=== PATIENT | female | born 1960 | race African-American/Black ===

== ENCOUNTER 2020-03-21 15:05 | Inpatient (IN) | payer OTHER, SELFPAY ==
[2020-03-21] VITALS (16 sets, daily range): BP systolic 70–157; BP diastolic 50–109; PULSE 60–94; RESP 15–18; TEMP 36.4–36.5; O2SAT 96–100; BMI 22.4
--- NOTE | ~2020-03-21 | XR_ITS ---
EXAMINATION: XR chest 1V portable INDICATION: Shortness of breath, STEMI TECHNIQUE: Portable AP chest at 1554 hours COMPARISON: 11/07/2019 FINDINGS: There is stable cardiomegaly. The lungs are hyperinflated but free of acute opacities. Ther e is no pleural effusion or pneumothorax. A single lead pacemaker/AICD of the left chest wall ends wi th its lead in the right ventricle. A coronary artery stent is noted. IMPRESSION: 1. Stable cardiomegaly. Reviewed, dictated and finalized at location A. IMPRESSION: 1. Stable cardiomegaly.
--- NOTE | ~2020-03-21 | CT_ITS ---
EXAMINATION: CT brain wo con INDICATION: Dizziness and speech difficulty COMPARISON: 11/07/2019 TECHNIQUE: Standard unenhanced head CT. The dose-length product (DLP) was 605.33 mGy-cm. The mA was a djusted according to patient size. Iterative reconstruction technique was employed. FINDINGS: There is no acute intraparenchymal hemorrhage. No evidence of mass lesion. No evidence of a cute infarction. There is encephalomalacia in the left frontotemporal and right frontoparietal region s, consistent with prior infarction. There is mild periventricular and subcortical hypodensity probab ly related to small vessel ischemic disease. There is mild prominence of the sulci and ventricles rel ated to cerebral atrophy. Intracranial calcified cerebral atherosclerosis is noted. There are no extr a-axial collections. There is no mass effect or midline shift. The orbits and soft tissues are unrema rkable. The visualized sinuses and mastoid air cells are well aerated. IMPRESSION: 1. Areas of prior infarction without acute intracranial abnormality. 2. Age related findings. Reviewed, dictated and finalized at location A.
--- NOTE | ~2020-03-21 | XR_ITS ---
XR chest 2V DATE: 03/22/2020 15:35 INDICATION: 24 hours post pacemaker insertion TECHNIQUE: AP and lateral chest COMPARISON: 03/21/2020 portable AP chest FINDINGS: Left AICD pacemaker device, with single lead and right ventricular apex. Cardiomegaly. Aort ic calcification. No hilar or mediastinal enlargement. Bilateral hyperinflation. No pulmonary infiltrate or consolidation, pleural effusion or pulmonary vas cular congestion or pneumothorax. Diffuse osteopenia. IMPRESSION: Left AICD/pacemaker device; no pneumothorax Megaly No active pulmonary disease: Bilateral hyperinflation Reviewed, dictated and finalized at location A.
--- NOTE | 2020-03-21 15:23 | ECG_ITS ---
Measurements Intervals [place] Rate: 150 P: [place]: 0 QRS: 7 QRSD: 116 T: -88 QT: 324 QTc: 512 Interpretive Statements ATRIAL FLUTTER/TACHYCARDIA WITH RAPID VENTRICULAR RESPONSE RSR' IN V1 OR V2, CONSIDER RIGHT VENTRICULAR HYPERTROPHY OR RIGHT VCD POOR R WAVE PROGRESSION, ANTERIOR LEADS INFERIOR INFARCT, AGE INDETERMINATE ST ELEVATION IN ANTERIOR LEADS- CONSIDER ACUTE INJURY BASELINE ARTIFACT- I, III, V5-V6 ABNORMAL ECG Electronically Signed On 03-22-2020 7:14:33 CDT by Julio Cesar Sandra D.O.
--- NOTE | 2020-03-21 15:30 | ECG_ITS ---
Measurements Intervals [place] Rate: 81 P: 77 [place]: 171 QRS: 68 QRSD: 94 T: 0 QT: 354 QTc: 413 Interpretive Statements SINUS RHYTHM ATRIAL AND VENTRICULAR PREMATURE COMPLEXES LEFT ATRIAL ENLARGEMENT LEFT VENTRICULAR HYPERTROPHY WITH ST-T CHANGE POOR R WAVE PROGRESSION, ANTERIOR LEADS INFERIOR INFARCT, CONSIDER RECENT ABNORMAL ECG Electronically Signed On 03-22-2020 7:14:52 CDT by Julio Cesar Sandra D.O.
[2020-03-21] MEDS: AMIODARONE 150 MG/D5W 100 ML 150 MG/100 ML BAG 400 MG (15:31)
[2020-03-21] MEDS: SODIUM CHLORIDE 0.9% IV 1,000 ML 50 ML IV CONT (15:36)
[2020-03-21] MEDS: AMIODARONE 360 MG/D5W 200 ML 360 MG/200 ML BAG 33.3 MG (15:40)
[2020-03-21] MEDS: ASPIRIN 81 MG CHEWABLE TABLET 324 MG PO (15:41)
[2020-03-21 15:42] LABS: Basophils Absolute Auto 0.1 K/mm3 (0.0-0.1); Basophils Percent Auto 0.9 % (0.2-1.2); Eosinophils Absolute Auto 0.2 K/mm3 (0-0.3); Eosinophils Percent Auto 2.5 % (0-4.4); Hematocrit 43.1 % (37.0-47.0); Hemoglobin 13.8 g/dL (12.0-15.0); Immature Granulocyte Absolute 0.02 K/mm3 (0.00-0.031); Immature Granulocyte Percent A 0.3 % (0-0.5); Lymphocytes Absolute Auto 3.91 K/mm3 (0.9-3.2); Lymphocytes Percent Auto 58.4 % (18.3-44.2); Mean Corpuscular Hemoglobin 27.2 pg (26-34); Mean Corpuscular Volume 84.8 fl (80-100); Mean Platelet Volume 10.8 fl (7.4-10.4); Monocytes Absolute Auto 0.3 K/mm3 (0.1-0.6); Monocytes Percent Auto 4.8 % (2.6-8.5); Neutrophils Absolute Auto 2.2 K/mm3 (1.3-6.7); Neutrophils Percent Auto 33.1 % (45.5-73.1); Platelet Count Result 218 k/mm3 (150-375); Red Blood Count 5.08 M/mm3 (4.2-5.4); Red Cell Distribution Width 14.9 % (11.5-14.5); White Blood Count 6.7 K/mm3 (4.5-10.0)
--- NOTE | 2020-03-21 15:45 | PC.NURSE ---
EDP at bedside discussing POC, updating pt, STEMI called overhead [id number].
[2020-03-21 15:53] LABS: Blood Urea Nitrogen 23 mg/dL (7-17); Calcium 9.2 mg/dL (8.4-10.2); Carbon Dioxide 25 mmol/L (22-30); Chloride 107 mmol/L (98-107); Estimated CRCL calculation 45 ml/min; Estimated Glomerular Filt Rate > 60; Glucose 93 mg/dL (65-105); Sodium 138 mmol/L (137-145)
--- NOTE | 2020-03-21 15:57 | PC.NURSE ---
1 INCH Nitro paste applied to right upper back per SUZE Purcell.
--- NOTE | 2020-03-21 16:03 | PC.NURSE ---
VS HR 82, O@ 99% on room air, R 18, BP 158/80. Pt currently having CP, rates it an 06/14. EDP Dr Purcell aware.
--- NOTE | 2020-03-21 16:04 | ED.SOB ---
HPI - SOB/Dyspnea General Chief Complaint: Shortness of Breath/Dyspnea Stated Complaint: SOB WEAK, HESITENT SPEECH Time Seen by Provider: 03/21/20 15:27 History of Present Illness HPI Narrative: Patient presents with her daughter for numerous symptoms. She had some speech difficulty at 9 AM noticed by a relative on the phone. She she had some chest pain at 11 AM. She had some shortness of breath prior to arrival. She has a pacer defibrillator, but she was in ventricular tachycardia when she arrived. The rate was around 170. Amiodarone bolus was given, and she converted to sinus. She had no chest pain at that time. The repeat EKG showed ST elevation in the inferior leads. STEMI was called,. She has had some nausea without this. MD elicited complaint: shortness of breath Pertinent past history: COPD Onset (ago): hour(s) Timing: intermittent Severity: moderate Exacerbating factors: nothing Relieving factors: nothing Known history of: COPD and congestive heart failure Associated symptoms: chest pain and nausea/vomiting Related Data Home oxygen amount: 2 liters Home Medications Medication Instructions Recorded Confirmed aspirin 81 mg tablet,delayed 81 mg PO DAILY 10/01/19 03/16/20 release atorvastatin 80 mg tablet 80 mg PO DAILY 10/01/19 03/16/20 dabigatran etexilate 150 mg capsule 150 mg PO BID 10/01/19 03/16/20 furosemide 20 mg tablet 20 mg PO DAILY PRN tablet 10/01/19 03/16/20 isosorbide mononitrate 60 mg 60 mg PO BID tablet 10/01/19 03/16/20 tablet,extended release 24 hr nitroglycerin 0.4 mg sublingual 0.4 mg SUBLINGUAL Q5M PRN 10/01/19 03/16/20 tablet fluticasone propion-salmeterol 1 inh INHALATION DAILY 11/07/19 03/16/20 [Wixela Inhub] Allergies Allergy/AdvReac Type Severity Reaction Status Date / Time strawberry Allergy Severe Hives Verified 03/21/20 15:46 Review of Systems Review of Systems: Narrative: CONSTITUTIONAL: Denies fever, chills, or sweats. EYES: Denies visual changes, redness, or discharge. ENT: Denies rhinorrhea, congestion, sore throat, or otalgia. CARDIOVASCULAR: Denies or edema. She had chest pain and palpitations prior to arrival. RESPIRATORY: Denies cough . She has had dyspnea.. GASTROINTESTINAL: Denies abdominal pain, vomiting, or diarrhea. She has had nausea. GENITOURINARY: Denies dysuria or hematuria. SKIN: Denies rash or itching. MUSCULOSKELETAL: Denies back pain, joint pain, or myalgia. NEUROLOGIC: Denies headache, numbness, or weakness. PSYCHIATRIC: Denies anxiety or depression. [facility] Past Medical History Medical History Anxiety May 2018 Asthma Atrial fibrillation Chronic systolic (congestive) heart failure CVA (cerebral vascular accident) Elevated troponin Essential (primary) hypertension History of ectopic History of placement of internal cardiac defibrillator Hyperlipidemia Myocardial infarction Pacemaker Paroxysmal atrial fibrillation Peripheral artery disease Sciatica Surgical History Surgical History H/O endoscopy Upper: 05/15/2016 H/O right heart catheterization H/O tubal ligation BL S/P angioplasty with stent Family History Family History Father Family history of malignant neoplasm Sibling Family history of tuberculosis Asthma Mother Hypertension Family history of malignant neoplasm of urinary bladder Social History Social History Social History: The patient stated that she has 5 children. She currently is not employed anywhere. She is single. She does not have a durable power assistant attorney general but wishes to be a full code. Patient continues to smoke 4 cigarettes a day. Years smoked: 40 Smoking status: Current every day smoker Tobacco type: cigarettes Second hand tobacco smoke exposure: Yes Smoking end date:
--- NOTE | 2020-03-21 16:06 | ECG_ITS ---
SINUS RHYTHM WITH SINUS ARRHYTHMIA ATRIAL PREMATURE COMPLEX LEFT ATRIAL ENLARGEMENT LEFT VENTRICULAR HYPERTROPHY WITH ST-T CHANGE POOR R WAVE PROGRESSION, ANTERIOR LEADS INFERIOR INFARCT, AGE INDETERMINATE ABNORMAL ECG Electronically Signed On 03-21-2020 18:15:40 CDT by Julio Cesar Sandra D.O. COMPARED TO ECG 03/21/2020 15:40:16 SINUS ARRHYTHMIA NOW PRESENT MTDD
[2020-03-21] MEDS: MORPHINE SULFATE 2 MG/ML INJ IV PUSH (16:10)
[2020-03-21] MEDS: METOCLOPRAMIDE HCL INJ 10 MG/2 ML VIAL IV PUSH (16:10)
[2020-03-21 16:18] LABS: INR 1.8; Prothrombin Time 20.6 Seconds (11.1-14.7)
[2020-03-21 16:19] LABS: Partial Thromboplastin Time 47.8 SECONDS (22.3-36.8)
[2020-03-21 16:29] LABS: Troponin I 0.071 ng/mL (0.000-0.034)
--- NOTE | 2020-03-21 16:53 | PM.CNCAR ---
Assessment and Plan Additional Plan Atypical chest pain, EKG shows no VT, but rather she was in atrial flutter with RVR on presentation which may have contributed to her pain and dizziness. trop mildly elevated and likely related to cardiomyopathy and atrial flutter. Last device interrogation showed known AF burden was 4.5% of time. Hx of CAD and remote Hx of PCI. currently in sinus rhythm, HTN poorly controlled, plan cont amiodarone infusion, ASA, statin, coreg 12.5 mg BID, NOAC, Lasix, Imdur and lisinopril. serial enzymes. History of Present Illness History of Present Illness Consult date/time: 03/21/20 16:53 Consult reason: atrial fibrillation Reason For Visit: SOB WEAK, HESITENT SPEECH Narrative: Patient presented with chest pain started yesterday, left side, non radiating, sharp, recurrent last for minutes, worse with inspiration and better with holding breath, no relation to activity. She was not able to sleep last night. She has been feeling dizziness all day since today morning, not associated with SOB. She is known to have AF per last device interrogation. She also had cardiomyopathy with ICD in place. Hx of PCI in 2013 per ptn. Review of Systems Review of Systems: All systems reviewed & are unremarkable except as noted in HPI and below PMFSH Past Medical History Medical History Anxiety May 2018 Asthma Atrial fibrillation Chronic systolic (congestive) heart failure CVA (cerebral vascular accident) Elevated troponin Essential (primary) hypertension History of ectopic History of placement of internal cardiac defibrillator Hyperlipidemia Myocardial infarction Pacemaker Paroxysmal atrial fibrillation Peripheral artery disease Sciatica Surgical History Surgical History H/O endoscopy Upper: 05/15/2016 H/O right heart catheterization H/O tubal ligation BL S/P angioplasty with stent Family History Family History Father Family history of malignant neoplasm Sibling Family history of tuberculosis Asthma Mother Hypertension Family history of malignant neoplasm of urinary bladder Social History Social History Social History: The patient stated that she has 5 children. She currently is not employed anywhere. She is single. She does not have a durable power assistant attorney general but wishes to be a full code. Patient continues to smoke 4 cigarettes a day. Years smoked: 40 Smoking status: Current every day smoker Tobacco type: cigarettes Second hand tobacco smoke exposure: Yes Smoking end date: 11/05/15 Alcohol intake: never Substance use: never Gender identity (if verbalized by the patient): Male Spiritual care concerns: No Meds Home Medications and Allergies Home Medications Medication Instructions Recorded Confirmed Type aspirin 81 mg tablet,delayed 81 mg PO DAILY 10/01/19 03/16/20 History release atorvastatin 80 mg tablet 80 mg PO DAILY 10/01/19 03/16/20 History dabigatran etexilate 150 mg capsule 150 mg PO BID 10/01/19 03/16/20 History furosemide 20 mg tablet 20 mg PO DAILY PRN tablet 10/01/19 03/16/20 History isosorbide mononitrate 60 mg 60 mg PO BID tablet 10/01/19 03/16/20 History tablet,extended release 24 hr nitroglycerin 0.4 mg sublingual 0.4 mg SUBLINGUAL Q5M PRN 10/01/19 03/16/20 History tablet fluticasone propion-salmeterol 1 inh INHALATION DAILY 11/07/19 03/16/20 History [Wixela Inhub] carvedilol [Coreg] 12.5 mg PO BID 30 Days #30 tablet 11/09/19 03/16/20 Rx lisinopril 10 mg PO DAILY 30 Days #30 tablet 11/09/19 03/16/20 Rx ondansetron HCl 4 mg PO Q8H PRN #20 tablet 11/09/19 03/16/20 Rx roflumilast 500 mcg tablet 500 mcg PO DAILY #30 tablet 12/08/19 03/16/20 Rx ipratropium bromide 17 2 puff INHALATION QID #1 inhalation 12/10/19 03/16/20 Rx mcg/actuati
--- NOTE | 2020-03-21 18:58 | ADMGEN ---
This patient, Lisa Díaz, was admitted to IMU Room 213-01 on 03/21/20 at 1858. Patient/family oriented to hospital policies and general routines including ID bracelet, bed and alarms, visiting hours, pain management, procedures, bathroom and other care routines, personal items, smoking policy, room service/diet, and visiting hours. Valuables list has been completed. Information on how to activate the Rapid Response Team has been discussed. Patient/Family are encouraged to report perceived risks to care and to ask questions if they do not understand what they are told or what they should do.
[2020-03-21 19:20] LABS: Troponin I 0.059 ng/mL (0.000-0.034)
--- NOTE | 2020-03-21 19:30 | PM.IMHP ---
H&P: HPI History of Present Illness Chief complaint: Weakness, shortness of breath. Narrative: Lisa Díaz is a 59-year-old female with a complex medical history to include coronary artery disease, paroxysmal atrial fibrillation, ischemic cardiomyopathy status post PM/AICD, COPD, obstructive sleep apnea, chronic respiratory failure on p.r.n. oxygen, hypertension, and history of CVA who presented to the emergency department earlier today via EMS from home for evaluation of shortness of breath and weakness. She has not been feeling well for the past 3 days, and describes vague symptoms to include occasional dizziness, decreased appetite, nausea, an intermittent and diffuse throbbing headache, rhinorrhea, postnasal drip, dry cough, and dyspnea on exertion. This morning her niece was concerned as reportedly the patient seemed to have some difficulties with speech while they were having a conversation over the phone. The patient herself did not recognize that, however, and seems to have normal speech at this time. She does mention that with her stroke a couple of years ago that she suffered from dysarthria, and at times when she is sick or tired that she will have some hesitant speech. In any regard, at around 11:00 she developed fairly sudden onset of midsternal chest discomfort that she describes as throbbing and occasionally sharp in nature associated with increasing shortness of breath. Her symptoms continued for several hours and thus she called her daughter to bring her in for evaluation. When prompted, the patient admits to having a similar episode yesterday evening, and in fact slept poorly last night due to this midsternal chest discomfort. On arrival to the emergency department she was found to be in atrial flutter with rapid ventricular response with a rate near 170 beats per minute for which she was bolused with amiodarone and gnosticist of sinus rhythm. Initially it was thought that she was perhaps in ventricular tachycardia and that her EKG demonstrated ST elevation, however Dr. Dillard feels that she was in atrial flutter with rapid ventricular response and that there was no ST elevation. At the time my evaluation, she feels better but still has some shortness of breath. She states compliance with her home inhalers and nebulizers, however says she has not been using her p.r.n. oxygen. She denies fever, chills, and sweats. She has not left the house much, and if she is in public she will wear a face mask. She denies recent travel and sick contacts. No exposure to those who have tested positive for COVID-19. She also denies vertigo, auditory and visual changes, focal weakness, and paresthesias. No pleuritic pain or edema. Review of Systems Review of Systems: Narrative: Twelve systems were reviewed with pertinent positives and negatives as per HPI. No fever, chills, or sweats. Denies dysphagia. No abdominal pain or vomiting. She denies diarrhea and constipation. No dysuria. States compliance with CPAP. No history of venous thromboembolism. Except as documented, all other systems were reviewed and are negative. [facility] Past Medical History Medical History (Updated 03/21/20 @ 21:18 by Elena Bender PA-C) Anxiety Cerebrovascular accident Presenting with dysarthria and dysphagia, improved. Chronic obstructive pulmonary disease Chronic respiratory failure with hypoxia, on home oxygen therapy On p.r.n. oxygen. Coronary artery disease Followed by [facility] in [place], [place]. Elevated troponin Essential hypertension History of ectopic Hyperlipidemia Ischemic cardiomyopathy Status post PPM/AICD insertion. 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
[2020-03-21] MEDS: ALBUTEROL SULFATE NEB 2.5 MG/3 ML INH INHALATION (20:55)
[2020-03-21] MEDS: lisinopriL 10 MG TABLET PO (21:06)
[2020-03-21] MEDS: carvediloL 12.5 MG TABLET PO (21:06)
[2020-03-21] MEDS: ACETAMINOPHEN 325 MG TABLET 650 MG PO (21:06)
[2020-03-21] MEDS: DABIGATRAN ETEXILATE 150 MG CAPSULE PO (21:06)
[2020-03-21] MEDS: AMIODARONE 360 MG/D5W 200 ML 360 MG/200 ML BAG 16.7 MG IV CONT (21:51)
[2020-03-21 22:21] LABS: Magnesium 1.7 mg/dL (1.6-2.3); Phosphorus 4.1 mg/dL (2.5-4.5)
[2020-03-21 22:22] LABS: Alanine Aminotransferase 10 U/L (4-35); Alkaline Phosphatase 91 U/L (38-126); Aspartate Amino Transferase 21 U/L (14-36); Bilirubin,Total < 0.1 mg/dL (0.2-1.3)
[2020-03-21 22:35] LABS: Troponin I 0.071 ng/mL (0.000-0.034)
--- NOTE | 2020-03-21 22:39 | PC.NURSE ---
Heart rate dropped to 39 and sustaining in low 40s. Amiodarone drip stopped and call placed to Elena KELLEY. Waiting for return call. Pt alert and oriented no s/s of distress.
--- NOTE | 2020-03-21 22:51 | ECG_ITS ---
Measurements Intervals [place] Rate: 43 P: 90 [place]: 187 QRS: 71 QRSD: 108 T: 180 QT: 496 QTc: 420 Interpretive Statements SINUS BRADYCARDIA LEFT ATRIAL ENLARGEMENT POOR R WAVE PROGRESSION, ANTERIOR LEADS INFERIOR INFARCT, AGE INDETERMINATE ST ELEVATION IN ANTEROLATERAL LEADS- CONSIDER ACUTE INJURY ABNORMAL ECG Electronically Signed On 03-22-2020 7:19:47 CDT by Julio Cesar Sandra D.O.
[2020-03-21] MEDS: SODIUM CHLORIDE 0.9% IV 250 ML 999 ML IV CONT (23:45)
[2020-03-22] VITALS (33 sets, daily range): BP systolic 97–126; BP diastolic 8–66; PULSE 47–86; RESP 16–20; TEMP 35.9–36.6; O2SAT 95–100
--- NOTE | 2020-03-22 06:33 | ECG_ITS ---
Measurements Intervals [place] Rate: 79 P: 86 [place]: 201 QRS: 56 QRSD: 100 T: 75 QT: 403 QTc: 463 Interpretive Statements SINUS RHYTHM LEFT ATRIAL ENLARGEMENT INFERIOR INFARCT, AGE INDETERMINATE LEFT VENTRICULAR HYPERTROPHY AND ST-T CHANGE POOR R WAVE PROGRESSION, ANTERIOR LEADS BORDERLINE T WAVE ABNORMALITY- HIGH LATERAL LEADS BASELINE ARTIFACT- I, II, AVR, AVL ABNORMAL ECG Electronically Signed On 03-22-2020 10:10:42 CDT by Julio Cesar Sandra D.O.
[2020-03-22] MEDS: ALBUTEROL SULFATE NEB 2.5 MG/3 ML INH INHALATION ×4 (08:03→20:52)
[2020-03-22] MEDS: ACETAMINOPHEN 325 MG TABLET 650 MG PO ×3 (09:29→23:33)
--- NOTE | 2020-03-22 09:37 | PM.PNCARD ---
Progress Note: A&P Assessment and Plan (1) Atrial flutter with rapid ventricular response: Code(s): I48.92 - Unspecified atrial flutter Status: Acute Assessment and Plan: Converted to sinus rhythm/sinus bradycardia with hypotension. Blood pressure better this morning. ICD interrogation done. Device is functioning normally. Greater than 6 hours of atrial arrhythmia yesterday. Has some episodes of atrial fibrillation intermittently. Continue carvedilol 12.5 mg b.i.d.. Continue Pradaxa 150 mg b.i.d.. As she was so symptomatic with the atrial flutter will start amiodarone 400 mg daily. Monitor heart rates. EKG tomorrow. (2) Chest pain: Qualifiers: Chest pain type: other chest pain Qualified Code(s): R07.89 - Other chest pain Code(s): R07.9 - Chest pain, unspecified Status: Acute Assessment and Plan: Atypical. Flat troponin elevation likely related to cardiomyopathy and atrial flutter. Nitro paste patch removed from upper back. Continue aspirin, atorvastatin, carvedilol and lisinopril. Hold isosorbide mononitrate today due to hypotension yesterday. Additional Plan Plan discussed with Dr Levi 12:00 p.m. 03/22/2020 Complaining of dizziness again this afternoon. Blood pressure is soft. States she takes lisinopril only once a day. Will decrease to 5 mg daily. Stop Imdur. Stressed that she will need to follow up with her established manager support services in [place] within the next 2 weeks. Time Spent With Patient Time with patient: 15 - 25 minutes Subjective Date/time seen: 03/22/20 09:37 Interval history: Follow-up for: Atrial flutter with rapid ventricular response-resolved, atypical chest pain, elevated troponin, history of coronary artery disease, ischemic cardiomyopathy with ventral single-chamber ICD. Date of service: 03/22/2020 Subjective: Usual sharp shooting chest discomfort intermittently. Denied shortness of breath. Complains of dizziness. Review of Systems Eyes: Eyes: Denies blurry vision ENT: Reports Normal hearing present, Reports dizziness (resolved) and Denies epistaxis Cardiovascular: Cardiovascular: Reports chest pain (atypical), Reports lightheadedness (resolved) and Denies dyspnea Respiratory: Respiratory: Reports cough and Denies dyspnea Gastrointestinal: Gastrointestinal: Denies abdominal pain and Reports bloating Genitourinary: Genitourinary: Denies hematuria Musculoskeletal: Musculoskeletal: Denies back pain Integumentary/Breasts: Skin/Breast: Reports dry skin Neurologic: Reports headache(s) Psychiatric: Psychiatric: Denies anxiety Exam Const: General: comfortable and no acute distress Other: Laying flat in bed on room air. HENMT: General nose exam: Normal nares present and no epistaxis Mouth: Yes moist mucous membranes Eyes: Sclera: sclerae normal Pupils: Equal, round and reactive pupils present Neck: Neck: supple and no JVD Resp: Effort & Inspection: normal respiratory effort and able to speak in complete sentences Auscultation: no wheezes and diminished lung sounds Cardio: Jugular venous distension: no JVD Rate: regular rate Rhythm: regular rhythm Heart sounds: no gallops, no murmurs and no rubs Peripheral pulses: Peripheral pulses 2+ throughout GI: Inspection: non-distended GI Palp: Yes Soft to palpation Auscultation: normal bowel sounds Skin: General skin exam: normal color, no rashes or lesions noted and no erythema Other: Warm Neuro: General: patient oriented x3 Cranial nerves: Yes Equal, round and reactive pupils present Speech: normal speech Other: Extrem: General: normal to inspection and no edema Psych: Mental Status: mental status grossly normal Affect: normal affect Objective Data Vital Signs Vital Signs: Vital Signs - 24 hr 03/21/20 15:08 03/21/20 15:44 03/21/20 16:30 Temperature 36.4 C Pulse Rate 90 94
[2020-03-22] MEDS: DABIGATRAN ETEXILATE 150 MG CAPSULE PO ×2 (11:53→20:58)
[2020-03-22] MEDS: ASPIRIN 81 MG ENTERIC TABLET PO (11:54)
[2020-03-22] MEDS: ROFLUMILAST 500 MCG TABLET PO (11:54)
[2020-03-22] MEDS: ATORVASTATIN 40 MG TABLET 80 MG PO (11:54)
[2020-03-22] MEDS: lisinopriL 10 MG TABLET PO (11:55)
[2020-03-22] MEDS: carvediloL 12.5 MG TABLET PO ×2 (11:55→20:58)
--- NOTE | 2020-03-22 17:11 | P.PNIM_ITS ---
Progress Note: A&P Assessment and Plan (1) Atrial flutter with rapid ventricular response: Code(s): I48.92 - Unspecified atrial flutter Status: Acute Assessment and Plan: * Initially it was thought she was in ventricular tachycardia however Dr. Wilda Croft feels it was atrial flutter with rapid ventricular response. * She was bolused with amiodarone with subsequent baptist of sinus rhythm, and we will continue with infusion of such. * She has a history of atrial fibrillation and is on Pradaxa, which will also be continued. * Dr. Dillard's consult is appreciated. 03/22/20 17:11 Patient 59 female with history ischemic cardiomyopathy ICD, poorly-controlled hypertension, coronary artery disease, atrial fibrillation, patient had been feeling not well for last 3 days prior to coming to emergency department however symptoms were getting progressively worse tired and fatigue was brought to the emergency department further evaluation she was found to have atrial flutter with rate to 170, patient was given bolus of amiodarone and continued on the drip patient did converted back to sinus rhythm, ICD interrogation was done and it is functioning normally. Today patient is feeling much better compared to when she arrived patient is seen by operations specialists Coreg 12.5 mg continue and amiodarone 400 mg is added, patient clinically stable will continue to monitor and patient is seen by operations specialists further recommendation to follow, will have a PT OT evaluate the patient and treat (2) Elevated troponin: Code(s): R79.89 - Other specified abnormal findings of blood chemistry Status: Acute Assessment and Plan: * Patient was having some mild discomfort earlier today, likely related to RVR. * STEMI initially called in the emergency department but no evidence of such per Dr. Dillard. * Troponins will be trended, and have remained flat thus far. (3) Dysarthria: Code(s): R47.1 - Dysarthria and anarthria Status: Acute Assessment and Plan: * Reportedly she had a brief episode of dysarthria this morning while speaking with her niece on the phone. * She does have paroxysmal atrial fibrillation/flutter but is on long-term anticoagulation. * She has no deficits at this time, and thus MRI is not necessarily indicated as she likely had a TIA. * Continue maximum medical treatment including aspirin, dabigatran, and statin. (4) Ischemic cardiomyopathy: Code(s): I25.5 - Ischemic cardiomyopathy Status: Acute Assessment and Plan: * Patient is followed by [facility] in [place]. * Echocardiogram in August 2019 reviewed and is as detailed above. * She is clinically compensated and we will monitor volume status closely. * Interrogate PM/ICD. (5) Chronic obstructive pulmonary disease: Code(s): J44.9 - Chronic obstructive pulmonary disease, unspecified Status: Acute Assessment and Plan: * No acute exacerbation at this time. * Continue home inhalers and nebulizers. * Shortness of breath earlier today was likely related to RVR as she has improved. (6) Obstructive sleep apnea on CPAP: Code(s): G47.33 - Obstructive sleep apnea (adult) (pediatric); Z99.89 - Dependence on other enabling machines and devices Status: Acute Assessment and Plan: * Hos
--- NOTE | 2020-03-22 17:11 | PM.IMPN ---
Progress Note: A&P Assessment and Plan (1) Atrial flutter with rapid ventricular response: Code(s): I48.92 - Unspecified atrial flutter Status: Acute Assessment and Plan: Initially it was thought she was in ventricular tachycardia however Dr. Wilda Croft feels it was atrial flutter with rapid ventricular response. She was bolused with amiodarone with subsequent rastafarian of sinus rhythm, and we will continue with infusion of such. She has a history of atrial fibrillation and is on Pradaxa, which will also be continued. Dr. Dillard's consult is appreciated. 03/22/20 17:11 Patient 59 female with history ischemic cardiomyopathy ICD, poorly-controlled hypertension, coronary artery disease, atrial fibrillation, patient had been feeling not well for last 3 days prior to coming to emergency department however symptoms were getting progressively worse tired and fatigue was brought to the emergency department further evaluation she was found to have atrial flutter with rate to 170, patient was given bolus of amiodarone and continued on the drip patient did converted back to sinus rhythm, ICD interrogation was done and it is functioning normally. Today patient is feeling much better compared to when she arrived patient is seen by strap cutting machine operator Coreg 12.5 mg continue and amiodarone 400 mg is added, patient clinically stable will continue to monitor and patient is seen by strap cutting machine operator further recommendation to follow, will have a PT OT evaluate the patient and treat (2) Elevated troponin: Code(s): R79.89 - Other specified abnormal findings of blood chemistry Status: Acute Assessment and Plan: Patient was having some mild discomfort earlier today, likely related to RVR. STEMI initially called in the emergency department but no evidence of such per Dr. Dillard. Troponins will be trended, and have remained flat thus far. (3) Dysarthria: Code(s): R47.1 - Dysarthria and anarthria Status: Acute Assessment and Plan: Reportedly she had a brief episode of dysarthria this morning while speaking with her niece on the phone. She does have paroxysmal atrial fibrillation/flutter but is on long-term anticoagulation. She has no deficits at this time, and thus MRI is not necessarily indicated as she likely had a TIA. Continue maximum medical treatment including aspirin, dabigatran, and statin. (4) Ischemic cardiomyopathy: Code(s): I25.5 - Ischemic cardiomyopathy Status: Acute Assessment and Plan: Patient is followed by [facility] in [place]. Echocardiogram in August 2019 reviewed and is as detailed above. She is clinically compensated and we will monitor volume status closely. Interrogate PM/ICD. (5) Chronic obstructive pulmonary disease: Code(s): J44.9 - Chronic obstructive pulmonary disease, unspecified Status: Acute Assessment and Plan: No acute exacerbation at this time. Continue home inhalers and nebulizers. Shortness of breath earlier today was likely related to RVR as she has improved. (6) Obstructive sleep apnea on CPAP: Code(s): G47.33 - Obstructive sleep apnea (adult) (pediatric); Z99.89 - Dependence on other enabling machines and devices Status: Acute Assessment and Plan: Hospital CPAP available to the patient for use while sleeping. (7) Tobacco dependence: Code(s): F17.200 - Nicotine dependence, unspecified, uncomplicated Status: Acute Assessment and Plan: Smoking cessation is imperative and was discussed. She mentions having a lengthy discussion with her
[2020-03-22] MEDS: GABAPENTIN 400 MG CAPSULE PO (17:30)
[2020-03-22] MEDS: AMIODARONE HCL 200 MG TABLET 400 MG PO (17:30)
[2020-03-23] VITALS (12 sets, daily range): BP systolic 120–154; BP diastolic 59–81; PULSE 57–70; RESP 16–22; TEMP 36.1–36.2; O2SAT 99–100
[2020-03-23] MEDS: ACETAMINOPHEN 325 MG TABLET 650 MG PO (07:14)
--- NOTE | 2020-03-23 08:00 | ECG_ITS ---
Measurements Intervals [place] Rate: 66 P: 84 MA: 185 QRS: 63 QRSD: 94 T: 71 QT: 416 QTc: 438 Interpretive Statements SINUS RHYTHM LEFT ATRIAL ENLARGEMENT LEFT VENTRICULAR HYPERTROPHY WITH ST-T CHANGE POOR R WAVE PROGRESSION, ANTERIOR LEADS INFERIOR INFARCT, AGE INDETERMINATE BORDERLINE T WAVE ABNORMALITY- HIGH LATERAL LEADS BASELINE ARTIFACT- I, II, AVR, AVL, AVF ABNORMAL ECG Electronically Signed On 03-23-2020 11:29:38 CDT by Julio Cesar Sandra D.O.
[2020-03-23] MEDS: ALBUTEROL SULFATE NEB 2.5 MG/3 ML INH INHALATION ×2 (08:47→12:47)
[2020-03-23] MEDS: ASPIRIN 81 MG ENTERIC TABLET PO (09:00)
[2020-03-23] MEDS: DABIGATRAN ETEXILATE 150 MG CAPSULE PO (09:00)
[2020-03-23] MEDS: GABAPENTIN 400 MG CAPSULE PO ×2 (09:00→14:14)
[2020-03-23] MEDS: ROFLUMILAST 500 MCG TABLET PO (09:00)
[2020-03-23] MEDS: AMIODARONE HCL 200 MG TABLET 400 MG PO (09:00)
[2020-03-23] MEDS: carvediloL 12.5 MG TABLET PO (09:01)
[2020-03-23] MEDS: lisinopriL 5 MG TABLET PO (09:01)
[2020-03-23] MEDS: ATORVASTATIN 40 MG TABLET 80 MG PO (09:02)
--- NOTE | 2020-03-23 11:53 | PM.PNCARD ---
Progress Note: A&P Assessment and Plan (1) Atrial flutter with rapid ventricular response: Code(s): I48.92 - Unspecified atrial flutter Status: Acute Assessment and Plan: Converted to sinus rhythm/sinus bradycardia with hypotension. ICD interrogation done. Device is functioning normally. Greater than 6 hours of atrial arrhythmia yesterday. Has some episodes of atrial fibrillation intermittently. TSH within normal limits. Continue carvedilol 12.5 mg b.i.d.. Continue Pradaxa 150 mg b.i.d.. As she was so symptomatic with the atrial flutter amiodarone 400 mg daily started. No significant bradycardia overnight. EKG this morning: QTC 438 milliseconds. Will continue amiodarone at 400 mg daily to suppress the atrial flutter. Stressed the importance of her following up with her established call center recruiter within the next 2 weeks. (2) Chest pain: Qualifiers: Chest pain type: other chest pain Qualified Code(s): R07.89 - Other chest pain Code(s): R07.9 - Chest pain, unspecified Status: Acute Assessment and Plan: Atypical. Flat troponin elevation likely related to cardiomyopathy and atrial flutter. Denied chest discomfort today. Continue aspirin, atorvastatin, carvedilol and lisinopril. Isosorbide mononitrate held due to hypotension and dizziness yesterday. No chest discomfort. Would not restart at this time. Again she is to follow up with her established call center recruiter 1-2 weeks. (3) Ischemic cardiomyopathy: Code(s): I25.5 - Ischemic cardiomyopathy Status: Acute Assessment and Plan: Continue carvedilol at 12.5 mg b.i.d.. Isosorbide mononitrate discontinued. Lisinopril decreased to 5 mg daily due to soft blood pressure accompanied by dizziness. Additional Plan OK to discharge from cardiac standpoint. She is to make an appointment to follow up with her established call center recruiter in the next 2 weeks She is to take her lab work as well as samples of her EKGs to her appointment. Plan discussed Dr. Cobos [id number] 03/23/2020 Time Spent With Patient Time with patient: less than 15 minutes Subjective Date/time seen: 03/23/20 11:53 Interval history: Follow-up for: Atrial flutter with rapid ventricular response-resolved, atypical chest pain, elevated troponin, history of coronary artery disease, ischemic cardiomyopathy with ventral single-chamber ICD. Date of service: 03/23/2020 Subjective: Feeling much better than yesterday. Headache almost completely resolved. No dizziness, chest discomfort or shortness of breath. Wants to go home. Review of Systems Constitutional: Constitutional: Reports headache(s) (Almost gone) Eyes: Eyes: Denies blurry vision ENT: Reports Normal hearing present, Reports dizziness (resolved), Reports headache(s) and Denies epistaxis Cardiovascular: Cardiovascular: Denies chest pain, Denies lightheadedness and Denies dyspnea Respiratory: Respiratory: Denies cough and Denies dyspnea Gastrointestinal: Gastrointestinal: Denies abdominal pain Genitourinary: Genitourinary: Denies hematuria Musculoskeletal: Musculoskeletal: Denies back pain Integumentary/Breasts: Skin/Breast: Reports dry skin Neurologic: Reports Normal hearing present, Reports dizziness (resolved) and Reports headache(s) Psychiatric: Psychiatric: Denies anxiety Hematologic/Lymphatic: Hematologic/Lymphatic: Denies easy bruising Exam Const: General: comfortable and no acute distress Orientation/consciousness: patient oriented x3 Other: Smiling. Laying flat in bed again this morning on room air. HENMT: General nose exam: Normal nares present and no epistaxis Mouth: Yes moist mucous membranes Eyes: Sclera: sclerae normal Pupils: Equal, round and reactive pupils present Neck: Neck: supple and no JVD Carotids: no bruits Resp: Effort & Inspection: normal respiratory effort and able to speak
[2020-03-23 13:13] LABS: Hematocrit 38.2 % (37.0-47.0); Hemoglobin 12.2 g/dL (12.0-15.0); Mean Corpuscular HGB Conc 31.9 g/dl (32-36); Mean Corpuscular Hemoglobin 27.1 pg (26-34); Mean Corpuscular Volume 84.9 fl (80-100); Mean Platelet Volume 11.6 fl (7.4-10.4); Platelet Count Result 173 k/mm3 (150-375); Red Cell Distribution Width 14.9 % (11.5-14.5)
[2020-03-23 13:29] LABS: Blood Urea Nitrogen 11 mg/dL (7-17); Calcium 9.3 mg/dL (8.4-10.2); Carbon Dioxide 22 mmol/L (22-30); Chloride 109 mmol/L (98-107); Estimated CRCL calculation 50 ml/min; Estimated Glomerular Filt Rate > 60; Glucose 104 mg/dL (65-105); Magnesium 1.9 mg/dL (1.6-2.3); Sodium 137 mmol/L (137-145)
--- NOTE | 2020-03-23 13:41 | PM.DS ---
DS: Summary Hospital Course Reason for hospitalization: Lisa Díaz is a 59-year-old female with a complex medical history to include coronary artery disease, paroxysmal atrial fibrillation, ischemic cardiomyopathy status post PM/AICD, COPD, obstructive sleep apnea, chronic respiratory failure on p.r.n. oxygen, hypertension, and history of CVA who presented to the emergency department earlier today via EMS from home for evaluation of shortness of breath and weakness. She has not been feeling well for the past 3 days, and describes vague symptoms to include occasional dizziness, decreased appetite, nausea, an intermittent and diffuse throbbing headache, rhinorrhea, postnasal drip, dry cough, and dyspnea on exertion. This morning her niece was concerned as reportedly the patient seemed to have some difficulties with speech while they were having a conversation over the phone. The patient herself did not recognize that, however, and seems to have normal speech at this time. She does mention that with her stroke a couple of years ago that she suffered from dysarthria, and at times when she is sick or tired that she will have some hesitant speech. In any regard, at around 11:00 she developed fairly sudden onset of midsternal chest discomfort that she describes as throbbing and occasionally sharp in nature associated with increasing shortness of breath. Her symptoms continued for several hours and thus she called her daughter to bring her in for evaluation. When prompted, the patient admits to having a similar episode yesterday evening, and in fact slept poorly last night due to this midsternal chest discomfort. On arrival to the emergency department she was found to be in atrial flutter with rapid ventricular response with a rate near 170 beats per minute for which she was bolused with amiodarone and voodoo of sinus rhythm. Initially it was thought that she was perhaps in ventricular tachycardia and that her EKG demonstrated ST elevation, however Dr. Dillard feels that she was in atrial flutter with rapid ventricular response and that there was no ST elevation. At the time my evaluation, she feels better but still has some shortness of breath. She states compliance with her home inhalers and nebulizers, however says she has not been using her p.r.n. oxygen. She denies fever, chills, and sweats. She has not left the house much, and if she is in public she will wear a face mask. She denies recent travel and sick contacts. No exposure to those who have tested positive for COVID-19. She also denies vertigo, auditory and visual changes, focal weakness, and paresthesias. No pleuritic pain or edema. Hospital Course: 03/22/20 17:11 Patient 59 female with history ischemic cardiomyopathy ICD, poorly-controlled hypertension, coronary artery disease, atrial fibrillation, patient had been feeling not well for last 3 days prior to coming to emergency department however symptoms were getting progressively worse tired and fatigue was brought to the emergency department further evaluation she was found to have atrial flutter with rate to 170, patient was given bolus of amiodarone and continued on the drip patient did converted back to sinus rhythm, ICD interrogation was done and it is functioning normally. Today patient is feeling much better compared to when she arrived patient is seen by technical services coordinator Coreg 12.5 mg continue and amiodarone 400 mg is added, patient clinically stable will continue to monitor and patient is seen by technical services coordinator further recommendation to follow, will have a PT OT evaluate the patient and treat, Patient is clincially stable and seen by her technical services coordinator, will discharge today. Status at Discharge Functional status at discharge: independent ambulation Overall status at discharge: patient is back to baseline Time Spent with Patient Time attestation: Total time spent providing and/or coordinating discharge services: Patient was seen and
== END 2020-03-23 15:10 | disposition home or self-care (01) | DRG 201 ==
LOC: ANHED 18:19 → ANHIMU 18:45
PROVIDERS: Physician Assistant; Admitting Provider Family Medicine; Emergency Provider Emergency Medicine; PCP Internal Medicine; Visit Provider Family Medicine
DX: I48.92 Unspecified atrial flutter (principal); J96.11 Chronic respiratory failure with hypoxia; Z99.81 Dependence on supplemental oxygen; I11.0 Hypertensive heart disease with heart failure; I50.22 Chronic systolic (congestive) heart failure; I48.0 Paroxysmal atrial fibrillation; I25.10 Atherosclerotic heart disease of native coronary artery without angina pectoris; I25.5 Ischemic cardiomyopathy; R07.89 Other chest pain; J44.9 Chronic obstructive pulmonary disease, unspecified; F17.210 Nicotine dependence, cigarettes, uncomplicated; I73.9 Peripheral vascular disease, unspecified; R79.89 Other specified abnormal findings of blood chemistry; E78.5 Hyperlipidemia, unspecified; R47.1 Dysarthria and anarthria; Z79.82 Long term (current) use of aspirin; Z79.899 Other long term (current) drug therapy; Z86.73 Personal history of transient ischemic attack (TIA), and cerebral infarction without residual deficits; Z95.810 Presence of automatic (implantable) cardiac defibrillator; Z95.5 Presence of coronary angioplasty implant and graft
CPT/HCPCS: 36415; 70450; 71045; 71046; 80048; 80076; 83735; 84100; 84443; 84484; 85025; 85027; 85610; 85730; 93005; 94640; 96365; 96366; 96375; 99291; A9270; J0282; J2270; J2765; J7030; J7050

== ENCOUNTER 2020-06-10 10:52 | Observation (INO) | payer OTHER, SELFPAY ==
[2020-06-10] VITALS (13 sets, daily range): BP systolic 110–167; BP diastolic 54–84; PULSE 52–66; RESP 16–24; TEMP 36.1–37; O2SAT 96–100; BMI 22.2
--- NOTE | ~2020-06-10 | XR_ITS ---
EXAMINATION: XR chest 2V DATE: 06/10/2020 11:39 INDICATION: Acute midsternal chest pain and shortness of breath TECHNIQUE: AP and lateral views of the chest are obtained. COMPARISON: 03/22/2020 FINDINGS: There are minimal airspace opacities of the lung bases. No pleural effusion or pneumothorax is identified. Cardiomegaly is noted. There are coronary artery stents. A single lead pacemaker/AICD of the left chest wall ends with its lead in the right ventricle. There is moderate thoracic spondyl osis. IMPRESSION: 1. Bibasilar airspace opacity, consistent with atelectasis versus pneumonia. 2. Cardiomegaly. Reviewed, dictated and finalized at location A.
--- NOTE | 2020-06-10 10:59 | ECG_ITS ---
Measurements Intervals [place] Rate: 53 P: 91 [place]: 176 QRS: 66 QRSD: 96 T: 0 QT: 456 QTc: 430 Interpretive Statements SINUS BRADYCARDIA LEFT ATRIAL ENLARGEMENT POOR R WAVE PROGRESSION, ANTERIOR LEADS CONSIDER INFERIOR INFARCT, AGE INDETERMINATE BORDERLINE T WAVE ABNORMALITY- INF/HIGH LAT LEADS BASELINE ARTIFACT- I, II, III, V5-V6 ABNORMAL ECG Electronically Signed On 06-10-2020 11:13:29 CDT by Julio Cesar Sandra D.O.
--- NOTE | 2020-06-10 11:10 | PC.NURSE ---
RN report From
[2020-06-10] MEDS: MORPHINE SULFATE 2 MG/ML INJ IV PUSH (11:55)
[2020-06-10 11:58] LABS: Basophils Percent Auto 0.6 % (0.2-1.2); Eosinophils Absolute Auto 0.1 K/mm3 (0-0.3); Eosinophils Percent Auto 1.9 % (0-4.4); Hemoglobin 10.8 g/dL (12.0-15.0); Immature Granulocyte Absolute 0.01 K/mm3 (0.00-0.031); Immature Granulocyte Percent A 0.2 % (0-0.5); Lymphocytes Absolute Auto 2.02 K/mm3 (0.9-3.2); Lymphocytes Percent Auto 41.9 % (18.3-44.2); Mean Corpuscular HGB Conc 30.9 g/dl (32-36); Mean Corpuscular Hemoglobin 26.6 pg (26-34); Mean Corpuscular Volume 86.2 fl (80-100); Mean Platelet Volume 10.6 fl (7.4-10.4); Monocytes Absolute Auto 0.2 K/mm3 (0.1-0.6); Neutrophils Absolute Auto 2.4 K/mm3 (1.3-6.7); Neutrophils Percent Auto 50.4 % (45.5-73.1); Platelet Count Result 245 k/mm3 (150-375); Red Blood Count 4.06 M/mm3 (4.2-5.4); Red Cell Distribution Width 15.4 % (11.5-14.5); White Blood Count 4.8 K/mm3 (4.5-10.0)
[2020-06-10 12:09] LABS: Partial Thromboplastin Time 25.1 SECONDS (22.3-36.8); Prothrombin Time 12.4 Seconds (11.1-14.7)
--- NOTE | 2020-06-10 12:17 | ED.GENADULT ---
HPI - General Adult General Chief complaint: Chest Pain Stated complaint: CP/SOB Time Seen by Provider: 06/10/20 10:55 History of Present Illness HPI narrative: Patient is a 60-year-old female who presents ER with chest pain. Began last night and is progressed since then. It is sharp and central and left-sided. No radiation. No shortness of breath/nausea/vomiting/dizziness. Has history of previous MA. No runny nose/sore throat/productive cough. Has found no alleviating factors. Related Data Home Medications Medication Instructions Recorded Confirmed aspirin 81 mg tablet,delayed 81 mg PO DAILY 10/01/19 06/10/20 release atorvastatin 80 mg tablet 80 mg PO DAILY 10/01/19 06/10/20 dabigatran etexilate 150 mg capsule 150 mg PO BID 10/01/19 06/10/20 furosemide 20 mg tablet 20 mg PO DAILY PRN tablet 10/01/19 06/10/20 nitroglycerin 0.4 mg sublingual 0.4 mg SUBLINGUAL Q5M PRN 10/01/19 06/10/20 tablet fluticasone propion-salmeterol 1 inh INHALATION DAILY 11/07/19 06/10/20 [Wixela Inhub] Allergies Allergy/AdvReac Type Severity Reaction Status Date / Time strawberry Allergy Severe Hives Verified 06/10/20 11:00 Review of Systems Review of Systems: All systems reviewed & are unremarkable except as noted in HPI and below Constitutional: Constitutional: Denies chills, Denies fever(s) and Denies weakness ENT: Denies nasal congestion and Denies sore throat Cardiovascular: Cardiovascular: Reports chest pain, Denies rapid heart rate and Denies radiating jaw, neck or arm pain Respiratory: Respiratory: Denies cough, Denies dyspnea and Denies wheezing Gastrointestinal: Gastrointestinal: Denies abdominal pain, Denies nausea and Denies vomiting [facility] Past Medical History Medical History (Updated 06/10/20 @ 18:32 by Alfonzo James MD) Anxiety Cerebrovascular accident Presenting with dysarthria and dysphagia, improved. Chronic obstructive pulmonary disease Chronic respiratory failure with hypoxia, on home oxygen therapy On p.r.n. oxygen. Coronary artery disease Followed by [facility] in [place], [place]. Elevated troponin Essential hypertension History of ectopic Hyperlipidemia Ischemic cardiomyopathy Status post PPM/AICD insertion. 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 Tobacco dependence Surgical History Surgical History (Updated 03/21/20 @ 20:52 by Elena Bender PA-C) History of coronary angioplasty with insertion of stent X3. History of tubal ligation S/P ICD (internal cardiac defibrillator) procedure Social History Social History (Updated 05/20/20 @ 10:00 by Estefanía Walker [facility]) Social History: The patient lives in her own apartment in [place]. She has 5 children, and designates her daughter John Capellan, as her surrogate decision maker and she wishes to be a full code. She is not currently employed. She has smoked up to a pack of cigarettes per day since age of 16, and has been slowly trying to quit. Reportedly she is smoking 2 to 4 cigarettes a day. She denies alcohol and drug abuse. Smoking packs per day: 1 Smoking cigarettes per day: 20.0 Years smoked: 44 Smoking pack-years: 44.00 Smoking status: Current every day smoker Spiritual care concerns: No Exam Narrative: Exam Narrative: GENERAL: Well-appearing, well-nourished, and in no acute distress. HEAD: Normocephalic, atraumatic. ENT: Mucous membranes moist. CHEST: Clear to auscultation. No respiratory distress. HEART: Bradycardic and regular. N
[2020-06-10 12:41] LABS: Alanine Aminotransferase 8 U/L (4-35); Albumin Level 3.9 g/dL (3.5-5.1); Alkaline Phosphatase 76 U/L (38-126); Anion Gap 12.1 mmol/L (7-16); Aspartate Amino Transferase 19 U/L (14-36); Bilirubin,Total 0.2 mg/dL (0.2-1.3); Blood Urea Nitrogen 21 mg/dL (7-17); Calcium 8.7 mg/dL (8.4-10.2); Carbon Dioxide 26 mmol/L (22-30); Chloride 105 mmol/L (98-107); Estimated CRCL calculation 29 ml/min; Estimated Glomerular Filt Rate 46; Glucose 88 mg/dL (65-105); Potassium 4.1 mmol/L (3.4-5.0); Sodium 139 mmol/L (137-145)
[2020-06-10 13:01] LABS: Troponin I 0.043 ng/mL (0.000-0.034)
[2020-06-10 15:30] LABS: Troponin I 0.048 ng/mL (0.000-0.034)
[2020-06-10] MEDS: MORPHINE SULFATE 4 MG/ML INJ IV PUSH (16:49)
[2020-06-10] MEDS: ONDANSETRON INJ 4 MG/2 ML VIAL IV PUSH (16:52)
--- NOTE | 2020-06-10 17:00 | PM.IMHP ---
H&P: HPI History of Present Illness Date/Time: 06/10/20 17:00 Chief complaint: Chest pain. Narrative: Lisa Díaz is a 59-year-old female with a complex medical history to include coronary artery disease, paroxysmal atrial fibrillation, ischemic cardiomyopathy status post PM/AICD, COPD, obstructive sleep apnea, chronic respiratory failure on p.r.n. oxygen, hypertension, and history of CVA who presented to the emergency department earlier today via EMS from home for evaluation of chest pain. Last evening simply while sitting down watching television she developed sudden onset left upper anterior chest pain that she describes as sharp and shooting in nature. It did radiate to the left shoulder and was associated with nausea as well as shortness of breath. Initially the chest pain lasted about 3 minutes before resolving without intervention. It has reoccurred intermittently since that time, and she cannot see a pattern as to when it occurs. The pain did not improve with nitro or aspirin. She gives no aggravating factors. She denies overuse, injury, and any recent or new exercises. No abdominal pain, epigastric pain, vomiting, or indigestion. She also denies lower extremity edema, recent travel, and history of venous thromboembolism. Review of Systems Review of Systems: Narrative: Twelve systems were reviewed with pertinent positives and negatives as per HPI. She denies fever, chills, and sweats. No recent cold or flu symptoms. She denies cough and shortness of breath. No recent travel or sick contacts. Except as documented, all other systems were reviewed and are negative. [facility] Past Medical History Medical History (Updated 06/10/20 @ 23:40 by Elena Bender PA-C) Anxiety Cerebrovascular accident Presenting with dysarthria and dysphagia, improved. Chronic obstructive pulmonary disease Chronic respiratory failure with hypoxia, on home oxygen therapy On p.r.n. oxygen. Coronary artery disease Elevated troponin Essential hypertension History of ectopic Hyperlipidemia Ischemic cardiomyopathy Status post PPM/AICD insertion. 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 Tobacco dependence Surgical History Surgical History (Updated 03/21/20 @ 20:52 by Elena Bender PA-C) History of coronary angioplasty with insertion of stent X3. History of tubal ligation S/P ICD (internal cardiac defibrillator) procedure Social History Social History (Updated 05/20/20 @ 10:00 by Estefanía Walker [facility]) Social History: The patient lives in her own apartment in [place]. She has 5 children, and designates her daughter John Capellan, as her surrogate decision maker and she wishes to be a full code. She is not currently employed. She has smoked up to a pack of cigarettes per day since age of 16, and has been slowly trying to quit. Reportedly she is smoking 2 to 4 cigarettes a day. She denies alcohol and drug abuse. Smoking packs per day: 1 Smoking cigarettes per day: 20.0 Years smoked: 40 Smoking pack-years: 40.00 Smoking status: Current every day smoker Alcohol intake: never Substance use: never Substance use type: does not use Spiritual care concerns: No Meds Home Medications and Allergies Home Medications Medication Instructions Recorded Confirmed Type aspirin 81 mg tablet,delayed 81 mg PO DAILY 10/01/19 06/10/20 History release atorvastatin 80 mg tablet 80 mg PO DAILY 10/01/19 06/10/20 History dabigatran etexilate 150 mg capsule 150 mg PO BID 11
--- NOTE | 2020-06-10 17:10 | ADMGEN ---
This patient, Lisa Díaz, was admitted to IMU Room 210-01. Patient/family oriented to hospital policies and general routines including ID bracelet, bed and alarms, visiting hours, pain management, procedures, bathroom and other care routines, personal items, smoking policy, room service/diet, and visiting hours. Valuables list has been completed. Information on how to activate the Rapid Response Team has been discussed. Patient/Family are encouraged to report perceived risks to care and to ask questions if they do not understand what they are told or what they should do.
[2020-06-10 19:38] LABS: Troponin I 0.044 ng/mL (0.000-0.034)
[2020-06-10] MEDS: carvediloL 12.5 MG TABLET PO (23:10)
[2020-06-11] VITALS (21 sets, daily range): BP systolic 100–135; BP diastolic 46–65; PULSE 52–87; RESP 11–22; TEMP 36.4–37.1; O2SAT 92–100; BMI 22.4
[2020-06-11 04:45] LABS: Basophils Percent Auto 0.5 % (0.2-1.2); Eosinophils Absolute Auto 0.1 K/mm3 (0-0.3); Eosinophils Percent Auto 2.4 % (0-4.4); Hematocrit 32.6 % (37.0-47.0); Hemoglobin 10.3 g/dL (12.0-15.0); Immature Granulocyte Absolute 0.01 K/mm3 (0.00-0.031); Immature Granulocyte Percent A 0.2 % (0-0.5); Lymphocytes Percent Auto 36.2 % (18.3-44.2); Mean Corpuscular HGB Conc 31.6 g/dl (32-36); Mean Corpuscular Hemoglobin 27.2 pg (26-34); Monocytes Absolute Auto 0.3 K/mm3 (0.1-0.6); Neutrophils Percent Auto 54.7 % (45.5-73.1); Platelet Count Result 231 k/mm3 (150-375); Red Blood Count 3.79 M/mm3 (4.2-5.4); Red Cell Distribution Width 15.3 % (11.5-14.5); White Blood Count 5.5 K/mm3 (4.5-10.0)
[2020-06-11 04:58] LABS: Albumin Level 3.6 g/dL (3.5-5.1); Alkaline Phosphatase 71 U/L (38-126); Anion Gap 11.9 mmol/L (7-16); Aspartate Amino Transferase 19 U/L (14-36); Bilirubin,Total 0.4 mg/dL (0.2-1.3); Blood Urea Nitrogen 27 mg/dL (7-17); Calcium 8.5 mg/dL (8.4-10.2); Carbon Dioxide 24 mmol/L (22-30); Chloride 104 mmol/L (98-107); Estimated CRCL calculation 27 ml/min; Estimated Glomerular Filt Rate 43; Glucose 95 mg/dL (65-105); Magnesium 1.2 mg/dL (1.6-2.3); Potassium 3.9 mmol/L (3.4-5.0); Sodium 136 mmol/L (137-145)
[2020-06-11 04:59] LABS: Alanine Aminotransferase < 6 U/L (4-35)
[2020-06-11] MEDS: ATORVASTATIN 40 MG TABLET 80 MG PO (08:16)
[2020-06-11] MEDS: ASPIRIN 81 MG ENTERIC TABLET PO (08:16)
[2020-06-11] MEDS: lisinopriL 5 MG TABLET PO (08:17)
[2020-06-11] MEDS: GABAPENTIN 400 MG CAPSULE PO ×2 (08:18→15:08)
[2020-06-11] MEDS: FLUTICASONE PROPIONATE 0.05% NA SPR 16 GM BTL (*BKC) 2 SPRAY NASAL (08:18)
[2020-06-11] MEDS: FLUTICASONE/SALMETEROL 230-21 MCG INHALER 1 PUFF 2 PUFF INHALATION ×2 (08:21→20:29)
[2020-06-11] MEDS: AMIODARONE HCL 200 MG TABLET 400 MG PO (11:51)
[2020-06-11] MEDS: DABIGATRAN ETEXILATE 150 MG CAPSULE PO (11:51)
--- NOTE | 2020-06-11 13:24 | PM.CNCAR ---
Assessment and Plan Additional Plan 60-year-old black female with coronary artery disease remote history of anterior infarction treated with PCI and persistently low ejection fraction since then. She had an episode of atypical sounding chest pain resulting in her being hospitalized and we are seeing her mostly because she is requesting to transfer care to our practice for ongoing follow-up which of course is fine. My only medical recommendation at this time is to reduce her amiodarone dosage to 200 mg daily. She has been on the 400 mg dose since of started in March. It normally would be my recommendation to try to keep her in sinus rhythm with a lower maintenance dose in hopes of avoiding amiodarone toxicity. The remainder of her medical regimen is stable and we will not be adjusted at this time. she is reporting some periumbilical abdominal discomfort at this time I will bring this to the attention of the nursing staff. I will ensure that follow-up with our office is scheduled in a timely fashion after discharge. The current symptoms of chest pain are atypical and an ischemia evaluation is not necessary at this time in my opinion Maicol Levi MD [facility] History of Present Illness History of Present Illness Consult date/time: 06/11/20 13:24 Reason For Visit: Chest pain. Narrative: this is a 60-year-old woman with coronary artery disease and a longstanding established diagnosis of ischemic cardiomyopathy. I am seeing her at the request of the hospitalist because the patient is requesting to be transferring to our practice for ongoing care and follow-up and wishes to become established for this purpose. Her longstanding cardiology group is down in [place] and she states that she lives in this area much closer to [place] and wishes to be transferred to our group because of the convenience of our location. She is not having any new obvious cardiac problems from what I can tell. She came to the emergency room yesterday with some chest pain that was very atypical of ischemia. She had a sharp shooting upper anterior left chest pain that lasted for several seconds and then resolved. The patient has been hospitalized here at [place] a number of times with symptoms like this that have for some reason raise concern about her cardiac status and have resulted in a number of admissions here. The patient's ECG does not show any evidence of acute coronary syndrome her troponin levels are slightly out of normal range but they are flat at 0.04. She has not had any recent symptoms of dyspnea orthopnea PND or accumulating lower extremity edema. She has a history of coronary artery disease for many years in sustained an anterior wall myocardial infarction in the remote past. She underwent percutaneous revascularization of this in [place] and had been followed by those physicians for all the the time since the initial event. She has a chronically implanted single-chamber defibrillator device which is also followed by their practice. I do not have any immediate information as to the identification of this device. Her ejection fraction has been in the range of 30% chronically since that event. I last saw the patient myself in November of this year when she was in the hospital with symptomatic hypotension and we recommended reducing the dose of her lisinopril. She was here in March of this year seen by our practice at that time that with an episode of atrial flutter. This was terminated with amiodarone. She was discharged on a dose of amiodarone 400 mg daily which has not been down titrated since then. She does not have any cardiac symptoms currently her only complaint at the time of this interview is some mid alejandra obtain umbilical abdominal discomfort since she ate lunch a short time ago. Review of Systems Constitutional: Constitutional: Reports fatigue Eyes: Eyes: Reports no additional eye complaints ENT: Reports system reviewed and no additional compla
--- NOTE | 2020-06-11 13:27 | PCNSR ---
On 06/11/20, the student, [Epifanio Rolon], provided care and [facility]. I have reviewed the student's documentation and agree with the findings.
[2020-06-11] MEDS: carvediloL 12.5 MG TABLET PO (15:08)
--- NOTE | 2020-06-11 17:46 | PM.DS ---
DS: Admitting Diagnosis Admitting Diagnosis Admitting Diagnosis: Chest pain, unspecified DS: Discharge Diagnosis Discharge Diagnosis (1) Chest pain: Code(s): R07.9 - Chest pain, unspecified Status: Acute Assessment and Plan: Atypical left upper anterior chest pain with sharp and shooting quality and radiation to the left shoulder with nausea and SOB, onset at rest, lasting approximately 3 minutes. Reproducible on exam. EKG showed no evidence of ACS. Troponins slightly elevated with flat trend. She was seen in consultation by cardiology and plans to establish with the [facility]. (2) Elevated troponin: Code(s): R79.89 - Other specified abnormal findings of blood chemistry Status: Acute Assessment and Plan: Troponins were mildly elevated with a flat trend. Upon review of previous labs it appears that troponins are typically mildly elevated. (3) Ischemic cardiomyopathy: Code(s): I25.5 - Ischemic cardiomyopathy Status: Acute Assessment and Plan: Clinically compensated. Continue carvedilol and lisinopril. (4) Obstructive sleep apnea on CPAP: Code(s): G47.33 - Obstructive sleep apnea (adult) (pediatric); Z99.89 - Dependence on other enabling machines and devices Status: Acute Assessment and Plan: Continue CPAP therapy at home. (5) Essential hypertension: Code(s): I10 - Essential (primary) hypertension Status: Acute Assessment and Plan: Blood pressures remained well controlled. Continue carvedilol and lisinopril. (6) Paroxysmal atrial fibrillation: Code(s): I48.0 - Paroxysmal atrial fibrillation Status: Acute Assessment and Plan: She remained in sinus rhythm. Continue carvedilol. Amiodarone was decreased to 200 mg as recommended by Cardiology. Continue dabigatran for stroke prophylaxis. (7) Chronic obstructive pulmonary disease: Code(s): J44.9 - Chronic obstructive pulmonary disease, unspecified Status: Acute Assessment and Plan: Remained stable and maintained adequate oxygenation on room air. Continue bronchodilators. (8) Elevated serum creatinine: Code(s): R79.89 - Other specified abnormal findings of blood chemistry Status: Acute Assessment and Plan: Creatinine was mildly elevated during her stay. baseline appears to be fluctuant between 0.9 and 1.4. She will need to repeat a BMP in 1 week. Hold Lasix until labs are repeated. (9) Anemia: Code(s): D64.9 - Anemia, unspecified Status: Acute Assessment and Plan: H&H was mildly low but levels remained stable. DS: Summary Hospital Course Reason for hospitalization: Chest pain Hospital Course: Date of admission: 06/10/2020 Date of discharge: 06/11/2020 Lisa Díaz is a 60-year-old female with a history of CAD, paroxysmal atrial fibrillation, ischemic cardiomyopathy s/p AICD, COPD, BHASKAR on CPAP, HTN, and history of CVA who presented to the emergency department on 06/10/2020 with complaints of sudden onset of left upper anterior chest pain which occurred while at rest. The episode was sharp and shooting and lasted approximately 3 minutes and resolved without further intervention. At presentation, vital signs stable, H&H 10.8 and 35.0, BUN 21, creatinine 1.4, troponin 0.043, and CXR with minimal bibasilar airspace opacities and cardiomegaly. She was admitted to the hospitalist service for further evaluation and management and was seen in consultation by cardiology. Her chest pain was not suggestive of acute coronary syndrome. Her amiodarone dose was decreased at the recommendation of Cardiology and her additional medication regimen was felt to be appropriate and no changes were made. She will need to repeat a BMP in 1 week and hold Lasix until results are reviewed. Her pain resolved entirely and she began feeling much better. Given her overall improvement, she was
--- NOTE | 2020-06-11 18:48 | PCCCNOTE ---
Provided cab voucher to patient for d/c home.
[2020-06-11] MEDS: ONDANSETRON INJ 4 MG/2 ML VIAL IV PUSH (21:47)
--- NOTE | 2020-06-11 22:02 | PC.NURSE ---
2000 Patient complaining of nausea. Bowel sounds are active, abdomen is soft and non tender. Patient is to be discharged. Will give a white soda and see if that alleviates the nausea.
--- NOTE | 2020-06-11 22:04 | PC.NURSE ---
[address] with nausea[address] Dr. Hunter notified. Zofran 4mg IV given. Will continue to follow.
--- NOTE | 2020-06-11 22:30 | PC.NURSE ---
4062 Nausea has subsided. Patient to be discharged home.
== END 2020-06-11 22:50 | disposition home or self-care (01) ==
LOC: ANHED 11:06 → ANHIMU 14:36
PROVIDERS: Physician Assistant; Admitting Provider Internal Medicine; Emergency Provider Emergency Medicine; PCP Internal Medicine; Visit Provider Physician Assistant
DX: R07.9 Chest pain, unspecified (principal); I25.10 Atherosclerotic heart disease of native coronary artery without angina pectoris; I48.0 Paroxysmal atrial fibrillation; I25.5 Ischemic cardiomyopathy; I50.20 Unspecified systolic (congestive) heart failure; I25.2 Old myocardial infarction; I11.0 Hypertensive heart disease with heart failure; D64.9 Anemia, unspecified; F17.210 Nicotine dependence, cigarettes, uncomplicated; G47.33 Obstructive sleep apnea (adult) (pediatric); J44.9 Chronic obstructive pulmonary disease, unspecified; J96.10 Chronic respiratory failure, unspecified whether with hypoxia or hypercapnia; Z99.81 Dependence on supplemental oxygen; Z86.73 Personal history of transient ischemic attack (TIA), and cerebral infarction without residual deficits; Z95.810 Presence of automatic (implantable) cardiac defibrillator
CPT/HCPCS: 36415; 71046; 80053; 83735; 84484; 85025; 85610; 85730; 93005; 94640; 96374; 96375; 96376; 97161; 97165; 99285; A9270; G0378; G0379; J2270; J2405

== ENCOUNTER 2021-02-14 12:59 | Inpatient (IN) | payer OTHER, SELFPAY ==
[2021-02-14] VITALS (28 sets, daily range): BP systolic 98–126; BP diastolic 52–74; PULSE 62–82; RESP 13–22; TEMP 36–36.9; O2SAT 94–100; BMI 21.5
--- NOTE | 2021-02-14 13:05 | ECG_ITS ---
Measurements Intervals [place] Rate: 77 P: 91 MD: 154 QRS: 67 QRSD: 94 T: 69 QT: 372 QTc: 422 Interpretive Statements SINUS RHYTHM VENTRICULAR PREMATURE COMPLEXES POSSIBLE RIGHT ATRIAL ENLARGEMENT LEFT ATRIAL ENLARGEMENT INFERIOR ST ELEVATION- CONSIDER ACUTE INFARCT ANTEROLATERAL ST ELEVATION- CONSIDER ACUTE INFARCT BASELINE ARTIFACT- I, III, AVR, AVL ABNORMAL ECG Electronically Signed On 02-14-2021 14:45:15 CDT by Julio Cesar Sandra D.O.
--- NOTE | 2021-02-14 13:21 | ED.CHESTPAIN ---
HPI - Chest Pain General Chief Complaint: Chest Pain Stated Complaint: SOB,CP,GIANG Time Seen by Provider: 02/14/21 13:24 History of Present Illness HPI narrative: Patient is a 60-year-old female who presents ER with chest pain. Began at 7 AM. Is a burning central pain that radiates to her left shoulder. Associated with nausea. Symptoms worsen when she exerts herself. She does have history of ischemic cardiomyopathy. She reports she sees Dr. Levi with the [facility]. She takes aspirin daily. She is on no other blood thinners. Pain is currently 7/10. No alleviating factors that she is found. Related Data Home Medications Medication Instructions Recorded Confirmed aspirin 81 mg tablet,delayed 81 mg PO DAILY 10/01/19 02/14/21 release atorvastatin 80 mg tablet 80 mg PO DAILY 10/01/19 02/14/21 dabigatran etexilate 150 mg capsule 150 mg PO BID 10/01/19 02/14/21 Allergies Allergy/AdvReac Type Severity Reaction Status Date / Time strawberry Allergy Severe Hives Verified 02/14/21 13:18 Review of Systems Review of Systems: All systems reviewed & are unremarkable except as noted in HPI and below Constitutional: Constitutional: Denies chills, Denies fever(s) and Denies weakness ENT: Denies nasal congestion and Denies sore throat Cardiovascular: Cardiovascular: Reports chest pain, Denies rapid heart rate and Reports radiating jaw, neck or arm pain Respiratory: Respiratory: Denies cough and Denies dyspnea Gastrointestinal: Gastrointestinal: Denies abdominal pain, Reports nausea and Denies vomiting Neurologic: Denies focal weakness and Denies numbness PMFSH Past Medical History Medical History Anxiety Cerebrovascular accident Presenting with dysarthria and dysphagia, improved. Chronic obstructive pulmonary disease Chronic respiratory failure with hypoxia, on home oxygen therapy On p.r.n. oxygen. Coronary artery disease Elevated troponin Essential hypertension History of ectopic Hyperlipidemia Ischemic cardiomyopathy Status post PPM/AICD insertion. 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 Tobacco dependence Surgical History Surgical History History of coronary angioplasty with insertion of stent X3. History of tubal ligation S/P ICD (internal cardiac defibrillator) procedure Family History Family History Father Family history of malignant neoplasm Sibling Family history of tuberculosis Asthma Mother Hypertension Family history of malignant neoplasm of urinary bladder Social History Social History Social History: The patient lives in her own apartment in [place]. She has 5 children, and designates her daughter John Capellan, as her surrogate decision maker and she wishes to be a full code. She is not currently employed. She has smoked up to a pack of cigarettes per day since age of 16, and has been slowly trying to quit. Reportedly she is smoking 2 to 4 cigarettes a day. She denies alcohol and drug abuse. Smoking packs per day: 1 Smoking cigarettes per day: 20.0 Years smoked: 40 Smoking pack-years: 40.00 Smoking status: Current some day smoker Tobacco type: cigarettes Alcohol intake: never Substance use: never Substance use type: does not use Gender identity (if verbalized by the patient): Female
--- NOTE | 2021-02-14 13:23 | PC.NURSE ---
attempting to initiate IV via u/s.
--- NOTE | 2021-02-14 13:27 | PC.NURSE ---
to salvage laborer via stretcher.
[2021-02-14 13:29] LABS: Basophils Absolute Auto 0.1 K/mm3 (0.0-0.1); Basophils Percent Auto 0.6 % (0.2-1.2); Eosinophils Absolute Auto 0.2 K/mm3 (0-0.3); Eosinophils Percent Auto 2.1 % (0-4.4); Hematocrit 41.1 % (37.0-47.0); Hemoglobin 12.9 g/dL (12.0-15.0); Immature Granulocyte Absolute 0.03 K/mm3 (0.00-0.031); Immature Granulocyte Percent A 0.3 % (0-0.5); Lymphocytes Absolute Auto 4.07 K/mm3 (0.9-3.2); Lymphocytes Percent Auto 45.3 % (18.3-44.2); Mean Corpuscular HGB Conc 31.4 g/dl (32-36); Mean Corpuscular Hemoglobin 26.5 pg (26-34); Mean Corpuscular Volume 84.4 fl (80-100); Monocytes Absolute Auto 0.4 K/mm3 (0.1-0.6); Monocytes Percent Auto 4.7 % (2.6-8.5); Neutrophils Absolute Auto 4.2 K/mm3 (1.3-6.7); Platelet Count Result 279 k/mm3 (150-375); Red Blood Count 4.87 M/mm3 (4.2-5.4); Red Cell Distribution Width 16.2 % (11.5-14.5)
--- NOTE | 2021-02-14 13:29 | WPDMODSED ---
Moderate Sedation Note-Pt Data Patient Data Diagnosis: Chest pain, suspected ST elevation [place] Present Complaint: chest pain Procedure to be performed/Plan: emergency coronary angiography, possible revascularization Allergies Allergy/AdvReac Type Severity Reaction Status Date / Time strawberry Allergy Severe Hives Verified 02/14/21 13:18 Home Medications Medication Instructions Recorded Confirmed Type aspirin 81 mg tablet,delayed 81 mg PO DAILY 10/01/19 01/13/21 History release atorvastatin 80 mg tablet 80 mg PO DAILY 10/01/19 01/13/21 History dabigatran etexilate 150 mg capsule 150 mg PO BID 10/01/19 01/13/21 History carvedilol [Coreg] 12.5 mg PO BID 30 Days #30 tablet 11/09/19 01/13/21 Rx levalbuterol HCl [Xopenex] 0.63 mg INHALATION Q8H PRN #72 ml 03/23/20 01/13/21 Rx fluticasone propionate 50 2 spray NASAL DAILY #9.9 ml 04/12/20 01/13/21 Rx mcg/actuation nasal spray,suspension amiodarone [Pacerone] 200 mg PO DAILY@0800 #30 tablet 06/11/20 01/13/21 Rx lisinopril 5 mg tablet 5 mg PO QAM #30 tablet 08/18/20 01/13/21 Rx furosemide 20 mg tablet 20 mg PO DAILY PRN #90 tablet 11/09/20 01/13/21 Rx gabapentin 400 mg capsule 400 mg PO TID #90 cap 11/09/20 01/13/21 Rx nitroglycerin 0.4 mg sublingual 0.4 mg SUBLINGUAL Q5M PRN #30 11/09/20 01/13/21 Rx tablet tablet ipratropium bromide 17 2 puff INHALATION QID #1 inhalation 01/05/21 01/13/21 Rx mcg/actuation HFA aerosol inhaler benzonatate 100 mg capsule 100 mg PO TID PRN #30 cap 01/13/21 01/13/21 Rx budesonide-formoterol HFA 80 2 puff INHALATION Q12H #10.2 g 01/13/21 01/13/21 Rx mcg-4.5 mcg/actuation aerosol inhaler inhalational spacing device #1 ea 01/13/21 01/13/21 Rx roflumilast 500 mcg tablet 500 mcg PO DAILY #30 tablet 01/13/21 01/13/21 Rx prednisone 10 mg tablet 10 mg PO DIRECTED #34 tablet 02/02/21 Rx Sedation/Anesthesia: No previous sedation/anesthesia problems (including family history). [facility] Past Medical History Medical History Anxiety Cerebrovascular accident Presenting with dysarthria and dysphagia, improved. Chronic obstructive pulmonary disease Chronic respiratory failure with hypoxia, on home oxygen therapy On p.r.n. oxygen. Coronary artery disease Elevated troponin Essential hypertension History of ectopic Hyperlipidemia Ischemic cardiomyopathy Status post PPM/AICD insertion. 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 Tobacco dependence Surgical History Surgical History History of coronary angioplasty with insertion of stent X3. History of tubal ligation S/P ICD (internal cardiac defibrillator) procedure Family History Family History Father Family history of malignant neoplasm Sibling Family history of tuberculosis Asthma Mother Hypertension Family history of malignant neoplasm of urinary bladder Social History Social History Social History: The patient lives in her own apartment in [place]. She has 5 children, and designates her daughter John Capellan, as her surrogate decision maker and she wishes to be a full code. She is not currently employed. She has smoked up to a pack of cigarettes per day since age of 16, and has been slowly trying to quit. Reportedly she is smoking 2 to 4 cigarettes a day. She denies alcohol and drug abuse. Smoking packs p
[2021-02-14 13:35] LABS: INR 0.8; Prothrombin Time 11.8 Seconds (11.1-14.7)
[2021-02-14 13:38] LABS: Partial Thromboplastin Time 17.3 SECONDS (22.3-36.8)
[2021-02-14 13:40] LABS: Anion Gap 4 mmol/L (8-16); Blood Urea Nitrogen 26 mg/dL (7-17); Calcium 9.5 mg/dL (8.4-10.2); Carbon Dioxide 33 mmol/L (22-30); Chloride 98 mmol/L (98-107); Estimated CRCL calculation 31 ml/min; Estimated Glomerular Filt Rate 51; Glucose 117 mg/dL (65-105); Potassium 3.6 mmol/L (3.4-5.0); Sodium 135 mmol/L (137-145)
[2021-02-14 13:53] LABS: Troponin I 0.044 ng/mL (0.000-0.034)
[2021-02-14] MEDS: SODIUM CHLORIDE 0.9% IV 1,000 ML 125 ML IV CONT (14:00)
--- NOTE | 2021-02-14 14:05 | WPDCARDPROC ---
Cardiac Cath Procedure Note Date of procedure:: 02/14/21 Performing physician:: Maicol Levi MD Indication:: Chest pain, suspect ST-elevation OK Brief clinical history:: this is a 60-year-old woman with a history of previous anterior wall infarction and stenting of her LAD in the proximal and midportion at another institution in 2016. She is known to have a low ejection fraction and a permanently implanted defibrillator. She presented to the hospital today with burning retrosternal chest pain ECG abnormalities suspicious for ST-elevation OK in the inferior leads. In this setting emergency angiography has been arranged according with STEMI protocol. Procedure Procedure performed:: Emergency coronary angiography left ventriculography Sedation/Medication given:: no sedation Access site:: right femoral artery Estimated blood loss:: 10-15 cc Procedure note:: patient was brought to the cardiac catheterization lab in the emergent setting described above. The right femoral triangle was prepared and draped in the usual fashion. Anesthesia was provided with 1% lidocaine infiltrated locally. Using the modified Seldinger technique a 6 Nepalese vascular sheath was placed into the femoral artery after this I used a 5 Nepalese FL4 catheter to engage inject the left coronary artery in multiple projections. Subsequently a 5 Nepalese JR4 catheter was used to engage and inject the right coronary artery. After this I used a 5 Nepalese angled pigtail catheter to measure left-sided hemodynamics and injected LV g in the are AO projection. After this the case was terminated the patient was taken to the holding area for manual sheath removal. 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 Findings:: Hemodynamics: Central aortic pressure is 120/45 left ventricle 120/0 end-diastolic of 6 there is no systolic gradient on pullback across the aortic valve. Left ventricle: The LV is marked markedly dilated there is severe global hypocontractility noted. Base of the anterior lateral owusu contract better than the remainder of the LV. The apex is frankly dyskinetic. The global ejection fraction I would visually estimated to be 20%. The LV g shows a apical thrombus with a filling defect in the apex. The left main coronary artery is medium in caliber and is nicely patent. The left anterior descending is a medium caliber artery extending down to the apex. There is stent material in the proximal/ostial portion of the low LAD there are at least 2 stents in this segment overlapping which are patent with no significant loss of lumen. There is then a stent in the midportion of the LAD which is also nicely patent with no loss of lumen. There was YOEL 3 flow in the LAD. The circumflex is a small to medium caliber artery giving rise to marginal branch. The circumflex system has modest proximal stenosis of about 30%. There was YOEL 3 flow in the circumflex no flow-limiting disease is found right coronary artery is medium in caliber has about 30-40% stenosis in the 2nd portion. The distal RPDA RPL branches are anatomically distorted And very tortuous but are patent with no significant lesions noted. Conclusion:: 1. severe ischemic cardiomyopathy with patent stents in the ostial proximal and mid LAD as detailed above 2. severe ischemic cardiomyopathy with low ejection fraction and evidence of left ventricular apical thrombus 3. false alarm STEMI as there was no occluded vessel identified Maicol Levi MD [facility]
[2021-02-14 14:08] LABS: Activated Clotting Time 180 sec (74-137)
--- NOTE | 2021-02-14 14:19 | PM.IMHP ---
H&P: HPI History of Present Illness Date/Time: 02/14/21 14:19 Chief Complaint: chest pain Narrative: this is a 60-year-old woman who has a history of coronary artery disease with previous myocardial infarction, ischemic cardiomyopathy and previous PCI as well as previous implantation of defibrillator. Her interventional care and defibrillator care were delivered elsewhere. She transitioned her care to our practice in 2019 because of more convenient location to her residence. The patient last saw our nurse practitioner in the office in November of this year at which time she was clinically stable. She started to have some burning like retrosternal chest pain at about 7:00 a.m. today. She became concerned that this was suspicious for a new myocardial infarction and is being seen in the emergency room as she is being prepared for emergency angiography. Her ECG shows a sinus mechanism with P pulmonale and previous anterior wall infarction as well as some modest ST elevation in the inferior leads as well. There is no reciprocal ST segment depression. In this setting emergency STEMI protocol has been activated. She also has a history of atrial fibrillation for which she takes amiodarone to maintain sinus rhythm. She developed atrial fibrillation in 2019 which was poorly tolerated clinically. Amiodarone at 200 mg daily has been maintaining sinus rhythm. Most unfortunately she has COPD with home oxygen dependency and has continued to smoke about a half pack per day. Patient also has apparently the diagnosis of sleep apnea and uses her CPAP machine inconsistently. Review of Systems Review of Systems: Narrative: No time to obtain review of systems during this emergency ROS unobtainable: Yes unobtainable due to medical condition PMFSH Past Medical History Medical History Anxiety Cerebrovascular accident Presenting with dysarthria and dysphagia, improved. Chronic obstructive pulmonary disease Chronic respiratory failure with hypoxia, on home oxygen therapy On p.r.n. oxygen. Coronary artery disease Elevated troponin Essential hypertension History of ectopic Hyperlipidemia Ischemic cardiomyopathy Status post PPM/AICD insertion. Myocardial infarction Obstructive sleep apnea on CPAP Paroxysmal atrial fibrillation Peripheral artery disease Sciatica Systolic congestive heart failure Echocardiogram in August 2019 showed aneurysmal mid anterior and mid septal owusu, akinesis of the entire anteroseptal, septum, apex, and apical lateral owusu; suggestion of right ventricular systolic dysfunction, mild mitral valve regurgitation, [id number] tricuspid valve regurgitation, and moderate pulmonary hypertension. Tobacco dependence Surgical History Surgical History History of coronary angioplasty with insertion of stent X3. History of tubal ligation S/P ICD (internal cardiac defibrillator) procedure Family History Family History Father Family history of malignant neoplasm Sibling Family history of tuberculosis Asthma Mother Hypertension Family history of malignant neoplasm of urinary bladder Social History Social History Social History: The patient lives in her own apartment in [place]. She has 5 children, and designates her daughter John Capellan, as her surrogate decision maker and she wishes to be a full code. She is not currently employed. She has smoked up to a pack of cigarettes per day since age of 16, and has been slowly trying to quit. Reportedly she is smoking 2 to 4 cigarettes a day. She denies alcohol and drug abuse. Smoking packs per day: 1 Smoking cigarettes per day: 20.0 Years smoked: 40 Smoking pack-years: 40.00 Smoking status: Current every day smoker Alcohol intake: never
[2021-02-14 17:03] LABS: Activated Clotting Time 136 sec (74-137)
[2021-02-14 17:03] LABS: Activated Clotting Time 147 sec (74-137)
[2021-02-14 18:37] LABS: Troponin I 0.025 ng/mL (0.000-0.034)
--- NOTE | 2021-02-14 19:13 | ADMGEN ---
This patient, Lisa Díaz, was admitted to IMU Room 206-01. Patient/family oriented to hospital policies and general routines including ID bracelet, bed and alarms, visiting hours, pain management, procedures, bathroom and other care routines, personal items, smoking policy, room service/diet, and visiting hours. Information on how to activate the Rapid Response Team has been discussed. Patient/Family are encouraged to report perceived risks to care and to ask questions if they do not understand what they are told or what they should do.
[2021-02-14 19:29] LABS: Troponin I 0.034 ng/mL (0.000-0.034)
[2021-02-14] MEDS: carvediloL 12.5 MG TABLET PO (20:03)
[2021-02-14] MEDS: GABAPENTIN 400 MG CAPSULE PO (20:03)
[2021-02-15] VITALS (9 sets, daily range): BP systolic 106–120; BP diastolic 51–61; PULSE 73–88; RESP 16–19; TEMP 36.2–36.3; O2SAT 91–99; BMI 21.7
[2021-02-15] MEDS: BUDESONIDE/FORMOTEROL 80/4.5 MCG 6.9 GM INHALER (*SP) 2 PUFF INHALATION (08:23)
[2021-02-15] MEDS: ATORVASTATIN 40 MG TABLET 80 MG PO (08:24)
[2021-02-15] MEDS: GABAPENTIN 400 MG CAPSULE PO (08:24)
[2021-02-15] MEDS: ASPIRIN 81 MG ENTERIC TABLET PO (08:25)
[2021-02-15] MEDS: carvediloL 12.5 MG TABLET PO (08:25)
[2021-02-15] MEDS: ROFLUMILAST 500 MCG TABLET PO (08:25)
[2021-02-15] MEDS: AMIODARONE HCL 200 MG TABLET PO (08:27)
[2021-02-15] MEDS: lisinopriL 5 MG TABLET PO (08:27)
--- NOTE | 2021-02-15 11:11 | PM.PNCARD ---
Progress Note: A&P Assessment and Plan (1) Chronic systolic (congestive) heart failure: Code(s): I50.22 - Chronic systolic (congestive) heart failure Status: Acute (2) Ischemic cardiomyopathy: Code(s): I25.5 - Ischemic cardiomyopathy Status: Acute Subjective Date/time seen: 02/15/21 11:11 Date of Service: 02/15/2021 Exam Narrative: Exam Narrative: PHYSICAL EXAMINATION: GENERAL: Alert, oriented, no acute distress MENTAL STATUS: affect appropriate to mood EYES: Extraocular movements intact, no pallor EARS: External ears appear normal, hearing grossly normal NOSE: Normal and patent, no discharge MOUTH: Mucous membranes moist, tongue normal NECK: Supple, no JVD CHEST: Good respiratory effort, clear to auscultation HEART: Normal rate, regular rhythm, normal S1 and S2, no audible murmurs ABDOMEN: Soft, nontender NEUROLOGICAL: Alert, oriented, normal speech, no gross motor deficits MUSCULOSKELETAL: No major deformity, no amputation EXTREMITIES: No pedal edema, no clubbing, no cyanosis SKIN: no rash on the exposed area, no cyanosis PSYCHIATRIC: Normal mood, appropriate affect Objective Data Vital Signs Vital Signs: Vital Signs - 24 hr 02/14/21 13:06 02/14/21 13:15 02/14/21 13:22 Temperature 36.0 C L Pulse Rate 70 74 77 Pulse Rate [Right Pedal (Dorsalis Pedis) Palpation] Respiratory Rate 18 16 14 Blood Pressure 99/63 L 126/72 126/71 Pulse Oximetry 99 100 100 02/14/21 13:24 02/14/21 13:27 02/14/21 14:30 Temperature Pulse Rate 72 74 71 Pulse Rate [Right Pedal (Dorsalis Pedis) Palpation] Respiratory Rate 18 22 H Blood Pressure 120/67 Pulse Oximetry 96 02/14/21 14:45 02/14/21 15:00 02/14/21 15:15 Temperature Pulse Rate 76 69 62 Pulse Rate [Right Pedal (Dorsalis Pedis) Palpation] Respiratory Rate 17 19 13 Blood Pressure 103/69 116/59 L 116/59 L Pulse Oximetry 96 96 94 02/14/21 15:45 02/14/21 16:15 02/14/21 16:43 Temperature Pulse Rate 62 73 72 Pulse Rate [Right Pedal (Dorsalis Pedis) Palpation] Respiratory Rate 18 15 17 Blood Pressure 103/60 102/59 L 102/59 L Pulse Oximetry 96 97 96 02/14/21 16:45 02/14/21 16:55 02/14/21 17:05 Temperature Pulse Rate 71 71 71 Pulse Rate [Right Pedal (Dorsalis Pedis) Palpation] Respiratory Rate 14 13 15 Blood Pressure 98/59 L 112/66 100/63 Pulse Oximetry 96 96 96 02/14/21 17:15 02/14/21 17:30 02/14/21 17:45 Temperature Pulse Rate 79 82 71 Pulse Rate [Right Pedal (Dorsalis Pedis) Palpation] Respiratory Rate 17 22 H 15 Blood Pressure 105/70 103/73 111/74 Pulse Oximetry 98 99 100 02/14/21 18:00 02/14/21 18:30 02/14/21 19:00 Temperature 36.3 C L Pulse Rate 71 72 78 Pulse Rate [Right Pedal (Dorsalis Pedis) Palpation] Respiratory Rate 15 19 18 Blood Pressure 112/61 114/64 108/53 L Pulse Oximetry 100 100 98 02/14/21 20:00 02/14/21 20:03 02/14/21 20:57 Temperature 36.8 C Pulse Rate 76 79 Pulse Rate [Right Pedal (Dorsalis Pedis) Palpation] 77 73 Respiratory Rate 18 Blood Pressure 106/57 L Pulse Oximetry 98 02/14/21 21:00 02/14/21 21:34 02/14/21 22:00 Temperature 36.9 C 36.9 C Pulse Rate 74 73 72 Pulse Rate [Right Pedal (Dorsalis Pedis) Palpation] 71 Respiratory Rate 16 16 Blood Pressure 105/54 L 103/52 L Pulse Oximetry 100 100 02/14/21 23:00 02/15/21 00:00 02/15/21 01:38 Temperature 36.5 C Pulse Rate 79 73 78 Pulse Rate [Right Pedal (Dorsalis Pedis) Palpation] 78 78 Respiratory Rate 16 Blood Pressure 99/56 L Pulse Oximetry 100 02/15/21 03:51 02/15/21 04:00 02/15/21 05:47 Temperature 36.3 C L Pulse Rate 80 81 78 Pulse Rate [Right Pedal (Dorsalis Pedis) Palpation] 78 Respiratory Rate 19 16 Blood Pressure 108/61 Pulse Oximetry 91 99 02/15/21 08:00 02/15/21 08:27 02/15/21 09:06 Temperature 36.2 C L Pulse Rate 79 88 Pulse Rate [Right Pedal (Dorsalis Pedis) Palpation] 88 Respiratory Rate 18 Blo
--- NOTE | 2021-02-15 11:16 | PM.DS ---
DS: Admitting Diagnosis Admitting Diagnosis Admitting Diagnosis: Ischemic cardiomyopathy DS: Discharge Diagnosis Discharge Diagnosis (1) Ischemic cardiomyopathy: Code(s): I25.5 - Ischemic cardiomyopathy Status: Acute (2) Chronic systolic (congestive) heart failure: Code(s): I50.22 - Chronic systolic (congestive) heart failure Status: Acute (3) Chronic obstructive pulmonary disease: Qualifiers: COPD type: unspecified COPD Qualified Code(s): J44.9 - Chronic obstructive pulmonary disease, unspecified Code(s): J44.9 - Chronic obstructive pulmonary disease, unspecified Status: Acute DS: Summary Hospital Course Reason for hospitalization: Chest pain Hospital Course: Date of admission: 02/14/2021 Date of discharge: 02/15/2021 Hospital course: 60-year-old female with history of CO, status post PCI/stenting proximal-mid LAD at another institution in 2016; severe ischemic cardiomyopathy status post ICD placement. She presented to the [facility] on 02/14/2021 with burning retrosternal chest pain, ECG abnormalities suspicious for ST-elevation CO in the inferior leads. In this setting, patient was taken to the lab rn by Dr. Levi. Coronary angiogram showed patent stents in the LAD; severe LV systolic dysfunction and left ventriculogram findings suggestive of LV apical thrombus. No intervention was performed. Patient was observed overnight. On the day of discharge, patient was chest pain-free and eager to go home. Patient is on carvedilol and lisinopril. She was advised to speak with Dr. Levi in the outpatient cardiology clinic, and consider switching lisinopril to sacubitril/valsartan. Patient is on chronic anticoagulation with dabigatran. Patient was advised to continue anticoagulation. Time Spent with Patient Time attestation: Total time spent providing and/or coordinating discharge services: 35 minutes Specific discharge activities: Activity as tolerated Exam Narrative: Exam Narrative: PHYSICAL EXAMINATION: GENERAL: Alert, oriented, no acute distress MENTAL STATUS: affect appropriate to mood EYES: Extraocular movements intact, no pallor EARS: External ears appear normal, hearing grossly normal NOSE: Normal and patent, no discharge MOUTH: Mucous membranes moist, tongue normal NECK: Supple, JVD CHEST: Severely diminished breath sounds bilaterally HEART: Normal rate, somewhat distant heart sounds ABDOMEN: Soft, nontender NEUROLOGICAL: Alert, oriented, normal speech, no gross motor deficits MUSCULOSKELETAL: No major deformity, no amputation EXTREMITIES: No pedal edema, no clubbing, no cyanosis SKIN: no rash on the exposed area, no cyanosis PSYCHIATRIC: Normal mood, appropriate affect DS: Data Data Completed and Pending Labs on day of discharge: Labs from last 24 hours 02/14/21 02/14/21 02/14/21 18:55 17:47 16:33 WBC RBC Hgb Hct MCV MCH MCHC RDW Plt Count MPV Immature Gran % (Auto) Neut % (Auto) Lymph % (Auto) [place] % (Auto) Eos % (Auto) Baso % (Auto) Lymph # (Auto) [place] # (Auto) Eos # (Auto) Baso # (Auto) Abs Immat Gran (auto) Absolute Neuts (auto) Absolute Nucleated RBC Nucleated RBC % PT INR APTT Activ Coag Time [place] 136 Sodium Potassium Chloride Carbon Dioxide Anion Gap BUN Creatinine Estim Creat Clear Calc Estimated GFR Glucose Calcium Troponin I 0.034 D 0.025 D 02/14/21 02/14/21 02/14/21 15:43 14:02 13:17 WBC RBC Hgb Hct MCV MCH MCHC RDW Plt Count MPV Immature Gran % (Auto) Neut % (Auto) Lymph % (Auto) [place] % (Auto) Eos % (Auto) Baso % (Auto) Lymph # (Auto) [place] # (Auto) Eos # (Auto) Baso # (Auto) Abs Immat Gran (auto) Absolute Neuts (auto) Absolute Nucleated RBC Nucleated RBC % PT
== END 2021-02-15 13:15 | disposition home or self-care (01) | DRG 191 ==
LOC: ANHED 13:17 → ANHICU 13:24 → ANHIMU 19:17 → ANHICU 02-16 16:24 → ANHIMU 02-16 16:24
PROVIDERS: Admitting Provider Specialist; Emergency Provider Emergency Medicine; PCP Internal Medicine; Visit Provider Internal Medicine Cardiovascular Disease
PROC: 4A023N7 Measurement of Cardiac Sampling and Pressure, Left Heart, Percutaneous Approach (ICD-10-PCS; CPT 93452; principal; 2021-02-14 13:20)
DX: I25.5 Ischemic cardiomyopathy (principal); J96.11 Chronic respiratory failure with hypoxia; I11.0 Hypertensive heart disease with heart failure; I50.22 Chronic systolic (congestive) heart failure; J44.9 Chronic obstructive pulmonary disease, unspecified; F17.210 Nicotine dependence, cigarettes, uncomplicated; G47.33 Obstructive sleep apnea (adult) (pediatric); I48.0 Paroxysmal atrial fibrillation; E78.5 Hyperlipidemia, unspecified; I73.9 Peripheral vascular disease, unspecified; I25.2 Old myocardial infarction; Z79.01 Long term (current) use of anticoagulants; Z79.82 Long term (current) use of aspirin; Z79.899 Other long term (current) drug therapy; Z86.73 Personal history of transient ischemic attack (TIA), and cerebral infarction without residual deficits; Z95.5 Presence of coronary angioplasty implant and graft; Z95.810 Presence of automatic (implantable) cardiac defibrillator; Z99.81 Dependence on supplemental oxygen; Z99.89 Dependence on other enabling machines and devices
CPT/HCPCS: 36415; 80048; 84484; 85025; 85610; 85730; 93005; 93458; 99285; A9270; C1887; C1894; J1644; J2405; J7030; J7040

== ENCOUNTER 2021-05-26 10:49 | Emergency (ER) | payer OTHER, SELFPAY ==
--- NOTE | ~2021-05-26 | XR_ITS ---
EXAMINATION: XR chest 2V DATE: 05/26/2021 11:05 INDICATION: Chest pain and cough TECHNIQUE: AP and lateral views of the chest are obtained. COMPARISON: 06/10/2020 FINDINGS: The lungs are free of acute opacities. There is stable cardiomegaly. Small pleural effusion s are suggested. There is no pneumothorax. A single lead pacemaker/defibrillator of the left chest wa ll ends with its lead in the right ventricle. Coronary artery stents are noted. There is moderate tho racic spondylosis. IMPRESSION: 1. Cardiomegaly. Reviewed, dictated and finalized at location B. IMPRESSION: 1. Cardiomegaly.
--- NOTE | 2021-05-26 10:52 | ECG_ITS ---
Measurements Intervals [place] Rate: 78 P: 90 [place]: 144 QRS: 84 QRSD: 90 T: 83 QT: 373 QTc: 425 Interpretive Statements SINUS RHYTHM ATRIAL PREMATURE COMPLEX RIGHT ATRIAL ENLARGEMENT LEFT ATRIAL ENLARGEMENT BORDERLINE R WAVE PROGRESSION, ANTERIOR LEADS INFERIOR INFARCT, AGE INDETERMINATE LATERAL INFARCT, AGE INDETERMINATE BORDERLINE T WAVE ABNORMALITY- HIGH LATERAL LEADS BASELINE ARTIFACT- I, III, AVR, AVL ABNORMAL ECG Electronically Signed On 05-26-2021 11:50:21 CDT by Julio Cesar Sandra D.O.
[2021-05-26 10:56] VITALS: BP 105/55; PULSE 79; RESP 20; TEMP 36.6; O2SAT 98
[2021-05-26 11:47] LABS: Basophils Percent Auto 0.1 % (0.2-1.2); Eosinophils Percent Auto 0.1 % (0-4.4); Hematocrit 41.5 % (37.0-47.0); Hemoglobin 12.6 g/dL (12.0-15.0); Immature Granulocyte Absolute 0.03 K/mm3 (0.00-0.031); Immature Granulocyte Percent A 0.4 % (0-0.5); Lymphocytes Absolute Auto 1.89 K/mm3 (0.9-3.2); Lymphocytes Percent Auto 28.1 % (18.3-44.2); Mean Corpuscular HGB Conc 30.4 g/dl (32-36); Mean Corpuscular Hemoglobin 25.7 pg (26-34); Mean Corpuscular Volume 84.7 fl (80-100); Mean Platelet Volume 9.9 fl (7.4-10.4); Monocytes Absolute Auto 0.1 K/mm3 (0.1-0.6); Monocytes Percent Auto 1.5 % (2.6-8.5); Neutrophils Absolute Auto 4.7 K/mm3 (1.3-6.7); Neutrophils Percent Auto 69.8 % (45.5-73.1); Platelet Count Result 237 k/mm3 (150-375); Red Cell Distribution Width 16.8 % (11.5-14.5); White Blood Count 6.7 K/mm3 (4.5-10.0)
[2021-05-26 11:56] LABS: INR 0.9; Prothrombin Time 11.6 Seconds (11.1-14.7)
[2021-05-26 11:57] LABS: Partial Thromboplastin Time 22.4 SECONDS (22.3-36.8)
[2021-05-26 12:42] LABS: Anion Gap 10 mmol/L (8-16); Blood Urea Nitrogen 14 mg/dL (7-17); Calcium 9.7 mg/dL (8.4-10.2); Carbon Dioxide 28 mmol/L (22-30); Chloride 100 mmol/L (98-107); Estimated CRCL calculation 43 ml/min; Estimated Glomerular Filt Rate > 60; Glucose 129 mg/dL (65-110); Potassium 4.6 mmol/L (3.4-5.0); Sodium 138 mmol/L (137-145)
[2021-05-26 12:54] LABS: Troponin I 0.031 ng/mL (0.000-0.034)
--- NOTE | 2021-05-26 13:03 | ED.SOB ---
HPI - SOB/Dyspnea General Chief Complaint: Chest Pain Stated Complaint: chest pain Time Seen by Provider: 05/26/21 12:17 Source: patient Mode of arrival: ambulatory Limitations: no limitations History of Present Illness HPI Narrative: 61-year-old female History of COPD, angina, enlarged heart Complains of a 3-day history of cough and subjective fevers, chest and sinus congestion She has not brought anything up She has not received a Covid vaccination She does not have chest pain, nausea vomiting, sweats or chills, palpitations Related Data Home Medications Medication Instructions Recorded Confirmed aspirin 81 mg tablet,delayed 81 mg PO DAILY 10/01/19 05/19/21 release atorvastatin 80 mg tablet 80 mg PO DAILY 10/01/19 05/19/21 dabigatran etexilate 150 mg capsule 150 mg PO BID 10/01/19 05/19/21 Allergies Allergy/AdvReac Type Severity Reaction Status Date / Time strawberry Allergy Severe Hives Verified 05/19/21 09:05 Review of Systems Review of Systems: All systems reviewed & are unremarkable except as noted in HPI and below Constitutional: Constitutional: Reports no additional constitutional complaints, Denies chills, Reports fever(s), Denies headache(s) and Reports weakness Eyes: Eyes: Reports no additional eye complaints and Denies change in vision ENT: Denies headache(s) and Denies sore throat Cardiovascular: Cardiovascular: Denies chest pain and Denies dyspnea Respiratory: Respiratory: Reports cough and Reports dyspnea Gastrointestinal: Gastrointestinal: Denies abdominal pain, Denies diarrhea and Denies vomiting Genitourinary: Genitourinary: Denies urinary frequency and Denies dysuria Musculoskeletal: Musculoskeletal: Denies deformity, Denies arthralgias, Denies joint swelling and Denies numbness Integumentary/Breasts: Skin/Breast: Denies rash and Denies wounds Neurologic: Denies headache(s), Denies focal weakness and Denies numbness Psychiatric: Psychiatric: Reports no additional psychiatric complaints Endocrine: Endocrine: Reports no additional endocrine complaints Hematologic/Lymphatic: Hematologic/Lymphatic: Reports no additional hematologic/lymphatic complaints Allergic/Immunologic: Allergic/Immunologic: Reports no additional allergic/immunologic complaints PMFSH Past Medical History Medical History Anxiety Cerebrovascular accident Presenting with dysarthria and dysphagia, improved. Chronic obstructive pulmonary disease Chronic respiratory failure with hypoxia, on home oxygen therapy On p.r.n. oxygen. Coronary artery disease Elevated troponin Essential hypertension History of ectopic Hyperlipidemia Ischemic cardiomyopathy Status post PPM/AICD insertion. Myocardial infarction Obstructive sleep apnea on CPAP Paroxysmal atrial fibrillation Peripheral artery disease Sciatica Systolic congestive heart failure Echocardiogram in August 2019 showed aneurysmal mid anterior and mid septal owusu, akinesis of the entire anteroseptal, septum, apex, and apical lateral owusu; suggestion of right ventricular systolic dysfunction, mild mitral valve regurgitation, [id number] tricuspid valve regurgitation, and moderate pulmonary hypertension. Tobacco dependence Surgical History Surgical History History of coronary angioplasty with insertion of stent X3. History of tubal ligation S/P ICD (internal cardiac defibrillator) procedure Family History Family History Father Family history of malignant neoplasm Sibling Family history of tuberculosis Asthma Mother Hypertension Family history of malignant neoplasm of urinary bladder Social History Social History Social History: The patient lives in her own apartment in [place]. She has 5 children, and
[2021-05-26 13:31] VITALS: PULSE 64
[2021-05-26] MEDS: ALBUTEROL SULFATE NEB 2.5 MG/0.5 ML INH 5 MG INHALATION (13:31)
[2021-05-26] MEDS: IPRATROPIUM BR 0.02% INH SOLN 0.5 MG/2.5 ML VIAL INHALATION (13:31)
[2021-05-26 13:37] VITALS: PULSE 70; RESP 16
[2021-05-26 13:44] VITALS: BP 129/73; PULSE 61; RESP 15; O2SAT 100
[2021-05-27 17:52] LABS: SARS-CoV-2 RNA PCR Negative
== END 2021-05-26 13:59 | disposition home or self-care (01) ==
PROVIDERS: Emergency Medicine; Emergency Provider Emergency Medicine; PCP Internal Medicine
DX: J40 Bronchitis, not specified as acute or chronic (principal); Z20.822 Contact with and (suspected) exposure to COVID-19; J44.9 Chronic obstructive pulmonary disease, unspecified; J96.11 Chronic respiratory failure with hypoxia; Z99.81 Dependence on supplemental oxygen; I25.10 Atherosclerotic heart disease of native coronary artery without angina pectoris; I10 Essential (primary) hypertension; I25.5 Ischemic cardiomyopathy; I25.2 Old myocardial infarction; G47.33 Obstructive sleep apnea (adult) (pediatric); I48.0 Paroxysmal atrial fibrillation; I73.9 Peripheral vascular disease, unspecified; I50.20 Unspecified systolic (congestive) heart failure; Z95.5 Presence of coronary angioplasty implant and graft; Z95.810 Presence of automatic (implantable) cardiac defibrillator; Z79.82 Long term (current) use of aspirin; F17.210 Nicotine dependence, cigarettes, uncomplicated; I51.7 Cardiomegaly; R94.31 Abnormal electrocardiogram [ECG] [EKG]; I49.1 Atrial premature depolarization
CPT/HCPCS: 36415; 71046; 80048; 84484; 85025; 85610; 85730; 93005; 94640; 99284; C9803; U0003; U0005

== ENCOUNTER → 2022-01-27 02:29 | Outpatient (CLI) | payer OTHER, SELFPAY ==
[2022-01-27 12:27] LABS: SARS-CoV-2 RNA PCR Negative
== END ==
PROVIDERS: Nurse Practitioner; PCP Internal Medicine; Visit Provider Internal Medicine Gastroenterology
DX: R05.9 Cough, unspecified (principal); Z20.822 Contact with and (suspected) exposure to COVID-19
CPT/HCPCS: C9803; U0003; U0005

== ENCOUNTER 2022-01-30 01:13 | Day surgery (SDC) | payer OTHER, SELFPAY ==
[2022-01-23 09:59] VITALS: BMI 20.8
[2022-01-30 08:25] VITALS: BP 155/83; PULSE 68; RESP 16; TEMP 35.9; O2SAT 100; BMI 18.3
[2022-01-30] MEDS: LACTATED RINGERS 1,000 ML 150 ML IV CONT (08:28)
--- NOTE | 2022-01-30 08:48 | WPDANESEPPF ---
Anes - Initial Pre Proc Eval Procedure: Operation Date: 01/30/22 09:30 Proposed Procedures p Screening Colonoscopy - Duane Mcqueen MD Date/Time: 01/30/22 08:48 Surgeon: Duane Mcqueen MD Pre Op Diagnosis: neoplasm screening Patient Data Age: 61 Gender: F Height: 1.55 m Weight: 44.2 kg Last Vital Signs Temp 35.9 C L 01/30/22 08:25 Pulse 68 01/30/22 08:25 Resp 16 01/30/22 08:25 BP 155/83 H 01/30/22 08:25 Pulse Ox 100 01/30/22 08:25 Allergies Allergy/AdvReac Type Severity Reaction Status Date / Time strawberry Allergy Severe Hives Verified 01/30/22 08:22 Home Medications Medication Instructions Recorded Confirmed Type aspirin 81 mg tablet,delayed 81 mg PO DAILY 10/01/19 01/23/22 History release carvedilol [Coreg] 12.5 mg PO BID 30 Days #30 tablet 11/09/19 01/23/22 Rx fluticasone propionate 50 2 spray NASAL DAILY #9.9 ml 04/12/20 01/23/22 Rx mcg/actuation nasal spray,suspension amiodarone [Pacerone] 200 mg PO DAILY@0800 #30 tablet 06/11/20 01/23/22 Rx furosemide 20 mg tablet 20 mg PO DAILY PRN #90 tablet 11/09/20 01/23/22 Rx nitroglycerin 0.4 mg sublingual 0.4 mg SUBLINGUAL Q5M PRN #30 11/09/20 01/23/22 Rx tablet tablet inhalational spacing device #1 ea 01/13/21 09/19/21 Rx budesonide-formoterol HFA 80 2 puff INHALATION Q12H #10.2 g 08/05/21 01/23/22 Rx mcg-4.5 mcg/actuation aerosol inhaler levalbuterol HCl 0.63 mg/3 mL 0.63 mg INHALATION Q8H PRN #270 ml 09/19/21 01/23/22 Rx solution for nebulization gabapentin 400 mg capsule 400 mg PO TID #90 cap 10/18/21 01/23/22 Rx ipratropium bromide 17 2 puff INHALATION QID #1 inhalation 11/07/21 01/23/22 Rx mcg/actuation HFA aerosol inhaler metformin 500 mg PO DAILY 01/23/22 01/23/22 History Patient hx anesthesia problems: none Family hx anesthesia problems: none Results Review: All pre-operative results and documents have been reviewed as part of the pre-operative evaluation. [facility] Past Medical History Medical History Anxiety Cerebrovascular accident Presenting with dysarthria and dysphagia, improved. Chronic obstructive pulmonary disease Chronic respiratory failure with hypoxia, on home oxygen therapy On p.r.n. oxygen. Coronary artery disease Elevated troponin Essential hypertension History of ectopic Hyperlipidemia Ischemic cardiomyopathy Status post PPM/AICD insertion. Myocardial infarction Obstructive sleep apnea on CPAP Paroxysmal atrial fibrillation Peripheral artery disease Sciatica Systolic congestive heart failure Echocardiogram in August 2019 showed aneurysmal mid anterior and mid septal owusu, akinesis of the entire anteroseptal, septum, apex, and apical lateral owusu; suggestion of right ventricular systolic dysfunction, mild mitral valve regurgitation, [id number] tricuspid valve regurgitation, and moderate pulmonary hypertension. Tobacco dependence Surgical History Surgical History History of coronary angioplasty with insertion of stent X3. History of tubal ligation S/P ICD (internal cardiac defibrillator) procedure Family History Family History Father Family history of malignant neoplasm Sibling Family history of tuberculosis Asthma Mother Hypertension Family history of malignant neoplasm of urinary bladder Social History Social History Social History: The patient lives in her own apartment in [place]. She has 5 children, and designates her daughter John Capellan, as her surrogate decision maker and she wishes to be a full code. She is not currently employed. She has smoked up to a pack of cigarettes per day since age of 16, and has been slowly trying to quit. Reportedly she is smoking 2 to 4 cigarettes a day. She denie
--- NOTE | 2022-01-30 08:52 | PM.HPGS ---
History of Present Illness History of Present Illness Consent: Risks, benefits, and alternatives have been discussed and questions answered. Patient agrees to proceed with procedure. Chief complaint: neoplasm screening Narrative: Lisa Díaz is a 61 year old female here for screening colonoscopy, last one about 3 years ago. Review of Systems Constitutional: Constitutional: Denies headache(s) and Denies weakness Eyes: Eyes: Denies blurry vision ENT: Reports Normal hearing present, Denies headache(s) and Denies neck pain Cardiovascular: Cardiovascular: Denies chest pain and Denies dyspnea Respiratory: Respiratory: Denies dyspnea Gastrointestinal: Gastrointestinal: Reports no additional gastrointestinal complaints Genitourinary: Genitourinary: Denies dysuria Musculoskeletal: Musculoskeletal: Denies neck pain Integumentary/Breasts: Skin/Breast: Denies dry skin Neurologic: Reports Normal hearing present, Denies headache(s) and Denies weakness Psychiatric: Psychiatric: Denies anxiety Endocrine: Endocrine: Denies change in body appearance Hematologic/Lymphatic: Hematologic/Lymphatic: Denies easy bleeding Allergic/Immunologic: Allergic/Immunologic: Denies urticaria PMF Past Medical History Medical History (Updated 01/30/22 @ 08:52 by Duane Mcqueen MD) Anxiety Cerebrovascular accident Presenting with dysarthria and dysphagia, improved. Chronic obstructive pulmonary disease Chronic respiratory failure with hypoxia, on home oxygen therapy On p.r.n. oxygen. Colon cancer screening Coronary artery disease Elevated troponin Essential hypertension History of ectopic Hyperlipidemia Ischemic cardiomyopathy Status post PPM/AICD insertion. Myocardial infarction Obstructive sleep apnea on CPAP Paroxysmal atrial fibrillation Peripheral artery disease Sciatica Systolic congestive heart failure Echocardiogram in August 2019 showed aneurysmal mid anterior and mid septal owusu, akinesis of the entire anteroseptal, septum, apex, and apical lateral owusu; suggestion of right ventricular systolic dysfunction, mild mitral valve regurgitation, [id number] tricuspid valve regurgitation, and moderate pulmonary hypertension. Tobacco dependence Surgical History Surgical History History of coronary angioplasty with insertion of stent X3. History of tubal ligation S/P ICD (internal cardiac defibrillator) procedure Family History Family History Father Family history of malignant neoplasm Sibling Family history of tuberculosis Asthma Mother Hypertension Family history of malignant neoplasm of urinary bladder Social History Social History (Reviewed 09/19/21 @ 09:50 by Cherelle Díaz [facility]) Social History: The patient lives in her own apartment in [place]. She has 5 children, and designates her daughter John Capellan, as her surrogate decision maker and she wishes to be a full code. She is not currently employed. She has smoked up to a pack of cigarettes per day since age of 16, and has been slowly trying to quit. Reportedly she is smoking 2 to 4 cigarettes a day. She denies alcohol and drug abuse. Years smoked: 40 Smoking status: Current every day smoker Tobacco type: cigarettes Alcohol intake: never Substance use: never Substance use type: does not use Living arrangements: alone Gender identity (if verbalized by the patient): Female Spiritual care concerns: No Meds Home Medications and Allergies Home Medications Medication Instructions Recorded Confirmed Type aspirin 81 mg tablet,delayed 81 mg PO DAILY 10/01/19 01/23/22 History release carvedilol [Coreg] 12.5 mg PO BID 30 Days #30 tablet 11/09/19 01/23/22 Rx fluticasone propionate 50 2 spray NASAL DAILY #9.9 ml 04/12/20 01/23/22 Rx mcg/actuation nasal spray,suspension amioda
[2022-01-30 08:53] LABS: Glucose Point of Care 98 mg/dl (65-105)
[2022-01-30 09:36] VITALS: BP 146/89; PULSE 96; RESP 14; O2SAT 96
[2022-01-30 09:46] VITALS: BP 152/93; PULSE 90; RESP 16; O2SAT 97
[2022-01-30 09:56] VITALS: BP 148/94; PULSE 90; RESP 19; O2SAT 96
== END 2022-01-30 10:03 | disposition home or self-care (01) ==
PROVIDERS: PCP Internal Medicine; Visit Provider Internal Medicine Gastroenterology
PROC: 0DJD8ZZ Inspection of Lower Intestinal Tract, Via Natural or Artificial Opening Endoscopic (ICD-10-PCS; CPT 45378; principal; 2022-01-30 09:30)
DX: Z12.11 Encounter for screening for malignant neoplasm of colon (principal); D12.4 Benign neoplasm of descending colon; K57.30 Diverticulosis of large intestine without perforation or abscess without bleeding; I25.10 Atherosclerotic heart disease of native coronary artery without angina pectoris; F41.9 Anxiety disorder, unspecified; E78.5 Hyperlipidemia, unspecified; I25.5 Ischemic cardiomyopathy; I25.2 Old myocardial infarction; G47.33 Obstructive sleep apnea (adult) (pediatric); I73.9 Peripheral vascular disease, unspecified; I48.0 Paroxysmal atrial fibrillation; M54.30 Sciatica, unspecified side; I11.0 Hypertensive heart disease with heart failure; I50.9 Heart failure, unspecified; Z86.73 Personal history of transient ischemic attack (TIA), and cerebral infarction without residual deficits; R09.02 Hypoxemia; Z95.5 Presence of coronary angioplasty implant and graft; Z95.810 Presence of automatic (implantable) cardiac defibrillator; F17.210 Nicotine dependence, cigarettes, uncomplicated; Z79.82 Long term (current) use of aspirin; Z79.84 Long term (current) use of oral hypoglycemic drugs; Z79.51 Long term (current) use of inhaled steroids
CPT/HCPCS: 45385; 82948; 88305; J2001; J2704; J7120

== ENCOUNTER 2022-02-13 09:37 | Outpatient (CLI) | payer OTHER, SELFPAY ==
--- NOTE | ~2022-02-13 | CT_ITS ---
EXAMINATION: CT lung screening EXAM DATE: 02/13/2022 10:04 INDICATION: Z87.891 - Personal history of nicotine dependence. TECHNIQUE: Spiral low dose CT of the chest without contrast. Axial, coronal and sagittal images were reviewed. The dose-length product (DLP) for this examination was 62.71 mGy-cm. The exposure was ta ilored according to patient size (auto mA exposure control), and iterative reconstruction (ASIR) was used as additional dose reduction technique. Comparison is made to prior examination from 05/23/2019. FINDINGS: Single lead pacemaker/AICD device. There is severe emphysema and hyperinflation. Small mani unt of linear atelectasis. No several bilateral pulmonary nodules up to 3 mm in size likely postinfec tious. No suspicious pulmonary nodules. Tracheobronchial tree is patent. There is no mediastinal, h ilar or axillary lymphadenopathy. There are no pleural or pericardial effusions. There is no pneu mothorax. Left ventricular endocardial fat deposition and some calcification, evidence of prior inf arction. There are likely coronary arterial stent or stents. Correlate with prior cardiac history. Upper abdomen is unremarkable. There is thoracic spondylosis without osteoblastic or osteolytic les ions identified. IMPRESSION: Lung-RADS category 2, benign appearance or behavior (<1% chance of malignancy); recommend continued LDCT screening in 1 year. Reviewed, dictated and finalized at location B.
== END 2022-02-13 09:38 | disposition home or self-care (01) ==
LOC: ANHIMG 09:38
PROVIDERS: PCP Internal Medicine; Visit Provider Internal Medicine Pulmonary Disease
DX: Z87.891 Personal history of nicotine dependence (principal)
CPT/HCPCS: 71271

== ENCOUNTER 2023-05-24 14:52 | Outpatient (CLI) | payer OTHER, SELFPAY ==
--- NOTE | ~2023-05-24 | CT_ITS ---
CT Scan of the Chest without Contrast: Clinical Indication: Lung cancer screening, personal history of nicotine dependence Technique: Contiguous sections were acquired throughout the chest without intravenous contrast. Dose reduction technique was used on this scan by utilizing automated exposure control and iterative recon struction technique. The dose-length product (DLP) was 61.00 mGy-cm. COMPARISON: 02/13/2022 and 05/23/2019 Findings: There is no evidence of any significant mediastinal, hilar or axillary lymphadenopathy. Extensive cor onary artery calcifications are present. Pacemaker is present. There is no evidence of pleural or pericardial effusion. Severe emphysema present. No pulmonary nodules or infiltrates are noted. Images through the upper abdomen reveal no abnormalities. Impression: Lung RADS 1: Negative. 12 month follow-up screening CT advised. Severe emphysema. Reviewed, dictated and finalized at [facility]. Impression: Lung RADS 1: Negative. 12 month follow-up screening CT advised. Severe emphysema.
== END 2023-05-24 14:53 | disposition home or self-care (01) ==
PROVIDERS: PCP Internal Medicine; Visit Provider Nurse Practitioner Family
DX: Z12.2 Encounter for screening for malignant neoplasm of respiratory organs (principal); Z87.891 Personal history of nicotine dependence; J43.9 Emphysema, unspecified
CPT/HCPCS: 71271

== ENCOUNTER 2023-06-07 15:25 | Outpatient (CLI) | payer OTHER, SELFPAY ==
[2023-06-07 18:36] LABS: Basophils Percent Auto 0.6 % (0.2-1.2); Eosinophils Absolute Auto 0.1 K/mm3 (0-0.3); Hematocrit 45.8 % (37.0-47.0); Hemoglobin 13.7 g/dL (12.0-15.0); Immature Granulocyte Absolute 0.02 K/mm3 (0.00-0.031); Immature Granulocyte Percent A 0.3 % (0-0.5); Lymphocytes Absolute Auto 2.53 K/mm3 (0.9-3.2); Lymphocytes Percent Auto 35.2 % (18.3-44.2); Mean Corpuscular HGB Conc 29.9 g/dl (32-36); Mean Corpuscular Hemoglobin 26.7 pg (26-34); Mean Corpuscular Volume 89.3 fl (80-100); Mean Platelet Volume 11.6 fl (7.4-10.4); Monocytes Absolute Auto 0.4 K/mm3 (0.1-0.6); Monocytes Percent Auto 5.4 % (2.6-8.5); Neutrophils Absolute Auto 4.1 K/mm3 (1.3-6.7); Neutrophils Percent Auto 57.5 % (45.5-73.1); Platelet Count Result 174 k/mm3 (150-375); Red Blood Count 5.13 M/mm3 (4.2-5.4); Red Cell Distribution Width 15.4 % (11.5-14.5); White Blood Count 7.2 K/mm3 (4.5-10.0)
[2023-06-07 18:55] LABS: Alanine Aminotransferase 18 U/L (6-35); Albumin Level 4.1 g/dL (3.5-5.1); Alkaline Phosphatase 93 U/L (38-126); Anion Gap 5 mmol/L (8-16); Aspartate Amino Transferase 31 U/L (14-36); Bilirubin,Total 0.6 mg/dL (0.2-1.3); Blood Urea Nitrogen 23 mg/dL (7-17); Calcium 9.5 mg/dL (8.4-10.2); Carbon Dioxide 34 mmol/L (22-30); Chloride 99 mmol/L (98-107); Cholesterol 247 mg/dL (0-200); Estimated Glomerular Filt Rate > 60; Glucose 89 mg/dL (65-110); HDL Direct 69 mg/dL; Potassium 4.4 mmol/L (3.4-5.0); Sodium 138 mmol/L (137-145); Triglycerides 171 mg/dL (<150)
[2023-06-07 19:01] LABS: LDL Cholesterol Direct 108 mg/dL
[2023-06-07 19:24] LABS: Anisocytosis 2+ (NORMAL); Hypochromasia 1+ (NORMAL); Ovalocytes 1+ (NORMAL); Platelet Estimate Adequate (Adequate)
[2023-06-07 19:25] LABS: Schistocytes None Seen (NORMAL)
[2023-06-07 19:52] LABS: Vitamin D 25 Hydroxy 21.1 ng/mL
== END 2023-06-07 15:26 | disposition home or self-care (01) ==
LOC: ANHGOSHLAB 15:27
PROVIDERS: PCP Internal Medicine; Visit Provider Nurse Practitioner
DX: Z13.220 Encounter for screening for lipoid disorders (principal); R73.03 Prediabetes; Z13.29 Encounter for screening for other suspected endocrine disorder; E55.9 Vitamin D deficiency, unspecified
CPT/HCPCS: 36415; 80053; 80061; 82306; 83036; 85025

== ENCOUNTER 2023-10-18 10:58 | Inpatient (IN) | payer OTHER, SELFPAY ==
[2023-10-18] VITALS (21 sets, daily range): BP systolic 103–140; BP diastolic 68–97; PULSE 76–146; RESP 14–24; TEMP 36.8–36.9; O2SAT 96–100
--- NOTE | ~2023-10-18 | US_ITS ---
EXAMINATION: US right upper quadrant DATE: 10/20/2023 16:57 INDICATION: Transaminitis TECHNIQUE: Multiple grayscale and Doppler ultrasound images of the right upper quadrant were obtained . COMPARISON: 11/25/2017. FINDINGS: The visualized portions of the pancreas are normal. The liver is normal with normal echogen icity and echotexture. No surface nodularity. Normal hepatopetal flow in the main portal vein. The ga llbladder is normal with no abnormal wall thickening, pericholecystic fluid or stones. The common roni e duct measures 3 mm. There was no sonographic Roland sign. Normal right kidney. IMPRESSION: Normal right upper quadrant ultrasound findings. Reviewed, dictated and finalized at location K. [facility]ISTS
--- NOTE | ~2023-10-18 | US_ITS ---
EXAMINATION: US venous doppler [facility] DATE: 10/20/2023 16:57 INDICATION: Edema . TECHNIQUE: Grayscale images without and with compression and Doppler images of the bilateral lower ex tremity veins were obtained. COMPARISON: None FINDINGS: The right common femoral vein, profunda (deep) femoral vein, femoral vein, popliteal vein, peroneal v ein, posterior tibial veins, and greater saphenous vein are patent. The left common femoral vein, profunda (deep) femoral vein, femoral vein, popliteal vein, peroneal v ein, posterior tibial veins, and greater saphenous vein are patent. IMPRESSION: Patent bilateral lower extremity veins. No evidence of deep venous thrombosis. Reviewed, dictated and finalized at location K. T LIGHTING SPECIALIST
--- NOTE | ~2023-10-18 | XR_ITS ---
XR chest 1V portable 10/20/2023 13:44 Indication: Shortness of breath Procedure: AP portable chest Comparison: Comparison to multiple prior studies sequentially, with oldest reviewed study dated 04/2020. Findings: Cardiomegaly. There are coronary artery stents. Defibrillator lead tip in the right ventric le. Bibasilar airspace disease, left greater than right unchanged. Small left pleural effusion. The l ungs are hyperinflated which is consistent with, but not diagnostic of chronic obstructive pulmonary disease. Right IJ central line tip in the SVC. Impression: 1: Bibasilar airspace disease unchanged, left greater than right. Differential includes atelectasis a nd/or pneumonia. Reviewed, dictated and finalized at location A. TING CONTRACTOR Impression: 1: Bibasilar airspace disease unchanged, left greater than right. Differential includes atelectasis and/or pneumonia.
--- NOTE | ~2023-10-18 | XR_ITS ---
EXAMINATION: XR chest 1V portable DATE: 10/18/2023 19:31 INDICATION: Shortness of breath TECHNIQUE: frontal view of the chest was obtained. COMPARISON: Chest radiograph dated 05/26/[address] dated 05/24/2023 FINDINGS: Emphysema with increased lucency and architectural distortion in the bilateral upper lung zones. Hazy opacity left mid and lower lung zones with more dense opacities at the left lower lung zone with andrea nting of the costophrenic angle consistent with small left pleural effusion and associated basilar at electasis and/or pneumonia. Right lung is clear. No pulmonary edema, pneumothorax or right-sided pleu ral effusion. The cardiomediastinal silhouette is normal. Single lead cardiac pacemaker/defibrillator with lead tip projecting over the right ventricle. Coronary artery stenting. IMPRESSION: 1. Small left pleural effusion with associated left basilar atelectasis and/or pneumonia. 2. Emphysema. Reviewed, dictated and finalized at location A. E AND WEIGH MACHINE OPERATOR
--- NOTE | ~2023-10-18 | XR_ITS ---
Portable chest x-ray Comparison: 10/18/2023 Clinical History: Line placement Findings: Right IJ line is in satisfactory position. Small left pleural effusion and possible minima l right pleural effusion are present. COPD pattern present. Cardiomediastinal silhouette is stable, with pacemaker device. Bones and soft tissues are unremarkable. Impression: Right IJ line are in satisfactory position. No pneumothorax. Small left pleural effusion and probable minimal right pleural effusion. COPD. Reviewed, dictated and finalized at location M. ACTIVITIES COACH Impression: Right IJ line are in satisfactory position. No pneumothorax. Small left pleural effusion and probable minimal right pleural effusion. COPD.
--- NOTE | ~2023-10-18 | CT_ITS ---
Clinical Indication: Shortness of breath CT Scan of the Chest with Contrast: Technique: Contiguous sections were acquired throughout the chest after intravenous administration of 100 cc of Omnipaque 350. Dose reduction technique was used on this scan by utilizing automated expos ure control and iterative reconstruction technique. The dose-length product (DLP) was 238.47 mGy-cm. COMPARISON: 05/24/2023 Findings: There is no evidence of any significant mediastinal, hilar or axillary lymphadenopathy. There is a pr obable single small pulmonary embolus in a segmental branch the right upper lobe (axial image 105). N o other pulmonary embolus identified. There is no evidence of aortic aneurysm. No pericardial effusio n. There are small bilateral pleural effusions, with mild bibasilar atelectatic change. There is advance d emphysema. Images through the upper abdomen reveal reflux of contrast into the IVC/hepatic veins. Impression: Single small segmental level pulmonary embolus seen in the right upper lobe. Small bilateral pleural effusions with minimal bibasilar atelectatic change. Advanced emphysema. Reflux of contrast into the IVC/hepatic veins could indicate an element of right heart dysfunction/fa ilure. Reviewed, dictated and finalized at [facility]. OR JAVA PROGRAMMER Impression: Single small segmental level pulmonary embolus seen in the right upper lobe. Small bilateral pleural effusions with minimal bibasilar atelectatic change. Advanced emphysema. Reflux of contrast into the IVC/hepatic veins could indicate an element of righ t heart dysfunction/failure.
[2023-10-18] MEDS: METOPROLOL TARTRATE INJ 5 MG/5 ML VIAL IV PUSH (11:19)
--- NOTE | 2023-10-18 11:21 | ECG_ITS ---
Measurements Intervals [place] Rate: 99 P: [place]: 0 QRS: 32 QRSD: 82 T: 120 QT: 361 QTc: 464 Interpretive Statements ATRIAL FLUTTER WITH ABERRANT CONDUCTION OR VENTRICULAR PREMATURE COMPLEXES LOW QRS VOLTAGE IN EXTREMITY LEADS [QRS DEFLECTION < 0.5 mV IN LIMB LEADS] POSSIBLE ANTERIOR MYOCARDIAL INFARCTION , OF INDETERMINATE AGE [30 ms Q WAVE IN V3/V4, OR R < 0.2 mV IN V4] INFERIOR MYOCARDIAL INFARCTION , OF INDETERMINATE AGE [40+ ms Q WAVE AND/OR ST/T ABNORMALITY IN II/aVF] ABNORMAL ECG COMPARED TO ECG 05/26/2021 11:39:17 ATRIAL FLUTTER NOW PRESENT ABERRANT CONDUCTION OF SUPRAVENTRICULAR BEAT(S) NOW PRESENT Electronically Signed On 10-18-2023 14:07:55 COMPOSITE MECHANIC by Von Cobos M.D.
--- NOTE | 2023-10-18 11:22 | ED.GENADULT ---
HPI - General Adult General Chief complaint: Shortness of Breath/Dyspnea Stated complaint: STEMI Time Seen by Provider: 10/18/23 11:02 History of Present Illness HPI narrative: 63-year-old female with history of PA and CVA presenting to the ED for evaluation of worsening shortness of breath. Patient does have a history of atrial fibrillation and arrives and AFib/ a flutter. Patient states she began developing some shortness of breath this morning and worsened. Upon arrival to the emergency department patient is denying any chest pain. EMS was concerned about the EKG and was called as a STEMI in the field. Cardiology, Dr. Rojo, was in the ED when the patient arrived and saw our 1st EKG and she did not feel that this was an acute STEMI. Upon arrival to the emergency department patient was complaining of some shortness of breath but denied any chest pain. Patient states that she did have chest pain associated with her previous STEMI. Related Data Home Medications Medication Instructions Recorded Confirmed aspirin 81 mg tablet,delayed 81 mg PO DAILY 10/01/19 10/18/23 release (Adult Low Dose Aspirin) Eliquis 5 mg PO BID 10/18/23 10/18/23 amiodarone 200 mg tablet (Pacerone) 200 mg PO BID 10/18/23 10/18/23 ipratropium bromide 17 17 mcg inhalation QID PRN 10/18/23 10/18/23 mcg/actuation HFA aerosol inhaler Shortness Of Breath (Atrovent HFA) metoprolol succinate 25 mg 25 mg PO HS 10/18/23 10/18/23 tablet,extended release 24 hr Allergies Allergy/AdvReac Type Severity Reaction Status Date / Time strawberry Allergy Severe Hives Verified 08/08/23 13:35 Review of Systems Review of Systems: All systems reviewed & are unremarkable except as noted in HPI and below PMFSH Past Medical History Medical History Anxiety Cerebrovascular accident Presenting with dysarthria and dysphagia, improved. Chronic obstructive pulmonary disease Chronic respiratory failure with hypoxia, on home oxygen therapy Coronary artery disease Essential hypertension Hyperlipidemia Ischemic cardiomyopathy Status post PPM/AICD insertion. EF 20% on 10/08/2023 cath. Myocardial infarction Obstructive sleep apnea on CPAP Pancreatitis Paroxysmal atrial fibrillation Peripheral artery disease Prediabetes Systolic congestive heart failure Echocardiogram in August 2019 showed aneurysmal mid anterior and mid septal owusu, akinesis of the entire anteroseptal, septum, apex, and apical lateral owusu; suggestion of right ventricular systolic dysfunction, mild mitral valve regurgitation, [id number] tricuspid valve regurgitation, and moderate pulmonary hypertension. Tobacco dependence Vitamin D deficiency Surgical History Surgical History History of coronary angioplasty with insertion of stent X4. Recent angioplasty to 100% thrombotic occluded distal LAD stent on 10/08/2023 at [facility]. History of ectopic History of permanent cardiac pacemaker placement History of placement of internal cardiac defibrillator History of tubal ligation Family History Family History Father Family history of malignant neoplasm Sibling Family history of tuberculosis Asthma Mother Hypertension Family history of malignant neoplasm of urinary bladder Social History Social History Social History: The patient lives in her own apartment in [place]. She has 5 children. She designates her daughter John Capellan, as her surrogate decision maker and she wishes to be a full code. She is not currently employed. She has smoked up to a pack of cigarettes per day since age of 16, and has been slowly trying to quit. Reportedly she is smoking 2 to 4 cigarettes a day. She denies alcohol and drug abuse. Years smoked: 40 Smoking status: Current every day smoker
[2023-10-18 11:31] LABS: Basophils Absolute Auto 0.1 K/mm3 (0.0-0.1); Basophils Percent Auto 0.6 % (0.2-1.2); Eosinophils Percent Auto 0.3 % (0-4.4); Hemoglobin 8.9 g/dL (12.0-15.0); Immature Granulocyte Absolute 0.04 K/mm3 (0.00-0.031); Immature Granulocyte Percent A 0.3 % (0-0.5); Immature Platelet Fraction Pct 10.3 % (0.9-11.2); Lymphocytes Absolute Auto 2.43 K/mm3 (0.9-3.2); Lymphocytes Percent Auto 20.5 % (18.3-44.2); Mean Corpuscular HGB Conc 29.7 g/dl (32-36); Mean Corpuscular Hemoglobin 28.2 pg (26-34); Mean Corpuscular Volume 94.9 fl (80-100); Mean Platelet Volume 11.4 fl (7.4-10.4); Monocytes Absolute Auto 0.6 K/mm3 (0.1-0.6); Monocytes Percent Auto 5.4 % (2.6-8.5); Neutrophils Absolute Auto 8.7 K/mm3 (1.3-6.7); Neutrophils Percent Auto 72.9 % (45.5-73.1); Nucleated Red Blood Cells Perc 0.3 % (0.0-0.2); Platelet Count Result 129 k/mm3 (150-375); Red Blood Count 3.16 M/mm3 (4.2-5.4); Red Cell Distribution Width 19.2 % (11.5-14.5); White Blood Count 11.9 K/mm3 (4.5-10.0)
[2023-10-18 11:39] LABS: Anion Gap 5 mmol/L (8-16); Carbon Dioxide 25 mmol/L (22-30); Chloride 109 mmol/L (98-107); Potassium 3.9 mmol/L (3.4-5.0); Sodium 139 mmol/L (137-145)
[2023-10-18 11:40] LABS: Alanine Aminotransferase 28 U/L (6-35); Albumin Level 3.3 g/dL (3.5-5.1); Alkaline Phosphatase 105 U/L (38-126); Aspartate Amino Transferase 42 U/L (14-36); Bilirubin,Total 0.9 mg/dL (0.2-1.3); Blood Urea Nitrogen 15 mg/dL (7-17); Calcium 8.7 mg/dL (8.4-10.2); Estimated CRCL calculation 53 ml/min; Estimated Glomerular Filt Rate > 60; Glucose 115 mg/dL (65-110)
[2023-10-18 11:41] LABS: INR 1.5; Partial Thromboplastin Time 32.6 SECONDS (22.3-36.8); Prothrombin Time 19.3 Seconds (11.1-14.7)
[2023-10-18] MEDS: SODIUM CHLORIDE 0.9% IV 500 ML 999 ML IV CONT (11:44)
[2023-10-18 11:50] LABS: Schistocytes Rare (NORMAL)
[2023-10-18 11:51] LABS: Anisocytosis 1+ (NORMAL); Hypochromasia 1+ (NORMAL); Poikilocytosis 1+ (NORMAL)
[2023-10-18 11:53] LABS: NT Pro B Type Natriuretic Pept 6040 pg/mL (19.9-100); Troponin I 0.653 ng/mL (0.000-0.034)
[2023-10-18 12:07] LABS: Influenza A QL RT-PCR Negative (Negative); Influenza B QL RT-PCR Negative (Negative); RSV RNA, RT-PCR Negative (Negative); SARS-CoV-2 RNA PCR Negative (Negative)
[2023-10-18 12:36] LABS: Digoxin < 0.5 ng/mL (0.8-2.0)
[2023-10-18] MEDS: METOPROLOL TARTRATE 25 MG TABLET PO ×2 (12:43→17:20)
[2023-10-18] MEDS: MORPHINE SULFATE (*CRX) 2 MG/ML INJ IV PUSH (12:43)
[2023-10-18] MEDS: HEPARIN SODIUM 5,000 UNITS/ML VIAL 3000 UNITS IV PUSH (12:45)
[2023-10-18] MEDS: HEPARIN SOD/D5W 100 UNITS/ML 25,000 UNITS/250 ML BAG 6 UNITS IV CONT (12:46)
--- NOTE | 2023-10-18 12:59 | PC.NURSE ---
Heart Healthy Lunch tray ordered
--- NOTE | 2023-10-18 13:24 | PM.IMHP ---
H&P: HPI History of Present Illness Date/Time: 10/18/23 13:35 Chief Complaint: Shortness of breath. Narrative: This is a 63-year-old female with history of stroke, coronary artery disease, paroxysmal atrial fibrillation, ischemic cardiomyopathy status post pacemaker/defibrillator, chronic obstructive pulmonary disease with chronic respiratory failure on oxygen, obstructive sleep apnea, and hypertension who presented to the emergency department via EMS from home for evaluation of shortness of breath. The following history is obtained from the patient and her daughters, with the patient's permission. Her medical history has been complicated as of late. She was hospitalized at [facility] last month with an ischemic stroke with residual expressive aphasia and some weakness in the right leg. While at rehab she developed chest pain and was sent to the ED at [facility] a day later where she was found to have ST-elevation in the anterior leads on ECG. On 10/08/2023 she underwent balloon angioplasty to a thrombotic occlusion of a previous distal LAD stent (post intervention YOEL flow is 2) and she was noted to have profound segmental LV systolic dysfunction with an EF of 20%. A previously placed mid LAD stent was widely patent with mild diffuse disease throughout the left circumflex and right coronary artery. She was not anticoagulated due to a hemoglobin of 5.5 on presentation with stools positive for occult blood. The patient does not recall having a blood transfusion, denies having recent upper and lower endoscopy, and she is not on iron supplementation at home. In any event, she was discharged home last Sunday where her daughter has been caring for her. According to the daughter the patient had several episodes of dark, tarry stools but that has since cleared up. This morning however she was noted to have passed a fair amount of bright red blood per rectum and when the patient began to complain of shortness of breath they brought her in for evaluation. She denies chest and pleuritic pain, palpitations, sensations of racing heart, cold and flu symptoms, cough, epigastric and abdominal pain (she was tender to palpation on exam in the epigastric region), bloating, hematemesis, orthopnea, paroxysmal nocturnal dyspnea, and lower extremity edema. She has had some belching which is unusual for her. No known history of peptic ulcer disease. On arrival in the ED she was found to be in atrial flutter with rapid ventricular response with rates in the 140s. Her heart rate has slowed down with 5 mg IV Lopressor. Labs were significant for a hemoglobin of 8.9, WBC count 11.9, troponin 0.653, proBNP 6040. She was negative for influenza, RSV, and COVID. Initially she was started on heparin drip with concerns for non STEMI however troponins have remained flat, she has no chest pain, and with reports of rectal bleeding this has been discontinued. She is being admitted in this setting for close monitoring and Cardiology and GI consultations. Review of Systems Review of Systems: Twelve systems were reviewed and are negative except for as per HPI. [facility] Past Medical History Medical History (Updated 10/18/23 @ 19:17 by Elena Bender PA-C) Anxiety Cerebrovascular accident Residual expressive aphasia and right leg weakness. Chronic obstructive pulmonary disease Chronic respiratory failure with hypoxia, on home oxygen therapy Coronary artery disease Essential hypertension Hyperlipidemia Ischemic cardiomyopathy Status post PPM/AICD insertion. EF 20% on 10/08/2023 cath. Myocardial infarction Obstructive sleep apnea on CPAP Pancreatitis Paroxysmal atrial fibrillation Peripheral artery disease Prediabetes Systolic congestive heart failure Echocardiogram in August 2019 showed aneurysmal mid anterior and mid septal owusu, akinesis of the entire anteroseptal, septum, apex, and apical lateral owusu; suggestion of right ventricular systolic dysfunction, mil
--- NOTE | 2023-10-18 14:18 | ECG_ITS ---
Measurements Intervals [place] Rate: 129 P: [place]: 0 QRS: 47 QRSD: 100 T: 120 QT: 329 QTc: 484 Interpretive Statements ATRIAL FLUTTER WITH RAPID VENTRICULAR RESPONSE INFERIOR MYOCARDIAL INFARCTION , POSSIBLY ACUTE [40+ ms Q WAVE AND/OR ST/T ABNORMALITY IN II/aVF] POSSIBLE aNTEROLATERAL MYOCARDIAL INFARCTION , PROBABLY RECENT [40+ ms Q WAVE IN I/aVL/V3-V6] ABNORMAL ECG COMPARED TO ECG 05/26/2021 11:39:17 ATRIAL FLUTTER NOW PRESENT ABERRANT CONDUCTION OF SUPRAVENTRICULAR BEAT(S) NOW PRESENT Electronically Signed On 10-18-2023 14:35:50 SOFTWARE PRODUCT MANAGER by Von Cobos M.D.
--- NOTE | 2023-10-18 14:26 | ECG_ITS ---
Measurements Intervals [place] Rate: 87 P: [place]: 0 QRS: 77 QRSD: 94 T: 90 QT: 358 QTc: 431 Interpretive Statements ATRIAL FLUTTER/TACHYCARDIA WITH ABERRANT CONDUCTION OR VENTRICULAR PREMATURE COMPLEXES PREVIOUS ANTERIOR WALL INFARCTION WITH PERSISTENT ST SEGMENT ELEVATION ABNORMAL ECG COMPARED TO ECG 10/18/2023 11:32:48 NO SIGNIFICANT CHANGES Electronically Signed On 10-19-2023 13:47:28 MARKETING EDITOR by Maicol Levi M.D.
[2023-10-18 15:33] LABS: Troponin I 0.639 ng/mL (0.000-0.034)
--- NOTE | 2023-10-18 15:53 | PM.CNCAR ---
Assessment and Plan Assessment and plan (1) Atrial flutter with rapid ventricular response: Code(s): I48.92 - Unspecified atrial flutter Status: Acute Assessment and Plan: Improved with IV Metoprolol. Appears to be on Coreg at home, but concern for soft blood pressures, therefore, recommend starting Metoprolol instead of Coreg. Can do 25mg PO Q6H and uptitrate as needed. If patient has issues with RVR and blood pressure becomes an issue, then recommend Amiodarone drip at that time. Was started on Heparin drip, but patient reports having bloody bowel movements this morning, therefore, okay to hold anticoagulation for now. (2) Elevated troponin: Code(s): R79.89 - Other specified abnormal findings of blood chemistry Status: Acute Assessment and Plan: Troponin of 0.653 and 0.639. Flat troponins. Her EKG has chronic ST changes in the anterolateral leads, and this is baseline for her. No chest pain. I suspect that the troponin elevation is due to demand ischemia from atrial flutter with RVR. (3) Coronary artery disease: Qualifiers: Coronary Disease-Associated Artery/Lesion type: unspecified vessel or lesion type [place] vs. transplanted heart: [place] heart Associated angina: without angina Qualified Code(s): I25.10 - Atherosclerotic heart disease of [place] coronary artery without angina pectoris Code(s): I25.10 - Atherosclerotic heart disease of [place] coronary artery without angina pectoris Status: Acute Assessment and Plan: Of note, there is a cardiac cath report [facility] shows patient had chest pain while at rehab. EKG revealed ST elevation in the anterior leads. Her Hgb noted to be 5.5 and she had positive stools for occult blood. She was taken to [facility] on 10/08/2023 where angiogram showed thrombotic occlusion of previous distal LAD stent, profound segment LV systolic dysfunction with LVEF 20%, mild MR, elevated LVEDP, balloon angioplasty of distal LAD done. Noted to have mild diffuse disease of LCX and RCA without any obstructive disease. We do not however have any other documentation from that hospital. Continue ASA and statin. Recommend to obtain the remainder of her records from her [facility] hospitalization. (4) Ischemic cardiomyopathy: Code(s): I25.5 - Ischemic cardiomyopathy Status: Acute Assessment and Plan: Appears euvolemic. Continue home heart failure GDMT if blood pressure allows. History of Present Illness History of Present Illness Consult date/time: 10/18/23 15:53 Requesting physician: Ger Washington MD Consult reason: Other (Atrial flutter) Reason For Visit: atrial flutter,bumped troponin Narrative: We are consulted for atrial flutter with RVR, elevated troponin. This is a 63 year old patient of Dr. Levi's. Has known paroxysmal atrial flutter, coronary artery disease s/p prior PCI to LAD, chronic systolic heart failure with LVEF of about 20% s/p ICD. Patient began having shortness of breath this morning. No chest pain. Also reports having bright red blood in her stool. Given the shortness of breath, she called EMS. EMS activated STEMI, but upon arrival to ER, we cancelled the STEMI alert. No chest pain. She was noted to be in atrial flutter with RVR. Given Metoprolol with improvement in heart rate and her symptoms. Of note, there is a cardiac cath report from [facility] that shows patient had chest pain while at rehab. EKG revealed ST elevation in the anterior leads. Her Hgb noted to be 5.5 and she had positive stools for occult blood. She was taken to [facility] lifting supervisor on 10/08/2023 where angiogram showed thrombotic occlusion of previous distal LAD stent, profound segment LV systolic dysfunction with LVEF 20%, mild MR, elevated LVEDP, balloon angioplasty of distal LAD done. Noted to have mild diffuse disease of LCX and RCA without any obstructive disease. We do not however have any other documentation from that hospital. Review of Sys
[2023-10-18 18:22] LABS: Hematocrit 30.2 % (37.0-47.0); Hemoglobin 8.7 g/dL (12.0-15.0)
[2023-10-18 18:48] LABS: Troponin I 0.637 ng/mL (0.000-0.034)
[2023-10-18] MEDS: AMIODARONE HCL 200 MG TABLET PO (20:16)
[2023-10-18] MEDS: GABAPENTIN 400 MG CAPSULE PO (20:16)
[2023-10-18 21:29] LABS: Hematocrit 29.8 % (37.0-47.0); Hemoglobin 8.4 g/dL (12.0-15.0)
[2023-10-18 21:36] LABS: Lipase 90 U/L (23-300)
[2023-10-18 22:12] LABS: D Dimer > 20.00 ug/mL (<0.48)
[2023-10-19] VITALS (28 sets, daily range): BP systolic 108–154; BP diastolic 62–115; PULSE 53–83; RESP 16–31; TEMP 35.9–36.8; O2SAT 20–100; BMI 16.0
[2023-10-19] MEDS: METOPROLOL TARTRATE 25 MG TABLET PO ×3 (00:03→17:37)
[2023-10-19 02:58] LABS: Anion Gap 10 mmol/L (8-16); Blood Urea Nitrogen 18 mg/dL (7-17); Calcium 8.7 mg/dL (8.4-10.2); Carbon Dioxide 20 mmol/L (22-30); Chloride 107 mmol/L (98-107); Estimated CRCL calculation 32 ml/min; Estimated Glomerular Filt Rate 55; Glucose 101 mg/dL (65-110); Magnesium 2.1 mg/dL (1.6-2.3); Potassium 5.1 mmol/L (3.4-5.0); Sodium 137 mmol/L (137-145)
[2023-10-19 03:02] LABS: Basophils Absolute Auto 0.1 K/mm3 (0.0-0.1); Basophils Percent Auto 0.8 % (0.2-1.2); Eosinophils Absolute Auto 0.1 K/mm3 (0-0.3); Eosinophils Percent Auto 0.5 % (0-4.4); Hematocrit 31.6 % (37.0-47.0); Hemoglobin 9.1 g/dL (12.0-15.0); Immature Granulocyte Absolute 0.04 K/mm3 (0.00-0.031); Immature Granulocyte Percent A 0.4 % (0-0.5); Lymphocytes Absolute Auto 3.54 K/mm3 (0.9-3.2); Lymphocytes Percent Auto 32.1 % (18.3-44.2); Mean Corpuscular HGB Conc 28.8 g/dl (32-36); Mean Corpuscular Hemoglobin 28.3 pg (26-34); Mean Corpuscular Volume 98.1 fl (80-100); Mean Platelet Volume 12.9 fl (7.4-10.4); Monocytes Absolute Auto 0.6 K/mm3 (0.1-0.6); Monocytes Percent Auto 5.2 % (2.6-8.5); Neutrophils Absolute Auto 6.7 K/mm3 (1.3-6.7); Nucleated Red Blood Cells Absolute Auto 0.1 K/mm3 (0.0-0.012); Platelet Count Result 155 k/mm3 (150-375); Red Blood Count 3.22 M/mm3 (4.2-5.4)
[2023-10-19 03:22] LABS: Alveolar/Arterial O2 Gradient 56.1 mmHg; Base Excess ABG -9.4 mEq/l (+/-2.0); Carboxyhemoglobin 0.2 % THb (0-2.0); Fractional Inspired Oxygen 32 %; HCO3 ABG 19.5 mEq/l (22.0-26.0); Methemoglobin ABG 0.3 %THb (0-1.5); Oxygen Content ABG 12.9 %vol (16.0-22.0); Oxygen Saturation ABG 95.9 % (95.0-100.0); Oxyhemoglobin 94.4 % THb (90.0-100.0); PCO2 ABG 58.2 mmHg (35.0-45.0); PO2 FiO2 Ratio Arterial Blood 3.25 %; Reduced Hemoglobin 5.1 %THb (0-5.0); Total Hemoglobin 9.6 g/dL (12.0-18.0)
[2023-10-19 03:26] LABS: pH ABG 7.143 (7.350-7.450)
[2023-10-19 03:27] LABS: Device NASAL CANNULA; Site Drawn RIGHT BRACHIAL
[2023-10-19 03:42] LABS: Anisocytosis 2+ (NORMAL); Macrocytosis 1+ (NORMAL); Microcytosis 1+ (NORMAL); Platelet Estimate Adequate (Adequate); Poikilocytosis 1+ (NORMAL); Polychromasia 1+ (NORMAL)
[2023-10-19 03:43] LABS: Schistocytes 1+ (NORMAL)
--- NOTE | 2023-10-19 05:51 | PC.NURSE ---
Patient returned from CT scan started having trouble breathing this nurse notified cleaner housekeeping and charge nurse. Nurse made call to hospitalist Dr. Hunter came down to assess patient Dr. Hunter decided to move patient to ICU for a central line. Nurse called daughter 3times no answer left message to call back.
--- NOTE | 2023-10-19 05:54 | PC.NURSE ---
This patient, Lisa Díaz, was transferred to [3 ] on 10/19/23 at 0500. Personal belongings sent with patient. Report given to [Josue ]. Appropriate documentation sent with patient.
--- NOTE | 2023-10-19 06:06 | PC.NURSE ---
brought to ciu for central line and intubation if patient deteriorates. pt awake but only one word responses follows commands tolerating bipap. dr mix at bedside
--- NOTE | 2023-10-19 06:25 | WPDPROCEDUR ---
Procedures Central Line Placement Right IJ: Central Line Date: 10/19/23 Central Line Time: 05:00 Performed Emergently - Given emergent patient condition, temporal constraints may have precluded informed consent.: Yes Time Out Performed: Yes Patient Position: trendelenburg Patient placed on monitor/pulse ox: Yes Provider Prep: mask, sterile gown, sterile gloves, Max. sterile barrier precautions, cap and hand hygiene with conventional soap/water or alcohol based hand rub Central line prep: 2% Chlorhexidine scrub Local anesthesia used: lidocaine 1% Amount of anesthesia used (ml): 10 Sterile US Technique with sterile gel/sterile probe covers: Yes Central line lumen inserted: triple Portuguese: 7 Length (cm): 16 Depth of Insertion (cm): 16 Post Procedure: sutured in place, good blood return, all ports aspirated, flushed, capped, transparent dressing, hemostatic product, antimicrobial product, securement product and aseptic technique maintained throughout procedure Post procedure x-ray: tip of catheter in good position and no pneumothorax seen Patient tolerated procedure: well Additional comments: Initially attempted a right femoral line is patient was in significant respiratory distress initially in transfer to the ICU. However after the patient BiPAP was adjusted patient's respiratory status had improved. I did try the right femoral line but during the process of advancing the guidewire double cannulated the is vein into the femoral artery. Pressure was held with adequate hemostasis after 10 minutes. Subsequently I a changed to a right IJ. venous return was obtained on IJ placement with 1st attempt. Guidewire advanced easily. Line was placed using standard technique. Line was sutured with 1 suture due to positioning of the line and difficulty with placement a 2nd suture with the patient's BiPAP in place. The patient had some localized swelling at insertion site for lidocaine but no obvious hematoma. Chest x-ray was personally reviewed and catheter was in good position without evidence of pneumothorax
--- NOTE | 2023-10-19 06:35 | P.PNCROSS_ITS ---
Event Note Event Note Event Note: 63-year-old with history of CVA, coronary disease paroxysmal AFib, ischemic car diomyopathy, right-sided heart failure, COPD with chronic hypoxic hypercapnic respiratory failure with history of prior intubations who presented to the ER with shortness of breath. She was found to be in AFib RVR received metoprolol and amiodarone. After midnight patient began having increasing work of breathing. Stat ABG was performed around 02:30 which demonstrated acute hypercapnic respiratory failure. Patient's pH was 7.14. The patient was not tolerating BiPAP that was ordered. I got called to the rib to evaluate patient. Patient very little air movement on exam. She had a respiratory rate of 30 with shallow respirations. The patient would open her eyes and no odd but was unable to give me any verbal responses initially. She was unable to participate in the history process. Nursing staff was unable to place a IV despite multiple attempts and use of ultrasound. I tried placement of ultrasound-guided IV as well. The patient's condition was worsening patient was becoming less responsive. I place patient back on the BiPAP and made adjustments to BiPAP with increased I:E ratio of 16/6 and increase the patient's rate to 20. The patient's tidal volumes on BiPAP or 350-500 on average. However patient was still not waking up despite multiple attempts at IV placement. She would open her eyes but then would not respond or could make meaningful communication. She would stare straight ahead. Subsequently the patient was moved to the ICU with anticipation of intubation after central line placement for IV access. During the process of the femoral line placement patient did actually wake up and was more appropriate. She had improved aeration on BiPAP. She had respiratory rate that decreased from the 30s down to 24. The patient's respiratory status improved to the point that actually felt safe foot putting the patient in Trendelenburg foreign IJ and subsequent was converted to IJ placement. Patient tolerated IJ placement without complications. Repeat ABG after central line placement demonstrated normalization of ABG. Subsequently patient was transfer back to the IMU due to shortage of ICU beds. By the time central line was completed the patient was alert responsive and appropriate in attempting to have conversation. CTA had been ordered due to elevated D-dimer. CT did demonstrate a right upper lobe pulmonary embolism a may review this was confirmed with radiologic interpretation prior to my hand off of service. Patient is already on a heparin drip. Acute hypercapnic respiratory failure Pulmonary embolism Poor vascular access 2 hours spent in critical care activities Due to a high probability of clinically significant, life threatening deterioration, the patient required my highest level of preparedness to intervene emergently and I personally spent this critical care time directly and personally managing the patient. This critical care time included obtaining a history; examining the patient; pulse oximetry; ordering and review of studies; arranging urgent treatment with development of a management plan; evaluation of patient's response to treatment; frequent reassessment; and discussions with other providers. It was exclusive of separately billable procedures and treating other patients and teaching time. Please see Assessment and Plan section and the rest of the note for further information on patient assessment and treatment.
[2023-10-19 06:38] LABS: Base Excess ABG -5.3 mEq/l (+/-2.0); Carboxyhemoglobin 0.2 % THb (0-2.0); Fractional Inspired Oxygen 35 %; HCO3 ABG 19.8 mEq/l (22.0-26.0); Methemoglobin ABG 0.4 %THb (0-1.5); Oxygen Saturation ABG 95.9 % (95.0-100.0); Oxyhemoglobin 93.8 % THb (90.0-100.0); PCO2 ABG 36.8 mmHg (35.0-45.0); PO2 ABG 83.8 mmHg (80.0-100.0); PO2 FiO2 Ratio Arterial Blood 2.39 %; Reduced Hemoglobin 5.6 %THb (0-5.0); pH ABG 7.348 (7.350-7.450)
[2023-10-19 06:39] LABS: Basophils Percent Auto 0.2 % (0.2-1.2); Hematocrit 26.9 % (37.0-47.0); Hemoglobin 7.9 g/dL (12.0-15.0); Immature Granulocyte Absolute 0.13 K/mm3 (0.00-0.031); Immature Granulocyte Percent A 0.8 % (0-0.5); Immature Platelet Fraction Pct 10.3 % (0.9-11.2); Lymphocytes Absolute Auto 0.68 K/mm3 (0.9-3.2); Lymphocytes Percent Auto 4.2 % (18.3-44.2); Mean Corpuscular HGB Conc 29.4 g/dl (32-36); Mean Corpuscular Hemoglobin 28.5 pg (26-34); Mean Corpuscular Volume 97.1 fl (80-100); Mean Platelet Volume 11.7 fl (7.4-10.4); Monocytes Absolute Auto 0.6 K/mm3 (0.1-0.6); Neutrophils Absolute Auto 14.6 K/mm3 (1.3-6.7); Neutrophils Percent Auto 90.8 % (45.5-73.1); Nucleated Red Blood Cells Absolute Auto 0.2 K/mm3 (0.0-0.012); Platelet Count Result 123 k/mm3 (150-375); Red Blood Count 2.77 M/mm3 (4.2-5.4); Red Cell Distribution Width 18.6 % (11.5-14.5); White Blood Count 16.1 K/mm3 (4.5-10.0)
[2023-10-19 06:40] LABS: Device NON-INVASIVE VENT; Modified Allen's Test Unable to perform; Site Drawn RIGHT RADIAL
[2023-10-19 06:41] LABS: Non-Invasive Expiratory Pressure 6 CMH2O; Non-Invasive Inspiratory Pressure 12 CMH2O; Non-Invasive Vent Rate 20 /MIN
--- NOTE | 2023-10-19 06:45 | PC.NURSE ---
abg wnl pt to return to rm 213 with right IJ and batista. only 50 cc urine
[2023-10-19 06:48] LABS: INR 2.2; Prothrombin Time 26.3 Seconds (11.1-14.7)
[2023-10-19 06:49] LABS: Lactic Acid Reflex 2.2 mmol/L (0.7-2.0); Partial Thromboplastin Time 40.9 SECONDS (22.3-36.8)
[2023-10-19 06:50] LABS: Alanine Aminotransferase 664 U/L (6-35); Albumin Level 3.1 g/dL (3.5-5.1); Alkaline Phosphatase 100 U/L (38-126); Anion Gap 6 mmol/L (8-16); Bilirubin,Total 1.3 mg/dL (0.2-1.3); Blood Urea Nitrogen 22 mg/dL (7-17); Calcium 8.1 mg/dL (8.4-10.2); Carbon Dioxide 24 mmol/L (22-30); Chloride 109 mmol/L (98-107); Estimated CRCL calculation 24 ml/min; Estimated Glomerular Filt Rate 50; Glucose 63 mg/dL (65-110); Magnesium 1.9 mg/dL (1.6-2.3); Phosphorus 6.2 mg/dL (2.5-4.5); Potassium 5.8 mmol/L (3.4-5.0); Sodium 139 mmol/L (137-145)
[2023-10-19] MEDS: methylPREDNISolone SOD SUCC 125 MG VIAL IV PUSH (06:51)
[2023-10-19 07:30] LABS: Aspartate Amino Transferase 1835 U/L (14-36)
[2023-10-19 07:39] LABS: Appearance Urine Clear (Clear); Bacteria Urine None Seen /hpf; Bilirubin Urine Negative (Negative); Blood Urine 1+ (Negative); Color Urine Yellow (Yellow); Glucose Urine UA Negative (Negative); Ketones Urine Negative (Negative); Leukocyte Esterase Ur Negative LEU/UL (Negative); Need Manual Microscopic Reviewed; Nitrate Urine Negative (Negative); Protein Urine 2+ mg/dL (Negative); RBC Urine 0-2 /hpf (0-2); Squamous Epithelial Cell Urine Occasional /hpf (Few); WBC Urine 0-5 /hpf; pH Urine 5.5 (5.0-9.0)
[2023-10-19 07:40] LABS: Add Urine Microscopic? YES; Specific Grav Ur 1.072 (1.001-1.035)
[2023-10-19] MEDS: FLUTICASONE/UMECLIDIN/VILANTER 100-62.5-25 MCG ELLIPTA 1 PUFF INHALATION (07:43)
[2023-10-19 07:46] LABS: Atypical Lymphocytes Present
[2023-10-19 07:47] LABS: Anisocytosis 1+ (NORMAL); Schistocytes Rare (NORMAL)
[2023-10-19 07:48] LABS: Hypochromasia 1+ (NORMAL)
[2023-10-19] MEDS: AMIODARONE HCL 200 MG TABLET PO ×2 (08:51→17:37)
[2023-10-19] MEDS: GABAPENTIN 400 MG CAPSULE PO ×3 (08:51→17:38)
[2023-10-19] MEDS: ASPIRIN 81 MG ENTERIC TABLET PO (08:51)
[2023-10-19 09:35] LABS: Reflex Lactic Acid Yes or No Add Lactic
[2023-10-19 11:17] LABS: Lactic Acid 1.2 mmol/L (0.7-2.0)
--- NOTE | 2023-10-19 11:52 | PM.IMPN ---
Progress Note: A&P Assessment and Plan (1) Atrial flutter with rapid ventricular response: Code(s): I48.92 - Unspecified atrial flutter Status: Acute Assessment and Plan: Presented to ED with shortness of breath found to have atrial flutter/RVR and rates in the 140s. IV Lopressor 5 mg x 1 did slow the heart rate somewhat. Start metoprolol 25 mg q.6 hours for rate control. Continue amiodarone 200 mg daily. Cardiology consult noted. (2) Elevated troponin: Code(s): R79.89 - Other specified abnormal findings of blood chemistry Status: Acute Assessment and Plan: Presumably related to above as she is not experiencing chest pain and EKG does not show acute ST segment elevation. Status post balloon angioplasty to a thrombotic occluded distal LAD stent 10/08/2023 at [facility]. Dr. Rojo is following and her recommendations are appreciated. (3) Anemia: Code(s): D64.9 - Anemia, unspecified Status: Acute Assessment and Plan: Monitor closely Continue iron supplement (4) Shortness of breath: Code(s): R06.02 - Shortness of breath Status: Acute Assessment and Plan: Presumably related to atrial flutter/rapid ventricular response. On eliquis (5) Coronary artery disease: Code(s): I25.10 - Atherosclerotic heart disease of [place] coronary artery without angina pectoris Status: Acute Assessment and Plan: Continue aspirin 81 mg with close monitoring of H&H. Coreg changed to metoprolol for better rate control. I do not see that she is on a statin for unclear reasons. (6) Ischemic cardiomyopathy: Code(s): I25.5 - Ischemic cardiomyopathy Status: Acute Assessment and Plan: EF was 20% on cardiac catheterization on 10/08/2023. Monitor volume status closely with daily weights and strict I/O. (7) Chronic obstructive pulmonary disease: Qualifiers: COPD type: unspecified COPD Qualified Code(s): J44.9 - Chronic obstructive pulmonary disease, unspecified Code(s): J44.9 - Chronic obstructive pulmonary disease, unspecified Status: Acute Assessment and Plan: No evidence on exam to suggest COPD exacerbation. Continue maintenance inhalers as prescribed. Subjective Date/time seen: 10/19/23 11:52 Interval history: Patient was seen during the morning rounds today. Patient is denies any chest pain shortness a breath at present time. No abdominal pain, nausea, no vomiting. Mood stable. Review of Systems Review of Systems: Twelve systems were reviewed and are negative except for as per HPI. Exam Narrative: General:??Chronically ill-appearing female sitting up in bed no acute distress. Weight: 50 kg. BMI: 20.8. HEENT:? PERRL, EOMI.? Sclerae anicteric.? Oral mucosa moist.? Several missing teeth. Neck:??Supple. ? No JVD. Respiratory:??Air entry good, no additional sounds. Cardiovascular: Irregular rate and rhythm. PM/ICD device in the left anterior chest.? Gastrointestinal:??Abdomen is soft and nondistended with positive bowel sounds. She reports tenderness to palpation in the epigastric region. No guarding or rebound tenderness. Skin:??Warm and dry.? No rash or lesions on limited exam. Extremities:??No cyanosis, clubbing, or significant edema. Radial and pedal pulses intact. Neurological:??Alert.? Cranial nerves 2-12 are grossly intact. Mild expressive aphasia. Gait not assessed. Psychiatric:??Pleasant and cooperative with appropriate mood and affect. Objective Data Vital Signs Vital Signs: Vital Signs - 24 hr 10/18/23 12:43 10/18/23 12:00 10/18/23 12:30 Temperature Pulse Rate 133 H 115 H 126 H Respiratory Rate 24 H 18 Blood Pressure 111/78 111/82 Pulse Oximetry 100 98 Oxygen Delivery Oxygen Flow Rate Fraction of Inspired Oxygen 10/18/23 12:45 10/18/23 13:45 10/18/23 14:15 Temperature Pulse Rate 92 99 125 H Respiratory Rate 14 18 20 Blood Pressu
--- NOTE | 2023-10-19 12:27 | PM.PNCARD ---
Progress Note: A&P Assessment and Plan (1) Atrial flutter: Code(s): I48.92 - Unspecified atrial flutter Status: Acute (2) Ischemic cardiomyopathy: Code(s): I25.5 - Ischemic cardiomyopathy Status: Acute Plan 63-year-old lady with baseline severe ischemic cardiomyopathy with remote history of anterior infarction and very low ejection fraction. She came into the hospital short of breath in the setting of a flutter with rapid ventricular response. Of course it is not unexpected that her hemodynamic tolerance of rapid atrial flutter was poor. Fortunately she is now back in sinus rhythm. Complicating all of this is she is severely anemic as well. At this time I would recommend stopping anticoagulation because of her hemoglobin of 7 and which appears to be declining. I would observe her conservatively on the floor at this time. If her hyperkalemia improves now that her hemodynamics are better I will consider starting some Entresto while she is in the hospital. Given her potassium level that will not be at this time. Her prognosis of course is very guarded given her fragile health and very poor left ventricular function but none of these are new issues in this very pleasant but unfortunate lady Maicol Levi MD [facility] Subjective Date/time seen: Date of service: 10/19/23 12:27 Interval history: Follow-up visit in this 63-year-old lady with: Very complex situation with longstanding coronary artery disease, previous extensive anterior wall NE with ischemic cardiomyopathy and low ejection fraction. She enters the hospital here with shortness of breath she was in atrial flutter with rapid ventricular response. She does take amiodarone chronically. She is back in sinus rhythm this morning. Laboratory data is concerning regarding significant anemia as well as hyperkalemia. This patient is guideline medical directed therapy previously did include lisinopril. She does not remember being taken off of it during her recent hospitalization elsewhere. For now she is receiving metoprolol and amiodarone and has gone back into sinus rhythm. She feels and looks relatively comfortable today and is eating her lunch when I entered the room to see her. Exam Const: General: comfortable and no acute distress Other: Thin chronically ill-appearing black female no distress HENMT: Mouth: Yes moist mucous membranes Eyes: Sclera: sclerae normal Neck: Neck: supple and no JVD Resp: Effort & Inspection: normal respiratory effort Auscultation: clear to auscultation bilaterally Other: Appears euvolemic Cardio: Rate: regular rate Rhythm: regular rhythm Other: PMI is laterally displaced and enlarged. Very soft apical systolic murmur is noted S3 is noted as well GI: GI Palp: Yes Soft to palpation Auscultation: normal bowel sounds Skin: General skin exam: normal color Neuro: Other: Alert and oriented x3 Extrem: Other: No edema, good distal pulses Objective Data Vital Signs Vital Signs: Vital Signs - 24 hr 10/18/23 12:43 10/18/23 12:30 10/18/23 12:45 Temperature Pulse Rate 133 H 126 H 92 Respiratory Rate 18 14 Blood Pressure 111/82 103/68 Pulse Oximetry 98 97 Oxygen Delivery Oxygen Flow Rate Fraction of Inspired Oxygen 10/18/23 13:45 10/18/23 14:15 10/18/23 13:15 Temperature Pulse Rate 99 125 H 105 H Respiratory Rate 18 20 20 Blood Pressure 116/97 H 116/82 124/95 H Pulse Oximetry 100 100 100 Oxygen Delivery Oxygen Flow Rate Fraction of Inspired Oxygen 10/18/23 16:04 10/18/23 15:45 10/18/23 18:00 Temperature Pulse Rate 113 H 105 H 102 H Respiratory Rate 20 18 Blood Pressure 116/79 117/73 Pulse Oximetry 100 100 Oxygen Delivery Oxygen Flow Rate Fraction of Inspired Oxygen 10/18/23 17:20 10/18/23 19:56 10/18/23 20:16 Temperature 36.9 C Pulse Rate 116 H 89 86 Respiratory Rate 16 Blood Pressure 113/70
[2023-10-19] MEDS: CENTRAL LINE FLUSH 10 ML IV PUSH ×2 (12:59→22:00)
[2023-10-19 15:00] LABS: Hematocrit 26.8 % (37.0-47.0)
--- NOTE | 2023-10-19 15:01 | PC.NURSE ---
Patient c/o SOB, after turn and pericare. No change in lung sounds. Patient placed on BiPaP. Dr. Booker updated. No new orders.
[2023-10-19 15:09] LABS: IFOB Positive Control Positive; Immunochemical Fecal Occult Bl Negative (N)
[2023-10-19] MEDS: POLYSACCHARIDE IRON COMPLEX 150 MG CAPSULE PO (17:37)
[2023-10-20] VITALS (40 sets, daily range): BP systolic 93–161; BP diastolic 55–107; PULSE 54–533; RESP 12–29; TEMP 36.1–37; O2SAT 90–100
[2023-10-20] MEDS: METOPROLOL TARTRATE 25 MG TABLET PO ×4 (00:28→18:11)
[2023-10-20] MEDS: SODIUM CHLORIDE 0.9% IV 1,000 ML 100 ML IV CONT ×2 (00:29→10:28)
[2023-10-20] MEDS: IPRATROPIUM BR 0.02% INH SOLN 0.5 MG/2.5 ML VIAL INHALATION ×4 (01:41→20:54)
[2023-10-20] MEDS: ALBUTEROL SULFATE NEB 2.5 MG/3 ML INH 5 MG INHALATION ×4 (01:42→20:54)
[2023-10-20 05:03] LABS: Basophils Percent Auto 0.1 % (0.2-1.2); Hematocrit 25.2 % (37.0-47.0); Hemoglobin 7.2 g/dL (12.0-15.0); Immature Granulocyte Absolute 0.13 K/mm3 (0.00-0.031); Immature Granulocyte Percent A 0.9 % (0-0.5); Immature Platelet Fraction Pct 11.6 % (0.9-11.2); Lymphocytes Absolute Auto 0.54 K/mm3 (0.9-3.2); Lymphocytes Percent Auto 3.7 % (18.3-44.2); Mean Corpuscular HGB Conc 28.6 g/dl (32-36); Mean Corpuscular Hemoglobin 28.3 pg (26-34); Mean Corpuscular Volume 99.2 fl (80-100); Mean Platelet Volume 12.5 fl (7.4-10.4); Monocytes Absolute Auto 0.6 K/mm3 (0.1-0.6); Monocytes Percent Auto 4.4 % (2.6-8.5); Neutrophils Absolute Auto 13.1 K/mm3 (1.3-6.7); Neutrophils Percent Auto 90.9 % (45.5-73.1); Nucleated Red Blood Cells Absolute Auto 1.1 K/mm3 (0.0-0.012); Nucleated Red Blood Cells Perc 7.5 % (0.0-0.2); Platelet Count Result 112 k/mm3 (150-375); Red Blood Count 2.54 M/mm3 (4.2-5.4); Red Cell Distribution Width 18.9 % (11.5-14.5); White Blood Count 14.5 K/mm3 (4.5-10.0)
[2023-10-20] MEDS: methylPREDNISolone SOD SUCC 125 MG VIAL 40 MG IV PUSH ×3 (05:29→22:13)
[2023-10-20] MEDS: FLUTICASONE/UMECLIDIN/VILANTER 100-62.5-25 MCG ELLIPTA 1 PUFF INHALATION (08:12)
[2023-10-20] MEDS: GABAPENTIN 400 MG CAPSULE PO ×3 (10:29→18:11)
[2023-10-20] MEDS: PANTOPRAZOLE 40 MG TABLET PO (10:29)
[2023-10-20] MEDS: POLYSACCHARIDE IRON COMPLEX 150 MG CAPSULE PO ×2 (10:29→18:11)
[2023-10-20] MEDS: AMIODARONE HCL 200 MG TABLET PO ×2 (10:29→18:11)
[2023-10-20] MEDS: ASPIRIN 81 MG ENTERIC TABLET PO (10:29)
[2023-10-20] MEDS: CENTRAL LINE FLUSH 10 ML IV PUSH ×3 (10:30→22:16)
--- NOTE | 2023-10-20 10:50 | PM.IMPN ---
Progress Note: A&P Assessment and Plan (1) Atrial flutter with rapid ventricular response: Code(s): I48.92 - Unspecified atrial flutter Status: Acute Assessment and Plan: Presented to ED with shortness of breath found to have atrial flutter/RVR and rates in the 140s. IV Lopressor 5 mg x 1 did slow the heart rate somewhat. Start metoprolol 25 mg q.6 hours for rate control. Continue amiodarone 200 mg daily. Cardiology consult noted. Back to sinus rhythm (2) Elevated troponin: Code(s): R79.89 - Other specified abnormal findings of blood chemistry Status: Acute Assessment and Plan: Presumably related to above as she is not experiencing chest pain and EKG does not show acute ST segment elevation. Status post balloon angioplasty to a thrombotic occluded distal LAD stent 10/08/2023 at [facility]. Dr. Rojo is following and her recommendations are appreciated. CTA 10/19/2023 showed single small segmental level pulmonary embolus seen in the right upper lobe. Small bilateral pleural effusion with minimal bilateral basilar atelectatic change. Advanced emphysema. Reflux of contrast into the IVC/hepatic veins could indicate an element of right heart dysfunction/failure. Troponin 0.653-0.639-0.637 (3) Anemia: Code(s): D64.9 - Anemia, unspecified Status: Acute Assessment and Plan: Monitor closely Continue iron supplement Reports dark stool Stool occult blood was negative Anemia worsening GI consultation Anticoagulation on hold due to worsening anemia PPI b.i.d. (4) Shortness of breath: Code(s): R06.02 - Shortness of breath Status: Acute Assessment and Plan: Presumably related to atrial flutter/rapid ventricular response. On eliquis which has been placed on hold now (5) Coronary artery disease: Code(s): I25.10 - Atherosclerotic heart disease of [place] coronary artery without angina pectoris Status: Acute Assessment and Plan: Continue aspirin 81 mg with close monitoring of H&H. Coreg changed to metoprolol for better rate control. I do not see that she is on a statin for unclear reasons. (6) Ischemic cardiomyopathy: Code(s): I25.5 - Ischemic cardiomyopathy Status: Acute Assessment and Plan: EF was 20% on cardiac catheterization on 10/08/2023. Monitor volume status closely with daily weights and strict I/O. (7) Chronic obstructive pulmonary disease: Qualifiers: COPD type: unspecified COPD Qualified Code(s): J44.9 - Chronic obstructive pulmonary disease, unspecified Code(s): J44.9 - Chronic obstructive pulmonary disease, unspecified Status: Acute Assessment and Plan: No evidence on exam to suggest COPD exacerbation. Continue maintenance inhalers as prescribed. On Solu-Medrol for likely COPD exacerbation ABG showed hypercapnic respiratory failure with pH was 7.14. Patient did not tolerate BiPAP initially and was switched settings which she tolerated well pain right IJ was placed 10/19/2023. Repeat ABG has improved. Apparently she has CPAP in the past but was taken away by the insurance for daughter. According to the pulmonary note she had hypercarbic respiratory failure on noninvasive ventilation at home related to underlying COPD. Will continue noninvasive ventilation at night I have abscess with 4 L bled in. EPAP of 8 minimum pressure support 5 maximum pressure support 15 Plan JANETH: Creatinine bumped up to 2 today. Will hold off on diuresis. Chest x-ray with out much congestion Transaminitis liver enzymes continue to increase from [id number] likely due to AFib and hepatic congestion. Will check ultrasound liver continue to monitor GI consultation was also treated with amiodarone Thrombocytopenia Subjective Date/time seen: 10/20/23 10:50 Interval history: Patient does not feel well she states. Oxygenation stable. Use BiPAP at night. Daughter at bedside and discussed with александр
--- NOTE | 2023-10-20 10:59 | PM.PNCARD ---
Progress Note: A&P Assessment and Plan (1) Coronary artery disease: Code(s): I25.10 - Atherosclerotic heart disease of [place] coronary artery without angina pectoris Status: Acute (2) Ischemic cardiomyopathy: Code(s): I25.5 - Ischemic cardiomyopathy Status: Acute Plan 63-year-old lady with very complex situation she has severe ischemic cardiomyopathy with low ejection fraction previous anterior wall [place] that occurred many years ago. She unfortunately now has severe anemia due to recent GI bleeding as well as paroxysmal AF which is poorly tolerated. She is back in sinus rhythm since yesterday which of course is favorable. She appears to be somewhat volume overloaded today with some pulmonary rales. She has been receiving some IV fluids which I will stop and give a dose of intravenous furosemide at this time. Complicating all of this is the fact that she is severely anemic with recent GI bleeding. Prognosis in this situation is obviously guarded. Metabolic profile has not yet been checked today and so I will not start Entresto at this time as she was significantly hyperkalemic yesterday. Maicol Levi MD [facility] Subjective Date/time seen: Date of service: 10/20/23 10:59 Interval history: Follow-up visit in this 63-year-old lady with: Very complex situation with longstanding coronary artery disease, previous extensive anterior wall [place] with ischemic cardiomyopathy and low ejection fraction. She enters the hospital here with shortness of breath she was in atrial flutter with rapid ventricular response. She does take amiodarone chronically. She is back in sinus rhythm this morning. Laboratory data is concerning regarding significant anemia as well as hyperkalemia. This patient is guideline medical directed therapy previously did include lisinopril. She does not remember being taken off of it during her recent hospitalization elsewhere. For now she is receiving metoprolol and amiodarone and has gone back into sinus rhythm. She feels and looks relatively comfortable today and is eating her lunch when I entered the room to see her. Date of service 10/20/2023: Says she feels unwell today but nonspecific regarding her complaints. She appears to be having some conversational dyspnea. Still maintaining sinus rhythm. Exam Const: General: comfortable and no acute distress Other: Thin chronically ill-appearing black female no distress HENMT: Mouth: Yes moist mucous membranes Eyes: General: appearance normal, both eyes and all related structures Sclera: sclerae normal Neck: Neck: supple and no JVD Resp: Effort & Inspection: normal respiratory effort Other: Patient does have some left basilar crackles today Cardio: Rate: regular rate Rhythm: regular rhythm Heart sounds: no murmurs Other: PMI is laterally displaced and enlarged. Very soft apical systolic murmur is noted S3 is noted as well GI: Auscultation: normal bowel sounds Skin: General skin exam: normal color Neuro: Speech: normal speech Other: Alert and oriented x3 Extrem: Other: No edema, good distal pulses Psych: Mental Status: mental status grossly normal Affect: normal affect Objective Data Vital Signs Vital Signs: Vital Signs - 24 hr 10/19/23 12:00 10/19/23 12:18 10/19/23 12:56 Temperature 36.6 C 36.6 C Pulse Rate 65 64 67 Respiratory Rate 20 24 H Blood Pressure 118/77 125/79 Pulse Oximetry 20 L 100 Oxygen Delivery Oxygen Flow Rate Fraction of Inspired Oxygen 10/19/23 12:00 10/19/23 12:00 10/19/23 14:00 Temperature Pulse Rate 62 58 L Respiratory Rate Blood Pressure Pulse Oximetry 100 Oxygen Delivery Nasal Cannula Oxygen Flow Rate 2 Fraction of Inspired Oxygen 10/19/23 14:44 10/19/23 16:00 10/19/23 16:00 Temperature 35.9 C L 36.6 C Pulse Rate 70 59 L 71 Respiratory Rate 24 H 22 H Blood Pressure 141/101 H 119/71 Pulse Oximetry 93
[2023-10-20 12:21] LABS: Albumin Level 2.8 g/dL (3.5-5.1); Alkaline Phosphatase 122 U/L (38-126); Anion Gap 10 mmol/L (8-16); Bilirubin,Total 1.1 mg/dL (0.2-1.3); Blood Urea Nitrogen 49 mg/dL (7-17); Calcium 7.7 mg/dL (8.4-10.2); Carbon Dioxide 19 mmol/L (22-30); Chloride 111 mmol/L (98-107); Estimated CRCL calculation 16 ml/min; Estimated Glomerular Filt Rate 30; Glucose 93 mg/dL (65-110); Magnesium 2.1 mg/dL (1.6-2.3); Potassium 5.6 mmol/L (3.4-5.0); Sodium 140 mmol/L (137-145)
[2023-10-20 12:42] LABS: Alanine Aminotransferase 1455 U/L (6-35)
[2023-10-20 13:01] LABS: Aspartate Amino Transferase 3944 U/L (14-36)
--- NOTE | 2023-10-20 13:21 | WPDGICN ---
Assessment and Plan Assessment and plan (1) Acute on chronic anemia: Code(s): D64.9 - Anemia, unspecified Status: Acute Assessment and Plan: occult blood in stool yesterday negative she is still having shortness of breath and also recent small PE I do not think that will tolerate anesthesia for EGD (she does not need colonoscopy as she had one last year) I will recommend conservative approach with ppi twice daily and monitor for signs of bleeding (2) Ischemic cardiomyopathy: Code(s): I25.5 - Ischemic cardiomyopathy Status: Acute Assessment and Plan: cardiology (3) Atrial flutter: Code(s): I48.92 - Unspecified atrial flutter Status: Acute Assessment and Plan: on treatment (4) Pulmonary emboli: Code(s): I26.99 - Other pulmonary embolism without acute cor pulmonale Status: Acute (5) Shortness of breath: Code(s): R06.02 - Shortness of breath Status: Acute GI Consult Note Consult date/time: 10/20/23 13:21 Reason for consult: anemia HPI: Lisa Díaz is a 63 year old female wit history of stroke, coronary artery disease, paroxysmal atrial fibrillation, ischemic cardiomyopathy status post pacemaker/defibrillator, chronic obstructive pulmonary disease with chronic respiratory failure on oxygen, obstructive sleep apnea, and hypertension. She was admitted 10/18 complaining of worsening shortness of breath. Daughter is at bedside, she was hospitalized at [facility] for 3-4 weeks after ischemic stroke with residual expressive aphasia and some weakness in the right leg then went to rehab where she developed chest pain and was sent to the ED at [facility] a day later where she was found to have ST-elevation in the anterior leads on ECG. On 10/08/2023 she underwent balloon angioplasty to a thrombotic occlusion of a previous distal LAD stent (post intervention YOEL flow is 2) and she was noted to have profound segmental LV systolic dysfunction with an EF of 20%. During that hospitalization also had anemia and apparently dark stools but they think that did not have EGD. Here in the hospital with ischemic cardiomyopathy and low ejection fraction as baseline but worsening shortness of breath, found to be on atrial flutter with rapid ventricular response and CTA chest with small PE. Hgb 7.2-8 but no report of GIB this time in fact occult blood in stool negative 10/19.? I did her colonoscopy 01/2022 Review of Systems Constitutional: Constitutional: Reports fatigue Eyes: Eyes: Denies blurry vision ENT: Reports Normal hearing present Cardiovascular: Cardiovascular: Reports palpitations Respiratory: Respiratory: Reports dyspnea on exertion Gastrointestinal: Gastrointestinal: Denies abdominal pain Genitourinary: Genitourinary: Denies urinary urgency Musculoskeletal: Musculoskeletal: Denies neck pain Integumentary/Breasts: Skin/Breast: Denies rash Neurologic: Denies vertigo Psychiatric: Psychiatric: Denies homicidal ideation [facility] Past Medical History Medical History (Updated 10/20/23 @ 13:29 by Duane Mcqueen MD) Acute on chronic anemia Anxiety Cerebrovascular accident Residual expressive aphasia and right leg weakness. Chronic obstructive pulmonary disease Chronic respiratory failure with hypoxia, on home oxygen therapy Coronary artery disease Essential hypertension Hyperlipidemia Ischemic cardiomyopathy Status post PPM/AICD insertion. EF 20% on 10/08/2023 cath. 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
[2023-10-20] MEDS: SODIUM ZIRCONIUM CYCLOSILICATE 10 GM POWD.PACK PO (14:21)
[2023-10-20 14:45] LABS: IFOB Positive Control Positive; Immunochemical Fecal Occult Bl Positive (N)
[2023-10-20 15:41] LABS: Hepatitis B Surface Antigen Negative (Negative)
[2023-10-20 15:46] LABS: HAV RESULT Negative (Negative); Hepatitis B Core IgM Result Negative (Negative)
[2023-10-20 15:58] LABS: Hepatitis C Virus Antibody Negative (Negative)
[2023-10-20 16:40] LABS: Hematocrit 21.1 % (37.0-47.0)
--- NOTE | 2023-10-20 20:50 | ECG_ITS ---
Measurements Intervals [place] Rate: 68 P: 92 [place]: 193 QRS: -2 QRSD: 109 T: 89 QT: 457 QTc: 489 Interpretive Statements SINUS RHYTHM POSSIBLE LEFT ATRIAL ENLARGEMENT [-0.1mV P WAVE IN V1/V2] LOW QRS VOLTAGE IN EXTREMITY LEADS [QRS DEFLECTION < 0.5 mV IN LIMB LEADS] INFERIOR MYOCARDIAL INFARCTION [40+ ms Q WAVE AND/OR ST/T ABNORMALITY IN II/aVF], OF INDETERMINATE AGE ABNORMAL ECG COMPARED TO ECG 10/18/2023 14:53:43 SINUS RHYTHM REPLACES ATRIAL FLUTTER Electronically Signed On 10-21-2023 9:02:34 RECORDS CLERK by Maicol Levi M.D.
[2023-10-20 21:23] LABS: Alveolar/Arterial O2 Gradient 32.3 mmHg; Base Excess ABG -5.8 mEq/l (+/-2.0); Carboxyhemoglobin 0.2 % THb (0-2.0); HCO3 ABG 18.8 mEq/l (22.0-26.0); Methemoglobin ABG 0.1 %THb (0-1.5); Oxygen Content ABG 13.6 %vol (16.0-22.0); Oxygen Saturation ABG 93.7 % (95.0-100.0); Oxyhemoglobin 92.5 % THb (90.0-100.0); PCO2 ABG 33.6 mmHg (35.0-45.0); Reduced Hemoglobin 7.2 %THb (0-5.0); Total Hemoglobin 10.4 g/dL (12.0-18.0); pH ABG 7.365 (7.350-7.450)
[2023-10-20 21:24] LABS: Device NON-INVASIVE VENT; Fractional Inspired Oxygen 30 %; Modified Allen's Test Pass; Site Drawn RIGHT RADIAL
[2023-10-20 21:25] LABS: Non-Invasive Expiratory Pressure 6 CMH2O; Non-Invasive Inspiratory Pressure 12 CMH2O; Non-Invasive Vent Rate 20 /MIN
[2023-10-20] MEDS: TUBING, BLOOD PLUM PUMP TUBING 1 EACH XX (21:54)
[2023-10-20] MEDS: PANTOPRAZOLE SODIUM IV 40 MG VIAL IV PUSH (22:12)
[2023-10-20 22:54] LABS: Lipase 198 U/L (23-300)
[2023-10-21] VITALS (34 sets, daily range): BP systolic 92–153; BP diastolic 52–93; PULSE 54–72; RESP 18–23; TEMP 36.2–37.1; O2SAT 92–100
[2023-10-21] MEDS: ALBUTEROL SULFATE NEB 2.5 MG/3 ML INH 5 MG INHALATION ×4 (02:40→20:23)
[2023-10-21] MEDS: IPRATROPIUM BR 0.02% INH SOLN 0.5 MG/2.5 ML VIAL INHALATION ×4 (02:41→20:23)
[2023-10-21 04:21] LABS: Basophils Percent Auto 0.1 % (0.2-1.2); Hematocrit 34.4 % (37.0-47.0); Immature Granulocyte Absolute 0.09 K/mm3 (0.00-0.031); Immature Granulocyte Percent A 0.8 % (0-0.5); Lymphocytes Absolute Auto 0.95 K/mm3 (0.9-3.2); Lymphocytes Percent Auto 8.8 % (18.3-44.2); Mean Corpuscular Hemoglobin 28.6 pg (26-34); Mean Corpuscular Volume 89.6 fl (80-100); Monocytes Absolute Auto 0.3 K/mm3 (0.1-0.6); Monocytes Percent Auto 2.7 % (2.6-8.5); Neutrophils Absolute Auto 9.4 K/mm3 (1.3-6.7); Neutrophils Percent Auto 87.6 % (45.5-73.1); Nucleated Red Blood Cells Absolute Auto 3.5 K/mm3 (0.0-0.012); Nucleated Red Blood Cells Perc 32.6 % (0.0-0.2); Platelet Count Result 60 k/mm3 (150-375); Red Blood Count 3.84 M/mm3 (4.2-5.4); Red Cell Distribution Width 18.4 % (11.5-14.5); White Blood Count 10.8 K/mm3 (4.5-10.0)
[2023-10-21 04:58] LABS: Albumin Level 2.7 g/dL (3.5-5.1); Alkaline Phosphatase 146 U/L (38-126); Anion Gap 5 mmol/L (8-16); Bilirubin,Total 1.5 mg/dL (0.2-1.3); Blood Urea Nitrogen 65 mg/dL (7-17); Calcium 7.8 mg/dL (8.4-10.2); Carbon Dioxide 22 mmol/L (22-30); Chloride 113 mmol/L (98-107); Estimated CRCL calculation 25 ml/min; Estimated Glomerular Filt Rate 39; Glucose 114 mg/dL (65-110); Magnesium 2.2 mg/dL (1.6-2.3); Potassium 5.1 mmol/L (3.4-5.0); Sodium 140 mmol/L (137-145)
[2023-10-21] MEDS: methylPREDNISolone SOD SUCC 125 MG VIAL 40 MG IV PUSH ×2 (05:18→21:11)
[2023-10-21] MEDS: CENTRAL LINE FLUSH 10 ML IV PUSH ×3 (05:19→21:11)
[2023-10-21] MEDS: METOPROLOL TARTRATE 25 MG TABLET PO ×2 (05:19→17:02)
[2023-10-21 05:44] LABS: Anisocytosis 2+ (NORMAL); Schistocytes Rare (NORMAL); Target Cells 1+ (NORMAL)
[2023-10-21 05:49] LABS: Alanine Aminotransferase 1514 U/L (6-35); Aspartate Amino Transferase 3794 U/L (14-36)
--- NOTE | 2023-10-21 09:40 | PM.PNCARD ---
Progress Note: A&P Assessment and Plan (1) Ischemic cardiomyopathy: Code(s): I25.5 - Ischemic cardiomyopathy Status: Acute (2) Atrial fibrillation: Qualifiers: Atrial fibrillation type: unspecified Qualified Code(s): I48.91 - Unspecified atrial fibrillation Code(s): I48.91 - Unspecified atrial fibrillation Status: Acute Plan 63-year-old lady with: Very complex and difficult cardiac and hemodynamic situation. A as expected she feels better and looks better with red cell transfusion yesterday. Agree with GI data management consultant that she would be a high risk candidate for EGD and I would recommend as he did treating her conservatively. As she is better hemodynamically and is no longer hyperkalemic am going to try titrating in a very small dose of Entresto. She had been on lisinopril chronically which of course has been on hold. Continues to be a very tenuous situation Maicol Levi MD [facility] Subjective Date/time seen: Date of service: 10/21/23 09:40 Interval history: Follow-up visit in this 63-year-old lady with: Very complex situation with longstanding coronary artery disease, previous extensive anterior wall [place] with ischemic cardiomyopathy and low ejection fraction. She enters the hospital here with shortness of breath she was in atrial flutter with rapid ventricular response. She does take amiodarone chronically. She is back in sinus rhythm this morning. Laboratory data is concerning regarding significant anemia as well as hyperkalemia. This patient is guideline medical directed therapy previously did include lisinopril. She does not remember being taken off of it during her recent hospitalization elsewhere. For now she is receiving metoprolol and amiodarone and has gone back into sinus rhythm. She feels and looks relatively comfortable today and is eating her lunch when I entered the room to see her. Date of service 10/20/2023: Says she feels unwell today but nonspecific regarding her complaints. She appears to be having some conversational dyspnea. Still maintaining sinus rhythm. Date of service 10/21/2023: Patient looks and feels somewhat better this morning. She did receive packed red cell transfusion yesterday and her hemoglobin is obviously much better. BMP demonstrates hyperkalemia is also significantly improved. Systolic blood pressure is in 130-135 range. Exam Const: General: comfortable and no acute distress Other: Thin chronically ill-appearing black female no distress HENMT: Mouth: Yes moist mucous membranes Eyes: General: appearance normal, both eyes and all related structures Sclera: sclerae normal Neck: Neck: supple and no JVD Resp: Effort & Inspection: normal respiratory effort Auscultation: clear to auscultation bilaterally Other: Patient does have some left basilar crackles today Cardio: Rate: regular rate Rhythm: regular rhythm and abnormal rhythm Heart sounds: no murmurs Other: PMI is laterally displaced and enlarged. Very soft apical systolic murmur is noted S3 is noted as well GI: Auscultation: normal bowel sounds Skin: General skin exam: normal color Neuro: Speech: normal speech Other: Alert and oriented x3 Extrem: Other: No edema, good distal pulses Psych: Mental Status: mental status grossly normal Affect: normal affect Objective Data Vital Signs Vital Signs: Vital Signs - 24 hr 10/20/23 10:29 10/20/23 10:30 10/20/23 11:48 Temperature 36.7 C Pulse Rate 63 63 66 Respiratory Rate 22 H Blood Pressure 127/69 Pulse Oximetry 100 Oxygen Delivery Oxygen Flow Rate Fraction of Inspired Oxygen 10/20/23 13:20 10/20/23 13:33 10/20/23 14:19 Temperature Pulse Rate 66 64 64 Respiratory Rate 21 H 23 H Blood Pressure Pulse Oximetry Oxygen Delivery Oxygen Flow Rate Fraction of Inspired Oxygen 10/20/23 15:48 10/20/23 13:28 10/20/23 18:00 Temperature 3
[2023-10-21] MEDS: GABAPENTIN 400 MG CAPSULE PO ×2 (10:01→16:48)
[2023-10-21] MEDS: AMIODARONE HCL 200 MG TABLET PO ×2 (10:01→16:48)
[2023-10-21] MEDS: PANTOPRAZOLE SODIUM IV 40 MG VIAL IV PUSH ×2 (10:02→21:11)
[2023-10-21] MEDS: ASPIRIN 81 MG ENTERIC TABLET PO (10:02)
[2023-10-21] MEDS: POLYSACCHARIDE IRON COMPLEX 150 MG CAPSULE PO ×2 (10:02→16:48)
[2023-10-21] MEDS: SACUBITRIL/VALSARTAN 12-13 MG TABLET 1 TAB PO ×2 (10:03→21:10)
--- NOTE | 2023-10-21 11:39 | WPDGIPROGNO ---
Progress Note: A&P Assessment and Plan (1) Melena: Code(s): K92.1 - Melena Status: Acute Assessment and Plan: yesterday had one episode with drop in h/h but responded well to transfusion no more episodes since yesterday continue with iv protonix bid she will be high risk for anesthesia given advanced copd, PE and also cardiomyopathy- conservative management unless recurrent bleeding (2) Acute on chronic anemia: Code(s): D64.9 - Anemia, unspecified Status: Acute Assessment and Plan: s/p blood transfusion monitor for more signs of bleeding (3) Pulmonary emboli: Code(s): I26.99 - Other pulmonary embolism without acute cor pulmonale Status: Acute (4) Ischemic cardiomyopathy: Code(s): I25.5 - Ischemic cardiomyopathy Status: Acute Assessment and Plan: by cardiology (5) Atrial flutter with rapid ventricular response: Code(s): I48.92 - Unspecified atrial flutter Status: Acute (6) Obstructive sleep apnea on CPAP: Code(s): G47.33 - Obstructive sleep apnea (adult) (pediatric); Z99.89 - Dependence on other enabling machines and devices Status: Acute (7) Chronic obstructive pulmonary disease: Qualifiers: COPD type: unspecified COPD Qualified Code(s): J44.9 - Chronic obstructive pulmonary disease, unspecified Code(s): J44.9 - Chronic obstructive pulmonary disease, unspecified Status: Acute Subjective Date/time seen: 10/21/23 11:39 Interval history: yesterday had dark tarry stool which was positive for blood (RN witnessed) but she responded to blood transfusion (hgb from 6 to 11) still with SBO but looks better today Review of Systems Review of Systems: All systems reviewed & are unremarkable except as noted in HPI and below Exam Const: General: comfortable and no acute distress Other: Thin chronically ill-appearing, using oxygen HENMT: Mouth: Yes moist mucous membranes Eyes: General: appearance normal, both eyes and all related structures Sclera: sclerae normal Neck: Neck: supple Resp: Effort & Inspection: normal respiratory effort Auscultation: crackles (base) Cardio: Rate: regular rate Rhythm: regular rhythm Other: pacemaker in place GI: GI Palp: Yes Soft to palpation, No Tenderness to palpation present (GI) and No Guarding due to palpation present (GI) Auscultation: normal bowel sounds Skin: General skin exam: no rashes or lesions noted Neuro: Speech: normal speech Other: Alert and oriented x3 Extrem: Other: No edema Psych: Mental Status: mental status grossly normal Affect: normal affect Objective Data Vital Signs Vital Signs: Vital Signs - 24 hr 10/20/23 11:48 10/20/23 13:20 10/20/23 13:33 Temperature 98.1 F Pulse Rate 66 66 64 Respiratory Rate 22 H 21 H 23 H Blood Pressure 127/69 Pulse Oximetry 100 Oxygen Delivery Oxygen Flow Rate Fraction of Inspired Oxygen 10/20/23 14:19 10/20/23 15:48 10/20/23 13:28 Temperature 97.5 F L Pulse Rate 64 69 67 Respiratory Rate 16 Blood Pressure 125/67 Pulse Oximetry 100 96 Oxygen Delivery Nasal Cannula Oxygen Flow Rate 4 Fraction of Inspired Oxygen 10/20/23 18:00 10/20/23 18:11 10/20/23 18:11 Temperature 98.5 F Pulse Rate 89 89 89 Respiratory Rate 12 Blood Pressure 128/69 Pulse Oximetry 100 Oxygen Delivery Oxygen Flow Rate Fraction of Inspired Oxygen 10/20/23 18:15 10/20/23 19:15 10/20/23 20:00 Temperature 98.2 F 98.0 F 97.2 F L Pulse Rate 89 68 70 Respiratory Rate 12 24 H 29 H Blood Pressure 133/73 133/82 161/107 H Pulse Oximetry 95 100 98 Oxygen Delivery Oxygen Flow Rate Fraction of Inspired Oxygen 10/20/23 20:58 10/20/23 12:00 10/20/23 14:00 Temperature 98.2 F Pulse Rate 66 65 62 Respiratory Rate 22 H Blood Pressure 133/82 Pulse Oximetry 100 Oxygen Delivery Oxygen Flow Rate Fraction of Inspired O
--- NOTE | 2023-10-21 14:09 | PM.IMPN ---
Progress Note: A&P Assessment and Plan (1) Atrial flutter with rapid ventricular response: Code(s): I48.92 - Unspecified atrial flutter Status: Acute Assessment and Plan: Presented to ED with shortness of breath found to have atrial flutter/RVR and rates in the 140s. IV Lopressor 5 mg x 1 did slow the heart rate somewhat. Start metoprolol 25 mg q.6 hours for rate control. Continue amiodarone 200 mg daily. Cardiology consult noted. Back to sinus rhythm (2) Elevated troponin: Code(s): R79.89 - Other specified abnormal findings of blood chemistry Status: Acute Assessment and Plan: Presumably related to above as she is not experiencing chest pain and EKG does not show acute ST segment elevation. Status post balloon angioplasty to a thrombotic occluded distal LAD stent 10/08/[address] [facility]. Rojo is following and her recommendations are appreciated. CTA 10/19/2023 showed single small segmental level pulmonary embolus seen in the right upper lobe. Small bilateral pleural effusion with minimal bilateral basilar atelectatic change. Advanced emphysema. Reflux of contrast into the IVC/hepatic veins could indicate an element of right heart dysfunction/failure. Troponin 0.653-0.639-0.637 (3) Anemia: Code(s): D64.9 - Anemia, unspecified Status: Acute Assessment and Plan: Monitor closely Continue iron supplement Reports dark stool Stool occult blood was negative Anemia worsening GI consultation Anticoagulation on hold due to worsening anemia PPI b.i.d. Dark tarry stool on 10/20/2023 FOBT tested positive H&H dropped to 6. Status post PRBC transfusion post transfusion hemoglobin up to 11 Continue to monitor H&H. Stable hemodynamics today (4) Shortness of breath: Code(s): R06.02 - Shortness of breath Status: Acute Assessment and Plan: Presumably related to atrial flutter/rapid ventricular response. On eliquis which has been placed on hold now (5) Coronary artery disease: Code(s): I25.10 - Atherosclerotic heart disease of [place] coronary artery without angina pectoris Status: Acute Assessment and Plan: Continue aspirin 81 mg with close monitoring of H&H. Coreg changed to metoprolol for better rate control. I do not see that she is on a statin for unclear reasons. However with elevated LFTs will continue to hold. Similar episode with elevated LFTs while she was at outside hospital likely the reason for not being on statin. (6) Ischemic cardiomyopathy: Code(s): I25.5 - Ischemic cardiomyopathy Status: Acute Assessment and Plan: EF was 20% on cardiac catheterization on 10/08/2023. Monitor volume status closely with daily weights and strict I/O. (7) Chronic obstructive pulmonary disease: Qualifiers: COPD type: unspecified COPD Qualified Code(s): J44.9 - Chronic obstructive pulmonary disease, unspecified Code(s): J44.9 - Chronic obstructive pulmonary disease, unspecified Status: Acute Assessment and Plan: No evidence on exam to suggest COPD exacerbation. Continue maintenance inhalers as prescribed. On Solu-Medrol for likely COPD exacerbation ABG showed hypercapnic respiratory failure with pH was 7.14. Patient did not tolerate BiPAP initially and was switched settings which she tolerated well pain right IJ was placed 10/19/2023. Repeat ABG has improved. Apparently she has CPAP in the past but was taken away by the insurance for daughter. According to the pulmonary note she had hypercarbic respiratory failure on noninvasive ventilation at home related to underlying COPD. Will continue noninvasive ventilation at night I have abscess with 4 L bled in. EPAP of 8 minimum pressure support 5 maximum pressure support 15 Plan JANETH: Creatinine bumped up to 2 today. Will hold off on diuresis. Chest x-ray with out much congestion Transaminitis liver enzymes continue to increase from 42-
[2023-10-21] MEDS: FLUTICASONE/UMECLIDIN/VILANTER 100-62.5-25 MCG ELLIPTA 1 PUFF INHALATION (15:05)
--- NOTE | 2023-10-21 20:52 | PC.NURSE ---
spoke with Elena PROJECT HIRE regarding patient having bleeding in her mouth. nurse assessed patient mouth no cut from mouth no bleeding from nose. Nurse sat patient up 90 degree provided mouth care for patient. no new orders at this time. PROJECT HIRE will see patient shortly.
--- NOTE | 2023-10-21 23:24 | PC.NURSE ---
Nurse notified Elena BANKS regarding patient BP 82/52 held Metoprolol 0000 dose.
[2023-10-22] VITALS (28 sets, daily range): BP systolic 93–97; BP diastolic 44–57; PULSE 50–68; RESP 16–20; TEMP 36.3–37.2; O2SAT 96–100
[2023-10-22] MEDS: IPRATROPIUM BR 0.02% INH SOLN 0.5 MG/2.5 ML VIAL INHALATION ×4 (03:03→20:11)
[2023-10-22] MEDS: ALBUTEROL SULFATE NEB 2.5 MG/3 ML INH 5 MG INHALATION ×4 (03:03→20:11)
[2023-10-22] MEDS: methylPREDNISolone SOD SUCC 125 MG VIAL 40 MG IV PUSH ×2 (05:19→13:05)
[2023-10-22 05:36] LABS: Basophils Percent Auto 0.1 % (0.2-1.2); Hematocrit 32.7 % (37.0-47.0); Hemoglobin 10.2 g/dL (12.0-15.0); Immature Granulocyte Absolute 0.15 K/mm3 (0.00-0.031); Immature Platelet Fraction Pct 19.9 % (0.9-11.2); Lymphocytes Absolute Auto 0.74 K/mm3 (0.9-3.2); Lymphocytes Percent Auto 4.9 % (18.3-44.2); Mean Corpuscular HGB Conc 31.2 g/dl (32-36); Mean Corpuscular Hemoglobin 28.2 pg (26-34); Mean Corpuscular Volume 90.3 fl (80-100); Monocytes Absolute Auto 0.3 K/mm3 (0.1-0.6); Monocytes Percent Auto 1.9 % (2.6-8.5); Neutrophils Absolute Auto 13.8 K/mm3 (1.3-6.7); Neutrophils Percent Auto 92.1 % (45.5-73.1); Nucleated Red Blood Cells Absolute Auto 6.8 K/mm3 (0.0-0.012); Nucleated Red Blood Cells Perc 44.9 % (0.0-0.2); Platelet Count Result 43 k/mm3 (150-375); Red Blood Count 3.62 M/mm3 (4.2-5.4); Red Cell Distribution Width 19.4 % (11.5-14.5)
[2023-10-22 05:55] LABS: Albumin Level 2.5 g/dL (3.5-5.1); Alkaline Phosphatase 143 U/L (38-126); Anion Gap 2 mmol/L (8-16); Aspartate Amino Transferase 701 U/L (14-36); Bilirubin,Total 1.4 mg/dL (0.2-1.3); Blood Urea Nitrogen 70 mg/dL (7-17); Calcium 7.8 mg/dL (8.4-10.2); Carbon Dioxide 25 mmol/L (22-30); Chloride 114 mmol/L (98-107); Estimated CRCL calculation 30 ml/min; Estimated Glomerular Filt Rate 50; Glucose 144 mg/dL (65-110); Magnesium 2.4 mg/dL (1.6-2.3); Potassium 4.5 mmol/L (3.4-5.0); Sodium 141 mmol/L (137-145)
[2023-10-22 07:38] LABS: Large Platelets Present; Lymphocytes Absolute Manual 0.15 K/mm3 (1.1-4.5); Neutrophils Percent Manual 99 % (46-73); Nucleated Red Blood Cells 91 %; Platelet Estimate Decreased (Adequate); Total Cells Counted 100
[2023-10-22 07:39] LABS: Crenated RBC 2+ (NORMAL); Helmet Cells 2+ (NORMAL); Polychromasia 1+ (NORMAL); Schistocytes 2+ (NORMAL)
[2023-10-22 08:10] LABS: Alanine Aminotransferase 898 U/L (6-35)
[2023-10-22] MEDS: FLUTICASONE/UMECLIDIN/VILANTER 100-62.5-25 MCG ELLIPTA 1 PUFF INHALATION (09:06)
--- NOTE | 2023-10-22 09:15 | PM.PNCARD ---
Progress Note: A&P Assessment and Plan (1) Ischemic cardiomyopathy: Code(s): I25.5 - Ischemic cardiomyopathy Status: Acute Plan 63-year-old lady with complex situation including severe ischemic cardiomyopathy as detailed in previous notes. On top of this she became severely anemic with apparent recent GI bleeding. Agree that this is being managed in a conservative fashion her hemoglobin is much better following transfusion over the weekend. She is tolerated adding very low dose of Entresto to her regimen which is also hopeful. I am not going to advance any of her medications at this time. While she still in the hospital I would like to consider spironolactone. We will see how she tolerates the Entresto for at least another day or 2 in terms of her potassium levels Maicol Levi MD [facility] Subjective Date/time seen: Date of service: 10/22/23 09:15 Interval history: Follow-up visit in this 63-year-old lady with: Very complex situation with longstanding coronary artery disease, previous extensive anterior wall [place] with ischemic cardiomyopathy and low ejection fraction. She enters the hospital here with shortness of breath she was in atrial flutter with rapid ventricular response. She does take amiodarone chronically. She is back in sinus rhythm this morning. Laboratory data is concerning regarding significant anemia as well as hyperkalemia. This patient is guideline medical directed therapy previously did include lisinopril. She does not remember being taken off of it during her recent hospitalization elsewhere. For now she is receiving metoprolol and amiodarone and has gone back into sinus rhythm. She feels and looks relatively comfortable today and is eating her lunch when I entered the room to see her. Date of service 10/20/2023: Says she feels unwell today but nonspecific regarding her complaints. She appears to be having some conversational dyspnea. Still maintaining sinus rhythm. Date of service 10/21/2023: Patient looks and feels somewhat better this morning. She did receive packed red cell transfusion yesterday and her hemoglobin is obviously much better. BMP demonstrates hyperkalemia is also significantly improved. Systolic blood pressure is in 130-135 range. Date of service 10/22/2023: Patient receiving a breathing treatment at this time. She says that her shortness of breath is clearly improving day by day. Seems to have tolerated the starting dose of Entresto without any problematic hypotension. Exam Const: General: comfortable and no acute distress Other: Thin chronically ill-appearing black female no distress HENMT: Mouth: Yes moist mucous membranes Eyes: General: appearance normal, both eyes and all related structures Sclera: sclerae normal Neck: Neck: supple and no JVD Resp: Effort & Inspection: normal respiratory effort Auscultation: clear to auscultation bilaterally Other: Patient does have some left basilar crackles today Cardio: Rate: regular rate Rhythm: regular rhythm and abnormal rhythm Heart sounds: no murmurs Other: PMI is laterally displaced and enlarged. Very soft apical systolic murmur is noted S3 is noted as well GI: Auscultation: normal bowel sounds Skin: General skin exam: normal color Neuro: Speech: normal speech Other: Alert and oriented x3 Extrem: Other: No edema, good distal pulses Psych: Mental Status: mental status grossly normal Affect: normal affect Objective Data Vital Signs Vital Signs: Vital Signs - 24 hr 10/21/23 10:01 10/21/23 11:23 10/21/23 14:53 Temperature 36.6 C Pulse Rate 61 58 L 61 Respiratory Rate 18 20 Blood Pressure 139/78 Pulse Oximetry 100 Oxygen Delivery Oxygen Flow Rate 10/21/23 15:05 10/21/23 15:23 10/21/23 15:58 Temperature 36.7 C Pulse Rate 61 65 72 Respiratory Rate 20 20 20 Blood Pressure 153/93 H Pulse Oximetry 100 100 Oxygen Delivery Nasal Cannula
[2023-10-22] MEDS: GABAPENTIN 400 MG CAPSULE PO ×3 (09:33→17:03)
[2023-10-22] MEDS: POLYSACCHARIDE IRON COMPLEX 150 MG CAPSULE PO (09:33)
[2023-10-22] MEDS: AMIODARONE HCL 200 MG TABLET PO ×2 (09:33→17:02)
[2023-10-22] MEDS: ASPIRIN 81 MG ENTERIC TABLET PO (09:34)
[2023-10-22] MEDS: PANTOPRAZOLE SODIUM IV 40 MG VIAL IV PUSH ×2 (09:34→20:12)
[2023-10-22] MEDS: SACUBITRIL/VALSARTAN 12-13 MG TABLET 1 TAB PO ×2 (09:34→20:13)
[2023-10-22] MEDS: METOPROLOL TARTRATE 25 MG TABLET PO ×2 (13:04→17:02)
[2023-10-22] MEDS: CENTRAL LINE FLUSH 10 ML IV PUSH ×2 (14:00→23:46)
--- NOTE | 2023-10-22 14:51 | PM.IMPN ---
Progress Note: A&P Assessment and Plan (1) Atrial flutter with rapid ventricular response: Code(s): I48.92 - Unspecified atrial flutter Status: Acute Assessment and Plan: Presented to ED with shortness of breath found to have atrial flutter/RVR and rates in the 140s. IV Lopressor 5 mg x 1 did slow the heart rate somewhat. Start metoprolol 25 mg q.6 hours for rate control. Continue amiodarone 200 mg daily. Cardiology consult noted. Back to sinus rhythm on metoprolol. (2) Elevated troponin: Code(s): R79.89 - Other specified abnormal findings of blood chemistry Status: Acute Assessment and Plan: Presumably related to above as she is not experiencing chest pain and EKG does not show acute ST segment elevation. Status post balloon angioplasty to a thrombotic occluded distal LAD stent 10/08/2023 at [facility]. Dr. Rojo is following and her recommendations are appreciated. CTA 10/19/2023 showed single small segmental level pulmonary embolus seen in the right upper lobe. Small bilateral pleural effusion with minimal bilateral basilar atelectatic change. Advanced emphysema. Reflux of contrast into the IVC/hepatic veins could indicate an element of right heart dysfunction/failure. Troponin 0.653-0.639-0.637 (3) Anemia: Code(s): D64.9 - Anemia, unspecified Status: Acute Assessment and Plan: Monitor closely Continue iron supplement Reports dark stool Stool occult blood was negative Anemia worsening GI consultation Anticoagulation on hold due to worsening anemia PPI b.i.d. Dark tarry stool on 10/20/2023 FOBT tested positive H&H dropped to 6. Status post PRBC transfusion post transfusion hemoglobin up to 11 Continue to monitor H&H. Stable hemodynamics today along with stable h and h. (4) Shortness of breath: Code(s): R06.02 - Shortness of breath Status: Acute Assessment and Plan: Presumably related to atrial flutter/rapid ventricular response. On eliquis which has been placed on hold now (5) Coronary artery disease: Code(s): I25.10 - Atherosclerotic heart disease of [place] coronary artery without angina pectoris Status: Acute Assessment and Plan: Continue aspirin 81 mg with close monitoring of H&H. Coreg changed to metoprolol for better rate control. I do not see that she is on a statin for unclear reasons. However with elevated LFTs will continue to hold. Similar episode with elevated LFTs while she was at outside hospital likely the reason for not being on statin. (6) Ischemic cardiomyopathy: Code(s): I25.5 - Ischemic cardiomyopathy Status: Acute Assessment and Plan: EF was 20% on cardiac catheterization on 10/08/2023. Monitor volume status closely with daily weights and strict I/O. entresto added. consider spironoalctone (7) Chronic obstructive pulmonary disease: Qualifiers: COPD type: unspecified COPD Qualified Code(s): J44.9 - Chronic obstructive pulmonary disease, unspecified Code(s): J44.9 - Chronic obstructive pulmonary disease, unspecified Status: Acute Assessment and Plan: No evidence on exam to suggest COPD exacerbation. Continue maintenance inhalers as prescribed. On Solu-Medrol for likely COPD exacerbation ABG showed hypercapnic respiratory failure with pH was 7.14. Patient did not tolerate BiPAP initially and was switched settings which she tolerated well pain right IJ was placed 10/19/2023. Repeat ABG has improved. Apparently she has CPAP in the past but was taken away by the insurance for daughter. According to the pulmonary note she had hypercarbic respiratory failure on noninvasive ventilation at home related to underlying COPD. Will continue noninvasive ventilation at night iVAPS with 4 L bled in. EPAP of 8 minimum pressure support 5 maximum pressure support 15 Discussed with Pulmonary to rearrange this Plan JANETH: Creatinine bumped up to 2 today. [place]
--- NOTE | 2023-10-22 15:35 | PCRCNOTE ---
Pt. had NIV with [facility] in the past, it was taken due to lack of use. Due to PCO2 provider wished to see if we can get another NIV in the home. Tried reaching out to [facility] with no success. Called Colin with [facility] and he confirmed family can switch to [facility]. Dr. Simental states he will put in a pulmonary consult, in the mean time I faxed packet to [facility] to start the approval process.
--- NOTE | 2023-10-22 15:57 | WPDGIPROGNO ---
Progress Note: A&P Assessment and Plan (1) Melena: Code(s): K92.1 - Melena Status: Acute Assessment and Plan: no more episodes for last 2 days and h/h stable since transfusion continue with iv protonix bid she will be high risk for anesthesia given advanced copd, PE and also cardiomyopathy- conservative management unless recurrent bleeding (2) Acute on chronic anemia: Code(s): D64.9 - Anemia, unspecified Status: Acute Assessment and Plan: s/p blood transfusion with good response, h/h stable since monitor for more signs of bleeding (3) Pulmonary emboli: Code(s): I26.99 - Other pulmonary embolism without acute cor pulmonale Status: Acute (4) Ischemic cardiomyopathy: Code(s): I25.5 - Ischemic cardiomyopathy Status: Acute Assessment and Plan: by cardiology (5) Atrial flutter with rapid ventricular response: Code(s): I48.92 - Unspecified atrial flutter Status: Acute (6) Obstructive sleep apnea on CPAP: Code(s): G47.33 - Obstructive sleep apnea (adult) (pediatric); Z99.89 - Dependence on other enabling machines and devices Status: Acute (7) Chronic obstructive pulmonary disease: Qualifiers: COPD type: unspecified COPD Qualified Code(s): J44.9 - Chronic obstructive pulmonary disease, unspecified Code(s): J44.9 - Chronic obstructive pulmonary disease, unspecified Status: Acute Subjective Date/time seen: 10/22/23 15:57 Interval history: no more report of melena for 2 days and h/h remained stable since blood transfusion daughter at bedside Review of Systems Review of Systems: All systems reviewed & are unremarkable except as noted in HPI and below Exam Const: General: comfortable and no acute distress Other: Thin chronically ill-appearing, using oxygen HENMT: Mouth: Yes moist mucous membranes Eyes: General: appearance normal, both eyes and all related structures Sclera: sclerae normal Neck: Neck: supple Resp: Effort & Inspection: normal respiratory effort Auscultation: crackles (base) Cardio: Rate: regular rate Rhythm: regular rhythm Other: pacemaker in place GI: GI Palp: Yes Soft to palpation, No Tenderness to palpation present (GI) and No Guarding due to palpation present (GI) Auscultation: normal bowel sounds Skin: General skin exam: no rashes or lesions noted Neuro: Speech: normal speech Other: Alert and oriented x3 Extrem: Other: No edema Psych: Mental Status: mental status grossly normal Affect: normal affect Objective Data Vital Signs Vital Signs: Vital Signs - 24 hr 10/21/23 15:58 10/21/23 16:48 10/21/23 17:02 Temperature 98.1 F Pulse Rate 72 72 72 Respiratory Rate 20 Blood Pressure 153/93 H Pulse Oximetry 100 Oxygen Delivery Oxygen Flow Rate 10/21/23 16:00 10/21/23 18:00 10/21/23 16:00 Temperature Pulse Rate 68 58 L Respiratory Rate Blood Pressure Pulse Oximetry 93 Oxygen Delivery Nasal Cannula Oxygen Flow Rate 4 10/21/23 20:00 10/21/23 20:25 10/21/23 20:26 Temperature 97.7 F Pulse Rate 70 57 L 57 L Respiratory Rate 21 H 20 20 Blood Pressure 104/57 L Pulse Oximetry 100 96 Oxygen Delivery Nasal Cannula Oxygen Flow Rate 2 10/21/23 20:42 10/21/23 20:00 10/21/23 20:00 Temperature Pulse Rate 60 58 L Respiratory Rate 20 Blood Pressure Pulse Oximetry 94 Oxygen Delivery Nasal Cannula Oxygen Flow Rate 4 10/21/23 22:00 10/21/23 23:15 10/21/23 23:38 Temperature 98.0 F Pulse Rate 56 L 57 L 56 L Respiratory Rate 18 Blood Pressure 92/52 L Pulse Oximetry 98 Oxygen Delivery Oxygen Flow Rate 10/22/23 00:00 10/22/23 00:00 10/22/23 01:59 Temperature Pulse Rate 56 L 60 Respiratory Rate Blood Pressure Pulse Oximetry 96 Oxygen Delivery Nasal Cannula Oxygen Flow Rate 4 10/22/23 03:04 10/22/23 03:17 10/22/23 03:21 Tem
--- NOTE | 2023-10-22 21:21 | PM.CNPUL ---
Assessment and Plan Assessment and plan (1) Chronic respiratory failure with hypoxia and hypercapnia: Code(s): J96.11 - Chronic respiratory failure with hypoxia; J96.12 - Chronic respiratory failure with hypercapnia Status: Acute Assessment and Plan: She has acute and chronic hypercapnic hypoxemic respiratory failure, exacerbated by cardiac dysfunction on admission with paroxysmal atrial fibrillation. She improved on BiPAP 10/10. She needs a non invasive positive pressure device to manage her Chronic respiratory failure due to COPD with persistent hypercapnia even with BiPAP use. She has been on an Astral device at home with suboptimal compliance. A noninvasive positive-pressure ventilator is helpful for this patient during sleep and during waking hours as needed when she is symptomatic. It does not appear that home BiPAP would be appropriate meeting her ventilatory requirements. (2) Chronic obstructive pulmonary disease: Qualifiers: COPD type: unspecified COPD Qualified Code(s): J44.9 - Chronic obstructive pulmonary disease, unspecified Code(s): J44.9 - Chronic obstructive pulmonary disease, unspecified Status: Acute Assessment and Plan: Extremely severe end-stage COPD, her FEV1 in 2019 was below a L, 35% predicted. In the office her last visit was May. She had a note saying that Breztri did not really help, order for Trelegy was placed. When she was discharged from [facility] Symbicort was on her medication list. From our office she also takes Daliresp 500 mcg daily. She needs to go home on triple inhaler therapy and Daliresp. She does use albuterol p.r.n. shortness of breath. (3) Pulmonary emboli: Code(s): I26.99 - Other pulmonary embolism without acute cor pulmonale Status: Acute Assessment and Plan: CTA October 19 shows a small pulmonary embolus to the right upper lobe. She cannot be anticoagulated due to profound anemia, need for transfusion, 2 units received here on October 20 and 2 units received when she was recently at [facility] with a hemoglobin of 5.5 during her admission for an acute ischemic stroke. (4) Acute on chronic anemia: Code(s): D64.9 - Anemia, unspecified Status: Acute Assessment and Plan: her baseline hemoglobin is around 9-10 grams/deciliter, she dropped to 6 grams/deciliter October 20, received 2 units of packed RBC (5) Tobacco dependence: Code(s): F17.200 - Nicotine dependence, unspecified, uncomplicated Status: Acute Assessment and Plan: She smoked up until this admission, half pack per day, in general smoked a pack per day since age of 16, about 50 years; She cannot smoke in the hospital, obviously stopping smoking would help her because she has recently had a stroke September 15, a STEMI September 24 and a nonSTEMI October 18. Tobacco cessation would benefit her as far as stroke, heart failure, COPD and hypercapnic respiratory failure. Plan She has complex cardiopulmonary problems, paroxysmal atrial fibrillation, anemia, a new pulmonary embolus, a new non STEMI and a recent STEMI as well with a PTCA of the prior LAD stent. She has ejection fraction of 20%. She has heart failure with reduced EF. She is improved compared to admission. History of Present Illness History of Present Illness Consult date: 10/24/23 Requesting physician: Robert Gant MD Chief complaint: hypercapnic respiratory failure, need for AVAPS Narrative: Oct 24, 2023 at 19:45 pm Room 241 NEW: Lisa Díaz is a 63-year-old woman with a low E
[2023-10-23] VITALS (27 sets, daily range): BP systolic 90–113; BP diastolic 40–65; PULSE 55–68; RESP 16–23; TEMP 36.2–37.1; O2SAT 97–100
[2023-10-23] MEDS: METOPROLOL TARTRATE 25 MG TABLET PO ×4 (01:05→17:24)
[2023-10-23] MEDS: ALBUTEROL SULFATE NEB 2.5 MG/3 ML INH 5 MG INHALATION ×4 (01:19→19:45)
[2023-10-23] MEDS: IPRATROPIUM BR 0.02% INH SOLN 0.5 MG/2.5 ML VIAL INHALATION ×4 (01:19→19:45)
[2023-10-23 06:04] LABS: Basophils Percent Auto 0.1 % (0.2-1.2); Hematocrit 30.8 % (37.0-47.0); Hemoglobin 9.5 g/dL (12.0-15.0); Immature Granulocyte Absolute 0.15 K/mm3 (0.00-0.031); Immature Platelet Fraction Pct 23.1 % (0.9-11.2); Lymphocytes Absolute Auto 0.04 K/mm3 (0.9-3.2); Lymphocytes Percent Auto 0.3 % (18.3-44.2); Mean Corpuscular HGB Conc 30.8 g/dl (32-36); Mean Corpuscular Hemoglobin 28.8 pg (26-34); Mean Corpuscular Volume 93.3 fl (80-100); Monocytes Absolute Auto 0.4 K/mm3 (0.1-0.6); Monocytes Percent Auto 2.4 % (2.6-8.5); Neutrophils Absolute Auto 13.9 K/mm3 (1.3-6.7); Neutrophils Percent Auto 96.2 % (45.5-73.1); Nucleated Red Blood Cells Absolute Auto 2.1 K/mm3 (0.0-0.012); Nucleated Red Blood Cells Perc 14.6 % (0.0-0.2); Platelet Count Result 42 k/mm3 (150-375); Red Cell Distribution Width 20.2 % (11.5-14.5); White Blood Count 14.4 K/mm3 (4.5-10.0)
[2023-10-23 06:13] LABS: Alanine Aminotransferase 599 U/L (6-35); Albumin Level 2.4 g/dL (3.5-5.1); Alkaline Phosphatase 126 U/L (38-126); Anion Gap 2 mmol/L (8-16); Aspartate Amino Transferase 214 U/L (14-36); Bilirubin,Total 1.1 mg/dL (0.2-1.3); Blood Urea Nitrogen 61 mg/dL (7-17); Calcium 8.1 mg/dL (8.4-10.2); Carbon Dioxide 23 mmol/L (22-30); Chloride 115 mmol/L (98-107); Estimated CRCL calculation 32 ml/min; Estimated Glomerular Filt Rate 55; Glucose 131 mg/dL (65-110); Magnesium 2.3 mg/dL (1.6-2.3); Potassium 4.3 mmol/L (3.4-5.0); Sodium 140 mmol/L (137-145)
[2023-10-23 06:39] LABS: Hypochromasia 1+ (NORMAL); Platelet Estimate Decreased (Adequate)
[2023-10-23 06:40] LABS: Acanthocytes 1+ (NORMAL); Anisocytosis 1+ (NORMAL); Helmet Cells 1+ (NORMAL); Schistocytes 1+ (NORMAL)
[2023-10-23] MEDS: FLUTICASONE/UMECLIDIN/VILANTER 100-62.5-25 MCG ELLIPTA 1 PUFF INHALATION (07:47)
[2023-10-23] MEDS: POLYSACCHARIDE IRON COMPLEX 150 MG CAPSULE PO ×2 (09:31→17:09)
[2023-10-23] MEDS: SACUBITRIL/VALSARTAN 12-13 MG TABLET 1 TAB PO ×2 (09:31→21:16)
[2023-10-23] MEDS: GABAPENTIN 400 MG CAPSULE PO ×3 (09:31→17:08)
[2023-10-23] MEDS: AMIODARONE HCL 200 MG TABLET PO ×2 (09:31→17:08)
[2023-10-23] MEDS: predniSONE 20 MG TABLET 40 MG PO (09:32)
[2023-10-23] MEDS: PANTOPRAZOLE SODIUM IV 40 MG VIAL IV PUSH ×2 (09:33→21:16)
[2023-10-23] MEDS: ASPIRIN 81 MG ENTERIC TABLET PO (09:33)
[2023-10-23] MEDS: CENTRAL LINE FLUSH 10 ML IV PUSH ×3 (09:34→21:16)
--- NOTE | 2023-10-23 09:51 | PM.PNCARD ---
Progress Note: A&P Assessment and Plan (1) Ischemic cardiomyopathy: Code(s): I25.5 - Ischemic cardiomyopathy Status: Acute Assessment and Plan: Continue with low dose Entresto for now. Will switch her Metoprolol tartrate to succinate form. Will hold off on adding Spironolactone at this time given SPB in the 90s to low 100s. (2) Atrial flutter with rapid ventricular response: Code(s): I48.92 - Unspecified atrial flutter Status: Acute Assessment and Plan: Remains in sinus rhythm. Continue beta mayela, will switch Metoprolol tartrate to succinate given HFrEF. Continue Amiodarone 200mg BID. Daksha is on hold currently given anemia, worsening thrombocytopenia. (3) Coronary artery disease: Qualifiers: Coronary Disease-Associated Artery/Lesion type: unspecified vessel or lesion type [place] vs. transplanted heart: [place] heart Associated angina: without angina Qualified Code(s): I25.10 - Atherosclerotic heart disease of [place] coronary artery without angina pectoris Code(s): I25.10 - Atherosclerotic heart disease of [place] coronary artery without angina pectoris Status: Acute Assessment and Plan: Stable. Continue ASA. Recommend starting statin if her LFTs improve. Subjective Date/time seen: 10/23/23 09:51 Interval history: Follow-up visit in this 63-year-old lady with: Very complex situation with longstanding coronary artery disease, previous extensive anterior wall ND with ischemic cardiomyopathy and low ejection fraction. She enters the hospital here with shortness of breath she was in atrial flutter with rapid ventricular response. She does take amiodarone chronically. She is back in sinus rhythm this morning. Laboratory data is concerning regarding significant anemia as well as hyperkalemia. This patient is guideline medical directed therapy previously did include lisinopril. She does not remember being taken off of it during her recent hospitalization elsewhere. For now she is receiving metoprolol and amiodarone and has gone back into sinus rhythm. She feels and looks relatively comfortable today and is eating her lunch when I entered the room to see her. Date of service 10/20/2023: Says she feels unwell today but nonspecific regarding her complaints. She appears to be having some conversational dyspnea. Still maintaining sinus rhythm. Date of service 10/21/2023: Patient looks and feels somewhat better this morning. She did receive packed red cell transfusion yesterday and her hemoglobin is obviously much better. BMP demonstrates hyperkalemia is also significantly improved. Systolic blood pressure is in 130-135 range. Date of service 10/22/2023: Patient receiving a breathing treatment at this time. She says that her shortness of breath is clearly improving day by day. Seems to have tolerated the starting dose of Entresto without any problematic hypotension. Date of service 10/23: Feeling well this morning. Denies chest pain or shortness of breath. Review of Systems Review of Systems: No chest pain, shortness of breath, palpitations Exam Const: General: comfortable and no acute distress HENMT: Mouth: Yes moist mucous membranes Eyes: General: appearance normal, both eyes and all related structures Sclera: sclerae normal Resp: Effort & Inspection: normal respiratory effort Cardio: Rate: regular rate Rhythm: regular rhythm Heart sounds: no murmurs Skin: General skin exam: normal color Neuro: Speech: normal speech Psych: Mental Status: mental status grossly normal Affect: normal affect Objective Data Vital Signs Vital Signs: Vital Signs - 24 hr 10/22/23 10:00 10/22/23 12:04 10/22/23 13:04 Temperature 36.3 C L Pulse Rate 50 L 64 62 Respiratory Rate 18 Blood Pressure 93/49 L Pulse Oximetry 97 Oxygen Delivery Oxygen Flow Rate 10/22/23 14:20 10/22/23 14:35 10/22/23 12:00 Temperature Pulse Ra
--- NOTE | 2023-10-23 15:38 | WPDGIPROGNO ---
Progress Note: A&P Assessment and Plan (1) Melena: Code(s): K92.1 - Melena Status: Acute Assessment and Plan: no more episodes for last 3 days and h/h still stable since transfusion continue with iv protonix bid high risk for anesthesia given advanced copd, PE and also cardiomyopathy- conservative management unless recurrent bleeding will follow [place] also noted thrombocytopenia- blood thinner on hold (2) Acute on chronic anemia: Code(s): D64.9 - Anemia, unspecified Status: Acute Assessment and Plan: s/p blood transfusion with good response, h/h stable since monitor for more signs of bleeding (3) Pulmonary emboli: Code(s): I26.99 - Other pulmonary embolism without acute cor pulmonale Status: Acute (4) Ischemic cardiomyopathy: Code(s): I25.5 - Ischemic cardiomyopathy Status: Acute Assessment and Plan: by cardiology (5) Obstructive sleep apnea on CPAP: Code(s): G47.33 - Obstructive sleep apnea (adult) (pediatric); Z99.89 - Dependence on other enabling machines and devices Status: Acute (6) Chronic obstructive pulmonary disease: Qualifiers: COPD type: unspecified COPD Qualified Code(s): J44.9 - Chronic obstructive pulmonary disease, unspecified Code(s): J44.9 - Chronic obstructive pulmonary disease, unspecified Status: Acute Assessment and Plan: by pulmonary Subjective Date/time seen: 10/23/23 15:38 Interval history: no more signs of bleeding, she is eating and comfortable she was talking on the phone when I got in her room Review of Systems Review of Systems: All systems reviewed & are unremarkable except as noted in HPI and below Exam Const: General: comfortable and no acute distress Other: Thin chronically ill-appearing, using oxygen HENMT: Mouth: Yes moist mucous membranes Eyes: General: appearance normal, both eyes and all related structures Sclera: sclerae normal Neck: Neck: supple Resp: Effort & Inspection: normal respiratory effort Auscultation: crackles (base) Cardio: Rate: regular rate Rhythm: regular rhythm Other: pacemaker in place GI: GI Palp: Yes Soft to palpation, No Tenderness to palpation present (GI) and No Guarding due to palpation present (GI) Auscultation: normal bowel sounds Skin: General skin exam: no rashes or lesions noted Neuro: Speech: normal speech Other: Alert and oriented x3 Extrem: Other: No edema Psych: Mental Status: mental status grossly normal Affect: normal affect Objective Data Vital Signs Vital Signs: Vital Signs - 24 hr 10/22/23 16:14 10/22/23 17:02 10/22/23 17:02 Temperature 97.9 F Pulse Rate 64 67 67 Respiratory Rate 16 Blood Pressure 94/52 L Pulse Oximetry 97 Oxygen Delivery Oxygen Flow Rate 10/22/23 16:00 10/22/23 19:32 10/22/23 20:11 Temperature 98.9 F Pulse Rate 62 55 L 53 L Respiratory Rate 20 16 Blood Pressure 93/44 L Pulse Oximetry 100 99 Oxygen Delivery Nasal Cannula Oxygen Flow Rate 2 10/22/23 20:12 10/22/23 20:00 10/22/23 20:23 Temperature Pulse Rate 53 L 53 L 58 L Respiratory Rate 18 18 18 Blood Pressure Pulse Oximetry 99 Oxygen Delivery Nasal Cannula Oxygen Flow Rate 2 10/23/23 00:00 10/23/23 01:05 10/23/23 01:19 Temperature 98.4 F Pulse Rate 61 61 59 L Respiratory Rate 23 H 16 Blood Pressure 90/46 L Pulse Oximetry 97 Oxygen Delivery Oxygen Flow Rate 10/23/23 01:31 10/22/23 20:00 10/23/23 00:00 Temperature Pulse Rate 57 L 52 L 66 Respiratory Rate 16 Blood Pressure Pulse Oximetry Oxygen Delivery Oxygen Flow Rate 10/23/23 04:00 10/23/23 05:13 10/23/23 05:56 Temperature 98.3 F Pulse Rate 57 L 61 68 Respiratory Rate 18 Blood Pressure 96/46 L Pulse Oximetry 97 Oxygen Delivery Oxygen Flow Rate 10/23/23 07:32 10/23/23 07:27 10/23/23 07:41 Temperature Pu
--- NOTE | 2023-10-23 16:18 | PM.IMPN ---
Progress Note: A&P Assessment and Plan (1) Atrial flutter with rapid ventricular response: Code(s): I48.92 - Unspecified atrial flutter Status: Acute Assessment and Plan: Presented to ED with shortness of breath found to have atrial flutter/RVR and rates in the 140s. IV Lopressor 5 mg x 1 did slow the heart rate somewhat. Start metoprolol 25 mg q.6 hours for rate control. Continue amiodarone 200 mg daily. Cardiology consult noted. Back to sinus rhythm on metoprolol. Resume Eliquis once H&H remained stable if okay with GI and when thrombocytopenia improved (2) Elevated troponin: Code(s): R79.89 - Other specified abnormal findings of blood chemistry Status: Acute Assessment and Plan: Presumably related to above as she is not experiencing chest pain and EKG does not show acute ST segment elevation. Status post balloon angioplasty to a thrombotic occluded distal LAD stent 10/08/[address]. Dr. Rojo is following and her recommendations are appreciated. CTA 10/19/2023 showed single small segmental level pulmonary embolus seen in the right upper lobe. Small bilateral pleural effusion with minimal bilateral basilar atelectatic change. Advanced emphysema. Reflux of contrast into the IVC/hepatic veins could indicate an element of right heart dysfunction/failure. Troponin 0.653-0.639-0.637 (3) Anemia: Code(s): D64.9 - Anemia, unspecified Status: Acute Assessment and Plan: Monitor closely Continue iron supplement Reports dark stool Stool occult blood was negative Anemia worsening GI consultation Anticoagulation on hold due to worsening anemia PPI b.i.d. Dark tarry stool on 10/20/2023 FOBT tested positive H&H dropped to 6. Status post PRBC transfusion post transfusion hemoglobin up to 11 Continue to monitor H&H. Stable hemodynamics today along with stable h and h. (4) Shortness of breath: Code(s): R06.02 - Shortness of breath Status: Acute Assessment and Plan: Presumably related to atrial flutter/rapid ventricular response. On eliquis which has been placed on hold now (5) Coronary artery disease: Code(s): I25.10 - Atherosclerotic heart disease of [place] coronary artery without angina pectoris Status: Acute Assessment and Plan: Continue aspirin 81 mg with close monitoring of H&H. Coreg changed to metoprolol for better rate control. I do not see that she is on a statin for unclear reasons. However with elevated LFTs will continue to hold. Similar episode with elevated LFTs while she was at outside hospital likely the reason for not being on statin. (6) Ischemic cardiomyopathy: Code(s): I25.5 - Ischemic cardiomyopathy Status: Acute Assessment and Plan: EF was 20% on cardiac catheterization on 10/08/2023. Monitor volume status closely with daily weights and strict I/O. entresto added. consider spironoalctone (7) Chronic obstructive pulmonary disease: Qualifiers: COPD type: unspecified COPD Qualified Code(s): J44.9 - Chronic obstructive pulmonary disease, unspecified Code(s): J44.9 - Chronic obstructive pulmonary disease, unspecified Status: Acute Assessment and Plan: No evidence on exam to suggest COPD exacerbation. Continue maintenance inhalers as prescribed. On Solu-Medrol for likely COPD exacerbation ABG showed hypercapnic respiratory failure with pH was 7.14. Patient did not tolerate BiPAP initially and was switched settings which she tolerated well pain right IJ was placed 10/19/2023. Repeat ABG has improved. Apparently she has CPAP in the past but was taken away by the insurance for daughter. According to the pulmonary note she had hypercarbic respiratory failure on noninvasive ventilation at home related to underlying COPD. Will continue noninvasive ventilation at night iVAPS with 4 L bled in. EPAP of 8 minimum pressure support 5 maximum pressure support 15 Discusse
--- NOTE | 2023-10-23 17:27 | PC.NURSE ---
pt MedTele status - report given to Chandni HOUSTON- ptmoved to [id number] via bed with O2 in place- belongings /and home med with pt - daughter called and notified of transfer
--- NOTE | 2023-10-23 18:03 | PC.NURSE ---
This patient, Lisa Díaz, was received from IMU on 10/23/23 at 1730. Patient/family oriented to unit policies and routines
--- NOTE | 2023-10-23 18:20 | PDONCCN ---
HPI - Date of Consult Date/Time: 10/23/23 18:20 Requesting Physician: Kadi Watts MD Primary Care Provider: Jim Yañez, DO - Consult Narrative Reason for consult: Pancytopenia Narrative: Lisa Díaz is a 63 year old female history of stroke, coronary artery disease, paroxysmal atrial fibrillation, ischemic cardiomyopathy status post pacemaker/defibrillator, chronic obstructive pulmonary disease with chronic respiratory failure on oxygen, obstructive sleep apnea, and hypertension who presented to the emergency department via EMS from home for evaluation of shortness of breath. She was recently admitted to [facility] with stroke leading to expressive aphasia. She went to the [facility] with chest pain and underwent balloon angioplasty on October 08, 2023. Anticoagulation therapy was not started due to profound anemia with hemoglobin of 5.5 and heme-positive stool. She was brought back into the hospital with dark stools. CTA chest from October 19 showed small single segmental pulmonary embolism in the right upper lobe. Doppler study showed no evidence of DVT. In the ER she was also found to have atrial flutter. Patient was started on metoprolol. Patient received 2 units of packed red blood cells on October 20 for 6 0. Anticoagulation was put on hold due to profound anemia. Platelet count was 129,000 on admission now dropped to 42,000. WBC count was elevated. Liver enzymes were also elevated. Review of Systems - Review of Systems All systems reviewed & are unremarkable except as noted in HPI and bel - Neurologic Reports hearing normal, Denies vertigo [facility] Medical History: Medical History (Last Updated 10/21/23 @ 11:41 by Duane Mcqueen MD) Acute on chronic anemia Anxiety Cerebrovascular accident Residual expressive aphasia and right leg weakness. Chronic obstructive pulmonary disease Chronic respiratory failure with hypoxia, on home oxygen therapy Coronary artery disease Essential hypertension Hyperlipidemia Ischemic cardiomyopathy Status post PPM/AICD insertion. EF 20% on 10/08/2023 cath. 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 Tobacco dependence Vitamin D deficiency Surgical History: Surgical History (Last Reviewed 10/18/23 @ 19:09 by Elena Bender PA-C) History of coronary angioplasty with insertion of stent X4. Recent angioplasty to 100% thrombotic occluded distal LAD stent on 10/08/2023 at [facility]. History of ectopic History of permanent cardiac pacemaker placement History of placement of internal cardiac defibrillator History of tubal ligation Family History: Family History (Last Reviewed 10/18/23 @ 19:09 by Elena Bender PA-C) Father Family history of malignant neoplasm Sibling Family history of tuberculosis Asthma Mother Hypertension Family history of malignant neoplasm of urinary bladder - Social History Social History: Social History (Last Reviewed 10/18/23 @ 19:09 by Elena Bender PA-C) Alcohol Use: Alcohol intake: never Substance Use: Substance use: never Substance use type: does not use Others: Spiritual care concerns: No Living Arrangements: Living arrangements: alone Oppucation/Education: Occupation/Education: unemployed Smoking Status: Smoking status: Current every day smoker Tobacco type: cigarettes Smoking Pack-years: Years smoked: 40
--- NOTE | 2023-10-23 20:30 | PC.NURSE ---
Pt transferred from room 240 to ICU 9 with all belongings per bed by RN and PUBLICATIONS WRITER. Report given to Yaya HOUSTON. Family with patient during transfer.
[2023-10-23 20:45] LABS: Lactate Dehydrogenase 721 U/L (120-246)
[2023-10-23 20:53] LABS: Immature Reticulocyte Fraction 46.3 % (3.0-15.9); Reticulocyte Hemoglobin Conten 25.1 pg (28.2-35.7); Reticulocyte Percent 6.27 % (0.7-4.3)
[2023-10-23 21:33] LABS: Iron 20 ug/dL (37-170)
[2023-10-23 21:42] LABS: Percent Iron Saturation 10 % (20-50)
[2023-10-23 21:57] LABS: Folic Acid 5.2 ng/mL (2.76->20); Vitamin B12 > 1000.0 pg/mL (239-931)
[2023-10-24] VITALS (22 sets, daily range): BP systolic 91–107; BP diastolic 51–62; PULSE 54–106; RESP 14–18; TEMP 36.3–37; O2SAT 92–100
[2023-10-24] MEDS: IPRATROPIUM BR 0.02% INH SOLN 0.5 MG/2.5 ML VIAL INHALATION ×4 (01:30→20:52)
[2023-10-24] MEDS: ALBUTEROL SULFATE NEB 2.5 MG/3 ML INH 5 MG INHALATION ×4 (01:30→20:52)
[2023-10-24 05:40] LABS: Basophils Percent Auto 0.1 % (0.2-1.2); Hematocrit 30.5 % (37.0-47.0); Hemoglobin 9.2 g/dL (12.0-15.0); Immature Granulocyte Percent A 0.7 % (0-0.5); Immature Platelet Fraction Pct 20.9 % (0.9-11.2); Lymphocytes Absolute Auto 0.35 K/mm3 (0.9-3.2); Lymphocytes Percent Auto 2.5 % (18.3-44.2); Mean Corpuscular HGB Conc 30.2 g/dl (32-36); Mean Corpuscular Hemoglobin 28.8 pg (26-34); Mean Corpuscular Volume 95.6 fl (80-100); Monocytes Absolute Auto 0.6 K/mm3 (0.1-0.6); Monocytes Percent Auto 4.5 % (2.6-8.5); Neutrophils Absolute Auto 12.9 K/mm3 (1.3-6.7); Neutrophils Percent Auto 92.2 % (45.5-73.1); Nucleated Red Blood Cells Absolute Auto 0.8 K/mm3 (0.0-0.012); Nucleated Red Blood Cells Perc 5.9 % (0.0-0.2); Platelet Count Result 42 k/mm3 (150-375); Red Blood Count 3.19 M/mm3 (4.2-5.4); Red Cell Distribution Width 21.2 % (11.5-14.5)
[2023-10-24 05:49] LABS: Alanine Aminotransferase 446 U/L (6-35); Albumin Level 2.4 g/dL (3.5-5.1); Alkaline Phosphatase 138 U/L (38-126); Anion Gap 1 mmol/L (8-16); Aspartate Amino Transferase 132 U/L (14-36); Bilirubin,Total 1.1 mg/dL (0.2-1.3); Blood Urea Nitrogen 43 mg/dL (7-17); Calcium 7.8 mg/dL (8.4-10.2); Carbon Dioxide 25 mmol/L (22-30); Chloride 113 mmol/L (98-107); Estimated CRCL calculation 35 ml/min; Estimated Glomerular Filt Rate > 60; Glucose 113 mg/dL (65-110); Magnesium 2.1 mg/dL (1.6-2.3); Potassium 4.2 mmol/L (3.4-5.0); Sodium 139 mmol/L (137-145)
[2023-10-24] MEDS: CENTRAL LINE FLUSH 10 ML IV PUSH ×3 (06:07→21:10)
[2023-10-24] MEDS: AMIODARONE HCL 200 MG TABLET PO ×2 (09:01→18:27)
[2023-10-24] MEDS: SACUBITRIL/VALSARTAN 12-13 MG TABLET 1 TAB PO ×2 (09:01→21:08)
[2023-10-24] MEDS: POLYSACCHARIDE IRON COMPLEX 150 MG CAPSULE PO ×2 (09:01→18:27)
[2023-10-24] MEDS: GABAPENTIN 400 MG CAPSULE PO ×3 (09:01→18:27)
[2023-10-24] MEDS: PANTOPRAZOLE SODIUM IV 40 MG VIAL IV PUSH ×2 (09:02→21:08)
[2023-10-24] MEDS: predniSONE 20 MG TABLET 40 MG PO (09:02)
[2023-10-24] MEDS: METOPROLOL SUCCINATE EXT REL 100 MG TABCR PO (09:02)
[2023-10-24] MEDS: ASPIRIN 81 MG ENTERIC TABLET PO (09:02)
[2023-10-24] MEDS: ACETAMINOPHEN 325 MG TABLET 650 MG PO (09:06)
--- NOTE | 2023-10-24 14:32 | PCNFU ---
Nutrition Follow-Up Complete: Underweight related to poor appetite/increased needs re: COPD as evidenced by BMI of 16.1 kg/m2. Goal: 1. Patient to consume at least 50% x 3 meals daily. - Progressing 2. Weight to remain at or above admission weight of 38.6 kg. - Weight increased to 47.5 kg/5 days. Previous weight of 38.6 kg LIKELY AN ERROR Pt current nutrition is Heart healthy diet, intakes 0-90% meals. Ensure compact BID for additional 220 kcal and 9 g protein each. Nutrition recommendation: Continue with current nutrition care plan and diet orders. Agree with orders Last recorded weight is 47.5 kg. Up from 38.6 kg at admission. Follow up weights around 48-50 kg. Initial weight probably an error. Bowel Motility: Last BM 10/21/23 Labs Reviewed: Hgb 9.2, Hct 30.5, Alb 2.4, BUN 43, Cre 1.1 Meds Noted: Zofran Skin: WNL Additional Notes: Intakes improving. Labs trending better. Continue with current care plan. Monitor weight, labs, PO intake
[2023-10-24 15:30] LABS: Heparin Induced Platelet Antib Negative (Negative)
--- NOTE | 2023-10-24 18:55 | PM.IMPN ---
Progress Note: A&P Assessment and Plan (1) Pulmonary emboli: Code(s): I26.99 - Other pulmonary embolism without acute cor pulmonale Status: Acute (2) Acute non-ST elevation myocardial infarction (NSTEMI): Code(s): I21.4 - Non-ST elevation (NSTEMI) myocardial infarction Status: Acute (3) Atrial flutter with rapid ventricular response: Code(s): I48.92 - Unspecified atrial flutter Status: Acute (4) Anemia: Code(s): D64.9 - Anemia, unspecified Status: Acute Plan anemia stable. ctm. a fib w/ rvr resolved. ctm. unclear the condition of her o2 use at home, apparently it is chronic. optimize respiratory status. appreciate cardiology recs concerning HF and a fib appreciate oncology recs concerning thrombocytopenia. the pt understands she is too high risk for blood thinner at the moment although being off of it does place her at risk for further clots as well full code scd's only protonix Subjective Date/time seen: 10/24/23 18:55 Interval history: NAOE. pt is a poor historian. she has no complaints. Review of Systems Review of Systems: All systems reviewed & are unremarkable except as noted in HPI and below Exam Const: General: comfortable and no acute distress Other: alert Eyes: Pupils: Equal, round and reactive pupils present Resp: Effort & Inspection: normal respiratory effort Auscultation: clear to auscultation bilaterally, no crackles, no rales and no rhonchi Cardio: Rate: regular rate Rhythm: regular rhythm Heart sounds: no gallops, no murmurs and no rubs GI: GI Palp: Yes Soft to palpation and No Tenderness to palpation present (GI) Extrem: General: no edema Objective Data Vital Signs Vital Signs: Vital Signs - 24 hr 10/23/23 19:51 10/23/23 19:45 10/23/23 20:00 Temperature 98.3 F Pulse Rate 56 L 57 L 58 L Respiratory Rate 17 16 16 Blood Pressure 96/40 L Pulse Oximetry 100 Oxygen Delivery Oxygen Flow Rate 10/23/23 23:58 10/23/23 20:00 10/24/23 01:30 Temperature 97.9 F Pulse Rate 57 L 60 Respiratory Rate 17 16 Blood Pressure 100/54 L Pulse Oximetry 100 97 Oxygen Delivery Nasal Cannula Oxygen Flow Rate 2 10/24/23 01:53 10/23/23 21:00 10/24/23 03:54 Temperature 98.0 F Pulse Rate 59 L 79 Respiratory Rate 16 17 Blood Pressure 101/51 L Pulse Oximetry 92 Oxygen Delivery Nasal Cannula Oxygen Flow Rate 2 10/23/23 20:00 10/24/23 00:00 10/24/23 04:00 Temperature Pulse Rate 55 L 54 L 85 Respiratory Rate Blood Pressure Pulse Oximetry Oxygen Delivery Oxygen Flow Rate 10/24/23 02:32 10/24/23 08:11 10/24/23 08:00 Temperature 98.6 F Pulse Rate 82 82 Respiratory Rate 16 Blood Pressure 104/58 L Pulse Oximetry 100 Oxygen Delivery Oxygen Flow Rate 10/24/23 09:01 10/24/23 09:02 10/24/23 09:38 Temperature Pulse Rate 106 H 106 H 60 Respiratory Rate 14 Blood Pressure Pulse Oximetry Oxygen Delivery Oxygen Flow Rate 10/24/23 12:00 10/24/23 14:11 10/24/23 14:36 Temperature 97.4 F L Pulse Rate 61 60 60 Respiratory Rate 16 14 16 Blood Pressure 91/51 L Pulse Oximetry 97 Oxygen Delivery Oxygen Flow Rate 10/24/23 08:00 10/24/23 08:00 10/24/23 12:00 Temperature Pulse Rate 85 63 Respiratory Rate Blood Pressure Pulse Oximetry 97 Oxygen Delivery Nasal Cannula Oxygen Flow Rate 2 10/24/23 16:00 10/24/23 16:00 10/24/23 18:27 Temperature 97.9 F Pulse Rate 61 68 66 Respiratory Rate 18 Blood Pressure 101/62 Pulse Oximetry 95 Oxygen Delivery Oxygen Flow Rate Intake/Output Intake/Output: Intake & Output 10/21/23 10/22/23 10/23/23 10/24/23 23:59 23:59 23:59 23:59 Intake Total 572 660 360 870 Output Total 2762 900 650 525 Chkohgy -[phone] -240 -290 345 Meds/Results Medications: Active Medications Generic Name Dose Route Start Last Admin Trade Name Freq PRN Reason S
[2023-10-25] VITALS (20 sets, daily range): BP systolic 95–108; BP diastolic 49–59; PULSE 51–70; RESP 16–18; TEMP 36.1–36.9; O2SAT 95–100
[2023-10-25] MEDS: ALBUTEROL SULFATE NEB 2.5 MG/3 ML INH 5 MG INHALATION ×4 (02:35→22:47)
[2023-10-25] MEDS: IPRATROPIUM BR 0.02% INH SOLN 0.5 MG/2.5 ML VIAL INHALATION ×4 (02:36→22:47)
[2023-10-25] MEDS: CENTRAL LINE FLUSH 20 ML IV PUSH (05:32)
[2023-10-25] MEDS: CENTRAL LINE FLUSH 10 ML IV PUSH ×3 (05:32→22:16)
[2023-10-25 05:44] LABS: Basophils Percent Auto 0.1 % (0.2-1.2); Hematocrit 30.6 % (37.0-47.0); Hemoglobin 8.9 g/dL (12.0-15.0); Immature Granulocyte Absolute 0.09 K/mm3 (0.00-0.031); Immature Granulocyte Percent A 0.7 % (0-0.5); Immature Platelet Fraction Pct 18.6 % (0.9-11.2); Lymphocytes Absolute Auto 0.54 K/mm3 (0.9-3.2); Lymphocytes Percent Auto 4.5 % (18.3-44.2); Mean Corpuscular HGB Conc 29.1 g/dl (32-36); Mean Corpuscular Hemoglobin 28.3 pg (26-34); Mean Corpuscular Volume 97.5 fl (80-100); Monocytes Absolute Auto 0.5 K/mm3 (0.1-0.6); Monocytes Percent Auto 4.2 % (2.6-8.5); Neutrophils Absolute Auto 10.9 K/mm3 (1.3-6.7); Neutrophils Percent Auto 90.5 % (45.5-73.1); Nucleated Red Blood Cells Absolute Auto 0.3 K/mm3 (0.0-0.012); Nucleated Red Blood Cells Perc 2.5 % (0.0-0.2); Platelet Count Result 41 k/mm3 (150-375); Red Blood Count 3.14 M/mm3 (4.2-5.4); Red Cell Distribution Width 21.1 % (11.5-14.5); White Blood Count 12.1 K/mm3 (4.5-10.0)
[2023-10-25 05:52] LABS: Alanine Aminotransferase 329 U/L (6-35); Albumin Level 2.4 g/dL (3.5-5.1); Alkaline Phosphatase 105 U/L (38-126); Anion Gap 5 mmol/L (8-16); Aspartate Amino Transferase 77 U/L (14-36); Bilirubin,Total 0.9 mg/dL (0.2-1.3); Blood Urea Nitrogen 34 mg/dL (7-17); Calcium 7.6 mg/dL (8.4-10.2); Carbon Dioxide 23 mmol/L (22-30); Chloride 111 mmol/L (98-107); Estimated CRCL calculation 35 ml/min; Estimated Glomerular Filt Rate > 60; Glucose 99 mg/dL (65-110); Magnesium 1.9 mg/dL (1.6-2.3); Potassium 4.3 mmol/L (3.4-5.0); Sodium 139 mmol/L (137-145)
[2023-10-25 06:11] LABS: Procalcitonin 0.8 ng/mL
[2023-10-25 06:30] LABS: Hypochromasia 2+ (NORMAL); Platelet Estimate Decreased (Adequate)
[2023-10-25 06:31] LABS: Acanthocytes 1+ (NORMAL); Anisocytosis 2+ (NORMAL); Helmet Cells 1+ (NORMAL); Macrocytosis 1+ (NORMAL); Schistocytes 1+ (NORMAL)
[2023-10-25] MEDS: FLUTICASONE/UMECLIDIN/VILANTER 100-62.5-25 MCG ELLIPTA 1 PUFF INHALATION (07:32)
[2023-10-25] MEDS: AMIODARONE HCL 200 MG TABLET PO ×2 (08:33→17:04)
[2023-10-25] MEDS: METOPROLOL SUCCINATE EXT REL 100 MG TABCR PO (08:33)
[2023-10-25] MEDS: predniSONE 20 MG TABLET 40 MG PO (08:33)
[2023-10-25] MEDS: POLYSACCHARIDE IRON COMPLEX 150 MG CAPSULE PO ×2 (08:34→17:04)
[2023-10-25] MEDS: GABAPENTIN 400 MG CAPSULE PO ×3 (08:34→17:04)
[2023-10-25] MEDS: SACUBITRIL/VALSARTAN 12-13 MG TABLET 1 TAB PO ×2 (08:34→22:14)
[2023-10-25] MEDS: ASPIRIN 81 MG ENTERIC TABLET PO (08:34)
[2023-10-25] MEDS: PANTOPRAZOLE SODIUM IV 40 MG VIAL IV PUSH ×2 (08:36→22:18)
--- NOTE | 2023-10-25 10:48 | PCPTNOTE ---
Attempted to see patient for Pt, however patient declined. Patient did not give reason why, patient just reported I do not feel up for it.
--- NOTE | 2023-10-25 11:07 | PC.NURSE ---
pt had a 7 beat run of VTach, it was not sustained. Cindi Benton APN and Dr. Watts both are aware.
--- NOTE | 2023-10-25 14:02 | PCRCNOTE ---
Spoke to Adina, Sujatha states that she does have a Trilogy unit at home with them. Although they will have to have the physical unit to pull a download of usage. She also couldnt tell me her settings on the machine. I am unsure which DME is billing for this machine, [facility] said they removed machine, Adina doesnt have much info on pt? Zofia is able to provide unit if needed as well as RT support and followup.
--- NOTE | 2023-10-25 14:16 | PM.PNPUL ---
Progress Note: A&P Assessment and Plan (1) Acute on chronic respiratory failure with hypoxia and hypercapnia: Code(s): J96.21 - Acute and chronic respiratory failure with hypoxia; J96.22 - Acute and chronic respiratory failure with hypercapnia Status: Acute Assessment and Plan: She has acute and chronic hypercapnic hypoxemic respiratory failure, exacerbated by cardiac dysfunction on admission with paroxysmal atrial fibrillation.? She improved on BiPAP 10/10. She needs a non invasive positive pressure device to manage her chronic respiratory failure due to COPD with persistent hypercapnia even with BiPAP use.?She has been on an Astral NIV device at home with suboptimal compliance. ? A noninvasive positive-pressure ventilator is helpful for this patient during sleep and during waking hours as needed when she is symptomatic.? It does not appear that home BiPAP would be appropriate meeting her ventilatory requirements. (2) Chronic obstructive pulmonary disease: Qualifiers: COPD type: unspecified COPD Qualified Code(s): J44.9 - Chronic obstructive pulmonary disease, unspecified Code(s): J44.9 - Chronic obstructive pulmonary disease, unspecified Status: Acute Assessment and Plan: Extremely severe end-stage COPD, her FEV1 in 2019 was below a Liter, 35% predicted.? In the office, her last visit was May.? She had a note saying that Breztri did not really help, order for Trelegy was placed.? When she was discharged from [facility], Symbicort was on her medication list.? From our office, she also takes Daliresp 500 mcg daily. ? She needs to go home on triple inhaler therapy and Daliresp.? She does use albuterol p.r.n. shortness of breath. (3) Pulmonary emboli: Code(s): I26.99 - Other pulmonary embolism without acute cor pulmonale Status: Acute Assessment and Plan: CTA? October 19 shows a small pulmonary embolus to the right upper lobe.? She cannot be anticoagulated due to profound anemia,? need for transfusion,? 2 units received here on October 20 and 2 units received when she was recently at [facility] with a hemoglobin of 5.5 during her admission for an acute? ischemic stroke. (4) Tobacco dependence: Code(s): F17.200 - Nicotine dependence, unspecified, uncomplicated Status: Acute Assessment and Plan: She smoked up until this admission, half pack per day, in general smoked a pack per day since age of 16, about 50 years; ? She cannot smoke in the hospital, obviously stopping smoking would help her because she has recently had a stroke September 15, a STEMI September 24 and a nonSTEMI? October 18.? Tobacco cessation would benefit her as far as stroke, heart failure, COPD and hypercapnic respiratory failure. (5) Acute on chronic anemia: Code(s): D64.9 - Anemia, unspecified Status: Acute Assessment and Plan: [facility] baseline hemoglobin is around 9-10 grams/deciliter, she dropped to 6 grams/deciliter? October 20,? received 2 units of packed RBC Plan She has complex cardiopulmonary problems with paroxysmal atrial fibrillation, anemia, a new pulmonary embolus, a new non STEMI and a recent STEMI as well with a PTCA of the prior LAD stent.? She has ejection fraction of 20%. She has heart failure with reduced EF. She is improved compared to admission. She would benefit from having a ventilator for chronic respiratory failure due to COPD. She will need it nocturnally and in the daytime as needed for shortness of breath. BiPAP has been considered and ruled out. Arterial blood gas on October 19
--- NOTE | 2023-10-25 14:27 | PM.IMPN ---
Progress Note: A&P Assessment and Plan (1) Acute on chronic respiratory failure with hypoxia and hypercapnia: Code(s): J96.21 - Acute and chronic respiratory failure with hypoxia; J96.22 - Acute and chronic respiratory failure with hypercapnia Status: Acute (2) Coronary artery disease: Code(s): I25.10 - Atherosclerotic heart disease of [place] coronary artery without angina pectoris Status: Acute (3) Atrial flutter with rapid ventricular response: Code(s): I48.92 - Unspecified atrial flutter Status: Acute Plan 63F w/ PMH stroke, CAD, pAF, ischemic cardiomyopathy s/p pacemaker/defibrillator, COPD with chronic respiratory failure on o2 at home and NIV, BHASKAR, HTN, anemia who presented with SOB and was admitted on 10/18/23 # acute on chronic hypoxic hypercapnic respiratory failure - due to issues below. resolved. ctm and treat as below. appreciate pulmonology recs # COPD - cont prednisone and duonebs # a fib w/ RVR - now rate controlled. cardiology consulted, appreciate recs - eliquis on hold due to anemia and thrombocytopenia - cont amiodarone 200mg PO BID and metoprolol 100mg po qam - cont tele monitor # elevated troponin - likely 2/2 demand ischemia - CTA 10/19/23 demonstrating single small segmental level pulmonary embolus seen in right upper lobe. Small bilateral pleural effusion with minimal bilateral basilar atelectatic change.? Advanced emphysema.? Reflux of contrast into the IVC/hepatic veins could indicate an element of right heart dysfunction/failure. - concerning the PE, unable to be on AC now due to anemia and thrombocytopenia, oncology consulted # ishcemic cardiomyopathy - EF 20@ on cardiac cath 10/08/23 - cardiac rehab on d/c - monitor volume status # CAD - cont aspirin - coreg changed to metoprolol - start statin when LFTs allow # anemia/thrombocytopenia - required transfusion. HB now stable. GI consulted. recommended conservative mgmt, stool occult positive. cont protonix - oncology consult and workup pending, currently holding AC as platelets are still below 50. will need to revisit discharge plan for anticoagulation with oncology pending workup FEN: saline lock IV GI prophylaxis: on protonix DVT prophylaxis: SCD's only, has thrombocytopenia Lines: remove TLC today, pIV only, batista removed 10/24 Code Status: full code Dispo: guarded More than 35 minutes spent on chart review, patient interaction and assessment and plan. Subjective Date/time seen: 10/25/23 14:27 Interval history: NAOE. pt is a woman of few words. she seems to just agree to everything. she cannot produce any verbal complaints. Review of Systems Review of Systems: All systems reviewed & are unremarkable except as noted in HPI and below Exam Const: General: comfortable and no acute distress Eyes: Pupils: Equal, round and reactive pupils present Neck: Neck: supple Resp: Effort & Inspection: normal respiratory effort Auscultation: clear to auscultation bilaterally Cardio: Rate: regular rate Rhythm: regular rhythm Heart sounds: no gallops, no murmurs and no rubs GI: GI Palp: Yes Soft to palpation and No Tenderness to palpation present (GI) Extrem: General: no edema Objective Data Vital Signs Vital Signs: Vital Signs - 24 hr 10/24/23 14:36 10/24/23 16:00 10/24/23 16:00 Temperature 97.9 F Pulse Rate 60 61 68 Respiratory Rate 16 18 Blood Pressure 101/62 Pulse Oximetry 95 Oxygen Delivery Oxygen Flow Rate Fraction of Inspired Oxygen 10/24/23 18:27 10/24/23 20:00 10/24/23 20:52 Temperature 98.1 F Pulse Rate 66 63 64 Respiratory Rate 17 17 Blood Pressure 100/53 L Pulse Oximetry 100 Oxygen Delivery Oxygen Flow Rate Fraction of Inspired Oxygen 10/24/23 20:53 10/24/23 21:03 10/24/23 23:41 Temperature 98.1 F Pulse Rate 65 61 Respiratory Rate 17 16 Blood Pressure 107/61 Pulse Oximetry 97 100 Oxygen Delivery Nasal Cannula Oxyge
--- NOTE | 2023-10-25 15:23 | PC.NURSE ---
Dr. Watts requested peripheral access on pt and to D/C Triple Lumen IJ catheter. Nurse and Charge nurse looked at arm, couldn't find anything. Vascular Access came and to look too and couldn't find anything either. Called Provider to update and he stated that we have a few days to spare since it was placed on the 16 and he would deal with it tomorrow.
[2023-10-26] VITALS (25 sets, daily range): BP systolic 92–110; BP diastolic 46–54; PULSE 50–95; RESP 12–18; TEMP 36–36.6; O2SAT 88–100
[2023-10-26] MEDS: IPRATROPIUM BR 0.02% INH SOLN 0.5 MG/2.5 ML VIAL INHALATION ×4 (03:00→20:19)
[2023-10-26] MEDS: ALBUTEROL SULFATE NEB 2.5 MG/3 ML INH 5 MG INHALATION ×4 (03:03→20:19)
[2023-10-26] MEDS: CENTRAL LINE FLUSH 20 ML IV PUSH (05:59)
[2023-10-26] MEDS: CENTRAL LINE FLUSH 10 ML IV PUSH ×3 (05:59→20:24)
[2023-10-26 06:27] LABS: Alanine Aminotransferase 238 U/L (6-35); Albumin Level 2.1 g/dL (3.5-5.1); Alkaline Phosphatase 108 U/L (38-126); Anion Gap 1 mmol/L (8-16); Aspartate Amino Transferase 53 U/L (14-36); Bilirubin,Total 0.7 mg/dL (0.2-1.3); Blood Urea Nitrogen 29 mg/dL (7-17); Calcium 7.7 mg/dL (8.4-10.2); Carbon Dioxide 27 mmol/L (22-30); Chloride 109 mmol/L (98-107); Estimated CRCL calculation 41 ml/min; Estimated Glomerular Filt Rate > 60; Glucose 95 mg/dL (65-110); Magnesium 1.8 mg/dL (1.6-2.3); Potassium 4.4 mmol/L (3.4-5.0); Sodium 137 mmol/L (137-145)
[2023-10-26 06:30] LABS: Hematocrit 28.6 % (37.0-47.0); Hemoglobin 8.5 g/dL (12.0-15.0); Immature Granulocyte Absolute 0.06 K/mm3 (0.00-0.031); Immature Granulocyte Percent A 0.5 % (0-0.5); Immature Platelet Fraction Pct 17.6 % (0.9-11.2); Lymphocytes Absolute Auto 0.31 K/mm3 (0.9-3.2); Lymphocytes Percent Auto 2.7 % (18.3-44.2); Mean Corpuscular HGB Conc 29.7 g/dl (32-36); Mean Corpuscular Hemoglobin 28.9 pg (26-34); Mean Corpuscular Volume 97.3 fl (80-100); Monocytes Absolute Auto 0.4 K/mm3 (0.1-0.6); Monocytes Percent Auto 3.9 % (2.6-8.5); Neutrophils Absolute Auto 10.6 K/mm3 (1.3-6.7); Neutrophils Percent Auto 92.9 % (45.5-73.1); Nucleated Red Blood Cells Absolute Auto 0.2 K/mm3 (0.0-0.012); Nucleated Red Blood Cells Perc 1.6 % (0.0-0.2); Platelet Count Result 41 k/mm3 (150-375); Red Blood Count 2.94 M/mm3 (4.2-5.4); Red Cell Distribution Width 20.7 % (11.5-14.5); White Blood Count 11.4 K/mm3 (4.5-10.0)
[2023-10-26 07:07] LABS: Anisocytosis 2+ (NORMAL); Hypochromasia 2+ (NORMAL); Macrocytosis 1+ (NORMAL); Platelet Estimate Decreased (Adequate)
[2023-10-26 07:08] LABS: Acanthocytes 1+ (NORMAL); Burr Cells 1+ (NORMAL); Helmet Cells 1+ (NORMAL); Procalcitonin 0.5 ng/mL; Schistocytes 1+ (NORMAL)
[2023-10-26 08:06] LABS: Glucose Point of Care 96 mg/dl (65-105)
[2023-10-26] MEDS: SACUBITRIL/VALSARTAN 12-13 MG TABLET 1 TAB PO ×2 (08:06→20:24)
[2023-10-26] MEDS: ASPIRIN 81 MG ENTERIC TABLET PO (08:06)
[2023-10-26] MEDS: predniSONE 20 MG TABLET 40 MG PO (08:06)
[2023-10-26] MEDS: GABAPENTIN 400 MG CAPSULE PO ×3 (08:07→16:47)
[2023-10-26] MEDS: METOPROLOL SUCCINATE EXT REL 100 MG TABCR PO (08:07)
[2023-10-26] MEDS: POLYSACCHARIDE IRON COMPLEX 150 MG CAPSULE PO ×2 (08:07→16:47)
[2023-10-26] MEDS: PANTOPRAZOLE SODIUM IV 40 MG VIAL IV PUSH ×2 (08:07→20:24)
[2023-10-26] MEDS: AMIODARONE HCL 200 MG TABLET PO ×2 (08:07→16:47)
[2023-10-26] MEDS: FLUTICASONE/UMECLIDIN/VILANTER 100-62.5-25 MCG ELLIPTA 1 PUFF INHALATION (09:17)
--- NOTE | 2023-10-26 13:33 | HOMEO2EVAL ---
Evaluation was performed at [facility] Home Oxygen Evaluation RC: Home Oxygen (O2) Evaluation Start: 10/26/23 13:30 Freq: Status: Active Protocol: RPE Activity Type Activity Date Activity User E-sign Co-sign Detail Recorded Client Recorded Date Recorded By Document 10/26/23 13:00 [email or web address] [email or web address] 10/26/23 13:33 DJO Document 10/26/23 13:05 [email or web address] [email or web address] 10/26/23 13:33 DJO Document 10/26/23 13:10 [email or web address] [email or web address] 10/26/23 13:33 DJO Document 10/26/23 13:10 [email or web address] [email or web address] 10/26/23 13:33 DJO Document 10/26/23 13:25 [email or web address] [email or web address] 10/26/23 13:33 DJO 10/26/23 10/26/23 10/26/23 13:00 13:05 13:10 Home O2 Evaluation [Oxygen] -Test Phase Resting Resting Exercise -Oxygen Delivery Room Air Nasal Cannula Nasal Cannula -Oxygen Flow Rate (L/min) 1 1 [Pulse Oximetry] -Pulse Oximetry (90-100 %) 88 L 91 88 L [Pulse Rate] -Pulse Rate (60-100 beats/min) 58 L 59 L 69 [Evaluation] -Activity Tolerance [Charges] -Evaluation Charges O2 Evaluation by Pulmonary 10/26/23 10/26/23 13:10 13:25 Home O2 Evaluation [Oxygen] -Test Phase Exercise Resting -Oxygen Delivery Nasal Cannula Nasal Cannula -Oxygen Flow Rate (L/min) 2 1 [Pulse Oximetry] -Pulse Oximetry (90-100 %) 91 91 [Pulse Rate] -Pulse Rate (60-100 beats/min) 69 60 [Evaluation] -Activity Tolerance Fair [Charges] -Evaluation Charges
--- NOTE | 2023-10-26 18:44 | PM.IMPN ---
Progress Note: A&P Assessment and Plan (1) Acute on chronic respiratory failure with hypoxia and hypercapnia: Code(s): J96.21 - Acute and chronic respiratory failure with hypoxia; J96.22 - Acute and chronic respiratory failure with hypercapnia Status: Acute (2) Pulmonary emboli: Code(s): I26.99 - Other pulmonary embolism without acute cor pulmonale Status: Acute Plan 63F w/ PMH stroke, CAD, pAF, ischemic cardiomyopathy s/p pacemaker/defibrillator, COPD with chronic respiratory failure on o2 at home and NIV, BHASKAR, HTN, anemia who presented with SOB and was admitted on 10/18/23 # acute on chronic hypoxic hypercapnic respiratory failure - due to issues below. resolved. ctm and treat as below. appreciate pulmonology recs # COPD - cont prednisone and duonebs # a fib w/ RVR - now rate controlled. cardiology consulted, appreciate recs - eliquis on hold due to anemia and thrombocytopenia - cont amiodarone 200mg PO BID and metoprolol 100mg po qam - cont tele monitor # elevated troponin - likely 2/2 demand ischemia - CTA 10/19/23 demonstrating single small segmental level pulmonary embolus seen in right upper lobe. Small bilateral pleural effusion with minimal bilateral basilar atelectatic change.? Advanced emphysema.? Reflux of contrast into the IVC/hepatic veins could indicate an element of right heart dysfunction/failure. - concerning the PE, unable to be on AC now due to anemia and thrombocytopenia, oncology consulted # ishcemic cardiomyopathy - EF 20% on cardiac cath 10/08/23 - cardiac rehab on d/c - monitor volume status # CAD - cont aspirin - coreg changed to metoprolol - start statin when LFTs allow # anemia/thrombocytopenia - required transfusion. HB now stable. GI consulted. recommended conservative mgmt, stool occult positive. cont protonix - oncology consult and workup pending, currently holding AC as platelets are still below 50. will need to revisit discharge plan for anticoagulation with oncology pending workup # transaminitis - downtrending. 2/2 hepatic congestion, amiodarone? - US liver unremarkable FEN: saline lock IV GI prophylaxis: on protonix DVT prophylaxis: SCD's only, has thrombocytopenia Lines: remove TLC, batista removed 10/24 Code Status: full code Dispo: guarded. attempted to contact oncology to discuss plan for anticoagulation in light of a fib/PE/anemia/thrombocytopenia. patient could be dc'ed once that is sorted out. Subjective Date/time seen: 10/26/23 18:44 Interval history: NAOE. pt has no complaints. Review of Systems Review of Systems: All systems reviewed & are unremarkable except as noted in HPI and below (subjective) Exam Const: General: comfortable and no acute distress Eyes: Pupils: Equal, round and reactive pupils present Neck: Neck: supple Resp: Effort & Inspection: normal respiratory effort Auscultation: clear to auscultation bilaterally, no crackles, no rales and no rhonchi Cardio: Rate: regular rate Rhythm: regular rhythm GI: GI Palp: Yes Soft to palpation and No Tenderness to palpation present (GI) Extrem: General: no edema Objective Data Vital Signs Vital Signs: Vital Signs - 24 hr 10/25/23 20:00 10/25/23 22:50 10/25/23 22:50 Temperature 97.4 F L Pulse Rate 54 L 51 L Respiratory Rate 18 18 Blood Pressure 95/50 L Pulse Oximetry 100 95 Oxygen Delivery Nasal Cannula Oxygen Flow Rate 2 Fraction of Inspired Oxygen 28 10/25/23 23:03 10/25/23 23:48 10/25/23 22:05 Temperature 97.0 F L Pulse Rate 54 L 51 L Respiratory Rate 18 18 Blood Pressure 99/49 L Pulse Oximetry 99 99 Oxygen Delivery Nasal Cannula Oxygen Flow Rate 2 Fraction of Inspired Oxygen 10/26/23 03:04 10/26/23 03:19 10/26/23 04:00 Temperature 97.0 F L Pulse Rate 53 L 55 L 62 Respiratory Rate 18 18 18 Blood Pressure 110/46 L Pulse Oximetry 98 Oxygen Delivery Oxygen Flow Rate Fraction of Inspired Oxygen 10/06
--- NOTE | 2023-10-26 22:06 | PM.PNPUL ---
Progress Note: A&P Assessment and Plan (1) Acute on chronic respiratory failure with hypoxia and hypercapnia: Code(s): J96.21 - Acute and chronic respiratory failure with hypoxia; J96.22 - Acute and chronic respiratory failure with hypercapnia Status: Acute Assessment and Plan: She has acute and chronic hypercapnic hypoxemic respiratory failure, exacerbated by cardiac dysfunction on admission with paroxysmal atrial fibrillation, improved on BiPAP 10/10. She needs a non invasive positive pressure device to manage her chronic respiratory failure due to COPD with persistent hypercapnia even with BiPAP use.?She has been on an Astral NIV device at home with suboptimal compliance. ? A noninvasive positive-pressure ventilator is helpful for this patient during sleep and during waking hours as needed when she is symptomatic.? It does not appear that home BiPAP would be appropriate meeting her ventilatory requirements. (2) Chronic obstructive pulmonary disease: Qualifiers: COPD type: unspecified COPD Qualified Code(s): J44.9 - Chronic obstructive pulmonary disease, unspecified Code(s): J44.9 - Chronic obstructive pulmonary disease, unspecified Status: Acute Assessment and Plan: Extremely severe end-stage COPD, her FEV1 in 2019 was below a Liter, 35% predicted.? In the office, her last visit was May.? She had a note saying that Breztri did not really help, order for Trelegy was placed.? When she was discharged from [facility], Symbicort was on her medication list.? From our office, she also takes Daliresp 500 mcg daily. ? She needs to go home on triple inhaler therapy and Daliresp.? She does use albuterol p.r.n. shortness of breath. (3) Pulmonary emboli: Code(s): I26.99 - Other pulmonary embolism without acute cor pulmonale Status: Acute Assessment and Plan: CTA? October 19 shows a small pulmonary embolus to the right upper lobe.? She cannot be anticoagulated due to profound anemia,? need for transfusion,? 2 units received here on October 20 and 2 units received when she was recently at [facility] with a hemoglobin of 5.5 during her admission for an acute? ischemic stroke. (4) Tobacco dependence: Code(s): F17.200 - Nicotine dependence, unspecified, uncomplicated Status: Acute Assessment and Plan: She smoked up until this admission, half pack per day, in general smoked a pack per day since age of 16, about 50 years; ? She cannot smoke in the hospital, obviously stopping smoking would help her because she has recently had a stroke September 15, a STEMI September 24 and a nonSTEMI? October 18.? Tobacco cessation would benefit her as far as stroke, heart failure, COPD and hypercapnic respiratory failure. (5) Acute on chronic anemia: Code(s): D64.9 - Anemia, unspecified Status: Acute Assessment and Plan: Her baseline hemoglobin is around 9-10 grams/deciliter, she dropped to 6 grams/deciliter? October 20,? received 2 units of packed RBC Plan She has complex problems with stroke Sep 15 with expressive aphasia and weakness, paroxysmal atrial fibrillation, anemia, a new pulmonary embolus this admission, a new nonSTEMI and a recent STEMI as well with a PTCA of the prior LAD stent.? She has ejection fraction of 20%. She has heart failure with reduced EF. She is improved compared to admission. She would benefit from having a ventilator for chronic respiratory failure due to COPD. She will need it nocturnally and in the daytime as needed for shortness of breath. BiPAP has been considered and rule
[2023-10-27] VITALS (19 sets, daily range): BP systolic 96–111; BP diastolic 51–58; PULSE 49–103; RESP 12–18; TEMP 36.2–36.7; O2SAT 95–100
[2023-10-27] MEDS: IPRATROPIUM BR 0.02% INH SOLN 0.5 MG/2.5 ML VIAL INHALATION ×4 (01:08→20:53)
[2023-10-27] MEDS: ALBUTEROL SULFATE NEB 2.5 MG/3 ML INH 5 MG INHALATION ×4 (01:08→20:53)
[2023-10-27] MEDS: CENTRAL LINE FLUSH 10 ML IV PUSH ×3 (05:55→21:07)
[2023-10-27 06:01] LABS: Basophils Percent Auto 0.1 % (0.2-1.2); Eosinophils Percent Auto 0.1 % (0-4.4); Hematocrit 28.2 % (37.0-47.0); Hemoglobin 8.4 g/dL (12.0-15.0); Immature Granulocyte Absolute 0.06 K/mm3 (0.00-0.031); Immature Granulocyte Percent A 0.5 % (0-0.5); Immature Platelet Fraction Pct 13.4 % (0.9-11.2); Lymphocytes Percent Auto 5.3 % (18.3-44.2); Mean Corpuscular HGB Conc 29.8 g/dl (32-36); Mean Corpuscular Hemoglobin 29.4 pg (26-34); Mean Corpuscular Volume 98.6 fl (80-100); Monocytes Absolute Auto 0.4 K/mm3 (0.1-0.6); Monocytes Percent Auto 3.9 % (2.6-8.5); Neutrophils Absolute Auto 10.2 K/mm3 (1.3-6.7); Neutrophils Percent Auto 90.1 % (45.5-73.1); Nucleated Red Blood Cells Absolute Auto 0.1 K/mm3 (0.0-0.012); Nucleated Red Blood Cells Perc 0.8 % (0.0-0.2); Platelet Count Result 53 k/mm3 (150-375); Red Blood Count 2.86 M/mm3 (4.2-5.4); Red Cell Distribution Width 20.1 % (11.5-14.5); White Blood Count 11.3 K/mm3 (4.5-10.0)
[2023-10-27 06:11] LABS: Alanine Aminotransferase 182 U/L (6-35); Albumin Level 1.9 g/dL (3.5-5.1); Alkaline Phosphatase 96 U/L (38-126); Anion Gap -1 mmol/L (8-16); Aspartate Amino Transferase 44 U/L (14-36); Bilirubin,Total 0.7 mg/dL (0.2-1.3); Blood Urea Nitrogen 27 mg/dL (7-17); Calcium 7.6 mg/dL (8.4-10.2); Carbon Dioxide 28 mmol/L (22-30); Chloride 108 mmol/L (98-107); Estimated CRCL calculation 42 ml/min; Estimated Glomerular Filt Rate > 60; Glucose 81 mg/dL (65-110); Potassium 4.2 mmol/L (3.4-5.0); Sodium 135 mmol/L (137-145)
[2023-10-27 06:34] LABS: Procalcitonin 0.4 ng/mL
[2023-10-27] MEDS: FLUTICASONE/UMECLIDIN/VILANTER 100-62.5-25 MCG ELLIPTA 1 PUFF INHALATION (07:26)
[2023-10-27 08:06] LABS: Hypochromasia 1+ (NORMAL); Platelet Estimate Decreased (Adequate); Schistocytes Rare (NORMAL)
[2023-10-27 08:07] LABS: Anisocytosis 2+ (NORMAL); Poikilocytosis 1+ (NORMAL)
[2023-10-27] MEDS: POLYSACCHARIDE IRON COMPLEX 150 MG CAPSULE PO ×2 (08:10→16:52)
[2023-10-27] MEDS: AMIODARONE HCL 200 MG TABLET PO ×2 (08:10→16:52)
[2023-10-27] MEDS: predniSONE 20 MG TABLET 40 MG PO (08:10)
[2023-10-27] MEDS: SACUBITRIL/VALSARTAN 12-13 MG TABLET 1 TAB PO ×2 (08:10→21:07)
[2023-10-27] MEDS: METOPROLOL SUCCINATE EXT REL 100 MG TABCR PO (08:10)
[2023-10-27] MEDS: ASPIRIN 81 MG ENTERIC TABLET PO (08:10)
[2023-10-27] MEDS: GABAPENTIN 400 MG CAPSULE PO ×3 (08:10→16:52)
[2023-10-27] MEDS: PANTOPRAZOLE SODIUM IV 40 MG VIAL IV PUSH ×2 (08:11→21:07)
[2023-10-27 11:25] LABS: ADAMTS-13 Activity 0.64 IU/mL (0.68-1.63)
--- NOTE | 2023-10-27 12:16 | PM.IMPN ---
Progress Note: A&P Assessment and Plan (1) Acute on chronic respiratory failure with hypoxia and hypercapnia: Code(s): J96.21 - Acute and chronic respiratory failure with hypoxia; J96.22 - Acute and chronic respiratory failure with hypercapnia Status: Acute Assessment and Plan: Stable on current meds, continue current treatment. Waiting for home health care. (2) Pulmonary emboli: Code(s): I26.99 - Other pulmonary embolism without acute cor pulmonale Status: Acute Assessment and Plan: Stable on current meds, continue current treatment. Plan 63F w/ PMH stroke, CAD, pAF, ischemic cardiomyopathy s/p pacemaker/defibrillator, COPD with chronic respiratory failure on o2 at home and NIV, BHASKAR, HTN, anemia who presented with SOB and was admitted on 10/18/23 # acute on chronic hypoxic hypercapnic respiratory failure - due to issues below. resolved. ctm and treat as below. appreciate pulmonology recs # COPD - cont prednisone and duonebs # a fib w/ RVR - now rate controlled. cardiology consulted, appreciate recs - eliquis on hold due to anemia and thrombocytopenia - cont amiodarone 200mg PO BID and metoprolol 100mg po qam - cont tele monitor # elevated troponin - likely 2/2 demand ischemia - CTA 10/19/23 demonstrating single small segmental level pulmonary embolus seen in right upper lobe. Small bilateral pleural effusion with minimal bilateral basilar atelectatic change.? Advanced emphysema.? Reflux of contrast into the IVC/hepatic veins could indicate an element of right heart dysfunction/failure. - concerning the PE, unable to be on AC now due to anemia and thrombocytopenia, oncology consulted # ishcemic cardiomyopathy - EF 20% on cardiac cath 10/08/23 - cardiac rehab on d/c - monitor volume status # CAD - cont aspirin - coreg changed to metoprolol - start statin when LFTs allow # anemia/thrombocytopenia - required transfusion. HB now stable. GI consulted. recommended conservative mgmt, stool occult positive. cont protonix - oncology consult and workup pending, currently holding AC as platelets are still below 50. will need to revisit discharge plan for anticoagulation with oncology pending workup # transaminitis - downtrending. 2/2 hepatic congestion, amiodarone? - US liver unremarkable FEN: saline lock IV GI prophylaxis: on protonix DVT prophylaxis: SCD's only, has thrombocytopenia Lines: remove TLC, batista removed 10/24 Code Status: full code Dispo: guarded. attempted to contact oncology to discuss plan for anticoagulation in light of a fib/PE/anemia/thrombocytopenia. patient could be dc'ed once that is sorted out. 10/26/2023 Plan is to continue current treatment. Patient will be discharged home once home health care is arranged. Subjective Date/time seen: 10/27/23 12:16 Interval history: Patient was seen during the morning rounds today. New overnight complaints. No shortness of breath or chest pain. Mood stable. Review of Systems Review of Systems: Twelve systems were reviewed and are negative except for as per HPI. All systems reviewed & are unremarkable except as noted in HPI and below (subjective) Exam Narrative: General:??Chronically ill-appearing female sitting up in bed no acute distress. HEENT:? PERRL, EOMI.? Sclerae anicteric.? Oral mucosa moist.? Several missing teeth. Neck:??Supple. ? No JVD. Respiratory:??Air entry good, no additional sounds. Cardiovascular: Regular rate and rhythm pM/ICD device in the left anterior chest.? Gastrointestinal:??Abdomen is soft and nondistended with positive bowel sounds. Nontender Skin:??Warm and dry.? No rash or lesions on limited exam. Extremities:??No cyanosis, clubbing, or significant edema. Radial and pedal pulses intact. Neurological:??Alert.? Cranial nerves 2-12 are grossly intact. Mild expressive aphasia. Gait not assessed. Psychiatric:??Pleasant and cooperative with appropriate mood and affect. Const: General:
[2023-10-28] VITALS (10 sets, daily range): BP systolic 101–112; BP diastolic 48–60; PULSE 49–80; RESP 14–21; TEMP 36.5–36.6; O2SAT 91–98
[2023-10-28] MEDS: ALBUTEROL SULFATE NEB 2.5 MG/3 ML INH 5 MG INHALATION ×2 (02:16→10:22)
[2023-10-28] MEDS: IPRATROPIUM BR 0.02% INH SOLN 0.5 MG/2.5 ML VIAL INHALATION ×2 (02:16→10:22)
[2023-10-28] MEDS: CENTRAL LINE FLUSH 10 ML IV PUSH (05:37)
[2023-10-28] MEDS: IRON SUCROSE COMPLEX 500 MG in SODIUM CHLORIDE 0.9% IV 250 ML 78.57 MG IVPB (09:03)
[2023-10-28] MEDS: predniSONE 20 MG TABLET 40 MG PO (09:03)
[2023-10-28] MEDS: PANTOPRAZOLE SODIUM IV 40 MG VIAL IV PUSH (09:03)
[2023-10-28] MEDS: ASPIRIN 81 MG ENTERIC TABLET PO (09:04)
[2023-10-28] MEDS: SACUBITRIL/VALSARTAN 12-13 MG TABLET 1 TAB PO (09:04)
[2023-10-28] MEDS: AMIODARONE HCL 200 MG TABLET PO (09:04)
[2023-10-28] MEDS: GABAPENTIN 400 MG CAPSULE PO ×2 (09:04→11:59)
[2023-10-28] MEDS: METOPROLOL SUCCINATE EXT REL 100 MG TABCR PO (09:04)
[2023-10-28] MEDS: POLYSACCHARIDE IRON COMPLEX 150 MG CAPSULE PO (09:04)
[2023-10-28] MEDS: FERROUS GLUCONATE 324 MG TABLET PO (09:07)
[2023-10-28] MEDS: FLUTICASONE/UMECLIDIN/VILANTER 100-62.5-25 MCG ELLIPTA 1 PUFF INHALATION (10:23)
--- NOTE | 2023-10-28 11:23 | PM.DS ---
DS: Admitting Diagnosis Discharge Date 10/28/23 Admitting Diagnosis Acute on chronic respiratory failure, CHF laceration DS: Discharge Diagnosis Discharge Diagnosis (1) Acute on chronic respiratory failure with hypoxia and hypercapnia: Code(s): J96.21 - Acute and chronic respiratory failure with hypoxia; J96.22 - Acute and chronic respiratory failure with hypercapnia Status: Acute (2) Chronic obstructive pulmonary disease: Qualifiers: COPD type: unspecified COPD Qualified Code(s): J44.9 - Chronic obstructive pulmonary disease, unspecified Code(s): J44.9 - Chronic obstructive pulmonary disease, unspecified Status: Acute (3) Pulmonary emboli: Code(s): I26.99 - Other pulmonary embolism without acute cor pulmonale Status: Acute (4) Tobacco dependence: Code(s): F17.200 - Nicotine dependence, unspecified, uncomplicated Status: Acute (5) Acute on chronic anemia: Code(s): D64.9 - Anemia, unspecified Status: Acute DS: Summary Hospital Course Hospital Course: 63F w/ PMH stroke, CAD, pAF, ischemic cardiomyopathy s/p pacemaker/defibrillator, COPD with chronic respiratory failure on o2 at home and NIV, BHASKAR, HTN, anemia who presented with SOB and was admitted on 10/18/23. She was hospitalized at [facility] last month with an ischemic stroke with residual expressive aphasia and some weakness in the right leg. While at rehab she developed chest pain and was sent to the ED at [facility] a day later where she was found to have ST-elevation in the anterior leads on ECG. On 10/08/2023 she underwent balloon angioplasty to a thrombotic occlusion of a previous distal LAD stent (post intervention YOEL flow is 2) and she was noted to have profound segmental LV systolic dysfunction with an EF of 20%. A previously placed mid LAD stent was widely patent with mild diffuse disease throughout the left circumflex and right coronary artery. She was not anticoagulated due to a hemoglobin of 5.5 on presentation with stools positive for occult blood.?According to the daughter the patient had several episodes of dark, tarry stools but that has since cleared up. This morning however she was noted to have passed a fair amount of bright red blood per rectum and when the patient began to complain of shortness of breath they brought her in for evaluation. On arrival in the ED she was found to be in atrial flutter with rapid ventricular response with rates in the 140s. Her heart rate has slowed down with 5 mg IV Lopressor. Labs were significant for a hemoglobin of 8.9, WBC count 11.9, troponin 0.653, proBNP 6040. She was negative for influenza, RSV, and COVID. Initially she was started on heparin drip with concerns for non STEMI however troponins have remained flat and this was discontinued. Patient was started on a beta-mayela for her AFib. Her amiodarone continued. GI was consulted due to history of an acute GI bleed. GI did not believe patient should undergo any procedure due to her underlying health issues. She did receive a transfusion and her H&H remained stable thereafter. Due to patient's heart failure cardiology was consulted and worked closely with getting patient's AFib under control as well as starting her on Entresto while she is in the hospital. patient also has chronic hypercapnia and respiratory failure Due to COPD. She has severe end-stage COPD and requires oxygen supplementation. Patient to require increased oxygen during her hospital stay and eventually she was able to be weaned down to her home O2 level. Pulmonology recommending that patient uses a noninvasive device at discharge and this was set up for her. She is also advised a pulmonary follow-up in 2-3 weeks. Patient doing much better. Her labs and vital signs are stable and she is medically clear for discharge at this time Time Spent with Patient Time attestation: Total time spent providing and/or coordinating discharg
[2023-10-28] MEDS: NEOMYCIN/POLYMYXIN/BACITRACIN OINTMENT PACKET 1 PACKET (13:49)
[2023-10-29 03:35] LABS: Haptoglobin 47 mg/dL (43-212)
== END 2023-10-28 15:50 | disposition home health service (06) | DRG 201 ==
LOC: ANHED 11:27 → ANHIMU 15:08 → ANHICU 10-19 06:03 → ANHIMU 10-19 07:06 → ANH2MED 10-23 17:29
PROVIDERS: Internal Medicine; Internal Medicine Hematology & Oncology; Physician Assistant; Admitting Provider General Practice; Emergency Provider Emergency Medicine; PCP Internal Medicine; Visit Provider Internal Medicine Critical Care Medicine
DX: I48.92 Unspecified atrial flutter (principal); Z20.822 Contact with and (suspected) exposure to COVID-19; Z79.82 Long term (current) use of aspirin; Z79.01 Long term (current) use of anticoagulants; I25.2 Old myocardial infarction; F41.9 Anxiety disorder, unspecified; J96.22 Acute and chronic respiratory failure with hypercapnia; J96.21 Acute and chronic respiratory failure with hypoxia; Z99.81 Dependence on supplemental oxygen; I25.10 Atherosclerotic heart disease of native coronary artery without angina pectoris; E78.5 Hyperlipidemia, unspecified; G47.33 Obstructive sleep apnea (adult) (pediatric); Z99.89 Dependence on other enabling machines and devices; I48.0 Paroxysmal atrial fibrillation; I73.9 Peripheral vascular disease, unspecified; I11.0 Hypertensive heart disease with heart failure; I50.22 Chronic systolic (congestive) heart failure; E55.9 Vitamin D deficiency, unspecified; Z95.5 Presence of coronary angioplasty implant and graft; Z95.810 Presence of automatic (implantable) cardiac defibrillator; F17.210 Nicotine dependence, cigarettes, uncomplicated; I43 Cardiomyopathy in diseases classified elsewhere; I69.320 Aphasia following cerebral infarction; I69.351 Hemiplegia and hemiparesis following cerebral infarction affecting right dominant side; D64.9 Anemia, unspecified; K92.1 Melena; E87.5 Hyperkalemia; I26.99 Other pulmonary embolism without acute cor pulmonale; J43.9 Emphysema, unspecified; D69.6 Thrombocytopenia, unspecified; J43.2 Centrilobular emphysema
CPT/HCPCS: 36415; 36430; 36600; 71045; 71275; 76705; 80048; 80053; 80074; 80162; 81001; 82274; 82375; 82607; 82728; 82746; 82805; 82948; 83010; 83050; 83540; 83550; 83605; 83615; 83690; 83735; 83880; 84100; 84145; 84484; 85014; 85018; 85025; 85046; 85055; 85380; 85397; 85610; 85730; 86022; 86023; 86850; 86880; 86900; 86901; 86920; 87040; 87637; 93005; 93970; 94002; 94003; 94618; 94640; 94660; 96361; 96365; 96366; 96374; 96375; 97110; 97161; 97165; 97530; 97535; 99285; A9270; C1751; C9113; G0378; G0379; J1644; J1756; J2270; J2930; J7030; J7040; J7050; J7512; P9016; Q9967

== ENCOUNTER 2023-10-30 13:46 | Emergency (ER) | payer OTHER, SELFPAY ==
--- NOTE | ~2023-10-30 | CT_ITS ---
EXAMINATION: CTA abd aorta runoff DATE: 10/30/2023 20:49 INDICATION: TECHNIQUE: Computed tomographic angiography (CTA) of the abdominal, pelvis, and both lower extremitie s was performed with 150 mL Omnipaque-350 intravenous contrast. The dose-length product was 536.79 mG y-cm. Automated exposure control and iterative reconstruction technique were employed. COMPARISON: CT abdomen pelvis 08/23/2016; CTPA 10/19/2023 FINDINGS: ABDOMINAL AORTA AND ITS BRANCHES: Mild-moderate calcified and noncalcified plaque in the aorta and its branches. Moderate celiac axis o rigin stenosis. Mild calcified plaque at the remaining branch origins. No aneurysm or dissection. PELVIC VASCULATURE: Moderate short segment stenosis in the proximal left common iliac artery. Moderate long segment steno ses in the bilateral internal iliac arteries with calcified plaque. RIGHT LOWER EXTREMITY VASCULATURE: Moderate short segment stenosis with calcified plaque at the common femoral artery. The trifurcation is patent. Gradual loss of flow in the distal posterior tibial artery, not well seen below the level of the ankle. There is single vessel flow below the level of the ankle via the anterior tibial artery . LEFT LOWER EXTREMITY VASCULATURE: Moderate short segment calcified stenosis at the common femoral artery and in the mid superficial fem oral artery. The trifurcation is patent. There is flow noted below the level of the ankle via the ant erior tibial and posterior tibial arteries. ADDITIONAL FINDINGS: Cardiomegaly. An AICD wire terminates in the right ventricle. Small bilateral pleural effusions. Biba silar atelectasis. Bilateral renal cortical thinning and scarring. Moderate gastric wall edema. Small volume free pelvic fluid. Bladder wall inflammation. Rim-enhancing 1.6 x 2.9 cm fluid collection in the left perineum. Diffuse body wall edema. IMPRESSION: No severe stenosis detected in the aorta, its branches, or the lower extremity arteries. Single vessel flow noted below the level of the ankle in the right lower extremity via the anterior t ibial artery. 2 vessel flow noted below the level of the ankle in the left lower extremity. Small bilateral pleural effusions. Moderate gastritis. Diffuse body wall edema and small volume ascites. Cystitis. 1.6 x 2.9 cm abscess or infected/inflamed genitourinary cyst in the left perineum. Reviewed, dictated and finalized at location K. NCE TRUER IMPRESSION: No severe stenosis detected in the aorta, its branches, or the lower extremity arteries. Single vessel flow noted below the level of the ankle in the right lower extrem ity via the anterior tibial artery. 2 vessel flow noted below the level of the ankle in the left lower extremity. Small bilateral pleural effusions. Moderate gastritis. Diffuse body wall edema and small volume ascites. Cystitis. 1.6 x 2.9 cm abscess or infected/inflamed genitourinary cyst in the left perine um.
--- NOTE | ~2023-10-30 | US_ITS ---
EXAMINATION: US venous doppler [facility] DATE: 10/30/2023 19:08 INDICATION: pain ble, toes turning black, recent hosp, r/o DVT . TECHNIQUE: Grayscale images without and with compression and Doppler images of the bilateral lower ex tremity veins were obtained. COMPARISON: None FINDINGS: The right common femoral vein, profunda (deep) femoral vein, femoral vein, popliteal vein, peroneal v ein, posterior tibial veins, gastrocnemius vein, and greater saphenous vein are patent. The left common femoral vein, profunda (deep) femoral vein, femoral vein, popliteal vein, peroneal v ein, posterior tibial veins, gastrocnemius vein, and greater saphenous vein are patent. IMPRESSION: Patent bilateral lower extremity veins. No evidence of deep venous thrombosis. Reviewed, dictated and finalized at location K. DESSERT
[2023-10-30 13:41] VITALS: BP 134/53; PULSE 79; RESP 16; TEMP 37.4
--- NOTE | 2023-10-30 15:32 | PC.NURSE ---
Awaiting ERP to see. Daughter at bedside.
--- NOTE | 2023-10-30 16:48 | PC.NURSE ---
Awaiting to be seen by ERP.
[2023-10-30 18:21] VITALS: BP 114/55; PULSE 68; RESP 16; O2SAT 100
--- NOTE | 2023-10-30 18:48 | ED.EXTPRO ---
HPI - Extremity Problem General Chief complaint: Extremity Problem,Nontraumatic Stated complaint: black toes Time Seen by Provider: 10/30/23 16:28 Source: patient, family and old records reviewed Mode of arrival: EMS Limitations: no limitations History of Present Illness HPI Narrative: Patient is a 63-year-old female, with PMH of CAD, AICD/pacemaker, CVA, AFIB on Eliquis, chronic resp failure on 2L NC, who presents the ED via EMS with report of discolored toes/left foot pain. Per family and old records, patient was recently admitted to [facility] for ischemic stroke, recent admission here from 10/18-10/27 for SOB, NSTEMI, PE. Per records, Eliquis was held at that time d/t anemia/thrombocytopenia/GIB. Family reports they were helping bathe patient today and noticed that her toes appeared dark purple/ black, worse on the left foot. Patient reports having pain in her left foot for the last several days. Denies any injury. Does report some decreased sensation to right toes, denies numbness. Denies shortness breath, chest pain, fevers. Related Data Home Medications Medication Instructions Recorded Confirmed aspirin 81 mg tablet,delayed 81 mg PO DAILY 10/01/19 10/18/23 release (Adult Low Dose Aspirin) Eliquis 5 mg PO BID 10/18/23 10/18/23 amiodarone 200 mg tablet (Pacerone) 200 mg PO BID 10/18/23 10/18/23 ipratropium bromide 17 17 mcg inhalation QID PRN 10/18/23 10/18/23 mcg/actuation HFA aerosol inhaler Shortness Of Breath (Atrovent HFA) Allergies Allergy/AdvReac Type Severity Reaction Status Date / Time strawberry Allergy Severe Hives Verified 10/30/23 20:26 Penicillins Allergy Unknown Unknown Verified 10/30/23 20:26 Review of Systems Review of Systems: CONSTITUTIONAL: Denies fever, chills, or sweats. CARDIOVASCULAR: Denies chest pain, palpitations, or edema. RESPIRATORY: Denies cough or dyspnea. GASTROINTESTINAL: Denies abdominal pain, nausea, vomiting. MUSCULOSKELETAL: See HPI. NEUROLOGIC: Denies headache, dizziness, numbness, or weakness. All systems reviewed & are unremarkable except as noted in HPI and below PMFSH Past Medical History Medical History Acute on chronic anemia Anxiety Cerebrovascular accident Residual expressive aphasia and right leg weakness. Chronic obstructive pulmonary disease Chronic respiratory failure with hypoxia, on home oxygen therapy Coronary artery disease Essential hypertension Hyperlipidemia Ischemic cardiomyopathy Status post PPM/AICD insertion. EF 20% on 10/08/2023 cath. Melena Myocardial infarction Obstructive sleep apnea on CPAP Pancreatitis Paroxysmal atrial fibrillation Peripheral artery disease Prediabetes Pulmonary emboli Systolic congestive heart failure Echocardiogram in August 2019 showed aneurysmal mid anterior and mid septal owusu, akinesis of the entire anteroseptal, septum, apex, and apical lateral owusu; suggestion of right ventricular systolic dysfunction, mild mitral valve regurgitation, [id number] tricuspid valve regurgitation, and moderate pulmonary hypertension. Tobacco dependence Vitamin D deficiency Surgical History Surgical History History of coronary angioplasty with insertion of stent X4. Recent angioplasty to 100% thrombotic occluded distal LAD stent on 10/08/2023 at [facility]. History of ectopic History of permanent cardiac pacemaker placement History of placement of internal cardiac defibrillator History of tubal ligation Family History Family History Father Family history of malignant neoplasm Sibling Family history of tuberculosis Asthma Mother Hypertension Family history of malignant neoplasm of urinary bladder Social History Social History Social History: The leti
[2023-10-30 19:38] LABS: Basophils Percent Auto 0.1 % (0.2-1.2); Eosinophils Percent Auto 0.3 % (0-4.4); Hematocrit 28.5 % (37.0-47.0); Hemoglobin 8.5 g/dL (12.0-15.0); Immature Granulocyte Absolute 0.05 K/mm3 (0.00-0.031); Immature Granulocyte Percent A 0.4 % (0-0.5); Immature Platelet Fraction Pct 8.4 % (0.9-11.2); Lymphocytes Absolute Auto 0.63 K/mm3 (0.9-3.2); Lymphocytes Percent Auto 5.5 % (18.3-44.2); Mean Corpuscular HGB Conc 29.8 g/dl (32-36); Mean Corpuscular Hemoglobin 29.1 pg (26-34); Mean Corpuscular Volume 97.6 fl (80-100); Monocytes Absolute Auto 0.5 K/mm3 (0.1-0.6); Monocytes Percent Auto 3.9 % (2.6-8.5); Neutrophils Absolute Auto 10.3 K/mm3 (1.3-6.7); Neutrophils Percent Auto 89.8 % (45.5-73.1); Platelet Count Result 73 k/mm3 (150-375); Red Blood Count 2.92 M/mm3 (4.2-5.4); Red Cell Distribution Width 19.6 % (11.5-14.5); White Blood Count 11.5 K/mm3 (4.5-10.0)
[2023-10-30 19:45] LABS: Lactic Acid Reflex 0.9 mmol/L (0.7-2.0)
[2023-10-30 19:47] LABS: INR 1.4; Prothrombin Time 18.3 Seconds (11.1-14.7)
[2023-10-30 19:48] LABS: CRP 4.4 mg/dL (<1.0)
[2023-10-30 19:56] LABS: Hypochromasia 1+ (NORMAL); Platelet Estimate Decreased (Adequate); Poikilocytosis 1+ (NORMAL)
[2023-10-30 19:57] LABS: Anisocytosis 2+ (NORMAL); Ovalocytes 1+ (NORMAL); Schistocytes Rare (NORMAL)
[2023-10-30 20:01] LABS: Troponin I 0.049 ng/mL (0.000-0.034)
[2023-10-30 20:02] VITALS: BP 130/61; PULSE 68; RESP 15; O2SAT 98
[2023-10-30 20:12] LABS: Alanine Aminotransferase 106 U/L (6-35); Albumin Level 2.3 g/dL (3.5-5.1); Alkaline Phosphatase 95 U/L (38-126); Anion Gap 6 mmol/L (8-16); Aspartate Amino Transferase 42 U/L (14-36); Bilirubin,Total 0.9 mg/dL (0.2-1.3); Blood Urea Nitrogen 20 mg/dL (7-17); Calcium 7.7 mg/dL (8.4-10.2); Carbon Dioxide 24 mmol/L (22-30); Chloride 107 mmol/L (98-107); Estimated CRCL calculation 40 ml/min; Estimated Glomerular Filt Rate > 60; Glucose 62 mg/dL (65-110); Potassium 3.9 mmol/L (3.4-5.0); Sodium 137 mmol/L (137-145)
[2023-10-30 20:19] LABS: Erythrocyte Sedimentation Rate 14 mm/hr (0-20)
[2023-10-30] MEDS: ONDANSETRON INJ 4 MG/2 ML VIAL IV PUSH (20:27)
[2023-10-30] MEDS: MORPHINE SULFATE (*CRX) 2 MG/ML INJ IV PUSH (20:28)
[2023-10-30] MEDS: DEXTROSE 50% 25 GM/50 ML SYRINGE IV PUSH (21:16)
[2023-10-30 23:11] LABS: Glucose Point of Care 60 mg/dl (65-105)
[2023-10-30 23:34] LABS: Appearance Urine Cloudy (Clear); Bacteria Urine 4+ /hpf; Bilirubin Urine Negative (Negative); Blood Urine 2+ (Negative); Color Urine Yellow (Yellow); Glucose Urine UA Negative (Negative); Ketones Urine Trace mg/dL (Negative); Leukocyte Esterase Ur 2+ LEU/UL (Negative); Nitrate Urine Negative (Negative); Non Pathogenic Casts 0-2; Protein Urine Trace mg/dL (Negative); Squamous Epithelial Cell Urine None seen /hpf (Few); WBC Urine >100 /hpf; pH Urine 5.5 (5.0-9.0)
[2023-10-30 23:35] LABS: Specific Grav Ur 1.051 (1.001-1.035)
[2023-10-30 23:36] LABS: Add Urine Microscopic? YES
[2023-10-30 23:45] VITALS: BP 144/70; PULSE 84; RESP 17; O2SAT 99
[2023-10-31] VITALS (54 sets, daily range): BP systolic 98–156; BP diastolic 45–82; PULSE 57–83; RESP 10–24; TEMP 36.3; O2SAT 92–100
--- NOTE | 2023-10-31 | ECG_ITS ---
Measurements Intervals [place] Rate: 62 P: 74 [place]: 161 QRS: -21 QRSD: 97 T: 88 QT: 423 QTc: 433 Interpretive Statements SINUS RHYTHM WITH OCCASIONAL VENTRICULAR PREMATURE COMPLEXES LEFT ATRIAL ENLARGEMENT [-0.15mV P WAVE IN V1/V2] INFERIOR MYOCARDIAL INFARCTION , OF INDETERMINATE AGE [40+ ms Q WAVE AND/OR ST/T ABNORMALITY IN II/aVF] ANTEROLATERAL MYOCARDIAL INFARCTION , OF INDETERMINATE AGE [40+ ms Q WAVE IN I/aVL/V3-V6] COMPARED TO ECG 10/20/2023 20:48:59 NO SIGNIFICANT CHANGES Electronically Signed On 10-31-2023 20:49:16 SENIOR BOILER OPERATOR by Alicia Rojo M.D.
[2023-10-31] MEDS: levoFLOXacin 750 MG/D5W 150 ML 750 MG/150 ML BAG 100 MG IVPB (00:21)
[2023-10-31 00:43] LABS: Troponin I 0.048 ng/mL (0.000-0.034)
[2023-10-31] MEDS: MORPHINE SULFATE (*CRX) 2 MG/ML INJ IV PUSH (02:47)
[2023-10-31 03:12] LABS: Glucose Point of Care 114 mg/dl (65-105)
--- NOTE | 2023-10-31 11:05 | PC.NURSE ---
pts family requesting pt not be transferred to [facility]. states the last time she was there she had a bad experience and would prefer to go somewhere else. preference would be [facility]
--- NOTE | 2023-10-31 12:40 | PC.NURSE ---
Bed received from [id number], accepting physician Dr. Rosa. Number for report is [phone]
--- NOTE | 2023-10-31 13:12 | PC.NURSE ---
Attempted to call report to [facility], informed RN was busy and they will call back.
--- NOTE | 2023-10-31 13:43 | PC.NURSE ---
CELSO Lim at [facility] called back for report.
== END 2023-10-31 14:29 | disposition short-term general hospital (02) ==
PROVIDERS: Physician Assistant; Emergency Provider Emergency Medicine; PCP Internal Medicine
DX: I73.9 Peripheral vascular disease, unspecified (principal); R79.89 Other specified abnormal findings of blood chemistry; N39.0 Urinary tract infection, site not specified; I48.0 Paroxysmal atrial fibrillation; N75.0 Cyst of Bartholin's gland; M79.89 Other specified soft tissue disorders; I25.10 Atherosclerotic heart disease of native coronary artery without angina pectoris; J96.11 Chronic respiratory failure with hypoxia; Z99.81 Dependence on supplemental oxygen; I69.320 Aphasia following cerebral infarction; R53.1 Weakness; J44.9 Chronic obstructive pulmonary disease, unspecified; E78.5 Hyperlipidemia, unspecified; I25.5 Ischemic cardiomyopathy; I25.2 Old myocardial infarction; G47.33 Obstructive sleep apnea (adult) (pediatric); I11.0 Hypertensive heart disease with heart failure; I50.20 Unspecified systolic (congestive) heart failure; E55.9 Vitamin D deficiency, unspecified; D64.9 Anemia, unspecified; Z95.810 Presence of automatic (implantable) cardiac defibrillator; Z79.01 Long term (current) use of anticoagulants; Z79.82 Long term (current) use of aspirin; Z79.51 Long term (current) use of inhaled steroids; Z95.5 Presence of coronary angioplasty implant and graft; F17.210 Nicotine dependence, cigarettes, uncomplicated
CPT/HCPCS: 36415; 75635; 80053; 81001; 82948; 83605; 84484; 85025; 85055; 85610; 85652; 85730; 86140; 87077; 87086; 87088; 87186; 93005; 93970; 96365; 96374; 96375; 99285; J1956; J2270; J2405; Q9967

== ENCOUNTER 2023-11-03 03:51 | Inpatient (IN) | payer OTHER, SELFPAY ==
[2023-11-03] VITALS (47 sets, daily range): BP systolic 92–166; BP diastolic 50–95; PULSE 68–98; RESP 12–27; TEMP 36.2–37.1; O2SAT 74–100; BMI 17.8
--- NOTE | ~2023-11-03 | XR_ITS ---
Portable chest x-ray Comparison: 11/05/2023 Clinical History: Hypoxia Findings: Right-sided PICC line in satisfactory position. Nrbyb-dj-lcythoqh left pleural effusion pr esent with retrocardiac consolidation. Right lung clear. Possible COPD. Cardiomediastinal silhouette is stable, with pacemaker device. Bones and soft tissues are unremarkable. Impression: Fagga-oh-vuusurnt left pleural effusion with left basilar atelectasis versus pneumonia. Correlate cli nically. COPD. PICC line and pacemaker device. Reviewed, dictated and finalized at location M. F MERCHANDISING OFFICER Impression: Grwpw-zf-ayxmncsk left pleural effusion with left basilar atelectasis versus pn eumonia. Correlate clinically. COPD. PICC line and pacemaker device.
--- NOTE | ~2023-11-03 | BM_ITS ---
EXAMINATION: CCL bone marrow asp w bx diag ORDER COMPLETED DATE: 11/09/2023 12:45 INDICATION: Pancytopenia TECHNIQUE: A time-out was performed to verify the patient's name, date of , and procedure to b e performed. The procedure including the risks and benefits was discussed with the patient. Risks dis cussed included bleeding, infection, nerve injury and allergic reaction. The patient understood the r isks and agreed to proceed. The skin overlying the right posterior iliac spine was prepped and draped in usual sterile fashion. Anesthetic was administered with 1% lidocaine subcutaneously. Moderate co nscious sedation was achieved with 50 mcg fentanyl IV. An 11 gauge needle was inserted into the right ilium with fluoroscopic guidance. Bone marrow was aspirated. An 8 gauge needle was then inserted int o the right ilium with fluoroscopic guidance. A core bone marrow biopsy was obtained. The needle was removed and the entry site was cleaned and dressed. There were no immediate complications. A total o f 114 fluoroscopic images were recorded. Fluoroscopy exposure time was 0.2 minutes. Total DAP was 221 mGycm^2 FINDINGS: Real-time fluoroscopy demonstrates the biopsy needle tip overlying the right posterior demetria c spine. IMPRESSION: 1. Successful fluoroscopic guided bone marrow aspiration. 2. Successful fluoroscopic guided bone marrow biopsy. Reviewed, dictated and finalized at location A. CH ACCOUNT EXECUTIVE
--- NOTE | ~2023-11-03 | CT_ITS ---
EXAMINATION: CT chest abdomen pelvis w con DATE: 11/05/2023 12:33 INDICATION: Left perineal abscess. Pneumonia. TECHNIQUE: Computed tomography (CT) of the chest, abdomen, and pelvis was performed without intraveno us contrast. Automated exposure control and iterative reconstruction technique were employed. The dos e-length product was 306.70 mGy-cm. COMPARISON: CT abdomen and pelvis 10/30/2023, chest CT 10/19/23 FINDINGS: CHEST CT: There is severe emphysema. There is mild atelectasis bilaterally. There are small pleural effusions. Cardiomegaly is noted. There are coronary artery calcifications. There is an old infarct in left vent ricle of the heart involving the anterior and septal owusu and apex with adjacent thrombus. There is mild mediastinal lymphadenopathy. There is no pulmonary embolus. There is thrombus in right internal jugular vein. There is a left chest pacer with lead in right ventricle. There is mild thoracic spondy losis. ABDOMEN/PELVIS CT: There is a 4 mm cyst in the liver. The spleen is normal. There is incomplete pancreas divisum. The ad renal glands are normal. There are acute and chronic infarcts in the kidneys. There are cysts in the kidneys measuring up to 10 mm on the right. There is calcified atherosclerosis of the aorta and many of the other arteries. Stool distends the rectum. There is diverticulosis of the colon without eviden ce of diverticulitis. The appendix is not visualized. There are no pathologically enlarged lymph node s. There is a small volume of ascites. Body wall edema is noted. There is a 2.2 x 1.3 cm fluid collec tion adjacent to the Sethi catheter tubing, likely a urethral diverticulum. There is mild lumbar spon dylosis. IMPRESSION: 1. Severe emphysema. 2. Small pleural effusions. 3. Thrombus in left ventricle of the heart. 4. Deep vein thrombosis involving right internal jugular vein. No pulmonary embolus, but sensitivity is mildly decreased by motion artifact. 5. 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 6. 2.2 x 1.3 cm fluid collection adjacent to the Sethi catheter tubing, likely a urethral diverticulu m. 7. Mediastinal lymphadenopathy, likely reactive. 8. Small volume of ascites. Reviewed, dictated and finalized at location A. AL ENGINEER IMPRESSION: 1. Severe emphysema. 2. Small pleural effusions. 3. Thrombus in left ventricle of the heart. 4. Deep vein thrombosis involving right internal jugular vein. No pulmonary emb olus, but sensitivity is mildly decreased by motion artifact. 5. 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 6. 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 7. Mediastinal lymphadenopathy, likely reactive. 8. Small volume of ascites.
--- NOTE | ~2023-11-03 | XR_ITS ---
EXAMINATION: XR chest 1V portable DATE: 11/03/2023 05:31 INDICATION: Shortness of breath. TECHNIQUE: A single frontal view of the chest was obtained. COMPARISON: Chest single view 10/20/2023, CT abdomen and pelvis 10/30/2023 FINDINGS: There are small right and moderate-sized left pleural effusions. There are airspace opaciti es at left lung base. No pneumothorax. Cardiomegaly is noted. There is a left chest pacer/defibrillat or with lead in right ventricle. IMPRESSION: 1. Small right and moderate-sized left pleural effusions. 2. Worsened airspace opacities at left lung base, consistent with atelectasis versus pneumonia. 3. Cardiomegaly. Reviewed, dictated and finalized at location A. ENGINEER IMPRESSION: 1. Small right and moderate-sized left pleural effusions. 2. Worsened airspace opacities at left lung base, consistent with atelectasis v ersus pneumonia. 3. Cardiomegaly.
--- NOTE | ~2023-11-03 | CT_ITS ---
EXAMINATION: CT brain wo con DATE: 11/14/2023 09:29 INDICATION: Altered mental state TECHNIQUE: Computed tomography (CT) of the head was performed without intravenous contrast. The mA wa s adjusted according to patient size. Iterative reconstruction technique was employed. Exam dose: 75 6.67 mGy-cm total exam DLP. COMPARISON: 03/21/2020 CT brain FINDINGS: There are multiple areas of encephalomalacia likely due to old infarcts, including large in farct in the left temporal, frontal and parietal area in the middle cerebral artery distribution, pos terior left high parietal infarcts, right frontal infarct, right parietal infarct. Small chronic lacunar infarct of the head of the right caudate nucleus. Chronic lateral left thalamic lacunar infarct. Prominent bilateral carotid siphon internal carotid artery calcifications. There is nonspecific diminished attenuation of the cerebral white matter, likely due to chronic small vessel ischemic changes. Central and cortical cerebral atrophy and moderate cerebellar volume loss. No intracranial mass lesion or hemorrhage, midline shift or mass effect effect. No subdural or epidur al hematoma is detected. The mastoid air cells and included paranasal sinuses are normally developed and aerated. No fracture or bone destruction of the cranial vault is detected. IMPRESSION: Multiple old infarcts; no acute intracranial finding Reviewed, dictated and finalized at Location A. Reviewed, dictated and finalized at location B. OR INFRASTRUCTURE ENGINEER
--- NOTE | ~2023-11-03 | XR_ITS ---
EXAMINATION: XR chest 1V portable DATE: 11/12/2023 17:14 INDICATION: Increased wheezing TECHNIQUE: frontal view of the chest was obtained. COMPARISON: Chest radiograph dated 11/10/2023 FINDINGS: Emphysema with hyperexpansion lungs and increased lucency and architectural distortion in the upper l ludin zones. Hazy opacities in the right lower lung zone consistent with likely persistent small right pleural effusion. Retrocardiac consolidation in the left lower lung zone consistent with additional s mall left pleural effusion and associated atelectasis versus pneumonia. No pneumothorax. Mild cardiom egaly. Coronary artery stent. Single lead cardiac pacemaker/defibrillator with lead tip projecting ne ar the apex of the right ventricle. Right upper extremity peripherally inserted central venous cathet er (PICC) tip at the mid superior vena cava. IMPRESSION: 1. Retrocardiac consolidation which could represent atelectasis or pneumonia. 2. Small bilateral pleural effusions, right greater than left. 3. Emphysema. Reviewed, dictated and finalized at location A. RAL STERILE TECH
--- NOTE | ~2023-11-03 | XR_ITS ---
Portable chest x-ray Comparison: 11/12/2023 Clinical History: Shortness of breath Findings: Right-sided PICC line in place. There is retrocardiac consolidation and probable small lef t pleural effusion. There is mild haziness the right lung base. Cardiomediastinal silhouette is stab le, with pacemaker device. Bones and soft tissues are unremarkable. Impression: Normal left pleural effusion with left lower lobe atelectasis/edema versus possibly pneumonia. Mild haziness right lung base. Correlate for pulmonary edema. Right-sided PICC line and pacemaker device. Reviewed, dictated and finalized at [facility]. IER CREDIT Impression: Normal left pleural effusion with left lower lobe atelectasis/edema versus poss ibly pneumonia. Mild haziness right lung base. Correlate for pulmonary edema. Right-sided PICC line and pacemaker device.
--- NOTE | ~2023-11-03 | XR_ITS ---
EXAMINATION: XR chest PICC line Exam Date/Time: 11/05/2023 15:40 INSURANCE EXAMINING CLERK HISTORY: PICC line insertion Comparison: 11/03/2023. RESULT: Lines, tubes, and devices: Left chest pacer/AICD with intact leads. New right upper extremity PICC t erminating in the distal SVC. Lungs and pleura: Unchanged left basilar airspace disease and moderate left and trace right costophr enic angle blunting. Cardiomediastinal silhouette: Stable. Other: No acute osseous or upper abdominal finding. IMPRESSION: Right upper extremity PICC, in good position. Unchanged left basilar opacity and moderate left and trace right pleural effusions. Reviewed, dictated and finalized at location K. RANCE EXAMINING CLERK IMPRESSION: Right upper extremity PICC, in good position. Unchanged left basilar opacity and moderate left and trace right pleural effusi ons.
--- NOTE | 2023-11-03 04:03 | ECG_ITS ---
Measurements Intervals [place] Rate: 74 P: 87 SD: 181 QRS: -20 QRSD: 113 T: 95 QT: 384 QTc: 428 Interpretive Statements SINUS RHYTHM LEFT ATRIAL ENLARGEMENT [-0.15mV P WAVE IN V1/V2] LOW QRS VOLTAGE IN EXTREMITY LEADS [QRS DEFLECTION < 0.5 mV IN LIMB LEADS] INFERIOR MYOCARDIAL INFARCTION , OF INDETERMINATE AGE [40+ ms Q WAVE AND/OR ST/T ABNORMALITY IN II/aVF] ANTEROLATERAL MYOCARDIAL INFARCTION , OLD COMPARED TO ECG 10/31/2023 00:06:29 NO SIGNIFICANT CHANGES Electronically Signed On 11-04-2023 14:27:34 BONE CHAR KILN OPERATOR by Alicia Rojo M.D.
--- NOTE | 2023-11-03 04:03 | PC.NURSE ---
Pt recieved 324 ASA and 5mg albuterol en route.
[2023-11-03 04:20] LABS: Alveolar/Arterial O2 Gradient 448.2 mmHg; Base Excess ABG -1.3 mEq/l (+/-2.0); Carboxyhemoglobin 0.3 % THb (0-2.0); Fractional Inspired Oxygen 100 %; HCO3 ABG 25.3 mEq/l (22.0-26.0); Methemoglobin ABG 0.5 %THb (0-1.5); Oxygen Content ABG 13.2 %vol (16.0-22.0); Oxygen Saturation ABG 99.3 % (95.0-100.0); Oxyhemoglobin 97.8 % THb (90.0-100.0); PCO2 ABG 52.4 mmHg (35.0-45.0); PO2 ABG 212.4 mmHg (80.0-100.0); PO2 FiO2 Ratio Arterial Blood 2.12 %; Reduced Hemoglobin 1.4 %THb (0-5.0); Total Hemoglobin 9.2 g/dL (12.0-18.0); pH ABG 7.302 (7.350-7.450)
[2023-11-03 04:21] LABS: Device NON-REBREATHER MASK; Modified Allen's Test Pass; Site Drawn RIGHT RADIAL
[2023-11-03] MEDS: ALBUTEROL SULFATE NEB 2.5 MG/3 ML INH INHALATION ×4 (04:26→21:07)
[2023-11-03] MEDS: IPRATROPIUM BR 0.02% INH SOLN 0.5 MG/2.5 ML VIAL INHALATION ×4 (04:26→21:07)
[2023-11-03] MEDS: methylPREDNISolone SOD SUCC 125 MG VIAL IV PUSH (04:50)
--- NOTE | 2023-11-03 05:02 | ED.GENADULT ---
HPI - General Adult General Chief complaint: Shortness of Breath/Dyspnea Stated complaint: RESPIRATORY DISTRESS Time Seen by Provider: 11/03/23 04:05 History of Present Illness HPI narrative: Patient is 63-year-old female presents emergency department chief complaint of shortness of breath. Patient has prior history of chronic respiratory failure and recently was transferred to [facility] after an she had discoloration of her toes and foot on the patient was recently at [facility] after she had a ischemic stroke the patient was transferred to [facility] on the and was discharged yesterday Related Data Home Medications Medication Instructions Recorded Confirmed aspirin 81 mg tablet,delayed 81 mg PO DAILY 10/01/19 10/18/23 release (Adult Low Dose Aspirin) Eliquis 5 mg PO BID 10/18/23 10/18/23 amiodarone 200 mg tablet (Pacerone) 200 mg PO BID 10/18/23 10/18/23 ipratropium bromide 17 17 mcg inhalation QID PRN 10/18/23 10/18/23 mcg/actuation HFA aerosol inhaler Shortness Of Breath (Atrovent HFA) Allergies Allergy/AdvReac Type Severity Reaction Status Date / Time strawberry Allergy Severe Hives Verified 11/03/23 04:09 Penicillins Allergy Unknown Unknown Verified 11/03/23 04:09 Review of Systems Review of Systems: A 10 system review of systems was completed on the patient and is negative except for what is stated in the HPI. Nursing and ancillary documentation was reviewed. [facility] Past Medical History Medical History Acute on chronic anemia Anxiety Cerebrovascular accident Residual expressive aphasia and right leg weakness. Chronic obstructive pulmonary disease Chronic respiratory failure with hypoxia, on home oxygen therapy Coronary artery disease Essential hypertension Hyperlipidemia Ischemic cardiomyopathy Status post PPM/AICD insertion. EF 20% on 10/08/2023 cath. 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 Tobacco dependence Vitamin D deficiency Surgical History Surgical History History of coronary angioplasty with insertion of stent X4. Recent angioplasty to 100% thrombotic occluded distal LAD stent on 10/08/2023 at [facility]. History of ectopic History of permanent cardiac pacemaker placement History of placement of internal cardiac defibrillator History of tubal ligation Family History Family History Father Family history of malignant neoplasm Sibling Family history of tuberculosis Asthma Mother Hypertension Family history of malignant neoplasm of urinary bladder Social History Social History Social History: The patient lives in her own apartment in [place]. She has 5 children. She designates her daughter John Capellan, as her surrogate decision maker and she wishes to be a full code. She is not currently employed. She has smoked up to a pack of cigarettes per day since age of 16, and has been slowly trying to quit. Reportedly she is smoking 2 to 4 cigarettes a day. She denies alcohol and drug abuse. 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
[2023-11-03 05:15] LABS: Basophils Percent Auto 0.3 % (0.2-1.2); Eosinophils Percent Auto 0.3 % (0-4.4); Hemoglobin 8.2 g/dL (12.0-15.0); Immature Granulocyte Percent A 0.7 % (0-0.5); Immature Platelet Fraction Pct 6.3 % (0.9-11.2); Lymphocytes Absolute Auto 2.05 K/mm3 (0.9-3.2); Mean Corpuscular HGB Conc 29.3 g/dl (32-36); Mean Corpuscular Hemoglobin 28.8 pg (26-34); Mean Corpuscular Volume 98.2 fl (80-100); Mean Platelet Volume 11.3 fl (7.4-10.4); Monocytes Absolute Auto 0.5 K/mm3 (0.1-0.6); Monocytes Percent Auto 3.5 % (2.6-8.5); Neutrophils Absolute Auto 10.9 K/mm3 (1.3-6.7); Neutrophils Percent Auto 80.2 % (45.5-73.1); Nucleated Red Blood Cells Perc 0.1 % (0.0-0.2); Platelet Count Result 115 k/mm3 (150-375); Red Blood Count 2.85 M/mm3 (4.2-5.4); Red Cell Distribution Width 19.5 % (11.5-14.5); White Blood Count 13.6 K/mm3 (4.5-10.0)
--- NOTE | 2023-11-03 05:27 | ECG_ITS ---
Measurements Intervals [place] Rate: 79 P: 80 CT: 169 QRS: -20 QRSD: 110 T: 89 QT: 405 QTc: 464 Interpretive Statements SINUS RHYTHM LEFT ATRIAL ENLARGEMENT [-0.15mV P WAVE IN V1/V2] LOW QRS VOLTAGE IN EXTREMITY LEADS [QRS DEFLECTION < 0.5 mV IN LIMB LEADS] INFERIOR MYOCARDIAL INFARCTION , OF INDETERMINATE AGE WITH POSTERIOR EXTENSION [40+ ms Q WAVE AND/OR ST/T ABNORMALITY IN II/aV ANTEROLATERAL MYOCARDIAL INFARCTION , OLD COMPARED TO ECG 11/03/2023 03:58:47 NO SIGNIFICANT CHANGES Electronically Signed On 11-04-2023 14:27:57 MOLD FORMS BUILDER by Alicia Rojo M.D.
[2023-11-03 05:28] LABS: Alanine Aminotransferase 63 U/L (6-35); Albumin Level 2.5 g/dL (3.5-5.1); Alkaline Phosphatase 118 U/L (38-126); Anion Gap 4 mmol/L (8-16); Aspartate Amino Transferase 46 U/L (14-36); Bilirubin,Total 0.8 mg/dL (0.2-1.3); Blood Urea Nitrogen 17 mg/dL (7-17); Calcium 7.1 mg/dL (8.4-10.2); Carbon Dioxide 27 mmol/L (22-30); Chloride 104 mmol/L (98-107); Estimated Glomerular Filt Rate 55; Glucose 198 mg/dL (65-110); Sodium 135 mmol/L (137-145)
[2023-11-03 05:46] LABS: Platelet Estimate Decreased (Adequate)
[2023-11-03 05:47] LABS: Anisocytosis 1+ (NORMAL); Ovalocytes 1+ (NORMAL); Schistocytes Rare (NORMAL)
[2023-11-03 05:54] LABS: Lactic Acid Reflex 2.7 mmol/L (0.7-2.0)
[2023-11-03 05:56] LABS: NT Pro B Type Natriuretic Pept > 30000 pg/mL (19.9-100); Troponin I 0.102 ng/mL (0.000-0.034)
[2023-11-03 06:00] LABS: Influenza A QL RT-PCR Negative (Negative); Influenza B QL RT-PCR Negative (Negative); RSV RNA, RT-PCR Negative (Negative); SARS-CoV-2 RNA PCR Negative (Negative)
[2023-11-03] MEDS: FUROSEMIDE INJ 40 MG/4 ML VIAL 20 MG IV PUSH (06:40)
--- NOTE | 2023-11-03 07:20 | PC.NURSE ---
Report given to CELSO Oseguera at this time.
--- NOTE | 2023-11-03 08:33 | ECG_ITS ---
Measurements Intervals [place] Rate: 79 P: 74 [place]: 161 QRS: -23 QRSD: 113 T: 90 QT: 401 QTc: 461 Interpretive Statements SINUS RHYTHM LEFT ATRIAL ENLARGEMENT [-0.15mV P WAVE IN V1/V2] INFERIOR MYOCARDIAL INFARCTION , OLD ANTEROLATERAL MYOCARDIAL INFARCTION , OLD COMPARED TO ECG 11/03/2023 05:00:52 NO SIGNIFICANT CHANGES Electronically Signed On 11-04-2023 14:28:23 TEMPORARY ADMINISTRATIVE ASSISTANT by Alicia Rojo M.D.
[2023-11-03 08:39] LABS: Reflex Lactic Acid Yes or No Add Lactic
[2023-11-03 09:47] LABS: Lactic Acid 2.6 mmol/L (0.7-2.0)
--- NOTE | 2023-11-03 12:28 | ADMGEN ---
This patient, Lisa Díaz, was admitted to IMU Room 200-01. Patient/family oriented to hospital policies and general routines including ID bracelet, bed and alarms, visiting hours, pain management, procedures, bathroom and other care routines, personal items, smoking policy, room service/diet, and visiting hours. Information on how to activate the Rapid Response Team has been discussed. Patient/Family are encouraged to report perceived risks to care and to ask questions if they do not understand what they are told or what they should do.
[2023-11-03 12:36] LABS: Troponin I 0.103 ng/mL (0.000-0.034)
--- NOTE | 2023-11-03 12:50 | PM.CNCAR ---
Assessment and Plan Assessment and plan (1) Elevated troponin: Code(s): R79.89 - Other specified abnormal findings of blood chemistry Status: Acute Assessment and Plan: Troponins are mildly elevated but flat. EKG without significant changes (has baseline abnormal EKG). In the setting of acute on chronic hypercapnic respiratory failure, congestive heart failure. She does have chest pain, but it is easily reproducible on examination. At this time recommend medical management with ASA and statin. Treatment of underlying acute issues. Close monitoring. (2) COPD (chronic obstructive pulmonary disease): Code(s): J44.9 - Chronic obstructive pulmonary disease, unspecified Status: Acute Assessment and Plan: Has known severe end-stage COPD. Management as per primary team. Consider Palliative care given end-stage COPD. (3) Acute on chronic respiratory failure with hypoxia and hypercapnia: Code(s): J96.21 - Acute and chronic respiratory failure with hypoxia; J96.22 - Acute and chronic respiratory failure with hypercapnia Status: Acute Assessment and Plan: Treatment as per primary team. (4) Acute exacerbation of CHF (congestive heart failure): Code(s): I50.9 - Heart failure, unspecified Status: Acute Assessment and Plan: CXR with pleural effusions. Agree with IV Lasix for now. (5) Atrial fibrillation: Qualifiers: Atrial fibrillation type: unspecified Qualified Code(s): I48.91 - Unspecified atrial fibrillation Code(s): I48.91 - Unspecified atrial fibrillation Status: Acute Assessment and Plan: Currently in rate controlled AFIB on tele. Continue PO Amiodarone. (6) Coronary artery disease: Code(s): I25.10 - Atherosclerotic heart disease of [place] coronary artery without angina pectoris Status: Acute Assessment and Plan: As above. Plan Please obtain records from her recent hospitalization at [facility]. History of Present Illness History of Present Illness Consult date/time: 11/03/23 12:50 Requesting physician: Kadi Wtats MD Consult reason: Other (Elevated troponin) Reason For Visit: CHF/COPD Exacerbation,Hypercapnic Resp Failure Narrative: We are consulted for elevated troponin. This is a 63 year old female with known paroxysmal atrial flutter, coronary artery disease s/p prior PCI to LAD, chronic systolic heart failure with LVEF of about 20% s/p ICD. Patient was recently admitted here at [facility] for atrial flutter with RVR, anemia, hypercapnic respiratory failure. Hospitalization complicated by JANETH, thrombocytopenia, pulmonary embolus. Patient discharged on 10/28. She had presented to ER again on 10/30 for discoloration of toes, concern for acute limb ischemia and was transferred to [facility]. Patient states she was discharged from [facility] just yesterday. She presented to ER this morning for shortness of breath. Found to be in acute on chronic hypercapnic respiratory failure. Troponins are 0.102, 0.110, and 0.103. EKG with baseline abnormalities, but no significant changes compared to old ones. CXR with small right and moderate sized left pleural effusions. She has been started on IV Lasix. Review of Systems Review of Systems: All systems reviewed & are unremarkable except as noted in HPI and below (HPI) FOR[facility]LY [facility] Past Medical History Medical History Acute on chronic anemia Anxiety Cerebrovascular accident Residual expressive aphasia and right leg weakness. Chronic obstructive pulmonary disease Chronic respiratory failure with hypoxia, on home oxygen therapy Coronary artery disease Essential hypertension Hyperlipidemia Ischemic cardiomyopathy Status post PPM/AICD insertion. EF 20% on 10/08/2023 cath. Melena Myocardial infarction Obstructive sleep apnea on CPAP Pancreatitis Paroxysmal atrial fibrillation Peripheral artery disease Prediabetes Pulmonary emboli
--- NOTE | 2023-11-03 15:22 | ECG_ITS ---
Measurements Intervals [place] Rate: 82 P: [place]: 0 QRS: -19 QRSD: 94 T: 92 QT: 386 QTc: 453 Interpretive Statements ATRIAL FIBRILLATION LOW QRS VOLTAGE IN EXTREMITY LEADS [QRS DEFLECTION < 0.5 mV IN LIMB LEADS] INFERIOR MYOCARDIAL INFARCTION , OLD ANTEROLATERAL MYOCARDIAL INFARCTION , OLD COMPARED TO ECG 11/03/2023 05:24:51 ATRIAL FIBRILLATION NOW PRESENT Electronically Signed On 11-04-2023 14:34:23 VETERINARY MEDICINE DOCTOR by Alicia Rojo M.D.
--- NOTE | 2023-11-03 15:50 | PM.IMHP ---
H&P: HPI History of Present Illness Date/Time: 11/03/23 15:50 <Felisa Dove APRN - Last Filed: 11/03/23 17:49> Chief Complaint: Shortness of breath <Felisa Dove APRN - Last Filed: 11/03/23 17:49> Patient was brought to the ER for evaluation of her shortness of breath <Eulogio Kee MD - Last Filed: 11/03/23 17:42> Narrative: Mrs. Jamil is a 63-year-old female with a PMHx not limited to chronic anemia, COPD in stage on home oxygen, CAD, essential HTN, ischemic cardiomyopathy, pancreatitis, paroxysmal atrial fibrillation, who presented to the emergency department chief complaint of shortness of breath.? Patient has prior history of chronic respiratory failure and recently was transferred to [facility], for discoloration to her foot and toes. Pt was recently discharged from outside facility on the 31 of October. She now returns with a complaint of ongoing shortness of breath and ongoing increased weakness. Pt is a poor historian at this time, due to need for Bipap, s/s respiratory failure ED work-up reveals, acute hypercapnic respiratory failure, her troponins were elevated but flat, CXR reveals, small right and moderate size left pleural effusion, along with worsened airspace opacities at left lung base that was consistent with atelectasis versus PN, 40 mg Lasix IV started in the ED patient was evaluated by Cardiology <Felisa Dove APRN - Last Filed: 11/03/23 17:49> Review of Systems Review of Systems: 14 systems were reviewed with pertinent positives and negatives per HPI. Except as documented in the HPI/progress notes, all other systems were reviewed and are negative. <Eulogio Kee MD - Last Filed: 11/03/23 17:42> All systems reviewed & are unremarkable except as noted in HPI and below <Eulogio Kee MD - Last Filed: 11/03/23 17:42> [facility] Past Medical History Medical History: Medical History Acute on chronic anemia Anxiety Cerebrovascular accident Residual expressive aphasia and right leg weakness. Chronic obstructive pulmonary disease Chronic respiratory failure with hypoxia, on home oxygen therapy Coronary artery disease Essential hypertension Hyperlipidemia Ischemic cardiomyopathy Status post PPM/AICD insertion. EF 20% on 10/08/2023 cath. Melena Myocardial infarction Obstructive sleep apnea on CPAP Pancreatitis Paroxysmal atrial fibrillation Peripheral artery disease Prediabetes Pulmonary emboli Systolic congestive heart failure Echocardiogram in August 2019 showed aneurysmal mid anterior and mid septal owusu, akinesis of the entire anteroseptal, septum, apex, and apical lateral owusu; suggestion of right ventricular systolic dysfunction, mild mitral valve regurgitation, [id number] tricuspid valve regurgitation, and moderate pulmonary hypertension. Tobacco dependence Vitamin D deficiency <Felisa Dove APRN - Last Filed: 11/03/23 17:49> Surgical History Surgical History: Surgical History History of coronary angioplasty with insertion of stent X4. Recent angioplasty to 100% thrombotic occluded distal LAD stent on 10/08/2023 at [facility]. History of ectopic History of permanent cardiac pacemaker placement History of placement of internal cardiac defibrillator History of tubal ligation <Felisa Dove APRN - Last Filed: 11/03/23 17:49> Family History Family History: Family History Father Family history of malignant neoplasm Sibling Family history of tuberculosis Asthma Mother Hypertension Family history of malignant neoplasm of urinary bladder <Felisa Dove APRN - Last Filed: 11/03/23 17:49> Social History Social History: Social History Social History: The patient lives in her own apartment in [facility]
[2023-11-03] MEDS: methylPREDNISolone SOD SUCC 125 MG VIAL 60 MG IV PUSH ×2 (17:16→20:48)
[2023-11-03] MEDS: FUROSEMIDE INJ 40 MG/4 ML VIAL IV PUSH (17:17)
[2023-11-03] MEDS: AZITHROMYCIN 500 MG/NS 250 ML 500 MG/250 ML BAG 250 MG IVPB (18:07)
[2023-11-04] VITALS (28 sets, daily range): BP systolic 103–131; BP diastolic 64–77; PULSE 66–118; RESP 15–28; TEMP 36.1–36.9; O2SAT 98–100
[2023-11-04] MEDS: IPRATROPIUM BR 0.02% INH SOLN 0.5 MG/2.5 ML VIAL INHALATION ×4 (03:54→19:40)
[2023-11-04] MEDS: ALBUTEROL SULFATE NEB 2.5 MG/3 ML INH INHALATION ×4 (03:54→19:40)
[2023-11-04] MEDS: VANCOMYCIN 1,000 MG/NS 250 ML 1,000 MG/250 ML BAG 250 MG IVPB (04:01)
[2023-11-04 05:08] LABS: Alanine Aminotransferase 55 U/L (6-35); Albumin Level 2.6 g/dL (3.5-5.1); Alkaline Phosphatase 104 U/L (38-126); Anion Gap 7 mmol/L (8-16); Aspartate Amino Transferase 42 U/L (14-36); Bilirubin,Total 0.6 mg/dL (0.2-1.3); Blood Urea Nitrogen 25 mg/dL (7-17); Calcium 7.8 mg/dL (8.4-10.2); Carbon Dioxide 27 mmol/L (22-30); Chloride 103 mmol/L (98-107); Estimated CRCL calculation 29 ml/min; Estimated Glomerular Filt Rate 55; Glucose 128 mg/dL (65-110); Magnesium 2.2 mg/dL (1.6-2.3); Potassium 4.4 mmol/L (3.4-5.0); Sodium 137 mmol/L (137-145)
[2023-11-04 05:33] LABS: MRSA (PCR) NOT DETECTED (NOT DETECTE)
[2023-11-04] MEDS: FUROSEMIDE INJ 40 MG/4 ML VIAL IV PUSH (06:19)
[2023-11-04] MEDS: methylPREDNISolone SOD SUCC 125 MG VIAL 60 MG IV PUSH ×3 (06:19→20:38)
[2023-11-04] MEDS: FLUTICASONE/UMECLIDIN/VILANTER 100-62.5-25 MCG ELLIPTA 1 PUFF INHALATION (07:20)
--- NOTE | 2023-11-04 08:42 | PM.IMPN ---
Progress Note: A&P Assessment and Plan (1) Sepsis: Qualifiers: Sepsis type: sepsis due to unspecified organism Sepsis acute organ dysfunction status: with acute organ dysfunction Severe sepsis acute organ dysfunction type: acute renal failure Code(s): A41.9 - Sepsis, unspecified organism Status: Acute Assessment and Plan: Leukocytosis, tachycardia, respiratory failure, acute kidney injury, positive blood cultures, abnormal chest x-ray (2) Pneumonia: Qualifiers: Pneumonia type: due to unspecified organism Laterality: unspecified laterality Lung location: unspecified part of lung Qualified Code(s): J18.9 - Pneumonia, unspecified organism Code(s): J18.9 - Pneumonia, unspecified organism Status: Acute Assessment and Plan: Continue ceftriaxone 11/04/2023 discontinue azithromycin due to interaction with amiodarone and use doxycycline 11/04/2023 add vancomycin due to positive blood cultures with Gram-positive cocci in clusters (3) COPD (chronic obstructive pulmonary disease): Code(s): J44.9 - Chronic obstructive pulmonary disease, unspecified Status: Acute Assessment and Plan: Continue steroids bronchodilators and antibiotics Weaned from BiPAP as tolerated (4) Acute exacerbation of CHF (congestive heart failure): Code(s): I50.9 - Heart failure, unspecified Status: Acute Assessment and Plan: Continue IV Lasix (5) Acute hypercapnic respiratory failure: Code(s): J96.02 - Acute respiratory failure with hypercapnia Status: Acute Assessment and Plan: Continue oxygen and wean from BiPAP as tolerated (6) Elevated troponin: Code(s): R79.89 - Other specified abnormal findings of blood chemistry Status: Acute Assessment and Plan: LIKELY DEMAND RELATED DUE TO HYPOXIA AND TACHYCARDIA WITH POSSIBLE SEPSIS (7) Coronary artery disease: Code(s): I25.10 - Atherosclerotic heart disease of [place] coronary artery without angina pectoris Status: Acute Assessment and Plan: Currently without angina (8) Ischemic cardiomyopathy: Code(s): I25.5 - Ischemic cardiomyopathy Status: Acute (9) Obstructive sleep apnea on CPAP: Code(s): G47.33 - Obstructive sleep apnea (adult) (pediatric); Z99.89 - Dependence on other enabling machines and devices Status: Acute (10) Atrial fibrillation: Qualifiers: Atrial fibrillation type: paroxysmal Qualified Code(s): I48.0 - Paroxysmal atrial fibrillation Code(s): I48.91 - Unspecified atrial fibrillation Status: Acute (11) JANETH (acute kidney injury): Code(s): N17.9 - Acute kidney failure, unspecified Status: Acute Assessment and Plan: Likely due to pneumonia with sepsis and congestive heart failure 11/04/2023 creatinine 1.2 Subjective Date/time seen: 11/04/23 08:42 Interval history: So short of breath at rest and on continuous BiPAP. Has not eaten since admission. Hungry. Denied pain. Review of Systems Review of Systems: All systems reviewed & are unremarkable except as noted in HPI and below Exam Narrative: HEENT: PERRL, sclerae nonicteric, pharyngeal mucosa pink and intact NECK: No JVD CHEST: DECREASE AND SLIGHTLY COARSENED BREATH SOUNDS THROUGHOUT. TACHYPNEIC. HEART: NL S1/S2, regular, no murmur, TACHYCARDIC ABDOMEN: BS+, soft, nontender, no mass, no bruits EXTREMITIES: No cyanosis, edema, or clubbing NEUROLOGIC: CN intact and symmetric to inspection. MUSCULOSKELETAL: Tone and strength symmetric. PSYCH: Alert. FOLLOWS SIMPLE COMMANDS. Objective Data Vital Signs Vital Signs: Vital Signs - 24 hr 11/03/23 09:06 11/03/23 10:01 11/03/23 10:05 Temperature Pulse Rate 70 71 72 Respiratory Rate 17 17 20 Blood Pressure 97/62 L 110/56 L Pulse Oximetry 100 100 Oxygen Delivery Fraction of Inspired Oxygen 11/03/23 10:15 11/03/23 10:16
[2023-11-04 09:28] LABS: Alveolar/Arterial O2 Gradient 142.6 mmHg; Base Excess ABG 0.7 mEq/l (+/-2.0); Fractional Inspired Oxygen 28 %; HCO3 ABG 23.7 mEq/l (22.0-26.0); Oxygen Content ABG 12.9 %vol (16.0-22.0); Oxygen Saturation ABG 96.1 % (95.0-100.0); Oxyhemoglobin 93.9 % THb (90.0-100.0); PCO2 ABG 31.9 mmHg (35.0-45.0); PO2 ABG 74.8 mmHg (80.0-100.0); PO2 FiO2 Ratio Arterial Blood 2.67 %; Total Hemoglobin 9.7 g/dL (12.0-18.0); pH ABG 7.488 (7.350-7.450)
[2023-11-04 09:30] LABS: Modified Allen's Test Pass; Site Drawn RIGHT RADIAL
[2023-11-04 09:31] LABS: Device BIPAP; Expiratory Pressure 6 cmH2O; Inspiratory Pressure 12 cmH2O
[2023-11-04] MEDS: GABAPENTIN 400 MG CAPSULE PO ×3 (09:58→17:12)
[2023-11-04] MEDS: AMIODARONE HCL 200 MG TABLET PO ×2 (09:58→17:12)
[2023-11-04] MEDS: SACUBITRIL/VALSARTAN 12-13 MG TABLET 1 TAB PO ×2 (09:58→20:38)
[2023-11-04] MEDS: APIXABAN 5 MG TABLET BY MOUTH ×2 (09:58→20:38)
[2023-11-04] MEDS: DOXYCYCLINE HYCLATE 100 MG TABLET PO ×2 (09:58→17:12)
[2023-11-04] MEDS: ROFLUMILAST 500 MCG TABLET PO (09:59)
[2023-11-04] MEDS: ASPIRIN 81 MG ENTERIC TABLET PO (09:59)
[2023-11-04] MEDS: PANTOPRAZOLE 40 MG TABLET PO ×2 (09:59→20:38)
[2023-11-04] MEDS: FERROUS GLUCONATE 324 MG TABLET PO (09:59)
[2023-11-04] MEDS: METOPROLOL SUCCINATE EXT REL 100 MG TABCR PO (09:59)
[2023-11-04] MEDS: AMIODARONE 150 MG/D5W 100 ML 150 MG/100 ML BAG 600 MG IV CONT (12:56)
--- NOTE | 2023-11-04 13:05 | PM.PNCARD ---
Progress Note: A&P Assessment and Plan (1) Elevated troponin: Code(s): R79.89 - Other specified abnormal findings of blood chemistry Status: Acute Assessment and Plan: Troponins are mildly elevated but flat. EKG without significant changes (has baseline abnormal EKG). In the setting of acute on chronic hypercapnic respiratory failure, congestive heart failure, and now sepsis with bacteremia. She does have chest pain, but it is easily reproducible on examination. At this time recommend medical management with ASA and statin. Treatment of underlying acute issues. (2) Sepsis: Qualifiers: Sepsis type: sepsis due to unspecified organism Sepsis acute organ dysfunction status: with acute organ dysfunction Severe sepsis acute organ dysfunction type: acute renal failure Code(s): A41.9 - Sepsis, unspecified organism Status: Acute Assessment and Plan: She is now bacteremic. Treatment as per primary team. (3) COPD (chronic obstructive pulmonary disease): Code(s): J44.9 - Chronic obstructive pulmonary disease, unspecified Status: Acute Assessment and Plan: Has known severe end-stage COPD. Management as per primary team. Consider Palliative care given end-stage COPD. (4) Acute on chronic respiratory failure with hypoxia and hypercapnia: Code(s): J96.21 - Acute and chronic respiratory failure with hypoxia; J96.22 - Acute and chronic respiratory failure with hypercapnia Status: Acute Assessment and Plan: Treatment as per primary team. (5) Acute exacerbation of CHF (congestive heart failure): Code(s): I50.9 - Heart failure, unspecified Status: Acute Assessment and Plan: CXR with pleural effusions on admission. Denies shortness of breath today, and is on nasal cannula. Will stop IV Lasix scheduled, and use IV Lasix as PRN. Avoid hypotension and volume depletion given sepsis and bacteremia. Continue Toprol and Entresto. (6) Atrial fibrillation: Qualifiers: Atrial fibrillation type: paroxysmal Qualified Code(s): I48.0 - Paroxysmal atrial fibrillation Code(s): I48.91 - Unspecified atrial fibrillation Status: Acute Assessment and Plan: Presented in rate controlled AFIB. Tele currently with sinus rhythm. This morning, she had wide complex tachycardia that lasted for about 5 minutes. She was asymptomatic with it. Tele review shows irregular wide complex tachycardia. Remained hemodynamically stable. Given the irregularity to it, I suspect it was AFIB with RVR with abberancy rather than VT. She does have an ICD in place. Will have the ICD interrogated. Will give bolus of Amiodarone. If she has more frequent episodes, then can do Amiodarone drip. Keep electrolytes optimized. Continue Eliquis. (7) Coronary artery disease: Code(s): I25.10 - Atherosclerotic heart disease of [place] coronary artery without angina pectoris Status: Acute Assessment and Plan: Continue ASA. Subjective Date/time seen: 11/04/23 13:05 Interval history: Reason for visit: Congestive heart failure, elevated troponin HPI: We are consulted for elevated troponin. This is a 63 year old female with known paroxysmal atrial flutter, coronary artery disease s/p prior PCI to LAD, chronic systolic heart failure with LVEF of about 20% s/p ICD. Patient was recently admitted here at [facility] for atrial flutter with RVR, anemia, hypercapnic respiratory failure. Hospitalization complicated by JANETH, thrombocytopenia, pulmonary embolus. Patient discharged on 10/28. She had presented to ER again on 10/30 for discoloration of toes, concern for acute limb ischemia and was transferred to [facility]. Patient states she was discharged from [facility] just yesterday. She presented to ER this morning for shortness of breath. Found to be in acute on chronic hypercapnic respiratory failure. Troponins are 0.102, 0.110, and 0.103. EKG with baseline abnormalities, but no
[2023-11-05] VITALS (26 sets, daily range): BP systolic 96–116; BP diastolic 48–59; PULSE 61–90; RESP 16–27; TEMP 36.3–37.1; O2SAT 95–100
--- NOTE | 2023-11-05 | ECHO_ITS ---
Patient Info Name: Lisa Díaz Age: 63 years : 1960 Gender: Female Ht: 61 in Wt: 98 lbs BSA: 1.38 m2 HR: 80 bpm BP: 116 / 59 mmHg Technical Quality: Good Exam Date: 11/05/2023 2:06 PM Exam Location: Echo Lab Patient Status: Outpatient Admit Date: 11/03/2023 Staff Ordering Physician: Tarah Ingram MD [employer] Ranger: Lorena Roman RDCS Attending Provider: Eulogio Kee MD Exam Type: CA echo dop color flow w con Study Info Indications - LV Thrombus Complete two-dimensional, color flow and Doppler transthoracic echocardiogram is performed with contrast to opacify the left ventricle and to improve the deliniation of the left ventricle endocardial borders. Contrast/Agitated Saline Contrast/Ag. Saline: Definity Amount: 3.00 ml Summary 1. Left ventricular chamber dimension is moderately enlarged. 2. There is mildly increased left ventricular wall thickness. 3. Left ventricular systolic function is moderately reduced, estimated at 30-35%. 4. There is akinesis of the anterior wall, anterolateral wall, apex. The mid inferior wall is severely hypokinetic. 5. There is an LV apical thrombus. Measures approximately 1.99cm x 1.37cm. 6. The left ventricular diastolic function is grade I diastolic dysfunction. 7. Right ventricular systolic function is normal. 8. Left atrial chamber dimension is moderately enlarged. 9. Right atrial chamber dimension is moderately enlarged. 10. There is mild mitral valve regurgitation. 11. There is moderate tricuspid valve regurgitation. 12. Left pleural effusion noted. 13. There is trivial pericardial effusion. Left Ventricle There is akinesis of the anterior wall, anterolateral wall, apex. The mid inferior wall is severely hypokinetic. There is an LV apical thrombus. Measures approximately 1.99cm x 1.37cm. Left ventricular chamber dimension is moderately enlarged. Left ventricular systolic function is moderately reduced, estimated at 30-35%. There is mildly increased left ventricular wall thickness. The left ventricular diastolic function is grade I diastolic dysfunction. Right Ventricle Linear artifact in right ventricle suggestive of catheter(s), pacemaker lead(s), or ICD lead(s). Right ventricular chamber dimension is normal. Right ventricular systolic function is normal. Left Atria Left atrial chamber dimension is moderately enlarged. Right Atria Linear artifact in the right atrium suggestive of catheter(s), pacemaker lead(s), or ICD lead(s). Right atrial chamber dimension is moderately enlarged. Atrial Septum Intact interatrial septum visualized by color flow imaging. Aortic Valve The aortic valve is trileaflet. There is no aortic valve stenosis. There is no aortic valve regurgitation. There is mild aortic valve calcification. Pulmonic Valve The pulmonic valve is not well visualized. Mitral Valve There is mild mitral valve regurgitation. Tricuspid Valve There is moderate tricuspid valve regurgitation. Pericardium/Pleural Left pleural effusion noted. There is trivial pericardial effusion. Inferior Vena Cava Normal inferior vena cava with >50% collapse upon inspiration consistent with normal right atrial pressure, 3 mmHg. Aorta The aortic root size at the sinus of Valsalva is normal. Left Ventricular Outflow Tract Name Value Normal LVOT 2D
[2023-11-05] MEDS: IPRATROPIUM BR 0.02% INH SOLN 0.5 MG/2.5 ML VIAL INHALATION ×4 (02:42→20:16)
[2023-11-05] MEDS: ALBUTEROL SULFATE NEB 2.5 MG/3 ML INH INHALATION ×4 (02:42→20:16)
[2023-11-05 05:17] LABS: Estimated CRCL calculation 31 ml/min; Estimated Glomerular Filt Rate > 60
[2023-11-05] MEDS: methylPREDNISolone SOD SUCC 125 MG VIAL 60 MG IV PUSH (05:42)
[2023-11-05] MEDS: DOXYCYCLINE HYCLATE 100 MG TABLET PO ×2 (05:42→17:22)
[2023-11-05 05:43] LABS: Alveolar/Arterial O2 Gradient 115.6 mmHg; Base Excess ABG 4.8 mEq/l (+/-2.0); Fractional Inspired Oxygen 32 %; HCO3 ABG 28.3 mEq/l (22.0-26.0); Oxygen Content ABG 10.2 %vol (16.0-22.0); Oxygen Saturation ABG 95.2 % (95.0-100.0); Oxyhemoglobin 91.8 % THb (90.0-100.0); PCO2 ABG 37.2 mmHg (35.0-45.0); PO2 FiO2 Ratio Arterial Blood 2.16 %; pH ABG 7.499 (7.350-7.450)
[2023-11-05 05:49] LABS: Device NASAL CANNULA; Modified Allen's Test Pass; Site Drawn LEFT RADIAL
[2023-11-05 05:53] LABS: Total Hemoglobin 7.8 g/dL (12.0-18.0)
[2023-11-05 07:37] LABS: NT Pro B Type Natriuretic Pept 7200 pg/mL (19.9-100)
[2023-11-05] MEDS: FERROUS GLUCONATE 324 MG TABLET PO (09:12)
[2023-11-05] MEDS: AMIODARONE HCL 200 MG TABLET PO ×2 (09:12→17:22)
[2023-11-05] MEDS: ROFLUMILAST 500 MCG TABLET PO (09:12)
[2023-11-05] MEDS: SACUBITRIL/VALSARTAN 12-13 MG TABLET 1 TAB PO ×2 (09:12→20:48)
[2023-11-05] MEDS: PANTOPRAZOLE 40 MG TABLET PO ×2 (09:12→20:48)
[2023-11-05] MEDS: METOPROLOL SUCCINATE EXT REL 100 MG TABCR PO (09:12)
[2023-11-05] MEDS: APIXABAN 5 MG TABLET BY MOUTH (09:12)
[2023-11-05] MEDS: ASPIRIN 81 MG ENTERIC TABLET PO (09:12)
[2023-11-05] MEDS: GABAPENTIN 400 MG CAPSULE PO ×3 (09:13→17:22)
[2023-11-05] MEDS: FLUTICASONE/UMECLIDIN/VILANTER 100-62.5-25 MCG ELLIPTA 1 PUFF INHALATION (09:28)
--- NOTE | 2023-11-05 10:15 | PM.CNPUL ---
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 Lung volumes show evidence of air trapping and hyperinflation. Diffusion capacity was not able to be performed. With chronic hypoxemia on 1 L at rest and 2 L with ambulation, hypercarbic respiratory failure requiring noninvasive ventilator previously on iVAPS mode when sleeps but was noncompliant and her [employer] a HS removed the machine. Recently prescribed a noninvasive and invasive ventilation her through a [employer] via med on 10/22/2023 Patient admitted now with wheezing and treated for COPD exacerbation with Solu-Medrol, bronchodilators, ceftriaxone, vancomycin and doxycycline for Gram-positive cocci in her blood. 11/05/23: Today the patient tells me that she is breathing normal. She denies cough, phlegm production. Her shortness of breath at rest is at her baseline. Her BNP has improved to 7200. Her creatinine is 1.1. Currently she is on 3 L nasal cannula her saturations were 100%. I decreased her to 1 L and her saturations remained 95%. Patient wore BiPAP rate of 16 pressures 12/6 with 28% FiO2 last night. At 4:00 a.m. she was changed to 2 L nasal and at 5:26 a.m. she had a blood gas of 7.50/37/69. Plan: Given she has no wheezing and she has bacteremia will discontinue the IV steroids. I will place her on nebulized budesonide 500 mcg b.i.d., will increase the frequency of her albuterol and ipratropium nebulizers from q.6 hours to q.4 hours. Patient is also being treated for community-acquired pneumonia with ceftriaxone, day 3, doxycycline, day 2 and vancomycin, day 3. Her oxygenation has improved and I decreased her to 1 L nasal cannula and her saturations were 96%. Discussed with Dr. Ingram, will follow with you. (2) Chronic respiratory failure with hypoxia and hypercapnia: Code(s): J96.11 - Chronic respiratory failure with hypoxia; J96.12 - Chronic respiratory failure with hypercapnia Status: Acute Assessment and Plan: Patient has chronic hypoxemic respiratory failure and her last home O2 assessment on 10/26/2023 demonstrated rest 1 L, exertion 2 L. Patient has chronic hypercarbic respiratory failure and previously was on a noninvasive ventilator and was re-initiated on a home noninvasive ventilator through via med on 10/22/2023. 11/05/22: Patient wore BiPAP rate of 16 pressures 10/10 with 28% FiO2 last night. At 4:00 a.m. she was changed to 2 L nasal and at 5:26 a.m. she had a blood gas of 7.50/37/69. The patient told me the BiPAP was uncomfortable and she could not tolerate the pressures. I placed her on a noninvasive ventilation with the AVAPS mode and adjusted the settings to comfort resulting in a rate of 16, tidal volume 450, EPAP 5, minimal inspiratory pressure 6, maximal inspiratory pressure 25, inspiratory time 1 second, rise of 1 which is the fastest and 24% FiO2 Plan: I will have the patient wore the hospital noninvasive ventilator tonight with the above-mentioned AVAPS setting and perform an overnight oximetry on 24% and a blood gas prior to removal. On 11/06/2022 I will discuss prior noninvasive ventilator set up through via [employer] with our marketing outreach coordinator. (3) Sepsis: Qualifiers: Sepsis type: sepsis due to unspecified organism Sepsis acute organ dysfunction status: with acute organ dysfunction Severe sepsis acute organ dysfunction type: acute renal failure Code(s): A41.9 - Sepsis, unspecified organism Status: Acute Assessment and Plan: Patient with Gram-positive cocci in 4 of 4 b
--- NOTE | 2023-11-05 13:37 | P.PNIM_ITS ---
Progress Note: A&P Assessment and Plan (1) Sepsis: Qualifiers: Sepsis type: sepsis due to unspecified organism Sepsis acute organ dysfunction status: with acute organ dysfunction Severe sepsis acute organ dysfunction type: acute renal failure Code(s): A41.9 - Sepsis, unspecified organism Status: Acute Assessment and Plan: * Leukocytosis, tachycardia, respiratory failure, * NO Pnuemonia per CT chest * Blood culture positive for S epidermidis, repeat blood cultures and ECHO pending * Remove EJ line and culture the tip * monitor, continue Vanc (2) Pneumonia: Qualifiers: Pneumonia type: due to unspecified organism Laterality: unspecified laterality Lung location: unspecified part of lung Qualified Code(s): J18.9 - Pneumonia, unspecified organism Code(s): J18.9 - Pneumonia, unspecified organism Status: Acute Assessment and Plan: * Continue ceftriaxone * 11/04/2023 discontinue azithromycin due to interaction with amiodarone and use doxycycline * 11/04/2023 add vancomycin due to positive blood cultures with Gram-positive cocci in clusters * No Pneumonia on CT chest * (3) COPD (chronic obstructive pulmonary disease): Code(s): J44.9 - Chronic obstructive pulmonary disease, unspecified Status: Acute Assessment and Plan: * Continue steroids bronchodilators and antibiotics * Discussed with pulm this morning will start patient on trilogy tonight and possibly for home discharge * Abg in the am * will likely be ready for discharge tomorrow from pulm standpoint (4) Acute exacerbation of CHF (congestive heart failure): Code(s): I50.9 - Heart failure, unspecified Status: Acute Assessment and Plan: * Continue IV Lasix * cardiology on board (5) Acute hypercapnic respiratory failure: Code(s): J96.02 - Acute respiratory failure with hypercapnia Status: Acute Assessment and Plan: * Continue oxygen and wean from BiPAP as tolerated (6) Elevated troponin: Code(s): R79.89 - Other specified abnormal findings of blood chemistry Status: Acute Assessment and Plan: * LIKELY DEMAND RELATED DUE TO HYPOXIA AND TACHYCARDIA WITH POSSIBLE SEPSIS (7) Coronary artery disease: Code(s): I25.10 - Atherosclerotic heart disease of [place] coronary artery without angina pectoris Status: Acute Assessment and Plan: * Currently without angina (8) Ischemic cardiomyopathy: Code(s): I25.5 - Ischemic cardiomyopathy Status: Acute (9) Obstructive sleep apnea on CPAP: Code(s): G47.33 - Obstructive sleep apnea (adult) (pediatric); Z99.89 - Dependence on other enabling machines and devices Status: Acute (10) Atrial fibrillation: Qualifiers: Atrial fibrillation type: paroxysmal Qualified Code(s): I48.0 - Paroxysmal atrial fibrillation Code(s): I48.91 - Unspecified atrial fibrillation Status: Acute (11) JANETH (acute kidney injury): Code(s): N17.9 - Acute kidney failure, unspecified Status: Acute Assessment and Plan: * Likely from infarct from LV thrombus * 11/04/2023 creatinine 1.2 (12) Renal infarct: Code(s): N28.0 - Ischemia and infarction of kidney Status: Acute Subjective Date/time seen: 11/05/23 13:37 Interval history: patient has had a recent complicated medical course Was discharged from [facility] after she was sent up there for possible ischemic limbs Returned to our ER for SOB and evaluated revealed acute
--- NOTE | 2023-11-05 13:37 | PM.IMPN ---
Progress Note: A&P Assessment and Plan (1) Sepsis: Qualifiers: Sepsis type: sepsis due to unspecified organism Sepsis acute organ dysfunction status: with acute organ dysfunction Severe sepsis acute organ dysfunction type: acute renal failure Code(s): A41.9 - Sepsis, unspecified organism Status: Acute Assessment and Plan: Leukocytosis, tachycardia, respiratory failure, NO Pnuemonia per CT chest Blood culture positive for S epidermidis, repeat blood cultures and ECHO pending Remove EJ line and culture the tip monitor, continue Vanc (2) Pneumonia: Qualifiers: Pneumonia type: due to unspecified organism Laterality: unspecified laterality Lung location: unspecified part of lung Qualified Code(s): J18.9 - Pneumonia, unspecified organism Code(s): J18.9 - Pneumonia, unspecified organism Status: Acute Assessment and Plan: Continue ceftriaxone 11/04/2023 discontinue azithromycin due to interaction with amiodarone and use doxycycline 11/04/2023 add vancomycin due to positive blood cultures with Gram-positive cocci in clusters No Pneumonia on CT chest (3) COPD (chronic obstructive pulmonary disease): Code(s): J44.9 - Chronic obstructive pulmonary disease, unspecified Status: Acute Assessment and Plan: Continue steroids bronchodilators and antibiotics Discussed with pulm this morning will start patient on trilogy tonight and possibly for home discharge Abg in the am will likely be ready for discharge tomorrow from pulm standpoint (4) Acute exacerbation of CHF (congestive heart failure): Code(s): I50.9 - Heart failure, unspecified Status: Acute Assessment and Plan: Continue IV Lasix cardiology on board (5) Acute hypercapnic respiratory failure: Code(s): J96.02 - Acute respiratory failure with hypercapnia Status: Acute Assessment and Plan: Continue oxygen and wean from BiPAP as tolerated (6) Elevated troponin: Code(s): R79.89 - Other specified abnormal findings of blood chemistry Status: Acute Assessment and Plan: LIKELY DEM[place] RELATED DUE TO HYPOXIA AND TACHYCARDIA WITH POSSIBLE SEPSIS (7) Coronary artery disease: Code(s): I25.10 - Atherosclerotic heart disease of [place] coronary artery without angina pectoris Status: Acute Assessment and Plan: Currently without angina (8) Ischemic cardiomyopathy: Code(s): I25.5 - Ischemic cardiomyopathy Status: Acute (9) Obstructive sleep apnea on CPAP: Code(s): G47.33 - Obstructive sleep apnea (adult) (pediatric); Z99.89 - Dependence on other enabling machines and devices Status: Acute (10) Atrial fibrillation: Qualifiers: Atrial fibrillation type: paroxysmal Qualified Code(s): I48.0 - Paroxysmal atrial fibrillation Code(s): I48.91 - Unspecified atrial fibrillation Status: Acute (11) JANETH (acute kidney injury): Code(s): N17.9 - Acute kidney failure, unspecified Status: Acute Assessment and Plan: Likely from infarct from LV thrombus 11/04/2023 creatinine 1.2 (12) Renal infarct: Code(s): N28.0 - Ischemia and infarction of kidney Status: Acute Subjective Date/time seen: 11/05/23 13:37 Interval history: patient has had a recent complicated medical course Was discharged from [facility] after she was sent up there for possible ischemic limbs Returned to our ER for SOB and evaluated revealed acute on chronic hypercapnic resp failure Blood cutlure positive S epidermidis sensitive pending CT Chest AP this mornign showed LV thrombus, R IJ thrombus, 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 Except as documented in the HPI/pr
--- NOTE | 2023-11-05 14:15 | PM.PNCARD ---
Progress Note: A&P Assessment and Plan (1) Elevated troponin: Code(s): R79.89 - Other specified abnormal findings of blood chemistry Status: Acute Assessment and Plan: Troponins are mildly elevated but flat. EKG without significant changes (has baseline abnormal EKG). In the setting of acute on chronic hypercapnic respiratory failure, congestive heart failure, and now sepsis with bacteremia. She does have chest pain, but it is easily reproducible on examination. At this time recommend medical management with ASA and statin. Treatment of underlying acute issues. (2) Sepsis: Qualifiers: Sepsis type: sepsis due to unspecified organism Sepsis acute organ dysfunction status: with acute organ dysfunction Severe sepsis acute organ dysfunction type: acute renal failure Code(s): A41.9 - Sepsis, unspecified organism Status: Acute Assessment and Plan: She is now bacteremic. Treatment as per primary team. (3) COPD (chronic obstructive pulmonary disease): Code(s): J44.9 - Chronic obstructive pulmonary disease, unspecified Status: Acute Assessment and Plan: Has known severe end-stage COPD. Management as per primary team. Consider Palliative care given end-stage COPD. Pulmonary consulted. (4) Acute on chronic respiratory failure with hypoxia and hypercapnia: Code(s): J96.21 - Acute and chronic respiratory failure with hypoxia; J96.22 - Acute and chronic respiratory failure with hypercapnia Status: Acute Assessment and Plan: Treatment as per primary team. Pulmonary consulted. (5) Acute exacerbation of CHF (congestive heart failure): Code(s): I50.9 - Heart failure, unspecified Status: Acute Assessment and Plan: CXR with pleural effusions on admission. Denies shortness of breath today, and is on nasal cannula. Will stop IV Lasix scheduled, and use IV Lasix as PRN. Avoid hypotension and volume depletion given sepsis and bacteremia. Continue Toprol and Entresto. (6) Atrial fibrillation: Qualifiers: Atrial fibrillation type: paroxysmal Qualified Code(s): I48.0 - Paroxysmal atrial fibrillation Code(s): I48.91 - Unspecified atrial fibrillation Status: Acute Assessment and Plan: Presented in rate controlled AFIB. Tele currently with sinus rhythm. 11/04, she had wide complex tachycardia that lasted for about 5 minutes. She was asymptomatic with it. Tele review shows irregular wide complex tachycardia. Remained hemodynamically stable. Given the irregularity to it, I suspect it was AFIB with RVR with abberancy rather than VT. She does have an ICD in place. Will have the ICD interrogated. Gave bolus of Amiodarone. If she has more frequent episodes, then can do Amiodarone drip. Keep electrolytes optimized. Continue anticoagulation. (7) Coronary artery disease: Code(s): I25.10 - Atherosclerotic heart disease of [place] coronary artery without angina pectoris Status: Acute Assessment and Plan: Continue ASA. (8) Left ventricular thrombus: Code(s): I51.3 - Intracardiac thrombosis, not elsewhere classified Status: Acute Assessment and Plan: CT Chest/Abdomen/Pelvis done 11/05 shows old infarct in LV involving the anterior and septal owusu and apex with adjacent thrombus. There is also a DVT in the right internal jugular vein. Echocardiogram pending. In the meantime, will hold her Eliquis and do a Heparin drip. Has had issues with anemia and thrombocytopenia which necessitated discontinuation of her Eliquis last admission here. Therefore, will need to closely monitor for any bleeding, worsening anemia, worsening thrombocytopenia, etc. Subjective Date/time seen: 11/05/23 14:15 Interval history: Reason for visit: Congestive heart failure, elevated troponin HPI: We are consulted for elevated troponin. This is a 63 year old female with known paroxysmal atrial flutter, coronary artery disease s
[2023-11-05] MEDS: PERFLUTREN LIPID MICROSPHERES 1.5 ML VIAL DILUTED TO 10 ML TOTAL VOLUME IV PUSH (14:30)
--- NOTE | 2023-11-05 14:55 | IVDEFINITY ---
Prior to administration of IV Definity the patient was educated on the risks and benefits of the imaging enhancing agent including potential adverse side effects. The patient verbalized understanding. Allergies were verified. No exclusion criteria were identified and at least one of the following inclusion criteria were met: 1) physician request, 2) patient technically difficult to image (per the [place] [employer]chocardi[employer] guidelines of two or more segments not discernable within the apical view), or 3) questionable left ventricular function. ?
[2023-11-05] MEDS: VANCOMYCIN 750 MG/NS 250 ML 750 MG/250 ML BAG 250 MG IVPB (17:21)
[2023-11-05] MEDS: HEPARIN SOD/D5W 100 UNITS/ML 25,000 UNITS/250 ML BAG 8 UNITS IV CONT (17:58)
[2023-11-05] MEDS: LIDOCAINE HCL 1% PF INJ 5 ML VIAL INFILTRATE (18:00)
[2023-11-05 19:13] LABS: Basophils Percent Auto 0.1 % (0.2-1.2); Immature Granulocyte Absolute 0.11 K/mm3 (0.00-0.031); Immature Granulocyte Percent A 0.7 % (0-0.5); Lymphocytes Absolute Auto 0.42 K/mm3 (0.9-3.2); Lymphocytes Percent Auto 2.6 % (18.3-44.2); Mean Corpuscular HGB Conc 29.7 g/dl (32-36); Mean Corpuscular Volume 97.6 fl (80-100); Mean Platelet Volume 11.3 fl (7.4-10.4); Monocytes Absolute Auto 0.4 K/mm3 (0.1-0.6); Monocytes Percent Auto 2.7 % (2.6-8.5); Neutrophils Absolute Auto 15.1 K/mm3 (1.3-6.7); Neutrophils Percent Auto 93.9 % (45.5-73.1); Nucleated Red Blood Cells Absolute Auto 0.3 K/mm3 (0.0-0.012); Nucleated Red Blood Cells Perc 2.1 % (0.0-0.2); Platelet Count Result 76 k/mm3 (150-375); Red Blood Count 2.07 M/mm3 (4.2-5.4); Red Cell Distribution Width 19.8 % (11.5-14.5); White Blood Count 16.1 K/mm3 (4.5-10.0)
[2023-11-05 19:19] LABS: INR 3.5; Prothrombin Time 38.3 Seconds (11.1-14.7)
[2023-11-05 19:22] LABS: Iron 69 ug/dL (37-170)
[2023-11-05 19:31] LABS: Percent Iron Saturation 41 % (20-50)
[2023-11-05 19:38] LABS: Hematocrit 20.2 % (37.0-47.0)
[2023-11-05 19:39] LABS: Partial Thromboplastin Time > 200.0 SECONDS (22.3-36.8)
[2023-11-05 19:40] LABS: Anisocytosis 1+ (NORMAL); Hypochromasia 1+ (NORMAL); Platelet Estimate Decreased (Adequate)
[2023-11-05 19:41] LABS: Ovalocytes 1+ (NORMAL); Poikilocytosis 1+ (NORMAL); Schistocytes Rare (NORMAL)
[2023-11-05] MEDS: BUDESONIDE RESPULE NEB 0.5 MG/2 ML AMP INHALATION (20:16)
[2023-11-05 20:45] LABS: Folic Acid 3.5 ng/mL (2.76->20); Vitamin B12 > 1000.0 pg/mL (239-931)
[2023-11-05] MEDS: CENTRAL LINE FLUSH 10 ML IV PUSH (20:49)
[2023-11-05] MEDS: TUBING, BLOOD PLUM PUMP TUBING 1 EACH XX (22:58)
[2023-11-05] MEDS: SODIUM CHLORIDE 0.9% IV 250 ML 30 ML IV CONT (22:59)
--- NOTE | 2023-11-05 23:07 | PCRCNOTE ---
Apnea link not done tonight due to pt receiving blood transfusion and will be getting woken up every hour for vitals, will attempt another time. RN aware.
[2023-11-06] VITALS (39 sets, daily range): BP systolic 95–125; BP diastolic 49–62; PULSE 55–80; RESP 14–25; TEMP 36.2–37; O2SAT 95–100; BMI 18.1
[2023-11-06] MEDS: ALBUTEROL SULFATE NEB 2.5 MG/3 ML INH INHALATION ×7 (00:19→23:33)
[2023-11-06] MEDS: IPRATROPIUM BR 0.02% INH SOLN 0.5 MG/2.5 ML VIAL INHALATION ×7 (00:19→23:33)
[2023-11-06] MEDS: DOXYCYCLINE HYCLATE 100 MG TABLET PO (05:14)
[2023-11-06] MEDS: CENTRAL LINE FLUSH 10 ML IV PUSH ×3 (05:18→23:04)
[2023-11-06 05:27] LABS: Basophils Percent Auto 0.1 % (0.2-1.2); Hematocrit 26.7 % (37.0-47.0); Hemoglobin 8.1 g/dL (12.0-15.0); Immature Granulocyte Absolute 0.12 K/mm3 (0.00-0.031); Immature Granulocyte Percent A 0.8 % (0-0.5); Immature Platelet Fraction Pct 7.3 % (0.9-11.2); Lymphocytes Absolute Auto 0.64 K/mm3 (0.9-3.2); Lymphocytes Percent Auto 4.1 % (18.3-44.2); Mean Corpuscular HGB Conc 30.3 g/dl (32-36); Mean Corpuscular Volume 95.7 fl (80-100); Mean Platelet Volume 10.4 fl (7.4-10.4); Monocytes Absolute Auto 0.8 K/mm3 (0.1-0.6); Monocytes Percent Auto 5.1 % (2.6-8.5); Neutrophils Percent Auto 89.9 % (45.5-73.1); Nucleated Red Blood Cells Absolute Auto 0.4 K/mm3 (0.0-0.012); Nucleated Red Blood Cells Perc 2.8 % (0.0-0.2); Platelet Count Result 59 k/mm3 (150-375); Red Blood Count 2.79 M/mm3 (4.2-5.4); Red Cell Distribution Width 17.1 % (11.5-14.5); White Blood Count 15.6 K/mm3 (4.5-10.0)
[2023-11-06 05:36] LABS: INR 2.5; Partial Thromboplastin Time 29.8 SECONDS (22.3-36.8); Prothrombin Time 28.9 Seconds (11.1-14.7)
[2023-11-06 05:48] LABS: Alanine Aminotransferase 48 U/L (6-35); Albumin Level 2.2 g/dL (3.5-5.1); Alkaline Phosphatase 83 U/L (38-126); Anion Gap 1 mmol/L (8-16); Aspartate Amino Transferase 37 U/L (14-36); Bilirubin,Total 0.5 mg/dL (0.2-1.3); Blood Urea Nitrogen 42 mg/dL (7-17); Calcium 7.8 mg/dL (8.4-10.2); Carbon Dioxide 31 mmol/L (22-30); Chloride 107 mmol/L (98-107); Estimated CRCL calculation 32 ml/min; Estimated Glomerular Filt Rate > 60; Glucose 103 mg/dL (65-110); Potassium 3.4 mmol/L (3.4-5.0); Sodium 139 mmol/L (137-145)
[2023-11-06 05:55] LABS: Alveolar/Arterial O2 Gradient 72.2 mmHg; Base Excess ABG 2.5 mEq/l (+/-2.0); Fractional Inspired Oxygen 24 %; HCO3 ABG 24.1 mEq/l (22.0-26.0); Oxygen Content ABG 12.8 %vol (16.0-22.0); Oxygen Saturation ABG 95.8 % (95.0-100.0); PO2 ABG 66.8 mmHg (80.0-100.0); PO2 FiO2 Ratio Arterial Blood 2.78 %; Total Hemoglobin 9.6 g/dL (12.0-18.0)
[2023-11-06 05:56] LABS: Device BIPAP; Modified Allen's Test Pass; Site Drawn RIGHT RADIAL; pH ABG 7.568 (7.350-7.450)
[2023-11-06 05:57] LABS: Expiratory Pressure 5 cmH2O
[2023-11-06] MEDS: METOPROLOL SUCCINATE EXT REL 100 MG TABCR PO (08:23)
[2023-11-06] MEDS: AMIODARONE HCL 200 MG TABLET PO ×2 (08:23→16:17)
[2023-11-06] MEDS: PANTOPRAZOLE 40 MG TABLET PO ×2 (08:23→20:12)
[2023-11-06] MEDS: SACUBITRIL/VALSARTAN 12-13 MG TABLET 1 TAB PO ×2 (08:23→20:12)
[2023-11-06] MEDS: GABAPENTIN 400 MG CAPSULE PO ×3 (08:23→16:17)
[2023-11-06] MEDS: ASPIRIN 81 MG ENTERIC TABLET PO (08:23)
[2023-11-06] MEDS: FERROUS GLUCONATE 324 MG TABLET PO (08:23)
[2023-11-06] MEDS: ROFLUMILAST 500 MCG TABLET PO (08:24)
--- NOTE | 2023-11-06 08:56 | PM.PNPUL ---
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 Lung volumes show evidence of air trapping and hyperinflation. Diffusion capacity was not able to be performed. With chronic hypoxemia on 1 L at rest and 2 L with ambulation, hypercarbic respiratory failure requiring noninvasive ventilator previously on iVAPS mode when sleeps but was noncompliant and her [employer] a HS removed the machine. Recently prescribed a noninvasive and invasive ventilation her through a [employer] via med on 10/22/2023 Patient admitted now with wheezing and treated for COPD exacerbation with Solu-Medrol, bronchodilators, ceftriaxone, vancomycin and doxycycline for Gram-positive cocci in her blood. 11/05/23: Today the patient tells me that she is breathing normal. She denies cough, phlegm production. Her shortness of breath at rest is at her baseline. Her BNP has improved to 7200. Her creatinine is 1.1. Currently she is on 3 L nasal cannula her saturations were 100%. I decreased her to 1 L and her saturations remained 95%. Patient wore BiPAP rate of 16 pressures 12/6 with 28% FiO2 last night. At 4:00 a.m. she was changed to 2 L nasal and at 5:26 a.m. she had a blood gas of 7.50/37/69. Plan: Given she has no wheezing and she has bacteremia will discontinue the IV steroids. I will place her on nebulized budesonide 500 mcg b.i.d., will increase the frequency of her albuterol and ipratropium nebulizers from q.6 hours to q.4 hours. Patient is also being treated for community-acquired pneumonia with ceftriaxone, day 3, doxycycline, day 2 and vancomycin, day 3. Her oxygenation has improved and I decreased her to 1 L nasal cannula and her saturations were 96%. 1/2/24: Patient tells me she is breathing back to her normal. She denies cough, phlegm or hemoptysis. No wheezes. She is on 1 L nasal cannula at rest with saturations 99%. Plan: Patient has remained stable off of systemic steroids since yesterday. Continue nebulized albuterol, ipratropium and budesonide. Patient has mild atelectasis on her CT scan but no evidence of a focal bacterial infection patient does not require antibiotics from a pulmonary perspective. Discussed with Dr. Ingram, will follow with you. (2) Chronic respiratory failure with hypoxia and hypercapnia: Code(s): J96.11 - Chronic respiratory failure with hypoxia; J96.12 - Chronic respiratory failure with hypercapnia Status: Acute Assessment and Plan: Patient has chronic hypoxemic respiratory failure and her last home O2 assessment on 10/26/2023 demonstrated rest 1 L, exertion 2 L. Patient has chronic hypercarbic respiratory failure and previously was on a noninvasive ventilator and was re-initiated on a home noninvasive ventilator through via med on 10/22/2023. 11/05/22: Patient wore BiPAP rate of 16 pressures 10/10 with 28% FiO2 last night. At 4:00 a.m. she was changed to 2 L nasal and at 5:26 a.m. she had a blood gas of 7.50/37/69. The patient told me the BiPAP was uncomfortable and she could not tolerate the pressures. I placed her on a noninvasive ventilation with the AVAPS mode and adjusted the settings to comfort resulting in a rate of 16, tidal volume 450, EPAP 5, minimal inspiratory pressure 6, maximal inspiratory pressure 25, inspiratory time 1 second, rise of 1 which is the fastest and 24% FiO2 Plan: I will have the patient wore the [email or web address] noninvasive ventilator tonight with the above-mentioned AVAPS setting and perform an overnight oximetry on 24% and a blood gas prior to removal. On 11/06/19
[2023-11-06] MEDS: BUDESONIDE RESPULE NEB 0.5 MG/2 ML AMP INHALATION ×2 (09:34→20:05)
--- NOTE | 2023-11-06 09:45 | PM.PNCARD ---
Progress Note: A&P Assessment and Plan (1) Elevated troponin: Code(s): R79.89 - Other specified abnormal findings of blood chemistry Status: Acute Assessment and Plan: Troponins are mildly elevated but flat. EKG without significant changes (has baseline abnormal EKG). In the setting of acute on chronic hypercapnic respiratory failure, congestive heart failure, and now sepsis with bacteremia. She does have chest pain, but it is easily reproducible on examination. At this time recommend medical management with ASA and statin. Treatment of underlying acute issues. (2) Sepsis: Qualifiers: Sepsis acute organ dysfunction status: with acute organ dysfunction Sepsis type: sepsis due to unspecified organism Severe sepsis acute organ dysfunction type: acute renal failure Code(s): A41.9 - Sepsis, unspecified organism Status: Acute Assessment and Plan: She is now bacteremic. Treatment as per primary team. (3) COPD (chronic obstructive pulmonary disease): Code(s): J44.9 - Chronic obstructive pulmonary disease, unspecified Status: Acute Assessment and Plan: Has known severe end-stage COPD. Management as per primary team. Consider Palliative care given end-stage COPD. Pulmonary consulted. (4) Acute on chronic respiratory failure with hypoxia and hypercapnia: Code(s): J96.21 - Acute and chronic respiratory failure with hypoxia; J96.22 - Acute and chronic respiratory failure with hypercapnia Status: Acute Assessment and Plan: Treatment as per primary team. Pulmonary consulted. (5) Acute exacerbation of CHF (congestive heart failure): Code(s): I50.9 - Heart failure, unspecified Status: Acute Assessment and Plan: CXR with pleural effusions on admission. Denies shortness of breath today, and is on nasal cannula. Will stop IV Lasix scheduled, and use IV Lasix as PRN. Avoid hypotension and volume depletion given sepsis and bacteremia. Continue Toprol and Entresto. (6) Atrial fibrillation: Qualifiers: Atrial fibrillation type: paroxysmal Qualified Code(s): I48.0 - Paroxysmal atrial fibrillation Code(s): I48.91 - Unspecified atrial fibrillation Status: Acute Assessment and Plan: Presented in rate controlled AFIB. Tele currently with sinus rhythm. 11/04, she had wide complex tachycardia that lasted for about 5 minutes. She was asymptomatic with it. Tele review shows irregular wide complex tachycardia. Remained hemodynamically stable. Given the irregularity to it, I suspect it was AFIB with RVR with abberancy rather than VT. She does have an ICD in place. ICD interrogated, no ventricular arrhythmia seen on 11/04, the last event I see was on 10/07. (7) Coronary artery disease: Code(s): I25.10 - Atherosclerotic heart disease of [place] coronary artery without angina pectoris Status: Acute Assessment and Plan: Continue ASA. (8) Left ventricular thrombus: Code(s): I51.3 - Intracardiac thrombosis, not elsewhere classified Status: Acute Assessment and Plan: CT Chest/Abdomen/Pelvis done 11/05 shows old infarct in LV involving the anterior and septal owusu and apex with adjacent thrombus. There is also a DVT in the right internal jugular vein. LV thrombus measuring 1.99 x 1.37cm on echo. Because of this, anticoagulation is required, restarting Heparin for now, but will require DOAC senior care. Has had issues with anemia and thrombocytopenia which necessitated discontinuation of her Eliquis last admission here. Therefore, will need to closely monitor for any bleeding, worsening anemia, worsening thrombocytopenia, etc. Discussed with hospitalist. Subjective Date/time seen: 11/06/23 09:45 Interval history: Reason for visit: Congestive heart failure, elevated troponin HPI: We are consulted for elevated troponin. This is a 63 year old female with known paroxysmal atrial flutter, coronary new
[2023-11-06] MEDS: HEPARIN SODIUM 5,000 UNITS/ML VIAL 3500 UNITS IV PUSH (13:39)
[2023-11-06 14:22] LABS: Basophils Percent Auto 0.2 % (0.2-1.2); Hematocrit 27.2 % (37.0-47.0); Hemoglobin 8.5 g/dL (12.0-15.0); Immature Granulocyte Absolute 0.14 K/mm3 (0.00-0.031); Immature Granulocyte Percent A 0.8 % (0-0.5); Immature Platelet Fraction Pct 9.1 % (0.9-11.2); Lymphocytes Percent Auto 4.6 % (18.3-44.2); Mean Corpuscular HGB Conc 31.3 g/dl (32-36); Mean Corpuscular Hemoglobin 30.2 pg (26-34); Mean Corpuscular Volume 96.8 fl (80-100); Monocytes Absolute Auto 0.8 K/mm3 (0.1-0.6); Monocytes Percent Auto 4.8 % (2.6-8.5); Neutrophils Absolute Auto 15.5 K/mm3 (1.3-6.7); Neutrophils Percent Auto 89.6 % (45.5-73.1); Nucleated Red Blood Cells Absolute Auto 0.8 K/mm3 (0.0-0.012); Nucleated Red Blood Cells Perc 4.7 % (0.0-0.2); Platelet Count Result 47 k/mm3 (150-375); Red Blood Count 2.81 M/mm3 (4.2-5.4); Red Cell Distribution Width 17.7 % (11.5-14.5); White Blood Count 17.3 K/mm3 (4.5-10.0)
[2023-11-06 15:02] LABS: Anisocytosis 3+ (NORMAL); Platelet Estimate Decreased (Adequate); Poikilocytosis 2+ (NORMAL)
[2023-11-06 15:03] LABS: Hypochromasia 1+ (NORMAL); Macrocytosis 2+ (NORMAL); Microcytosis 1+ (NORMAL); Schistocytes Rare (NORMAL)
--- NOTE | 2023-11-06 15:11 | P.PNIM_ITS ---
Progress Note: A&P Assessment and Plan (1) Sepsis: Qualifiers: Sepsis type: sepsis due to unspecified organism Sepsis acute organ dysfunction status: with acute organ dysfunction Severe sepsis acute organ dysfunction type: acute renal failure Code(s): A41.9 - Sepsis, unspecified organism Status: Acute Assessment and Plan: * Leukocytosis, tachycardia, respiratory failure, * NO Pnuemonia per CT chest, * Blood culture positive for S epidermidis, sensitive to Vancomycin * Remove EJ line and culture the tip pending * monitor, continue Vanc * ECHO pending (2) Pneumonia: Qualifiers: Pneumonia type: due to unspecified organism Laterality: unspecified laterality Lung location: unspecified part of lung Qualified Code(s): J18.9 - Pneumonia, unspecified organism Code(s): J18.9 - Pneumonia, unspecified organism Status: Acute Assessment and Plan: * Continue ceftriaxone * 11/04/2023 discontinue azithromycin due to interaction with amiodarone and use doxycycline * 11/04/2023 add vancomycin due to positive blood cultures with Gram-positive cocci in clusters * No Pneumonia on CT chest, Abx discontinued * (3) COPD (chronic obstructive pulmonary disease): Code(s): J44.9 - Chronic obstructive pulmonary disease, unspecified Status: Acute Assessment and Plan: * Continue steroids bronchodilators and antibiotics * Discussed with pulm this morning will start patient on trilogy tonight and possibly for home discharge * Abg in the am * patietn stable from pulmonology standpoint (4) Acute exacerbation of CHF (congestive heart failure): Code(s): I50.9 - Heart failure, unspecified Status: Acute Assessment and Plan: * Continue IV Lasix * cardiology on board (5) Acute hypercapnic respiratory failure: Code(s): J96.02 - Acute respiratory failure with hypercapnia Status: Acute Assessment and Plan: * Continue oxygen and NIPPV per pulmonology (6) Elevated troponin: Code(s): R79.89 - Other specified abnormal findings of blood chemistry Status: Acute Assessment and Plan: * LIKELY DEMAND RELATED DUE TO HYPOXIA AND TACHYCARDIA WITH POSSIBLE SEPSIS (7) Coronary artery disease: Code(s): I25.10 - Atherosclerotic heart disease of [place] coronary artery without angina pectoris Status: Acute Assessment and Plan: * Currently without angina (8) Ischemic cardiomyopathy: Code(s): I25.5 - Ischemic cardiomyopathy Status: Acute (9) Obstructive sleep apnea on CPAP: Code(s): G47.33 - Obstructive sleep apnea (adult) (pediatric); Z99.89 - Dependence on other enabling machines and devices Status: Acute Assessment and Plan: continue PPV (10) Atrial fibrillation: Qualifiers: Atrial fibrillation type: paroxysmal Qualified Code(s): I48.0 - Paroxysmal atrial fibrillation Code(s): I48.91 - Unspecified atrial fibrillation Status: Acute (11) JANETH (acute kidney injury): Code(s): N17.9 - Acute kidney failure, unspecified Status: Acute Assessment and Plan: * Likely from infarct from LV thrombus * 11/04/2023 creatinine 1.2 * resolved Cr 1.1 (12) Renal infarct: Code(s): N28.0 - Ischemia and infarction of kidney Status: Acute (13) Left ventricular thrombus: Code(s): I51.3 - Intracardiac thrombosis, not elsewhere classified Status: Acute Assessment and Plan: On heparin [facility] is on hold due to thromb
--- NOTE | 2023-11-06 15:11 | PM.IMPN ---
Progress Note: A&P Assessment and Plan (1) Sepsis: Qualifiers: Sepsis type: sepsis due to unspecified organism Sepsis acute organ dysfunction status: with acute organ dysfunction Severe sepsis acute organ dysfunction type: acute renal failure Code(s): A41.9 - Sepsis, unspecified organism Status: Acute Assessment and Plan: Leukocytosis, tachycardia, respiratory failure, NO Pnuemonia per CT chest, Blood culture positive for S epidermidis, sensitive to Vancomycin Remove EJ line and culture the tip pending monitor, continue Vanc ECHO pending (2) Pneumonia: Qualifiers: Pneumonia type: due to unspecified organism Laterality: unspecified laterality Lung location: unspecified part of lung Qualified Code(s): J18.9 - Pneumonia, unspecified organism Code(s): J18.9 - Pneumonia, unspecified organism Status: Acute Assessment and Plan: Continue ceftriaxone 11/04/2023 discontinue azithromycin due to interaction with amiodarone and use doxycycline 11/04/2023 add vancomycin due to positive blood cultures with Gram-positive cocci in clusters No Pneumonia on CT chest, Abx discontinued (3) COPD (chronic obstructive pulmonary disease): Code(s): J44.9 - Chronic obstructive pulmonary disease, unspecified Status: Acute Assessment and Plan: Continue steroids bronchodilators and antibiotics Discussed with pulm this morning will start patient on trilogy tonight and possibly for home discharge Abg in the am patietn stable from pulmonology standpoint (4) Acute exacerbation of CHF (congestive heart failure): Code(s): I50.9 - Heart failure, unspecified Status: Acute Assessment and Plan: Continue IV Lasix cardiology on board (5) Acute hypercapnic respiratory failure: Code(s): J96.02 - Acute respiratory failure with hypercapnia Status: Acute Assessment and Plan: Continue oxygen and NIPPV per pulmonology (6) Elevated troponin: Code(s): R79.89 - Other specified abnormal findings of blood chemistry Status: Acute Assessment and Plan: LIKELY DEMAND RELATED DUE TO HYPOXIA AND TACHYCARDIA WITH POSSIBLE SEPSIS (7) Coronary artery disease: Code(s): I25.10 - Atherosclerotic heart disease of [place] coronary artery without angina pectoris Status: Acute Assessment and Plan: Currently without angina (8) Ischemic cardiomyopathy: Code(s): I25.5 - Ischemic cardiomyopathy Status: Acute (9) Obstructive sleep apnea on CPAP: Code(s): G47.33 - Obstructive sleep apnea (adult) (pediatric); Z99.89 - Dependence on other enabling machines and devices Status: Acute Assessment and Plan: continue PPV (10) Atrial fibrillation: Qualifiers: Atrial fibrillation type: paroxysmal Qualified Code(s): I48.0 - Paroxysmal atrial fibrillation Code(s): I48.91 - Unspecified atrial fibrillation Status: Acute (11) JANETH (acute kidney injury): Code(s): N17.9 - Acute kidney failure, unspecified Status: Acute Assessment and Plan: Likely from infarct from LV thrombus 11/04/2023 creatinine 1.2 resolved Cr 1.1 (12) Renal infarct: Code(s): N28.0 - Ischemia and infarction of kidney Status: Acute (13) Left ventricular thrombus: Code(s): I51.3 - Intracardiac thrombosis, not elsewhere classified Status: Acute Assessment and Plan: On heparin whcih is on hold due to thrombocytopenia below 50 today monitor Platelets and restart heparin if above 50 ECHO pending (14) Anemia: Code(s): D64.9 - Anemia, unspecified Status: Acute Assessment and Plan: R/o GI bleed GI consulted Protonix Subjective Date/time seen: 11/06/23 15:11 Interval history: Patient has had a recent complicated medical course Was discharged from [facility] after she was sent up there for possible ischem
--- NOTE | 2023-11-06 15:13 | WPDGICN ---
Assessment and Plan Assessment and plan (1) Melena: Code(s): K92.1 - Melena Status: Acute Assessment and Plan: she states that her stools have been black for past week or so. She is not sure if they are consistently so. She denies seeing red blood her stools. She had been on Eliquis but that has been held (2) Acute on chronic respiratory failure with hypoxia and hypercapnia: Code(s): J96.21 - Acute and chronic respiratory failure with hypoxia; J96.22 - Acute and chronic respiratory failure with hypercapnia Status: Acute Assessment and Plan: she has had several hospitalizations for this. This time she was started on systemic steroids as well as multiple antibiotics and inhalers. She had been on ceftriaxone. That has been held. Currently she is on vancomycin. (3) Atrial fibrillation: Qualifiers: Atrial fibrillation type: paroxysmal Qualified Code(s): I48.0 - Paroxysmal atrial fibrillation Code(s): I48.91 - Unspecified atrial fibrillation Status: Acute Assessment and Plan: She is chronically on Eliquis which has been held (4) Acute on chronic anemia: Code(s): D64.9 - Anemia, unspecified Status: Acute Assessment and Plan: hemoglobin on admission was 8.4 but it dropped to 6.0 yesterday. She has been transfused and hemoglobin is now up to 8.1. (5) Pulmonary emboli: Code(s): I26.99 - Other pulmonary embolism without acute cor pulmonale Status: Acute Assessment and Plan: CT scan which I reviewed reveals: IMPRESSION: 1. Severe emphysema. 2. Small pleural effusions. 3. Thrombus in left ventricle of the heart. 4. Deep vein thrombosis involving right internal jugular vein. No pulmonary embolus, but sensitivity is mildly decreased by motion artifact. 5. 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 6. 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 7. Mediastinal lymphadenopathy, likely reactive. 8. Small volume of ascites. Plan EGD and colonoscopy to be done tomorrow. I will hold heparin for 4 hours prior to the procedure GI Consult Note Consult date/time: 11/06/23 15:13 HPI: Lisa Díaz is a 63 year old female was admitted several days ago with an exacerbation of COPD. She apparently quit using tobacco altogether about 1 month ago. She has known have panlobular emphysema by CT scan. She came in this time with wheezing and COPD exacerbation requiring steroids. She has also been started on bronchodilators and broad-spectrum antibiotics as a Gram-positive cocci in her blood. He she states her breathing is much better. She had been on BiPAP and then 3 liters/minute by nasal cannula yesterday today she is not short of breath. She is a nasal cannula oxygen at 1 liter/minute. The patient has been found to be markedly anemic. Her hemoglobin on admission was 8.4 and then dropped yesterday to 6.0. She admits to having black stools for the past week or so. She is not sure they have all been black. She denies seeing red blood her stools. She cannot recall whether she has had a colonoscopy in the past. She has been found to have a thrombosis of the internal jugular vein has been started on heparin. She had been on Eliquis admission for atrial fibrillation but that has been held in view of the probable gastrointestinal bleeding. Review of Systems Review of Systems: All systems reviewed & are unremarkable except as noted in HPI and below [facility] Past Medical History Medical History Acute on chronic anemia Anxiety Cerebrovascular accident Residual expressive aphasia and right leg weakness. Chronic obstructive pulmonary disease Chronic respiratory failure with hypoxia, on home oxygen therapy Coronary artery disease Essential hypertension Hyperlipidemia Ischemic cardiomyopathy Statu
[2023-11-06] MEDS: polyethylene glycoL 3350 238 GM BOTTLE PO (16:13)
[2023-11-06 20:39] LABS: Basophils Percent Auto 0.1 % (0.2-1.2); Eosinophils Percent Auto 0.1 % (0-4.4); Hematocrit 26.3 % (37.0-47.0); Hemoglobin 8.1 g/dL (12.0-15.0); Immature Granulocyte Absolute 0.17 K/mm3 (0.00-0.031); Immature Granulocyte Percent A 1.1 % (0-0.5); Lymphocytes Absolute Auto 0.74 K/mm3 (0.9-3.2); Lymphocytes Percent Auto 4.8 % (18.3-44.2); Mean Corpuscular HGB Conc 30.8 g/dl (32-36); Mean Corpuscular Hemoglobin 29.8 pg (26-34); Mean Corpuscular Volume 96.7 fl (80-100); Mean Platelet Volume 13.6 fl (7.4-10.4); Monocytes Absolute Auto 0.7 K/mm3 (0.1-0.6); Monocytes Percent Auto 4.3 % (2.6-8.5); Neutrophils Absolute Auto 13.9 K/mm3 (1.3-6.7); Neutrophils Percent Auto 89.6 % (45.5-73.1); Nucleated Red Blood Cells Absolute Auto 0.9 K/mm3 (0.0-0.012); Nucleated Red Blood Cells Perc 5.6 % (0.0-0.2); Platelet Count Result 55 k/mm3 (150-375); Red Blood Count 2.72 M/mm3 (4.2-5.4); Red Cell Distribution Width 17.9 % (11.5-14.5); White Blood Count 15.5 K/mm3 (4.5-10.0)
[2023-11-06 20:49] LABS: Bacteria Urine 1+ /hpf; Need Manual Microscopic Reviewed; Non Pathogenic Casts 0-2; RBC Urine >100 /hpf (0-2)
[2023-11-06 21:01] LABS: Appearance Urine Turbid (Clear); Bilirubin Urine 1+ (Negative); Blood Urine 2+ (Negative); Color Urine Red (Yellow); Glucose Urine UA Negative (Negative); Ketones Urine Negative (Negative); Leukocyte Esterase Ur 2+ LEU/UL (NEGATIVE); Nitrate Urine Positive (Negative); Protein Urine 2+ mg/dL (Negative); Specific Grav Ur 1.036 (1.001-1.035)
[2023-11-06 21:06] LABS: Add Urine Microscopic? YES; Squamous Epithelial Cell Urine Occasional /hpf (Few)
[2023-11-06 21:20] LABS: Platelet Estimate Decreased (Adequate)
[2023-11-06 21:21] LABS: Anisocytosis 2+ (NORMAL); Hypochromasia 1+ (NORMAL); Macrocytosis 1+ (NORMAL); Ovalocytes 1+ (NORMAL); Poikilocytosis 1+ (NORMAL); Schistocytes None Seen (NORMAL)
[2023-11-06] MEDS: BISACODYL 5 MG TABLET EC 15 MG PO (23:00)
--- NOTE | 2023-11-06 23:23 | PCRCNOTE ---
RT applied pt home AVAPS unit at 2245 along with overnight oximetry study ordered by Dr. Landry. RN called RT at 2305 informing her that patient has Colonoscopy prep overnight for the procedure tomorrow, 11/07/23, therefore staff will be in and out of the patients room for the prep. Overnight oximetry study was stopped at 23:30. Will attempt overnight oximetry while pt is on PAP unit on 11/07/2023.
[2023-11-07] VITALS (35 sets, daily range): BP systolic 95–119; BP diastolic 44–77; PULSE 63–78; RESP 16–25; TEMP 36.5–36.9; O2SAT 90–100
[2023-11-07] MEDS: IPRATROPIUM BR 0.02% INH SOLN 0.5 MG/2.5 ML VIAL INHALATION ×5 (04:30→20:41)
[2023-11-07] MEDS: ALBUTEROL SULFATE NEB 2.5 MG/3 ML INH INHALATION ×5 (04:31→20:41)
[2023-11-07 04:40] LABS: Basophils Percent Auto 0.1 % (0.2-1.2); Eosinophils Percent Auto 0.1 % (0-4.4); Hematocrit 26.2 % (37.0-47.0); Immature Granulocyte Absolute 0.11 K/mm3 (0.00-0.031); Immature Granulocyte Percent A 0.8 % (0-0.5); Immature Platelet Fraction Pct 13.5 % (0.9-11.2); Lymphocytes Absolute Auto 0.88 K/mm3 (0.9-3.2); Lymphocytes Percent Auto 6.3 % (18.3-44.2); Mean Corpuscular HGB Conc 30.5 g/dl (32-36); Mean Corpuscular Hemoglobin 29.9 pg (26-34); Mean Corpuscular Volume 97.8 fl (80-100); Mean Platelet Volume 11.7 fl (7.4-10.4); Monocytes Absolute Auto 0.6 K/mm3 (0.1-0.6); Neutrophils Absolute Auto 12.4 K/mm3 (1.3-6.7); Neutrophils Percent Auto 88.7 % (45.5-73.1); Nucleated Red Blood Cells Absolute Auto 0.6 K/mm3 (0.0-0.012); Nucleated Red Blood Cells Perc 4.2 % (0.0-0.2); Platelet Count Result 34 k/mm3 (150-375); Red Blood Count 2.68 M/mm3 (4.2-5.4); Red Cell Distribution Width 18.2 % (11.5-14.5)
[2023-11-07 04:48] LABS: Alanine Aminotransferase 42 U/L (6-35); Alkaline Phosphatase 83 U/L (38-126); Anion Gap 5 mmol/L (8-16); Aspartate Amino Transferase 32 U/L (14-36); Bilirubin,Total 0.6 mg/dL (0.2-1.3); Blood Urea Nitrogen 33 mg/dL (7-17); Calcium 7.6 mg/dL (8.4-10.2); Carbon Dioxide 28 mmol/L (22-30); Chloride 103 mmol/L (98-107); Estimated CRCL calculation 40 ml/min; Estimated Glomerular Filt Rate > 60; Glucose 82 mg/dL (65-110); Potassium 3.2 mmol/L (3.4-5.0); Sodium 136 mmol/L (137-145)
[2023-11-07] MEDS: MAGNESIUM CITRATE 300 ML BTL 180 ML PO (04:59)
[2023-11-07 05:15] LABS: Anisocytosis 2+ (NORMAL); Hypochromasia 1+ (NORMAL); Macrocytosis 1+ (NORMAL); Ovalocytes 1+ (NORMAL); Platelet Estimate Decreased (Adequate); Poikilocytosis 1+ (NORMAL); Schistocytes None Seen (NORMAL)
[2023-11-07 05:22] LABS: Vancomycin Trough 7.3 ug/mL (10.0-20.0)
--- NOTE | 2023-11-07 05:38 | PCRCNOTE ---
Pt did not wear home PAP overnight due to colonoscopy prep needed. Therefore no overnight oximetry was obtained. ABG was scheduled for 0600 on 11/07/2023. RT attempted to call Dr Landry regarding if ABG was needed or not for this morning when not wearing PAP unit. RT was unable to reach doctor. RT attempted to draw ABG, however was unable to obtain enough blood for sample. Will let day shift therapist know.
[2023-11-07] MEDS: VANCOMYCIN 750 MG/NS 250 ML 750 MG/250 ML BAG 250 MG IVPB (05:40)
[2023-11-07] MEDS: CENTRAL LINE FLUSH 10 ML IV PUSH ×2 (05:41→20:50)
[2023-11-07] MEDS: BUDESONIDE RESPULE NEB 0.5 MG/2 ML AMP INHALATION ×2 (07:07→20:42)
[2023-11-07] MEDS: MAGNESIUM CITRATE 300 ML BTL 150 ML PO (07:52)
[2023-11-07] MEDS: FERROUS GLUCONATE 324 MG TABLET PO (07:53)
[2023-11-07] MEDS: GABAPENTIN 400 MG CAPSULE PO ×2 (08:02→17:27)
[2023-11-07] MEDS: AMIODARONE HCL 200 MG TABLET PO ×2 (08:03→17:27)
[2023-11-07] MEDS: ROFLUMILAST 500 MCG TABLET PO (08:03)
[2023-11-07] MEDS: ASPIRIN 81 MG ENTERIC TABLET PO (08:03)
[2023-11-07] MEDS: METOPROLOL SUCCINATE EXT REL 100 MG TABCR PO (08:03)
[2023-11-07] MEDS: PANTOPRAZOLE SODIUM IV 40 MG VIAL IV PUSH ×2 (08:03→20:50)
--- NOTE | 2023-11-07 08:19 | PM.PNPUL ---
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 Lung volumes show evidence of air trapping and hyperinflation. Diffusion capacity was not able to be performed. With chronic hypoxemia on 1 L at rest and 2 L with ambulation, hypercarbic respiratory failure requiring noninvasive ventilator previously on iVAPS mode when sleeps but was noncompliant and her [employer] a HS removed the machine. Recently prescribed a noninvasive and invasive ventilation her through a [employer] via med on 10/22/2023 Patient admitted now with wheezing and treated for COPD exacerbation with Solu-Medrol, bronchodilators, ceftriaxone, vancomycin and doxycycline for Gram-positive cocci in her blood. 11/05/23: Today the patient tells me that she is breathing normal. She denies cough, phlegm production. Her shortness of breath at rest is at her baseline. Her BNP has improved to 7200. Her creatinine is 1.1. Currently she is on 3 L nasal cannula her saturations were 100%. I decreased her to 1 L and her saturations remained 95%. Patient wore BiPAP rate of 16 pressures 12/6 with 28% FiO2 last night. At 4:00 a.m. she was changed to 2 L nasal and at 5:26 a.m. she had a blood gas of 7.50/37/69. Plan: Given she has no wheezing and she has bacteremia will discontinue the IV steroids. I will place her on nebulized budesonide 500 mcg b.i.d., will increase the frequency of her albuterol and ipratropium nebulizers from q.6 hours to q.4 hours. Patient is also being treated for community-acquired pneumonia with ceftriaxone, day 3, doxycycline, day 2 and vancomycin, day 3. Her oxygenation has improved and I decreased her to 1 L nasal cannula and her saturations were 96%. 11/06/23: Patient tells me she is breathing back to her normal. She denies cough, phlegm or hemoptysis. No wheezes. She is on 1 L nasal cannula at rest with saturations 99%. Plan: Patient has remained stable off of systemic steroids since yesterday. Continue nebulized albuterol, ipratropium and budesonide. Patient has mild atelectasis on her CT scan but no evidence of a focal bacterial infection patient does not require antibiotics from a pulmonary perspective. 11/07/23: Patient tells me she is breathing at her baseline. Denies cough, phlegm or hemoptysis. White blood cell count 14.0, creatinine 0.9. Hemoglobin is 8.0. Platelets are 34,000. patient is having a EGD and colonoscopy today and did not wear her home noninvasive ventilator last night because of the colonoscopy prep. Currently she is on 1 L nasal cannula saturations 97%. Plan: No wheezing on exam. I will continue nebulized albuterol, ipratropium budesonide. Discussed with Froy, will follow with you. (2) Chronic respiratory failure with hypoxia and hypercapnia: Code(s): J96.11 - Chronic respiratory failure with hypoxia; J96.12 - Chronic respiratory failure with hypercapnia Status: Acute Assessment and Plan: Patient has chronic hypoxemic respiratory failure and her last home O2 assessment on 10/26/2023 demonstrated rest 1 L, exertion 2 L. Patient has chronic hypercarbic respiratory failure and previously was on a noninvasive ventilator and was re-initiated on a home noninvasive ventilator through via med on 10/22/2023. 11/05/22: Patient wore BiPAP rate of 16 pressures 10/10 with 28% FiO2 last night. At 4:00 a.m. she was changed to 2 L nasal and at 5:26 a.m. she had a blood gas of 7.50/37/69. The patient told me the BiPAP was uncomfortable and she could not tolerate the pressures. I placed her on a noninvasi
--- NOTE | 2023-11-07 08:35 | PCOTNOTE ---
Attempted to see Patient this A.M. Patient refused to participate and is going to have a colonoscopy this date. Notified RN. RN stated, she is not surprised, Patient is not motivated to participate with any activity most of the time.
--- NOTE | 2023-11-07 11:30 | PC.NURSE ---
BP 99/53. Pt resting with eyes closed. Easily awakens to verbal stimuli. Denies dizziness or lightheadedness. Dr. Rojo made aware. Advised to give am dose of Entresto.
[2023-11-07] MEDS: SACUBITRIL/VALSARTAN 12-13 MG TABLET 1 TAB PO ×2 (11:38→20:50)
[2023-11-07] MEDS: POTASSIUM CHLORIDE 20 MEQ PACKET (FOR LIQUID) PO (11:38)
--- NOTE | 2023-11-07 14:06 | WPDANESEPPF ---
Anes - Initial Pre Proc Eval Procedure: Operation Date: 11/07/23 14:30 Proposed Procedures p Esophagogastroduodenoscopy & Colonoscopy - Reji Yousif MD Date/Time: 11/07/23 14:06 Surgeon: Eulogio Kee MD Pre Op Diagnosis: CHF/COPD Exacerbation,Hypercapnic Resp Failure Patient Data Age: 63 Gender: F Height: 1.55 m Weight: 45.5 kg Last Vital Signs Temp 97.8 F 11/07/23 12:00 Pulse 73 11/07/23 12:00 Resp 20 11/07/23 12:00 BP 95/46 L 11/07/23 12:00 Pulse Ox 94 11/07/23 12:00 O2 Del Method Nasal Cannula 11/07/23 08:00 O2 Flow Rate 1 11/07/23 08:00 FiO2 24 11/07/23 01:36 Allergies Allergy/AdvReac Type Severity Reaction Status Date / Time strawberry Allergy Severe Hives Verified 11/03/23 04:09 Penicillins Allergy Unknown Unknown Verified 11/06/23 10:51 Home Medications Medication Instructions Recorded Confirmed Type aspirin 81 mg tablet,delayed 81 mg PO DAILY 10/01/19 11/03/23 History release (Adult Low Dose Aspirin) inhalational spacing device #1 ea 01/13/21 11/03/23 Rx (Aerochamber MV spacer) fluticasone fur. 100 mcg-umeclid 1 inh inhalation Q24H #60 ea 05/31/23 11/03/23 Rx 62.5 mcg-vilant 25 mcg inhalat.powder (Trelegy Ellipta) gabapentin 400 mg capsule 400 mg PO TID #90 caps 07/25/23 11/03/23 Rx Eliquis 5 mg PO BID 10/18/23 11/03/23 History amiodarone 200 mg tablet (Pacerone) 200 mg PO BID 10/18/23 11/03/23 History ipratropium bromide 17 17 mcg inhalation QID PRN 10/18/23 11/03/23 History mcg/actuation HFA aerosol inhaler Shortness Of Breath (Atrovent HFA) ferrous gluconate 324 mg (38 mg 324 mg PO DAILY@0800 #30 tabs 10/28/23 11/03/23 Rx iron) tablet metoprolol succinate 100 mg 100 mg PO QAM #30 tabs 10/28/23 11/03/23 Rx tablet,extended release 24 hr (Toprol XL) omeprazole 40 mg capsule,delayed 40 mg PO BID #60 caps 10/28/23 11/03/23 Rx release roflumilast 500 mcg tablet 500 mcg PO DAILY #30 tabs 10/28/23 11/03/23 Rx (Daliresp) sacubitril 24 mg-valsartan 26 mg See Rx Instructions .Route 10/28/23 11/03/23 Rx tablet .COMPLEX #30 tabs prednisone 20 mg tablet 20 mg PO DAILY@0800 11/04/23 11/04/23 History Laboratory Tests 11/06/23 11/06/23 11/06/23 14:10 20:15 20:24 WBC 17.3 H K/mm3 15.5 H K/mm3 (4.5-10.0) (4.5-10.0) RBC 2.81 L M/mm3 2.72 L M/mm3 (4.2-5.4) (4.2-5.4) Hgb 8.5 L g/dL 8.1 L g/dL (12.0-15.0) (12.0-15.0) Hct 27.2 L % 26.3 L % (37.0-47.0) (37.0-47.0) MCV 96.8 fl 96.7 fl (80-100) (80-100) MCH 30.2 pg 29.8 pg (26-34) (26-34) MCHC 31.3 L g/dl 30.8 L g/dl (32-36) (32-36) RDW 17.7 H % 17.9 H % (11.5-14.5) (11.5-14.5) Plt Count 47 L k/mm3 55 L k/mm3 (150-375) (150-375) MPV TNP 13.6 H fl (7.4-10.4) Immature Gran % (Auto) 0.8 H % 1.1 H % (0-0.5) (0-0.5) Neut % (Auto) 89.6 H % 89.6 H % (45.5-73.1) (45.5-73.1) Lymph % (Auto) 4.6 L % 4.8 L % (18.3-44.2) (18.3-44.2) [place] % (Auto) 4.8 % 4.3 % (2.6-8.5) (2.6-8.5) Eos % (Auto) 0.0 % 0.1 % (0-4.4) (0-4.4) Baso % (Auto) 0.2 % 0.1 L % (0.2-1.2) (0.2-1.2) Lymph # (Auto) 0.80 L K/mm3 0.74 L K/mm3 (0.9-3.2) (0.9-3.2) [place] # (Auto) 0.8 H K/mm3 0.7 H K/mm3 (0.1-0.6) (0.1-0.6) Eos # (Auto) 0.0 K/mm3 0.0 K/mm3 (0-0.3) (0-0.3) Baso # (Auto) 0.0 K/mm3 0.0 K/mm3 (0.0-0.1) (0.0-0.1) Abs Immat Gran (auto) 0.14 H K/mm3 0.17 H K/mm3 (0.00-0.031) (0.00-0.031) Absolute Neuts (auto) 15.5 H K/mm3 13.9 H K/mm3 (1.3-6.7) (1.3-6.7) Absolute Nucleated RBC 0.8 H K/mm3 0.9 H K/mm3 (0.0-0.012) (0.0-0.012) Nucleated RBC % 4.7 H % 5.6 H % (0.0-0.2) (0.0-0.2) Platelet Estimate Decreased Decreased (Adequate) (Adequate) % Immature Plt Fraction 9.1 % (0.9-11.2) Hypochromasia 1+ 1+ (NORMAL) (NORMAL) Po
[2023-11-07] MEDS: LACTATED RINGERS 1,000 ML 150 ML IV CONT (14:21)
--- NOTE | 2023-11-07 15:32 | SUR.OPER ---
EGD START: 1517; END: 1524. COLONOSCOPY START: 1531; END: 1544.
--- NOTE | 2023-11-07 15:42 | P.PNIM_ITS ---
Progress Note: A&P Assessment and Plan (1) Sepsis: Qualifiers: Sepsis type: sepsis due to unspecified organism Sepsis acute organ dysfunction status: with acute organ dysfunction Severe sepsis acute organ dysfunction type: acute renal failure Code(s): A41.9 - Sepsis, unspecified organism Status: Acute Assessment and Plan: * Leukocytosis, tachycardia, respiratory failure, * NO Pnuemonia per CT chest, * Blood culture positive for S epidermidis, sensitive to Vancomycin * Removed EJ line * Repeat BCx NGTD * monitor, continue Vanc * ECHO: ef 30-35% with akinesis of the anterior wall. Grade I diastolic dysfunction. * Continue IV abx. (2) Pneumonia: Qualifiers: Pneumonia type: due to unspecified organism Laterality: unspecified laterality Lung location: unspecified part of lung Qualified Code(s): J18.9 - Pneumonia, unspecified organism Code(s): J18.9 - Pneumonia, unspecified organism Status: Acute Assessment and Plan: * Continue ceftriaxone * 11/04/2023 discontinue azithromycin due to interaction with amiodarone and use doxycycline * 11/04/2023 add vancomycin due to positive blood cultures with Gram-positive cocci in clusters * No Pneumonia on CT chest * PNA ruled out (3) COPD (chronic obstructive pulmonary disease): Code(s): J44.9 - Chronic obstructive pulmonary disease, unspecified Status: Acute Assessment and Plan: * Started on steroids bronchodilators and antibiotics * Pulmonary following * Plan for home NIV tonight. (4) Acute exacerbation of CHF (congestive heart failure): Code(s): I50.9 - Heart failure, unspecified Status: Acute Assessment and Plan: * Treated with IV Lasix * cardiology consulted * Echo as above. * Lasix off now. Continue Toprol XL and Entresto. (5) Acute hypercapnic respiratory failure: Code(s): J96.02 - Acute respiratory failure with hypercapnia Status: Acute Assessment and Plan: * Treated with oxygen and NIPPV per pulmonology * Resolving (6) Elevated troponin: Code(s): R79.89 - Other specified abnormal findings of blood chemistry Status: Acute Assessment and Plan: * Likely demand ischemia related to hypoxia and tachycrdia * Cards following. Medical management (7) Coronary artery disease: Code(s): I25.10 - Atherosclerotic heart disease of [place] coronary artery without angina pectoris Status: Acute Assessment and Plan: * Currently without angina (8) Ischemic cardiomyopathy: Code(s): I25.5 - Ischemic cardiomyopathy Status: Acute Assessment and Plan: As above. (9) Obstructive sleep apnea on CPAP: Code(s): G47.33 - Obstructive sleep apnea (adult) (pediatric); Z99.89 - Dependence on other enabling machines and devices Status: Acute Assessment and Plan: Per pulmonary. Continue NIV (10) Atrial fibrillation: Qualifiers: Atrial fibrillation type: paroxysmal Qualified Code(s): I48.0 - Paroxysmal atrial fibrillation Code(s): I48.91 - Unspecified atrial fibrillation Status: Acute Assessment and Plan: Monitor showing NSR. Continue Toprol XL. Off Heparin. Continue tele (11) JANETH (acute kidney injury): Code(s): N17.9 - Acute kidney failure, unspecified Status: Acute Assessment and Plan: CT scan showing acute on chronic renal infarcts.
--- NOTE | 2023-11-07 15:42 | PM.IMPN ---
Progress Note: A&P Assessment and Plan (1) Sepsis: Qualifiers: Sepsis type: sepsis due to unspecified organism Sepsis acute organ dysfunction status: with acute organ dysfunction Severe sepsis acute organ dysfunction type: acute renal failure Code(s): A41.9 - Sepsis, unspecified organism Status: Acute Assessment and Plan: Leukocytosis, tachycardia, respiratory failure, NO Pnuemonia per CT chest, Blood culture positive for S epidermidis, sensitive to Vancomycin Removed EJ line Repeat BCx NGTD monitor, continue Vanc ECHO: ef 30-35% with akinesis of the anterior wall. Grade I diastolic dysfunction. Continue IV abx. (2) Pneumonia: Qualifiers: Pneumonia type: due to unspecified organism Laterality: unspecified laterality Lung location: unspecified part of lung Qualified Code(s): J18.9 - Pneumonia, unspecified organism Code(s): J18.9 - Pneumonia, unspecified organism Status: Acute Assessment and Plan: Continue ceftriaxone 11/04/2023 discontinue azithromycin due to interaction with amiodarone and use doxycycline 11/04/2023 add vancomycin due to positive blood cultures with Gram-positive cocci in clusters No Pneumonia on CT chest PNA ruled out (3) COPD (chronic obstructive pulmonary disease): Code(s): J44.9 - Chronic obstructive pulmonary disease, unspecified Status: Acute Assessment and Plan: Started on steroids bronchodilators and antibiotics Pulmonary following Plan for home NIV tonight. (4) Acute exacerbation of CHF (congestive heart failure): Code(s): I50.9 - Heart failure, unspecified Status: Acute Assessment and Plan: Treated with IV Lasix cardiology consulted Echo as above. Lasix off now. Continue Toprol XL and Entresto. (5) Acute hypercapnic respiratory failure: Code(s): J96.02 - Acute respiratory failure with hypercapnia Status: Acute Assessment and Plan: Treated with oxygen and NIPPV per pulmonology Resolving (6) Elevated troponin: Code(s): R79.89 - Other specified abnormal findings of blood chemistry Status: Acute Assessment and Plan: Likely demand ischemia related to hypoxia and tachycrdia Cards following. Medical management (7) Coronary artery disease: Code(s): I25.10 - Atherosclerotic heart disease of [place] coronary artery without angina pectoris Status: Acute Assessment and Plan: Currently without angina (8) Ischemic cardiomyopathy: Code(s): I25.5 - Ischemic cardiomyopathy Status: Acute Assessment and Plan: As above. (9) Obstructive sleep apnea on CPAP: Code(s): G47.33 - Obstructive sleep apnea (adult) (pediatric); Z99.89 - Dependence on other enabling machines and devices Status: Acute Assessment and Plan: Per pulmonary. Continue NIV (10) Atrial fibrillation: Qualifiers: Atrial fibrillation type: paroxysmal Qualified Code(s): I48.0 - Paroxysmal atrial fibrillation Code(s): I48.91 - Unspecified atrial fibrillation Status: Acute Assessment and Plan: Monitor showing NSR. Continue Toprol XL. Off Heparin. Continue tele (11) JANETH (acute kidney injury): Code(s): N17.9 - Acute kidney failure, unspecified Status: Acute Assessment and Plan: CT scan showing acute on chronic renal infarcts. Likely from infarct from LV thrombus Cr today 0.9 (12) Renal infarct: Code(s): N28.0 - Ischemia and infarction of kidney Status: Acute Assessment and Plan: As above (13) Left ventricular thrombus: Code(s): I51.3 - Intracardiac thrombosis, not elsewhere classified Status: Acute Assessment and Plan: Was on heparin which is on hold due to thrombocytopenia below 50K Monitor Platelets and restart heparin if above 50 ECHO as above (14) Anemia:
--- NOTE | 2023-11-07 21:04 | ECG_ITS ---
Measurements Intervals [place] Rate: 75 P: 94 IN: 171 QRS: 211 QRSD: 101 T: 87 QT: 394 QTc: 441 Interpretive Statements SINUS RHYTHM VENTRICULAR PREMATURE COMPLEX LOW VOLTAGE IN LIMB LEADS LATERAL INFARCT, AGE INDETERMINATE INFERIOR INFARCT, AGE INDETERMINATE BORDERLINE T WAVE ABNORMALITY- HIGH LATERAL LEADS BASELINE ARTIFACT- I, V4-V5 ABNORMAL ECG COMPARED TO ECG 11/03/2023 12:16:28 SINUS RHYTHM NOW PRESENT Electronically Signed On 11-08-2023 6:47:26 [employer] by Julio Cesar Sandra D.O.
[2023-11-07 23:00] LABS: Basophils Percent Auto 0.1 % (0.2-1.2); Eosinophils Absolute Auto 0.1 K/mm3 (0-0.3); Eosinophils Percent Auto 0.5 % (0-4.4); Hemoglobin 7.7 g/dL (12.0-15.0); Immature Granulocyte Absolute 0.08 K/mm3 (0.00-0.031); Immature Granulocyte Percent A 0.6 % (0-0.5); Immature Platelet Fraction Pct 17.6 % (0.9-11.2); Lymphocytes Absolute Auto 0.93 K/mm3 (0.9-3.2); Lymphocytes Percent Auto 7.2 % (18.3-44.2); Mean Corpuscular HGB Conc 29.6 g/dl (32-36); Mean Corpuscular Hemoglobin 29.4 pg (26-34); Mean Corpuscular Volume 99.2 fl (80-100); Monocytes Absolute Auto 0.4 K/mm3 (0.1-0.6); Monocytes Percent Auto 3.1 % (2.6-8.5); Neutrophils Absolute Auto 11.5 K/mm3 (1.3-6.7); Neutrophils Percent Auto 88.5 % (45.5-73.1); Nucleated Red Blood Cells Absolute Auto 0.1 K/mm3 (0.0-0.012); Nucleated Red Blood Cells Perc 0.8 % (0.0-0.2); Red Blood Count 2.62 M/mm3 (4.2-5.4); Red Cell Distribution Width 19.2 % (11.5-14.5); White Blood Count 12.9 K/mm3 (4.5-10.0)
[2023-11-08] VITALS (17 sets, daily range): BP systolic 89–108; BP diastolic 46–57; PULSE 68–79; RESP 18–22; TEMP 36.4–37.1; O2SAT 90–100
[2023-11-08 00:09] LABS: Platelet Count Result 24 k/mm3 (150-375)
[2023-11-08 00:10] LABS: Anisocytosis 2+ (NORMAL); Hypochromasia 2+ (NORMAL); Platelet Estimate Decreased (Adequate)
[2023-11-08 00:11] LABS: Macrocytosis 1+ (NORMAL); Ovalocytes 1+ (NORMAL); Poikilocytosis 1+ (NORMAL); Schistocytes 1+ (NORMAL)
[2023-11-08] MEDS: VANCOMYCIN 750 MG/NS 250 ML 750 MG/250 ML BAG 250 MG IVPB ×2 (01:52→18:33)
--- NOTE | 2023-11-08 02:12 | PCRCNOTE ---
Patient did not receive 0000 updraft treatment due to being on an overnight oximetry study. RT will administer 0400 treatment @ 0500 when study is removed.
[2023-11-08] MEDS: CENTRAL LINE FLUSH 10 ML IV PUSH ×3 (05:09→20:57)
[2023-11-08 05:51] LABS: Alveolar/Arterial O2 Gradient 64.1 mmHg; Fractional Inspired Oxygen 21 %; Oxygen Content ABG 10.9 %vol (16.0-22.0); Oxygen Saturation ABG 89.3 % (95.0-100.0); PCO2 ABG 28.3 mmHg (35.0-45.0); PO2 ABG 51.7 mmHg (80.0-100.0); PO2 FiO2 Ratio Arterial Blood 2.46 %; pH ABG 7.467 (7.350-7.450)
[2023-11-08 05:52] LABS: Device CPAP; Oxyhemoglobin 86.2 % THb (90.0-100.0); Site Drawn LEFT BRACHIAL
--- NOTE | 2023-11-08 06:26 | PCRCNOTE ---
Patient did not receive her 0400 updraft treatment due to being on an overnight oximetry study. RT asked patient @ 0515 if she would like a treatment then or wait till 0800. Patient stated she will wait till treatments resume at 0800.
[2023-11-08 06:35] LABS: White Blood Count 12.9 K/mm3 (4.5-10.0)
[2023-11-08 06:36] LABS: Basophils Percent Auto 0.1 % (0.2-1.2); Eosinophils Percent Auto 0.2 % (0-4.4); Hematocrit 25.1 % (37.0-47.0); Hemoglobin 7.5 g/dL (12.0-15.0); Immature Granulocyte Percent A 0.8 % (0-0.5); Immature Platelet Fraction Pct 16.5 % (0.9-11.2); Lymphocytes Absolute Auto 0.97 K/mm3 (0.9-3.2); Lymphocytes Percent Auto 7.5 % (18.3-44.2); Mean Corpuscular HGB Conc 29.9 g/dl (32-36); Mean Corpuscular Hemoglobin 29.8 pg (26-34); Mean Corpuscular Volume 99.6 fl (80-100); Monocytes Absolute Auto 0.4 K/mm3 (0.1-0.6); Monocytes Percent Auto 2.7 % (2.6-8.5); Neutrophils Absolute Auto 11.5 K/mm3 (1.3-6.7); Neutrophils Percent Auto 88.7 % (45.5-73.1); Nucleated Red Blood Cells Absolute Auto 0.1 K/mm3 (0.0-0.012); Nucleated Red Blood Cells Perc 0.5 % (0.0-0.2); Red Blood Count 2.52 M/mm3 (4.2-5.4); Red Cell Distribution Width 19.3 % (11.5-14.5)
[2023-11-08 07:01] LABS: Alanine Aminotransferase 33 U/L (6-35); Albumin Level 1.9 g/dL (3.5-5.1); Alkaline Phosphatase 81 U/L (38-126); Anion Gap 4 mmol/L (8-16); Aspartate Amino Transferase 25 U/L (14-36); Bilirubin,Total 0.7 mg/dL (0.2-1.3); Blood Urea Nitrogen 20 mg/dL (7-17); Calcium 7.6 mg/dL (8.4-10.2); Carbon Dioxide 23 mmol/L (22-30); Chloride 110 mmol/L (98-107); Estimated CRCL calculation 39 ml/min; Estimated Glomerular Filt Rate > 60; Glucose 64 mg/dL (65-110); Phosphorus 2.8 mg/dL (2.5-4.5); Potassium 3.3 mmol/L (3.4-5.0); Sodium 137 mmol/L (137-145)
[2023-11-08 07:17] LABS: Platelet Count Result 24 k/mm3 (150-375)
[2023-11-08 07:18] LABS: Platelet Estimate Decreased (Adequate); Schistocytes 1+ (NORMAL)
[2023-11-08 07:19] LABS: Anisocytosis 1+ (NORMAL); Burr Cells 1+ (NORMAL); Hypochromasia 1+ (NORMAL); Ovalocytes 1+ (NORMAL); Poikilocytosis 1+ (NORMAL); Tear Drop Cells 1+ (NORMAL)
[2023-11-08] MEDS: BUDESONIDE RESPULE NEB 0.5 MG/2 ML AMP INHALATION (07:57)
[2023-11-08] MEDS: LEVALBUTEROL NEB 1.25 MG/3 ML 0.63 MG INHALATION (07:57)
[2023-11-08] MEDS: IPRATROPIUM BR 0.02% INH SOLN 0.5 MG/2.5 ML VIAL INHALATION (07:57)
[2023-11-08] MEDS: POTASSIUM CHLORIDE 20 MEQ PACKET (FOR LIQUID) 40 MEQ PO (09:07)
[2023-11-08] MEDS: AMIODARONE HCL 200 MG TABLET PO ×2 (09:08→16:48)
[2023-11-08] MEDS: GABAPENTIN 400 MG CAPSULE PO ×3 (09:08→16:48)
[2023-11-08] MEDS: ROFLUMILAST 500 MCG TABLET PO (09:08)
[2023-11-08] MEDS: PANTOPRAZOLE SODIUM IV 40 MG VIAL IV PUSH ×2 (09:08→20:56)
[2023-11-08] MEDS: SACUBITRIL/VALSARTAN 12-13 MG TABLET 1 TAB PO ×2 (09:08→20:56)
[2023-11-08] MEDS: METOPROLOL SUCCINATE EXT REL 100 MG TABCR PO (09:08)
[2023-11-08] MEDS: FERROUS GLUCONATE 324 MG TABLET PO (09:09)
--- NOTE | 2023-11-08 09:27 | PM.PNPUL ---
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 Lung volumes show evidence of air trapping and hyperinflation. Diffusion capacity was not able to be performed. With chronic hypoxemia on 1 L at rest and 2 L with ambulation, hypercarbic respiratory failure requiring noninvasive ventilator previously on iVAPS mode when sleeps but was noncompliant and her [employer] a HS removed the machine. Recently prescribed a noninvasive and invasive ventilation her through a [facility] via med on 10/22/2023 Patient admitted now with wheezing and treated for COPD exacerbation with Solu-Medrol, bronchodilators, ceftriaxone, vancomycin and doxycycline for Gram-positive cocci in her blood. 11/05/23: Today the patient tells me that she is breathing normal. She denies cough, phlegm production. Her shortness of breath at rest is at her baseline. Her BNP has improved to 7200. Her creatinine is 1.1. Currently she is on 3 L nasal cannula her saturations were 100%. I decreased her to 1 L and her saturations remained 95%. Patient wore BiPAP rate of 16 pressures 12/6 with 28% FiO2 last night. At 4:00 a.m. she was changed to 2 L nasal and at 5:26 a.m. she had a blood gas of 7.50/37/69. Plan: Given she has no wheezing and she has bacteremia will discontinue the IV steroids. I will place her on nebulized budesonide 500 mcg b.i.d., will increase the frequency of her albuterol and ipratropium nebulizers from q.6 hours to q.4 hours. Patient is also being treated for community-acquired pneumonia with ceftriaxone, day 3, doxycycline, day 2 and vancomycin, day 3. Her oxygenation has improved and I decreased her to 1 L nasal cannula and her saturations were 96%. 11/06/23: Patient tells me she is breathing back to her normal. She denies cough, phlegm or hemoptysis. No wheezes. She is on 1 L nasal cannula at rest with saturations 99%. Plan: Patient has remained stable off of systemic steroids since yesterday. Continue nebulized albuterol, ipratropium and budesonide. Patient has mild atelectasis on her CT scan but no evidence of a focal bacterial infection patient does not require antibiotics from a pulmonary perspective. 11/07/23: Patient tells me she is breathing at her baseline. Denies cough, phlegm or hemoptysis. White blood cell count 14.0, creatinine 0.9. Hemoglobin is 8.0. Platelets are 34,000. patient is having a EGD and colonoscopy today and did not wear her home noninvasive ventilator last night because of the colonoscopy prep. Currently she is on 1 L nasal cannula saturations 97%. Plan: No wheezing on exam. I will continue nebulized albuterol, ipratropium budesonide. 11/08/23: Patient currently tells me she has no respiratory issues. No cough, no phlegm or hemoptysis. No wheezing on exam. Currently the patient is on room air with saturations 91%. Plan: I will place patient on her home trelegy 100 and DC all nebulizers. Currently she is on room air. Will follow with you. (2) Chronic respiratory failure with hypoxia and hypercapnia: Code(s): J96.11 - Chronic respiratory failure with hypoxia; J96.12 - Chronic respiratory failure with hypercapnia Status: Acute Assessment and Plan: Patient has chronic hypoxemic respiratory failure and her last home O2 assessment on 10/26/2023 demonstrated rest 1 L, exertion 2 L. Patient has chronic hypercarbic respiratory failure and previously was on a noninvasive ventilator and was re-initiated on a home noninvasive ventilator through via med on 10/22/2023. 11/05/22: Patient w
--- NOTE | 2023-11-08 10:28 | PDONCCN ---
HPI - Date of Consult Date/Time: 11/08/23 16:57 <Jeremy Ortega - 11/08/23 17:05> 11/08/23 10:28 <Bruna Barrera - 11/08/23 10:34> Requesting Physician: Eulogio Kee MD <Jeremy Ortega - 11/08/23 17:05> Eulogio Kee MD <Bruna Barrera - 11/08/23 10:34> Primary Care Provider: Jim Yañez DO <Jeremy Ortega - 11/08/23 17:05> Jim Yañez DO <Bruna Barrera - 11/08/23 10:34> - Consult Narrative Reason for consult: Thrombus, anemia, thrombocytopenia <BruceBruna - 11/08/23 16:18> Narrative: Lisa Díaz is a 63 year old female <Jeremy Ortega - 11/08/23 17:05> Lisa Díaz is a 63 year old female with a past medical history of chronic anemia, COPD, CAD, HTN, pancreatitis, Afib. She was admitted for worsening shortness of breath on 11/03/23. She was found to have sepsis with gram + staph epi 02/06 bcx and a CHF exacerbation. Patient seems to be a poor historian and RN was available for questions. 11/06/23 Patient found to have right IJ thrombus, left ventricular thrombus (with acute renal infarcts and toe ischemia) and was started on IV heparin but then had a hemoglobin of 6.0 and heparin was stopped and she was transfused 1 unit of blood. Workup for etiology of anemia underway. It appears patient developed these thrombi on Eliquis. 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 Colonoscopy with diverticulosis without perforation or abscess, internal hemorrhoids and luminal colonic blood. EGD yesterday status post cauterization with recommendation for no aspirin or in NSAIDs for 5 days. Today, labs are notable for WBC 12.9, Hgb 7.5, Plt 24,0000, Cr 0.90. She denies SOB, bleeding in her stool, nausea/vomiting, or frequent infections. <Bruna Barrera - 11/08/23 10:34> Review of Systems - Review of Systems All systems reviewed & are unremarkable except as noted in HPI and bel <Bruna Barrera - 11/08/23 10:35> - Neurologic Reports system reviewed and no additional complaints, except as documented <Bruna Barrera - 11/08/23 10:34> [facility] Medical History: Medical History (Last Reviewed 11/06/23 @ 15:16 by Reji Yousif MD) Acute on chronic anemia Anxiety Cerebrovascular accident Residual expressive aphasia and right leg weakness. Chronic obstructive pulmonary disease Chronic respiratory failure with hypoxia, on home oxygen therapy Coronary artery disease Essential hypertension Hyperlipidemia Ischemic cardiomyopathy Status post PPM/AICD insertion. EF 20% on 10/08/2023 cath. 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 Tobacco dependence Vitamin D deficiency <Jeremy Ortega - 11/08/23 17:05> Medical History (Last Reviewed 11/06/23 @ 15:16 by Reji Yousif MD) Acute on chronic anemia Anxiety Cerebrovascular accident Residual expressive aphasia and right leg weakness. Chronic obstructive pulmonary disease Chronic respiratory failure with hypoxia, on home oxygen therapy Coronary artery disease Essential hypertension Hyperlipidemia Ischemic cardiomyopathy Status post PPM/AICD insertion. EF 20% on 10/08/2023 cath. Melena Myocardial infarction Obstructive sleep apnea on CPAP Pancreatitis Paroxysmal atrial fibrillation Peripheral artery disease Prediabetes Pulmonary emboli Systolic congestive heart failure Echocardiogram in August 2019 showed aneurysmal mid anterior and mi
[2023-11-08 10:57] LABS: Immature Reticulocyte Fraction 47.9 % (3.0-15.9); Reticulocyte Hemoglobin Conten 31.6 pg (28.2-35.7); Reticulocyte Percent 9.03 % (0.7-4.3); Reticulocytes Absolute 0.22 M/mm3 (0.02-0.1)
--- NOTE | 2023-11-08 11:04 | WPDANESPN ---
Anes - Prog Note Post-Op Date/Time: 11/08/23 11:04 Cardiovascular status: normal Respiratory status: normal Airway patency: baseline Mental status: baseline Post-Op hydration status: normal Vital Signs: Last Vital Signs Temp 36.8 C 11/08/23 08:00 Pulse 78 11/08/23 10:00 Resp 18 11/08/23 08:06 BP 95/49 L 11/08/23 08:00 Pulse Ox 100 11/08/23 08:00 O2 Del Method Room Air 11/08/23 08:00 O2 Flow Rate 2 11/07/23 16:11 FiO2 21 11/07/23 23:50 Pain Score (VAS): Patient asleep, no nonverbal signs of pain present at this time. I/O: Intake & Output 11/07/23 11/08/23 11/08/23 23:59 07:59 15:59 Intake Total 850 250 Output Total 250 150 Balance 600 100 Laboratory Tests 11/08/23 06:21 11/08/23 06:21 11/07/23 11/08/23 11/08/23 22:38 05:34 06:21 WBC 12.9 H 12.9 H RBC 2.62 L 2.52 L Hgb 7.7 L 7.5 L Hct 26.0 L 25.1 L MCV 99.2 99.6 MCH 29.4 29.8 MCHC 29.6 L 29.9 L RDW 19.2 H 19.3 H Plt Count 24 L* 24 L* MPV TNP TNP Immature Gran % (Auto) 0.6 H 0.8 H Neut % (Auto) 88.5 H 88.7 H Lymph % (Auto) 7.2 L 7.5 L [place] % (Auto) 3.1 2.7 Eos % (Auto) 0.5 0.2 Baso % (Auto) 0.1 L 0.1 L Lymph # (Auto) 0.93 0.97 [place] # (Auto) 0.4 0.4 Eos # (Auto) 0.1 0.0 Baso # (Auto) 0.0 0.0 Abs Immat Gran (auto) 0.08 H 0.10 H Absolute Neuts (auto) 11.5 H 11.5 H Absolute Nucleated RBC 0.1 H 0.1 H Nucleated RBC % 0.8 H 0.5 H Platelet Estimate Decreased Decreased % Immature Plt Fraction 17.6 H 16.5 H Hypochromasia 2+ 1+ Poikilocytosis 1+ 1+ Anisocytosis 2+ 1+ Macrocytosis 1+ Tear Drop Cells 1+ Ovalocytes 1+ 1+ Irene Cells 1+ Schistocytes 1+ 1+ ESR Pending Absolute Retic 0.22 H Percent Retic 9.03 H Immature Retic Fraction 47.9 H Retic Hgb Content 31.6 Puncture Site Left brachial ABG pH 7.467 H ABG pCO2 28.3 L ABG pO2 51.7 L ABG PO2/FiO2 Ratio 2.46 ABG HCO3 20.0 L ABG O2 Saturation 89.3 L ABG O2 Content 10.9 L ABG Base Excess -3.0 A-a Gradient 64.1 Oxyhemoglobin 86.2 L* Total Hemoglobin 9.0 L O2 Delivery Device Cpap O2 Liters/Min 0.0 FiO2 21 CPAP Not Reportable Sodium 137 Potassium 3.3 L Chloride 110 H Carbon Dioxide 23 Anion Gap 4 L BUN 20 H D Creatinine 0.90 Estim Creat Clear Calc 39 Estimated GFR > 60 Glucose 64 L Calcium 7.6 L Phosphorus 2.8 Magnesium 2.0 Total Bilirubin 0.7 AST 25 ALT 33 Alkaline Phosphatase 81 Lactate Dehydrogenase Pending C-Reactive Protein Pending Total Protein 4.0 L Albumin 1.9 L Post-procedural complaints: vomiting (Spoke with patients nurse, patient vomited once last night but issue has resolved) Patient Feedback: Patient satisfied with anesthetic care.
[2023-11-08 11:08] LABS: CRP 4.8 mg/dL (<1.0); Lactate Dehydrogenase 408 U/L (120-246)
[2023-11-08 11:43] LABS: Erythrocyte Sedimentation Rate 12 mm/hr (0-20)
[2023-11-08] MEDS: FLUTICASONE/UMECLIDIN/VILANTER 100-62.5-25 MCG ELLIPTA 1 PUFF INHALATION (12:07)
--- NOTE | 2023-11-08 12:49 | PM.PNCARD ---
Progress Note: A&P Assessment and Plan (1) Elevated troponin: Code(s): R79.89 - Other specified abnormal findings of blood chemistry Status: Acute Assessment and Plan: Troponins are mildly elevated but flat. EKG without significant changes (has baseline abnormal EKG). In the setting of acute on chronic hypercapnic respiratory failure, congestive heart failure, and sepsis with bacteremia. She does have chest pain, but it is easily reproducible on examination. At this time recommend medical management with ASA and statin. Treatment of underlying acute issues. (2) Sepsis: Qualifiers: Sepsis type: sepsis due to unspecified organism Sepsis acute organ dysfunction status: with acute organ dysfunction Severe sepsis acute organ dysfunction type: acute renal failure Code(s): A41.9 - Sepsis, unspecified organism Status: Acute Assessment and Plan: She is bacteremic. Blood cultures 11/03 positive for Staphylococcus epidermidis. Blood cultures from 11/04 are negative. Treatment as per primary team. (3) COPD (chronic obstructive pulmonary disease): Code(s): J44.9 - Chronic obstructive pulmonary disease, unspecified Status: Acute Assessment and Plan: Has known severe end-stage COPD. Management as per primary team. Pulmonary consulted. (4) Acute on chronic respiratory failure with hypoxia and hypercapnia: Code(s): J96.21 - Acute and chronic respiratory failure with hypoxia; J96.22 - Acute and chronic respiratory failure with hypercapnia Status: Acute Assessment and Plan: Treatment as per primary team. Pulmonary consulted. (5) Acute exacerbation of CHF (congestive heart failure): Code(s): I50.9 - Heart failure, unspecified Status: Acute Assessment and Plan: She now appears euvolemic. I am going to start oral Lasix to keep her euvolemic. Continue with Toprol, Entresto. (6) Atrial fibrillation: Qualifiers: Atrial fibrillation type: paroxysmal Qualified Code(s): I48.0 - Paroxysmal atrial fibrillation Code(s): I48.91 - Unspecified atrial fibrillation Status: Acute Assessment and Plan: Presented in rate controlled AFIB. Tele currently with sinus rhythm. 11/04, she had wide complex tachycardia that lasted for about 5 minutes. She was asymptomatic with it. Tele review shows irregular wide complex tachycardia. Remained hemodynamically stable. Given the irregularity to it, I suspect it was AFIB with RVR with abberancy rather than VT. She does have an ICD in place. ICD interrogated, no ventricular arrhythmia seen on 11/04, the last event I see was on 10/07. Overnight, she did have an episode of sustained regular wide complex tachycardia with rate in the 130s. This started during a breathing treatment. Lasted for 3 minutes. Hard to tell if this was SVT or slow VT. She is already on Amiodarone and Metoprolol. Hesitant to increase her beta mayela more given her severe COPD status. Her potassium level is 3.3. Recommend to keep her potassium level close to 4. Getting potassium replacement today, recheck potassium level this afternoon. (7) Coronary artery disease: Code(s): I25.10 - Atherosclerotic heart disease of [place] coronary artery without angina pectoris Status: Acute Assessment and Plan: Continue ASA. (8) Left ventricular thrombus: Code(s): I51.3 - Intracardiac thrombosis, not elsewhere classified Status: Acute Assessment and Plan: CT Chest/Abdomen/Pelvis done 11/05 shows old infarct in LV involving the anterior and septal owusu and apex with adjacent thrombus. There is also a DVT in the right internal jugular vein. LV thrombus measuring 1.99 x 1.37cm on echo. Needs anticoagulation to reduce risk of systemic embolization, including stroke. 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 I discussed with Dr. Yousif -- he is okay with restarting
[2023-11-08] MEDS: FUROSEMIDE 20 MG TABLET PO (13:42)
--- NOTE | 2023-11-08 14:15 | PCOTNOTE ---
Attempted to see Patient this afternoon. Patient refused to participate in any activity. Patient stated, I'm fine just like this, leave me alone .
[2023-11-08 14:20] LABS: Basophils Percent Auto 0.1 % (0.2-1.2); Eosinophils Percent Auto 0.3 % (0-4.4); Hematocrit 24.7 % (37.0-47.0); Hemoglobin 7.6 g/dL (12.0-15.0); Immature Granulocyte Absolute 0.09 K/mm3 (0.00-0.031); Immature Granulocyte Percent A 0.7 % (0-0.5); Immature Platelet Fraction Pct 16.8 % (0.9-11.2); Lymphocytes Absolute Auto 0.98 K/mm3 (0.9-3.2); Lymphocytes Percent Auto 7.3 % (18.3-44.2); Mean Corpuscular HGB Conc 30.8 g/dl (32-36); Mean Corpuscular Hemoglobin 29.9 pg (26-34); Mean Corpuscular Volume 97.2 fl (80-100); Monocytes Absolute Auto 0.3 K/mm3 (0.1-0.6); Monocytes Percent Auto 2.5 % (2.6-8.5); Neutrophils Absolute Auto 11.9 K/mm3 (1.3-6.7); Neutrophils Percent Auto 89.1 % (45.5-73.1); Nucleated Red Blood Cells Absolute Auto 0.1 K/mm3 (0.0-0.012); Nucleated Red Blood Cells Perc 0.4 % (0.0-0.2); Red Blood Count 2.54 M/mm3 (4.2-5.4); Red Cell Distribution Width 19.4 % (11.5-14.5); White Blood Count 13.4 K/mm3 (4.5-10.0)
[2023-11-08 14:33] LABS: Platelet Count Result 22 k/mm3 (150-375)
[2023-11-08 14:42] LABS: Potassium 3.6 mmol/L (3.4-5.0)
--- NOTE | 2023-11-08 15:01 | PCPTNOTE ---
Patient refused treatment this session. Patient did not give reason why. RN aware.
--- NOTE | 2023-11-08 17:07 | PM.IMPN ---
Progress Note: A&P Assessment and Plan (1) Sepsis: Qualifiers: Sepsis type: sepsis due to unspecified organism Sepsis acute organ dysfunction status: with acute organ dysfunction Severe sepsis acute organ dysfunction type: acute renal failure Code(s): A41.9 - Sepsis, unspecified organism Status: Acute Assessment and Plan: Present on admission with leukocytosis, tachycardia, respiratory failure. No Pneumonia by CT chest. Abx started. 11/04/2023 discontinue azithromycin due to interaction with amiodarone. Vancomycin added due to positive blood cultures 11/04 BCx positive for S epidermidis, sensitive to Vancomycin EJ line removed and cultured: Culture showing Staph Epi as well. ECHO: EF 30-35% with akinesis of the anterior wall. Grade I diastolic dysfunction. -Repeat BCx NGTD -WBC trending down Continue IV abx Continue to monitor. (2) Anemia: Code(s): D64.9 - Anemia, unspecified Status: Acute Assessment and Plan: Hgb dropped to 6.0 and received transfusion 11/05/23 GI consulted and appreciate their input. Protonix IV started EGD 11/07 showing hiatal hernia and gastric angioectasia (GAVE) s/p cauterization [place] 11/07 showing diverticulosis and internal hemorrhoids. There was a small amount of dried blood seen throughout the colon. Anemia probably related to gastric angioectasia. Consider SB AVMs Hgb stable in the 7 range. THONG negative. B12/Folate normal. Iron studies normal except low TICB (relatd to her low protein). Spot Uprotein jazmín be abnormal gvien the hematuria Monitor H&H and transfuse as needed. Continue Protonix (3) Left ventricular thrombus: Code(s): I51.3 - Intracardiac thrombosis, not elsewhere classified Status: Acute Assessment and Plan: Echo showing EF 30-35% with LV apical thrombus 1.9 x 1.4cm. Was on heparin which was held due to thrombocytopenia below 50K Monitor Platelets and restart heparin if above 50 (4) Thrombocytopenia: Code(s): D69.6 - Thrombocytopenia, unspecified Status: Acute Assessment and Plan: Patient with normal plt count up until October 2023. B12 level normal. Platelet count dropped to 22K today. Hematology consulted. Related to sepsis and consumption? BERENICE pending Heparin induced Plt Ab negative. Transfuse if Plt<20K or bleeding. (5) Acute exacerbation of CHF (congestive heart failure): Code(s): I50.9 - Heart failure, unspecified Status: Acute Assessment and Plan: Noted to have acute on chronic systolic and diastolic CHF. Treated with IV Lasix Cardiology consulted Echo as above. Lasix off now. Continue Toprol XL and Entresto. (6) Pulmonary emboli: Code(s): I26.99 - Other pulmonary embolism without acute cor pulmonale Status: Acute Assessment and Plan: Patient was hospitalized 10/18-10/28 for SOB and found to have single small segmental PE in the RUL 10/19. LE venous dopplers were negative for DVT 10/20. Not discharged on anticoagulation due to low plt and anemia. Repeat LE venous dopplers were negative for DVT 10/30. CTA Chest 11/05 showing DVT involving Rt internal jugular vein but no PE. Anticoagulation on hold As above. (7) Acute hypercapnic respiratory failure: Code(s): J96.02 - Acute respiratory failure with hypercapnia Status: Acute Assessment and Plan: Treated with oxygen and NIPPV per pulmonology Resolving (8) Elevated troponin: Code(s): R79.89 - Other specified abnormal findings of blood chemistry Status: Acute Assessment and Plan: Likely demand ischemia related to hypoxia and tachycrdia Cards following. Medical management (9) COPD (chronic obstructive pulmonary disease): Code(s): J44.9 - Chronic obstructive pulmonary disease, unspecified Status: Acute Assessment and Plan: Started on steroids bronchodilators and antibiotics Pulmonary following Continue NIV
[2023-11-08 17:57] LABS: Vancomycin Trough 12.5 ug/mL (10.0-20.0)
[2023-11-09] VITALS (22 sets, daily range): BP systolic 98–130; BP diastolic 44–67; PULSE 64–80; RESP 16–22; TEMP 36.2–37; O2SAT 92–100
[2023-11-09 00:43] LABS: Basophils Percent Auto 0.1 % (0.2-1.2); Eosinophils Percent Auto 0.4 % (0-4.4); Hematocrit 22.3 % (37.0-47.0); Immature Granulocyte Absolute 0.07 K/mm3 (0.00-0.031); Immature Granulocyte Percent A 0.7 % (0-0.5); Immature Platelet Fraction Pct 16.7 % (0.9-11.2); Lymphocytes Absolute Auto 0.81 K/mm3 (0.9-3.2); Lymphocytes Percent Auto 7.6 % (18.3-44.2); Monocytes Absolute Auto 0.3 K/mm3 (0.1-0.6); Monocytes Percent Auto 2.9 % (2.6-8.5); Neutrophils Absolute Auto 9.4 K/mm3 (1.3-6.7); Neutrophils Percent Auto 88.3 % (45.5-73.1); Nucleated Red Blood Cells Perc 0.3 % (0.0-0.2); Red Blood Count 2.23 M/mm3 (4.2-5.4); Red Cell Distribution Width 19.4 % (11.5-14.5); White Blood Count 10.6 K/mm3 (4.5-10.0)
[2023-11-09 01:22] LABS: Hemoglobin 6.7 g/dL (12.0-15.0); Platelet Count Result 21 k/mm3 (150-375)
[2023-11-09 01:23] LABS: Hypochromasia 1+ (NORMAL); Platelet Estimate Decreased (Adequate); Polychromasia 1+ (NORMAL)
[2023-11-09 01:24] LABS: Anisocytosis 2+ (NORMAL); Poikilocytosis 1+ (NORMAL); Schistocytes 1+ (NORMAL)
[2023-11-09] MEDS: CENTRAL LINE FLUSH 10 ML IV PUSH ×3 (05:09→20:09)
[2023-11-09] MEDS: VANCOMYCIN 750 MG/NS 250 ML 750 MG/250 ML BAG 250 MG IVPB ×2 (05:10→20:08)
[2023-11-09 06:32] LABS: Basophils Percent Auto 0.1 % (0.2-1.2); Eosinophils Percent Auto 0.2 % (0-4.4); Hematocrit 23.7 % (37.0-47.0); Immature Granulocyte Absolute 0.08 K/mm3 (0.00-0.031); Immature Granulocyte Percent A 0.6 % (0-0.5); Immature Platelet Fraction Pct 15.8 % (0.9-11.2); Lymphocytes Absolute Auto 1.14 K/mm3 (0.9-3.2); Mean Corpuscular HGB Conc 29.5 g/dl (32-36); Mean Corpuscular Hemoglobin 29.7 pg (26-34); Mean Corpuscular Volume 100.4 fl (80-100); Monocytes Absolute Auto 0.4 K/mm3 (0.1-0.6); Monocytes Percent Auto 3.5 % (2.6-8.5); Neutrophils Absolute Auto 10.9 K/mm3 (1.3-6.7); Neutrophils Percent Auto 86.6 % (45.5-73.1); Nucleated Red Blood Cells Perc 0.2 % (0.0-0.2); Red Blood Count 2.36 M/mm3 (4.2-5.4); Red Cell Distribution Width 19.2 % (11.5-14.5); White Blood Count 12.6 K/mm3 (4.5-10.0)
[2023-11-09 06:46] LABS: Alanine Aminotransferase 31 U/L (6-35); Alkaline Phosphatase 81 U/L (38-126); Anion Gap 8 mmol/L (8-16); Aspartate Amino Transferase 28 U/L (14-36); Bilirubin,Total 0.9 mg/dL (0.2-1.3); Blood Urea Nitrogen 23 mg/dL (7-17); CRP 7.4 mg/dL (<1.0); Calcium 7.5 mg/dL (8.4-10.2); Carbon Dioxide 19 mmol/L (22-30); Chloride 113 mmol/L (98-107); Estimated CRCL calculation 39 ml/min; Estimated Glomerular Filt Rate > 60; Glucose 66 mg/dL (65-110); Lactate Dehydrogenase 467 U/L (120-246); Magnesium 1.9 mg/dL (1.6-2.3); Phosphorus 2.8 mg/dL (2.5-4.5); Potassium 3.5 mmol/L (3.4-5.0); Sodium 140 mmol/L (137-145)
[2023-11-09 06:56] LABS: Platelet Count Result 22 k/mm3 (150-375)
--- NOTE | 2023-11-09 07:32 | WPDGIPROGNO ---
Progress Note: A&P Assessment and Plan (1) Melena: Code(s): K92.1 - Melena Status: Acute Assessment and Plan: she states that her stools have been black for past week or so. She is not sure if they are consistently so. She denies seeing red blood her stools. She had been on Eliquis but that has been held (2) Acute on chronic respiratory failure with hypoxia and hypercapnia: Code(s): J96.21 - Acute and chronic respiratory failure with hypoxia; J96.22 - Acute and chronic respiratory failure with hypercapnia Status: Acute Assessment and Plan: she has had several hospitalizations for this. This time she was started on systemic steroids as well as multiple antibiotics and inhalers. She had been on ceftriaxone. That has been held. Currently she is on vancomycin. (3) Atrial fibrillation: Qualifiers: Atrial fibrillation type: paroxysmal Qualified Code(s): I48.0 - Paroxysmal atrial fibrillation Code(s): I48.91 - Unspecified atrial fibrillation Status: Acute Assessment and Plan: She is chronically on Eliquis which has been held (4) Acute on chronic anemia: Code(s): D64.9 - Anemia, unspecified Status: Acute Assessment and Plan: hemoglobin on admission was 8.4 but it dropped to 6.0 yesterday. She has been transfused and hemoglobin is now up to 8.1. (5) Pulmonary emboli: Code(s): I26.99 - Other pulmonary embolism without acute cor pulmonale Status: Acute Assessment and Plan: CT scan which I reviewed reveals: IMPRESSION: 1. Severe emphysema. 2. Small pleural effusions. 3. Thrombus in left ventricle of the heart. 4. Deep vein thrombosis involving right internal jugular vein. No pulmonary embolus, but sensitivity is mildly decreased by motion artifact. 5. 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 6. 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 7. Mediastinal lymphadenopathy, likely reactive. 8. Small volume of ascites. Plan Discussed case with Dr. Landry. She obviously needs to be anticoagulated because of the thrombus in her ventricle and right IJ from my perspective, in terms of her gastric findings she could be anticoagulated with low risk of bleeding. However given her platelet count her risk of bleeding of course is significantly higher. . Heme Onc is involved and will defer to their judgment. Subjective Date/time seen: 11/09/23 07:32 no further bleeding evident she is tolerating her diet. Exam Const: General: cooperative, ill appearing and other ( Looks older for her age) Orientation/consciousness: patient oriented x3 HENMT: Head: normal to inspection Ears: hearing grossly normal bilaterally Mouth: Yes Normal oral and palatal mucosa present Eyes: General: appearance normal, both eyes and all related structures Neck: Neck: normal visual inspection Chest: Chest palpation & inspection: normal inspection of the chest Resp: Effort & Inspection: normal respiratory effort Auscultation: clear to auscultation bilaterally Cardio: Rate: regular rate Rhythm: regular rhythm GI: Inspection: normal to inspection GI Palp: Yes abdominal tenderness ( diffuse and not localized in the lower abdomen), Yes No hepatosplenomegaly present and No Palpable mass present Auscultation: normal bowel sounds Skin: General skin exam: normal color and no jaundice Neuro: General: patient oriented x3 Speech: normal speech Objective Data Vital Signs Vital Signs: Vital Signs - 24 hr 11/08/23 07:58 11/08/23 07:50 11/08/23 08:06 Temperature Pulse Rate 71 76 Respiratory Rate 18 18 Blood Pressure Pulse Oximetry 95 Oxygen Delivery Room Air Oxygen Flow Rate 11/08/23 08:00 11/08/23 09:08 11/08/23 09:08 Temperature 36.8 C Pulse Rate 76 79 79 Respiratory Rate 22 H Blood Pressure 95/49 L Pulse Oximetry 93
[2023-11-09 07:38] LABS: Anisocytosis 2+ (NORMAL); Platelet Estimate Decreased (Adequate); Schistocytes 1+ (NORMAL)
[2023-11-09 07:39] LABS: Hypochromasia 2+ (NORMAL); Microcytosis 2+ (NORMAL)
[2023-11-09] MEDS: FERROUS GLUCONATE 324 MG TABLET PO (08:00)
[2023-11-09 08:04] LABS: Fibrinogen 118 mg/dl (215-510)
--- NOTE | 2023-11-09 09:00 | PCOTNOTE ---
Attempted this A.M. Patient only states, No, turns head and closes eyes . Therapist verbalized to Patient the importance of movement, Therapist was ignored.
[2023-11-09] MEDS: PANTOPRAZOLE SODIUM IV 40 MG VIAL IV PUSH ×2 (09:41→20:07)
[2023-11-09] MEDS: METOPROLOL SUCCINATE EXT REL 100 MG TABCR PO (09:41)
[2023-11-09] MEDS: AMIODARONE HCL 200 MG TABLET PO ×2 (09:41→17:22)
[2023-11-09] MEDS: FUROSEMIDE 20 MG TABLET PO (09:41)
[2023-11-09] MEDS: GABAPENTIN 400 MG CAPSULE PO ×3 (09:41→17:22)
[2023-11-09] MEDS: SACUBITRIL/VALSARTAN 12-13 MG TABLET 1 TAB PO (09:42)
[2023-11-09] MEDS: ROFLUMILAST 500 MCG TABLET PO (09:42)
--- NOTE | 2023-11-09 10:30 | PCPTNOTE ---
Patient refused treatment this session. Patient did not give reason why. Encouraged patient for participation, however patient closed her eyes and turned her head away.
--- NOTE | 2023-11-09 10:32 | PM.PNCARD ---
Progress Note: A&P Assessment and Plan (1) Acute exacerbation of CHF (congestive heart failure): Code(s): I50.9 - Heart failure, unspecified Status: Acute Assessment and Plan: She now appears euvolemic. Continue with Toprol XL, Entresto, and lasix. (2) Atrial fibrillation: Qualifiers: Atrial fibrillation type: paroxysmal Qualified Code(s): I48.0 - Paroxysmal atrial fibrillation Code(s): I48.91 - Unspecified atrial fibrillation Status: Acute Assessment and Plan: Presented in rate controlled AFIB. Tele currently with sinus rhythm. 11/04, she had wide complex tachycardia that lasted for about 5 minutes. She was asymptomatic with it. Tele review shows irregular wide complex tachycardia. Remained hemodynamically stable. Given the irregularity to it, I suspect it was AFIB with RVR with abberancy rather than VT. She does have an ICD in place. ICD interrogated, no ventricular arrhythmia seen on 11/04, the last event I see was on 10/07. Recommend keeping K+ close to 4.0. (3) Left ventricular thrombus: Code(s): I51.3 - Intracardiac thrombosis, not elsewhere classified Status: Acute Assessment and Plan: CT Chest/Abdomen/Pelvis done 11/05 shows old infarct in LV involving the anterior and septal owusu and apex with adjacent thrombus. There is also a DVT in the right internal jugular vein. LV thrombus measuring 1.99 x 1.37cm on echo. Needs anticoagulation to reduce risk of systemic embolization, including stroke. 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 GI ok with restarting anticoagulation as early as today. However, her Plt count is 22! Therefore cannot due to anticoagulation at this time until her platelet counts improve. Per hematology, no anticoagulation for now. (4) Elevated troponin: Code(s): R79.89 - Other specified abnormal findings of blood chemistry Status: Acute Assessment and Plan: Troponins are mildly elevated but flat. EKG without significant changes (has baseline abnormal EKG). In the setting of acute on chronic hypercapnic respiratory failure, congestive heart failure, and sepsis with bacteremia. She does have chest pain, but it is easily reproducible on examination. At this time recommend medical management with ASA and statin. Treatment of underlying acute issues. (5) Sepsis: Qualifiers: Sepsis acute organ dysfunction status: with acute organ dysfunction Sepsis type: sepsis due to unspecified organism Severe sepsis acute organ dysfunction type: acute renal failure Code(s): A41.9 - Sepsis, unspecified organism Status: Acute Assessment and Plan: She is bacteremic. Blood cultures 11/03 positive for Staphylococcus epidermidis. Blood cultures from 11/04 are negative. Treatment as per primary team. (6) COPD (chronic obstructive pulmonary disease): Code(s): J44.9 - Chronic obstructive pulmonary disease, unspecified Status: Acute Assessment and Plan: Has known severe end-stage COPD. Management as per primary team. Pulmonary consulted. (7) Acute on chronic respiratory failure with hypoxia and hypercapnia: Code(s): J96.21 - Acute and chronic respiratory failure with hypoxia; J96.22 - Acute and chronic respiratory failure with hypercapnia Status: Acute Assessment and Plan: Treatment as per primary team. Pulmonary consulted. (8) Coronary artery disease: Code(s): I25.10 - Atherosclerotic heart disease of [place] coronary artery without angina pectoris Status: Acute Assessment and Plan: Continue ASA. Subjective Date/time seen: 11/09/23 10:32 Interval history: Reason for visit: Congestive heart failure, elevated troponin HPI: We are consulted for elevated troponin. This is a 63 year old female with known paroxysmal atrial flutter, coronary artery disease s/p prior PCI to LAD, chronic systolic heart failure w
[2023-11-09] MEDS: FLUTICASONE/UMECLIDIN/VILANTER 100-62.5-25 MCG ELLIPTA 1 PUFF INHALATION (10:52)
[2023-11-09 11:06] LABS: Glucose Point of Care 87 mg/dl (65-105)
--- NOTE | 2023-11-09 12:06 | WPDMODSED ---
Moderate Sedation Note-Pt Data Patient Data Diagnosis: anemia and thrombocytopenia Present Complaint: anemia and thrombocytopenia Procedure to be performed/Plan: bone marrow biopsy Allergies Allergy/AdvReac Type Severity Reaction Status Date / Time strawberry Allergy Severe Hives Verified 11/07/23 14:11 Penicillins Allergy Unknown Unknown Verified 11/07/23 14:11 Home Medications Medication Instructions Recorded Confirmed Type aspirin 81 mg tablet,delayed 81 mg PO DAILY 10/01/19 11/03/23 History release (Adult Low Dose Aspirin) inhalational spacing device #1 ea 01/13/21 11/03/23 Rx (Aerochamber MV spacer) fluticasone fur. 100 mcg-umeclid 1 inh inhalation Q24H #60 ea 05/31/23 11/03/23 Rx 62.5 mcg-vilant 25 mcg inhalat.powder (Trelegy Ellipta) gabapentin 400 mg capsule 400 mg PO TID #90 caps 07/25/23 11/03/23 Rx Eliquis 5 mg PO BID 10/18/23 11/03/23 History amiodarone 200 mg tablet (Pacerone) 200 mg PO BID 10/18/23 11/03/23 History ipratropium bromide 17 17 mcg inhalation QID PRN 10/18/23 11/03/23 History mcg/actuation HFA aerosol inhaler Shortness Of Breath (Atrovent HFA) ferrous gluconate 324 mg (38 mg 324 mg PO DAILY@0800 #30 tabs 10/28/23 11/03/23 Rx iron) tablet metoprolol succinate 100 mg 100 mg PO QAM #30 tabs 10/28/23 11/03/23 Rx tablet,extended release 24 hr (Toprol XL) omeprazole 40 mg capsule,delayed 40 mg PO BID #60 caps 10/28/23 11/03/23 Rx release roflumilast 500 mcg tablet 500 mcg PO DAILY #30 tabs 10/28/23 11/03/23 Rx (Daliresp) sacubitril 24 mg-valsartan 26 mg See Rx Instructions .Route 10/28/23 11/03/23 Rx tablet .COMPLEX #30 tabs prednisone 20 mg tablet 20 mg PO DAILY@0800 11/04/23 11/04/23 History Current Medications: Active Medications Amiodarone HCl (Amiodarone Hcl 200 Mg Tablet) 200 mg PO BID SKIP Last Admin: 11/09/23 09:41 Dose: 200 mg Ferrous Gluconate (Ferrous Gluconate 324 Mg Tablet) 324 mg PO DAILY@0800 [facility] Last Admin: 11/08/23 09:09 Dose: 324 mg Fluticasone/Umeclidinium/Vilanterol (Fluticasone/Umeclidin/Vilanter 100-62.5-25 Mcg Ellipta) 1 puff INHALATION DAILYRT [facility] Last Admin: 11/09/23 10:52 Dose: 1 puff Furosemide (Furosemide 20 Mg Tablet) 20 mg PO DAILY [facility] Last Admin: 11/09/23 09:41 Dose: 20 mg Gabapentin (Gabapentin 400 Mg Capsule) 400 mg PO TID [facility] Last Admin: 11/09/23 09:41 Dose: 400 mg Vancomycin HCl (Vancomycin 750 Mg/Ns 250 Ml) 750 mg in 250 mls @ 250 mls/hr IVPB Q12H [facility] Last Infusion: 11/09/23 06:41 Dose: Infused Metoprolol Succinate (Metoprolol Succinate Ext Rel 100 Mg Tabcr) 100 mg PO QAM [facility] Last Admin: 11/09/23 09:41 Dose: 100 mg Miconazole Nitrate (Miconazole 2% Antifungal Ointment 56 Gm) 1 applic TOPICAL Q12HR [facility] Last Admin: 11/09/23 09:41 Dose: 1 applic Neomycin/Polymyxin/Bacitracin (Neomycin/Polymyxin/Bacitracin Ointment 15 Gm Tube) 1 applic TOPICAL PRN PRN PRN Reason: with dressing changes Pantoprazole Sodium (Pantoprazole Sodium Iv 40 Mg Vial) 40 mg IV PUSH Q12HR [facility] Last Admin: 11/09/23 09:41 Dose: 40 mg Roflumilast (Roflumilast 500 Mcg Tablet) 500 mcg PO DAILY [facility] Last Admin: 11/09/23 09:42 Dose: 500 mcg Sacubitril/Valsartan (Sacubitril/Valsartan 12-13 Mg Tablet) 1 tab PO Q12HR [facility] Last Admin: 11/09/23 09:42 Dose: 1 tab Sodium Chloride (Central Line Flush) 20 ml IV PUSH PRN PRN PRN Reason: after blood draws Sodium Chloride (Central Line Flush) 10 ml IV PUSH PRN PRN PRN Reason: with TPN bag changes Sodium Chloride (Central Line Flush) 10 ml IV PUSH Q8HR SKIP Last Admin: 11/09/23 05:09 Dose: 10 ml Sedation/Anesthesia: No previous sedation/anesthesia problems (including family history). PMFSH Past Medical History Medical History Acute on chronic anemia Anxiety Cerebrovascular accident Residual expressive aphasia and right leg weakness. Chronic obstructive pulmonary disease Chronic respiratory
--- NOTE | 2023-11-09 12:58 | PM.IMPN ---
Progress Note: A&P Assessment and Plan (1) Sepsis: Qualifiers: Sepsis type: sepsis due to unspecified organism Sepsis acute organ dysfunction status: with acute organ dysfunction Severe sepsis acute organ dysfunction type: acute renal failure Code(s): A41.9 - Sepsis, unspecified organism Status: Acute Assessment and Plan: Present on admission with leukocytosis, tachycardia, respiratory failure. No Pneumonia by CT chest. Abx started. 11/04/23 discontinue azithromycin due to interaction with amiodarone. Vancomycin added due to positive blood cultures 11/04 BCx positive for Staph Epidermidis, sensitive to Vancomycin EJ line removed and cultured: Culture showing Staph Epi as well. ECHO: EF 30-35% with akinesis of the anterior wall anterolateral wall and apex. Grade I diastolic dysfunction. Repeat BCx 11/04: NGTD Day 6 Vanco from negative cultures. -WBC back up Continue IV abx Continue to monitor. (2) Anemia: Code(s): D64.9 - Anemia, unspecified Status: Acute Assessment and Plan: Hgb dropped to 6.0 and received transfusion 11/05/23 GI consulted and appreciate their input. Protonix IV started EGD 11/07 showing hiatal hernia and gastric angioectasia (GAVE) s/p cauterization [place] 11/07 showing diverticulosis and internal hemorrhoids. There was a small amount of dried blood seen throughout the colon. THONG negative. B12/Folate normal. Iron studies normal except low TICB (relatd to her low protein). Spot Uprotein jazmín be abnormal gvien the hematuria Anemia probably related to gastric angioectasia. Consider SB AVMs Hgb stable in the 7 range. Monitor H&H and transfuse as needed. Continue Protonix (3) Left ventricular thrombus: Code(s): I51.3 - Intracardiac thrombosis, not elsewhere classified Status: Acute Assessment and Plan: Echo showing EF 30-35% with LV apical thrombus 1.9 x 1.4cm. Was on heparin which was held due to thrombocytopenia below 50K Monitor Platelets and restart heparin if above 50 (4) Thrombocytopenia: Code(s): D69.6 - Thrombocytopenia, unspecified Status: Acute Assessment and Plan: Patient with normal plt count up until October 2023. B12 level normal. Platelet count dropped to 22K today. Hematology consulted. Related to sepsis and consumption? BERENICE pending Heparin induced Plt Ab negative. Transfuse if Plt<20K or bleeding. Bone marrow bx ordered. Appreciate H/O input (5) Acute exacerbation of CHF (congestive heart failure): Code(s): I50.9 - Heart failure, unspecified Status: Acute Assessment and Plan: Noted to have acute on chronic systolic and diastolic CHF. Treated with IV Lasix Cardiology consulted Echo as above. Lasix off now. Continue Toprol XL and Entresto. (6) Pulmonary emboli: Code(s): I26.99 - Other pulmonary embolism without acute cor pulmonale Status: Acute Assessment and Plan: Patient was hospitalized 10/18-10/28 for SOB and found to have single small segmental PE in the RUL 10/19. LE venous dopplers were negative for DVT 10/20. Not discharged on anticoagulation due to low plt and anemia. Repeat LE venous dopplers were negative for DVT 10/30. CTA Chest 11/05 showing DVT involving Rt internal jugular vein but no PE. Anticoagulation on hold As above. (7) Acute hypercapnic respiratory failure: Code(s): J96.02 - Acute respiratory failure with hypercapnia Status: Acute Assessment and Plan: Treated with oxygen and NIPPV per pulmonology Resolving (8) Elevated troponin: Code(s): R79.89 - Other specified abnormal findings of blood chemistry Status: Acute Assessment and Plan: Likely elevated Trop demand ischemia related to hypoxia and tachycardia Cards following. Medical management (9) COPD (chronic obstructive pulmonary disease): Code(s): J44.9 - Chronic obstructive pulmonary disease, unspecified Status
--- NOTE | 2023-11-09 13:04 | PM.PNPUL ---
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 Lung volumes show evidence of air trapping and hyperinflation. Diffusion capacity was not able to be performed. With chronic hypoxemia on 1 L at rest and 2 L with ambulation, hypercarbic respiratory failure requiring noninvasive ventilator previously on iVAPS mode when sleeps but was noncompliant and her [employer] a HS removed the machine. Recently prescribed a noninvasive and invasive ventilation her through a [facility] via med on 10/22/2023 Patient admitted now with wheezing and treated for COPD exacerbation with Solu-Medrol, bronchodilators, ceftriaxone, vancomycin and doxycycline for Gram-positive cocci in her blood. 11/05/23: Today the patient tells me that she is breathing normal. She denies cough, phlegm production. Her shortness of breath at rest is at her baseline. Her BNP has improved to 7200. Her creatinine is 1.1. Currently she is on 3 L nasal cannula her saturations were 100%. I decreased her to 1 L and her saturations remained 95%. Patient wore BiPAP rate of 16 pressures 12/6 with 28% FiO2 last night. At 4:00 a.m. she was changed to 2 L nasal and at 5:26 a.m. she had a blood gas of 7.50/37/69. Plan: Given she has no wheezing and she has bacteremia will discontinue the IV steroids. I will place her on nebulized budesonide 500 mcg b.i.d., will increase the frequency of her albuterol and ipratropium nebulizers from q.6 hours to q.4 hours. Patient is also being treated for community-acquired pneumonia with ceftriaxone, day 3, doxycycline, day 2 and vancomycin, day 3. Her oxygenation has improved and I decreased her to 1 L nasal cannula and her saturations were 96%. 11/06/23: Patient tells me she is breathing back to her normal. She denies cough, phlegm or hemoptysis. No wheezes. She is on 1 L nasal cannula at rest with saturations 99%. Plan: Patient has remained stable off of systemic steroids since yesterday. Continue nebulized albuterol, ipratropium and budesonide. Patient has mild atelectasis on her CT scan but no evidence of a focal bacterial infection patient does not require antibiotics from a pulmonary perspective. 11/07/23: Patient tells me she is breathing at her baseline. Denies cough, phlegm or hemoptysis. White blood cell count 14.0, creatinine 0.9. Hemoglobin is 8.0. Platelets are 34,000. patient is having a EGD and colonoscopy today and did not wear her home noninvasive ventilator last night because of the colonoscopy prep. Currently she is on 1 L nasal cannula saturations 97%. Plan: No wheezing on exam. I will continue nebulized albuterol, ipratropium budesonide. 11/08/23: Patient currently tells me she has no respiratory issues. No cough, no phlegm or hemoptysis. No wheezing on exam. Currently the patient is on room air with saturations 91%. Plan: I will place patient on her home trelegy 100 and DC all nebulizers. Currently she is on room air. 11/09/23: No respiratory issues. No wheezing on exam. Patient is tolerating her home noninvasive ventilator at night. Currently she is on room air with saturations 92%. White blood cell count 12.6, hemoglobin 7.0, creatinine 0.9, platelets 63000. Weight is 44.4 kg. Plan: Patient with no respiratory complaints on her home dose of trelegy 100. From a pulmonary perspective patient is ready to be discharged on these pulmonary medications: Trilogy 100-62.5-25 at 1 puff q.day Daliresp 500 mcg p.o. q.day Albuterol 2 puffs q.4 hours p.r.n. shortness of breath or wheezing Oxygen at rest
--- NOTE | 2023-11-09 13:20 | PCOTNOTE ---
Per RN, Patient had a bone marrow biopsy done and is required to lay flat this afternoon. Patient not seen this afternoon.
[2023-11-10] VITALS (31 sets, daily range): BP systolic 92–141; BP diastolic 41–67; PULSE 61–82; RESP 16–32; TEMP 36.4–37.2; O2SAT 91–100
[2023-11-10 06:00] LABS: Basophils Percent Auto 0.2 % (0.2-1.2); Eosinophils Percent Auto 0.3 % (0-4.4); Hematocrit 23.2 % (37.0-47.0); Immature Granulocyte Absolute 0.09 K/mm3 (0.00-0.031); Immature Granulocyte Percent A 0.9 % (0-0.5); Immature Platelet Fraction Pct 27.2 % (0.9-11.2); Lymphocytes Absolute Auto 1.14 K/mm3 (0.9-3.2); Lymphocytes Percent Auto 10.8 % (18.3-44.2); Mean Corpuscular HGB Conc 28.9 g/dl (32-36); Mean Corpuscular Hemoglobin 29.4 pg (26-34); Mean Corpuscular Volume 101.8 fl (80-100); Monocytes Absolute Auto 0.5 K/mm3 (0.1-0.6); Monocytes Percent Auto 4.4 % (2.6-8.5); Neutrophils Absolute Auto 8.8 K/mm3 (1.3-6.7); Neutrophils Percent Auto 83.4 % (45.5-73.1); Nucleated Red Blood Cells Absolute Auto 0.2 K/mm3 (0.0-0.012); Nucleated Red Blood Cells Perc 1.5 % (0.0-0.2); Red Blood Count 2.28 M/mm3 (4.2-5.4); Red Cell Distribution Width 19.4 % (11.5-14.5); White Blood Count 10.6 K/mm3 (4.5-10.0)
[2023-11-10 06:08] LABS: Anion Gap 7 mmol/L (8-16); Blood Urea Nitrogen 34 mg/dL (7-17); Calcium 7.6 mg/dL (8.4-10.2); Carbon Dioxide 22 mmol/L (22-30); Chloride 114 mmol/L (98-107); Estimated CRCL calculation 30 ml/min; Estimated Glomerular Filt Rate 55; Glucose 95 mg/dL (65-110); Magnesium 1.9 mg/dL (1.6-2.3); Phosphorus 3.3 mg/dL (2.5-4.5); Potassium 3.6 mmol/L (3.4-5.0); Sodium 143 mmol/L (137-145)
[2023-11-10 06:23] LABS: Vancomycin Trough 25.7 ug/mL (10.0-20.0)
[2023-11-10] MEDS: CENTRAL LINE FLUSH 10 ML IV PUSH ×3 (06:26→20:02)
[2023-11-10 08:14] LABS: Hemoglobin 6.7 g/dL (12.0-15.0); Platelet Count Result 18 k/mm3 (150-375)
[2023-11-10 08:17] LABS: Acanthocytes 1+ (NORMAL); Anisocytosis 2+ (NORMAL); Helmet Cells 1+ (NORMAL); Hypochromasia 1+ (NORMAL); Platelet Estimate Decreased (Adequate); Schistocytes 1+ (NORMAL)
[2023-11-10] MEDS: FLUTICASONE/UMECLIDIN/VILANTER 100-62.5-25 MCG ELLIPTA 1 PUFF INHALATION (08:40)
[2023-11-10] MEDS: AMIODARONE HCL 200 MG TABLET PO ×2 (09:25→16:46)
[2023-11-10] MEDS: PANTOPRAZOLE SODIUM IV 40 MG VIAL IV PUSH ×2 (09:26→20:01)
[2023-11-10] MEDS: FERROUS GLUCONATE 324 MG TABLET PO (09:26)
[2023-11-10] MEDS: GABAPENTIN 400 MG CAPSULE PO ×3 (09:26→16:45)
[2023-11-10] MEDS: ROFLUMILAST 500 MCG TABLET PO (09:26)
[2023-11-10] MEDS: SODIUM CHLORIDE 0.9% IV 1,000 ML 40 ML IV CONT (09:50)
[2023-11-10] MEDS: SODIUM CHLORIDE 0.9% IV 250 ML 30 ML IV CONT (09:53)
[2023-11-10] MEDS: TUBING, BLOOD PLUM PUMP TUBING 1 EACH XX ×3 (11:12→14:30)
[2023-11-10] MEDS: SODIUM CHLORIDE 0.9% IV 250 ML 30 ML (14:30)
--- NOTE | 2023-11-10 16:09 | PCOTNOTE ---
Pt is unavailable at this time due to being with nursing for a batista procedure. Will continue per poc duration/frequency tomorrow.
[2023-11-10 18:07] LABS: Hematocrit 27.6 % (37.0-47.0); Hemoglobin 8.5 g/dL (12.0-15.0); Mean Corpuscular HGB Conc 30.8 g/dl (32-36); Mean Corpuscular Hemoglobin 29.7 pg (26-34); Mean Corpuscular Volume 96.5 fl (80-100); Mean Platelet Volume 9.2 fl (7.4-10.4); Platelet Count Result 118 k/mm3 (150-375); Red Blood Count 2.86 M/mm3 (4.2-5.4); Red Cell Distribution Width 17.3 % (11.5-14.5); White Blood Count 10.6 K/mm3 (4.5-10.0)
[2023-11-10 18:17] LABS: Anion Gap 6 mmol/L (8-16); Blood Urea Nitrogen 40 mg/dL (7-17); Calcium 7.8 mg/dL (8.4-10.2); Carbon Dioxide 23 mmol/L (22-30); Chloride 114 mmol/L (98-107); Estimated CRCL calculation 28 ml/min; Estimated Glomerular Filt Rate 50; Glucose 157 mg/dL (65-110); Potassium 3.2 mmol/L (3.4-5.0); Sodium 143 mmol/L (137-145)
[2023-11-10] MEDS: VANCOMYCIN 500 MG/NS 100 ML 500 MG/100 ML BAG 100 MG IVPB (18:21)
--- NOTE | 2023-11-10 18:23 | PM.IMPN ---
Progress Note: A&P Assessment and Plan (1) Sepsis: Qualifiers: Sepsis type: sepsis due to unspecified organism Sepsis acute organ dysfunction status: with acute organ dysfunction Severe sepsis acute organ dysfunction type: acute renal failure Code(s): A41.9 - Sepsis, unspecified organism Status: Acute Assessment and Plan: Present on admission with leukocytosis, tachycardia, respiratory failure. No Pneumonia by CT chest. Abx started. 11/04/23 discontinue azithromycin due to interaction with amiodarone. Vancomycin added due to positive blood cultures 11/04 BCx positive for Staph Epidermidis, sensitive to Vancomycin EJ line removed and cultured: Culture showing Staph Epi as well. ECHO: EF 30-35% with akinesis of the anterior wall anterolateral wall and apex. Grade I diastolic dysfunction. Repeat BCx 11/04: NGTD Day 7 Vanco from negative cultures. -WBC better Continue IV abx Continue to monitor. (2) Anemia: Code(s): D64.9 - Anemia, unspecified Status: Acute Assessment and Plan: Hgb dropped to 6.0 and received transfusion 11/05/23 GI consulted and appreciate their input. Protonix IV started EGD 11/07 showing hiatal hernia and gastric angioectasia (GAVE) s/p cauterization [place] 11/07 showing diverticulosis and internal hemorrhoids. There was a small amount of dried blood seen throughout the colon. THONG negative. B12/Folate normal. Iron studies normal except low TICB (relatd to her low protein). Spot Uprotein jazmín be abnormal gvien the hematuria Anemia probably related to gastric angioectasia. Consider SB AVMs Hgb dropped to 6.7 and transfusion ordered. Repeat 8.5 Monitor H&H and transfuse as needed. Continue Protonix (3) Left ventricular thrombus: Code(s): I51.3 - Intracardiac thrombosis, not elsewhere classified Status: Acute Assessment and Plan: Echo showing EF 30-35% with LV apical thrombus 1.9 x 1.4cm. Was on heparin which was held due to thrombocytopenia below 50K Monitor Platelets and restart heparin if above 50 (4) Thrombocytopenia: Code(s): D69.6 - Thrombocytopenia, unspecified Status: Acute Assessment and Plan: Patient with normal plt count up until October 2023. B12 level normal. Hematology consulted. Related to sepsis and consumption? BERENICE pending Heparin induced Plt Ab negative. Transfuse if Plt<20K or bleeding. Bone marrow bx 11/09: Path pending. Appreciate H/O input Platelet count dropped to 18K today and 2U ordered; repeat 118K! Follow and transfuse as needed (5) Acute exacerbation of CHF (congestive heart failure): Code(s): I50.9 - Heart failure, unspecified Status: Acute Assessment and Plan: Noted to have acute on chronic systolic and diastolic CHF. Treated with IV Lasix Cardiology consulted Echo as above. On lasix but stopped today due to rising Cr. Continue Toprol XL and Entresto with BP parameters. (6) Pulmonary emboli: Code(s): I26.99 - Other pulmonary embolism without acute cor pulmonale Status: Acute Assessment and Plan: Patient was hospitalized 10/18-10/28 for SOB and found to have single small segmental PE in the RUL 10/19. LE venous dopplers were negative for DVT 10/20. Not discharged on anticoagulation due to low plt and anemia. Repeat LE venous dopplers were negative for DVT 10/30. CTA Chest 11/05 showing DVT involving Rt internal jugular vein but no PE. Anticoagulation on hold As above. (7) Acute hypercapnic respiratory failure: Code(s): J96.02 - Acute respiratory failure with hypercapnia Status: Acute Assessment and Plan: Treated with oxygen and NIPPV per pulmonology Still needing O2 on occasion CXR today showing [id number] left pleural effusion with left basilar atelectasis versus pneumonia and COPD. Already on Vanco. Will monitor. Increase activity. Add IS. (8) Elevated troponin: Code(s): R79.89 - Other specified a
[2023-11-10 19:45] LABS: Haptoglobin 152 mg/dL (43-212)
[2023-11-10] MEDS: SACUBITRIL/VALSARTAN 12-13 MG TABLET 1 TAB PO (20:01)
[2023-11-11] VITALS (23 sets, daily range): BP systolic 103–143; BP diastolic 45–80; PULSE 66–87; RESP 14–22; TEMP 36.4–37.8; O2SAT 89–100
[2023-11-11 04:24] LABS: Appearance Urine Turbid (Clear); Bacteria Urine None Seen /hpf; Bilirubin Urine Negative (Negative); Blood Urine 3+ (Negative); Color Urine Dark Yellow (Yellow); Glucose Urine UA Negative (Negative); Ketones Urine Trace mg/dL (Negative); Leukocyte Esterase Ur 1+ LEU/UL (Negative); Nitrate Urine Negative (Negative); Non Pathogenic Casts 0-2; Protein Urine 3+ mg/dL (Negative); RBC Urine >100 /hpf (0-2); Specific Grav Ur 1.021 (1.001-1.035); Squamous Epithelial Cell Urine Few /hpf (Few); Urobilinogen Urine 0.2 mg/dL (<2.0); WBC Urine 51-100 /hpf; pH Urine 5.5 (5.0-9.0)
[2023-11-11 04:31] LABS: Add Urine Microscopic? YES
[2023-11-11 04:52] LABS: Basophils Percent Auto 0.3 % (0.2-1.2); Eosinophils Absolute Auto 0.1 K/mm3 (0-0.3); Eosinophils Percent Auto 0.7 % (0-4.4); Hematocrit 25.9 % (37.0-47.0); Hemoglobin 7.9 g/dL (12.0-15.0); Immature Granulocyte Absolute 0.17 K/mm3 (0.00-0.031); Immature Granulocyte Percent A 1.5 % (0-0.5); Immature Platelet Fraction Pct 6.9 % (0.9-11.2); Lymphocytes Absolute Auto 1.56 K/mm3 (0.9-3.2); Lymphocytes Percent Auto 14.1 % (18.3-44.2); Mean Corpuscular HGB Conc 30.5 g/dl (32-36); Mean Corpuscular Hemoglobin 29.4 pg (26-34); Mean Corpuscular Volume 96.3 fl (80-100); Mean Platelet Volume 9.5 fl (7.4-10.4); Monocytes Absolute Auto 0.7 K/mm3 (0.1-0.6); Monocytes Percent Auto 6.1 % (2.6-8.5); Neutrophils Absolute Auto 8.6 K/mm3 (1.3-6.7); Neutrophils Percent Auto 77.3 % (45.5-73.1); Nucleated Red Blood Cells Absolute Auto 0.5 K/mm3 (0.0-0.012); Nucleated Red Blood Cells Perc 4.5 % (0.0-0.2); Platelet Count Result 66 k/mm3 (150-375); Red Blood Count 2.69 M/mm3 (4.2-5.4); Red Cell Distribution Width 18.5 % (11.5-14.5); White Blood Count 11.1 K/mm3 (4.5-10.0)
[2023-11-11 05:04] LABS: Alanine Aminotransferase 25 U/L (6-35); Alkaline Phosphatase 85 U/L (38-126); Anion Gap 2 mmol/L (8-16); Aspartate Amino Transferase 35 U/L (14-36); Bilirubin,Total 1.6 mg/dL (0.2-1.3); Blood Urea Nitrogen 39 mg/dL (7-17); Calcium 7.7 mg/dL (8.4-10.2); Carbon Dioxide 25 mmol/L (22-30); Chloride 116 mmol/L (98-107); Estimated CRCL calculation 28 ml/min; Estimated Glomerular Filt Rate 50; Glucose 108 mg/dL (65-110); Magnesium 1.8 mg/dL (1.6-2.3); Phosphorus 2.6 mg/dL (2.5-4.5); Potassium 3.2 mmol/L (3.4-5.0); Sodium 143 mmol/L (137-145)
[2023-11-11 05:11] LABS: Anisocytosis 1+ (NORMAL); Platelet Estimate Decreased (Adequate); Schistocytes Rare (NORMAL)
[2023-11-11 05:12] LABS: Polychromasia 1+ (NORMAL)
[2023-11-11] MEDS: VANCOMYCIN 500 MG/NS 100 ML 500 MG/100 ML BAG 100 MG IVPB ×2 (06:43→18:32)
[2023-11-11] MEDS: CENTRAL LINE FLUSH 10 ML IV PUSH ×3 (06:46→22:51)
[2023-11-11] MEDS: FLUTICASONE/UMECLIDIN/VILANTER 100-62.5-25 MCG ELLIPTA 1 PUFF INHALATION (09:27)
[2023-11-11] MEDS: PANTOPRAZOLE SODIUM IV 40 MG VIAL IV PUSH ×2 (09:36→22:51)
[2023-11-11] MEDS: MAGNESIUM SULF 2 GM/WATER 50ML 2 GM/50 ML BAG IVPB (09:36)
[2023-11-11] MEDS: METOPROLOL SUCCINATE EXT REL 100 MG TABCR PO (09:36)
[2023-11-11] MEDS: SACUBITRIL/VALSARTAN 12-13 MG TABLET 1 TAB PO ×2 (09:37→22:51)
[2023-11-11] MEDS: GABAPENTIN 400 MG CAPSULE PO ×3 (09:37→16:31)
[2023-11-11] MEDS: AMIODARONE HCL 200 MG TABLET PO ×2 (09:37→16:31)
[2023-11-11] MEDS: FERROUS GLUCONATE 324 MG TABLET PO (09:37)
[2023-11-11] MEDS: POTASSIUM CHLORIDE 20 MEQ ER TABLET PO (09:37)
[2023-11-11] MEDS: ROFLUMILAST 500 MCG TABLET PO (09:37)
--- NOTE | 2023-11-11 10:44 | PM.PNCARD ---
Progress Note: A&P Assessment and Plan (1) Acute exacerbation of CHF (congestive heart failure): Code(s): I50.9 - Heart failure, unspecified Status: Acute Assessment and Plan: Currently euvolemic. Continue metoprolol succinate, sacubitril/valsartan and furosemide as needed. (2) Atrial fibrillation: Qualifiers: Atrial fibrillation type: paroxysmal Qualified Code(s): I48.0 - Paroxysmal atrial fibrillation Code(s): I48.91 - Unspecified atrial fibrillation Status: Acute Assessment and Plan: Currently in sinus rhythm. Not on anticoagulation due to at present due to anemia and thrombocytopenia. Continue amiodarone and beta-mayela. (3) Left ventricular thrombus: Code(s): I51.3 - Intracardiac thrombosis, not elsewhere classified Status: Acute Assessment and Plan: Currently not on anticoagulation due to anemia and thrombocytopenia. (4) Elevated troponin: Code(s): R79.89 - Other specified abnormal findings of blood chemistry Status: Acute Assessment and Plan: Likely type 2 [place]. (5) Sepsis: Qualifiers: Sepsis acute organ dysfunction status: with acute organ dysfunction Sepsis type: sepsis due to unspecified organism Severe sepsis acute organ dysfunction type: acute renal failure Code(s): A41.9 - Sepsis, unspecified organism Status: Acute Assessment and Plan: Blood cultures 11/03 positive for Staphylococcus epidermidis. Blood cultures from 11/04 are negative. Treatment as per primary team. (6) COPD (chronic obstructive pulmonary disease): Code(s): J44.9 - Chronic obstructive pulmonary disease, unspecified Status: Acute Assessment and Plan: Has known severe end-stage COPD. Management as per primary team and pulmonology (7) Acute on chronic respiratory failure with hypoxia and hypercapnia: Code(s): J96.21 - Acute and chronic respiratory failure with hypoxia; J96.22 - Acute and chronic respiratory failure with hypercapnia Status: Acute Assessment and Plan: Treatment as per primary team and pulmonology (8) Coronary artery disease: Code(s): I25.10 - Atherosclerotic heart disease of [place] coronary artery without angina pectoris Status: Acute Assessment and Plan: Aspirin on hold due to anemia and thrombocytopenia. Hematology evaluation. Subjective Date/time seen: 11/11/23 10:44 Interval history: Date of service: 11/11/2023 Interval history: Patient lying down in bed, denies chest pain or shortness of breath at present. On telemetry, currently in sinus rhythm. Exam Narrative: PHYSICAL EXAMINATION: GENERAL: Ill-appearing female, alert, oriented, no acute distress MENTAL STATUS: affect appropriate to mood EYES: Extraocular movements intact, pallor present EARS: External ears appear normal, hearing grossly normal NOSE: Normal and patent, no discharge MOUTH: Mucous membranes moist, tongue normal NECK: Supple, no JVD CHEST: Coarse breath sounds HEART: Normal rate, regular rhythm, normal S1 and S2 ABDOMEN: Soft, nontender NEUROLOGICAL: Alert, oriented, normal speech, no gross motor deficits MUSCULOSKELETAL: No major deformity, no amputation; ICD noted in left subclavicular area EXTREMITIES: No pedal edema SKIN: no rash on the exposed area, no cyanosis PSYCHIATRIC: No agitation Objective Data Vital Signs Vital Signs: Vital Signs - 24 hr 11/10/23 11:15 11/10/23 11:30 11/10/23 12:25 Temperature 36.6 C 36.6 C 36.6 C Pulse Rate 71 72 75 Respiratory Rate 32 H 24 H 22 H Blood Pressure 99/49 L 111/49 L 106/49 L Pulse Oximetry 100 100 100 Oxygen Delivery Oxygen Flow Rate 11/10/23 11:32 11/10/23 12:00 11/10/23 12:00 Temperature 36.7 C Pulse Rate 71 74 Respiratory Rate 24 H Blood Pressure 97/41 L Pulse Oximetry 100 100 Oxygen Delivery Nasal Cannula Oxygen Flow Rate 2 11/10/23 12:47 0
--- NOTE | 2023-11-11 13:01 | PM.IMPN ---
Progress Note: A&P Assessment and Plan (1) Sepsis: Qualifiers: Sepsis type: sepsis due to unspecified organism Sepsis acute organ dysfunction status: with acute organ dysfunction Severe sepsis acute organ dysfunction type: acute renal failure Code(s): A41.9 - Sepsis, unspecified organism Status: Acute Assessment and Plan: Present on admission with leukocytosis, tachycardia, respiratory failure. No Pneumonia by CT chest. Azithro started 11/03 but quickly discontinued due to interaction with amiodarone. Vancomycin added due to positive blood cultures 11/04 BCx 11/03 positive for Staph Epidermidis, sensitive to Vancomycin EJ line removed and cultured: Culture showing Staph Epi as well. ECHO: EF 30-35% with akinesis of the anterior wall anterolateral wall and apex. Grade I diastolic dysfunction. Repeat BCx 11/04: NGTD Day 8 Vanco from negative cultures. WBC stable 10-11 range. No fevers. Continue IV abx Continue to monitor. (2) Anemia: Code(s): D64.9 - Anemia, unspecified Status: Acute Assessment and Plan: Hgb dropped to 6.0 and received transfusion 11/05/23 GI consulted and appreciate their input. Protonix IV started EGD 11/07 showing hiatal hernia and gastric angioectasia (GAVE) s/p cauterization [place] 11/07 showing diverticulosis and internal hemorrhoids. There was a small amount of dried blood seen throughout the colon. THONG negative. B12/Folate normal. Iron studies normal except low TICB Anemia probably related to gastric angioectasia. Consider SB AVMs Hgb dropped again to 6.7 (11/10) and transfused 1U. Repeat 8.5-> 7.9 Heme/Onc following and apprecaite their input. Monitor H&H and transfuse as needed. Continue Protonix (3) Left ventricular thrombus: Code(s): I51.3 - Intracardiac thrombosis, not elsewhere classified Status: Acute Assessment and Plan: Echo showing EF 30-35% with LV apical thrombus 1.9 x 1.4cm. Was on heparin which was held due to thrombocytopenia below 50K Plt count jumped to 118K after transfusion but already down to 61K. Monitor Platelets and restart heparin if above 50 and stable (4) Thrombocytopenia: Code(s): D69.6 - Thrombocytopenia, unspecified Status: Acute Assessment and Plan: Patient with normal plt count up until October 2023. B12 level normal. Hematology consulted. Related to sepsis and consumption? BERENICE pending Heparin induced Plt Ab negative. Transfuse if Plt<20K or bleeding. Bone marrow bx 11/09: Path pending. Appreciate H/O input Platelet count dropped to 18K (11/10) and 2U ordered; Repeat count 118K-> 61K Follow and transfuse as needed (5) Acute exacerbation of CHF (congestive heart failure): Code(s): I50.9 - Heart failure, unspecified Status: Acute Assessment and Plan: Noted to have acute on chronic systolic and diastolic CHF. Treated with IV Lasix Cardiology consulted Echo as above. On lasix but stopped today due to rising Cr. Continue Toprol XL and Entresto with BP parameters. (6) Pulmonary emboli: Code(s): I26.99 - Other pulmonary embolism without acute cor pulmonale Status: Acute Assessment and Plan: Patient was hospitalized 10/18-10/28 for SOB and found to have single small segmental PE in the RUL 10/19. LE venous dopplers were negative for DVT 10/20. Not discharged on anticoagulation due to low plt and anemia. Repeat LE venous dopplers were negative for DVT 10/30. CTA Chest 11/05 showing DVT involving Rt internal jugular vein but no PE. Anticoagulation on hold As above. (7) Acute hypercapnic respiratory failure: Code(s): J96.02 - Acute respiratory failure with hypercapnia Status: Acute Assessment and Plan: Treated with oxygen and NIPPV per pulmonology Still needing O2 on occasion CXR 11/10 showing [id number] left pleural effusion with left basilar atelectasis versus pneumonia and COPD. Already on Vanco. Will
[2023-11-11] MEDS: CHLORHEXIDINE GLUCONATE 0.12% ORAL RINSE 473 ML BTL (*BKC) 15 ML SWISH/SPIT (16:32)
[2023-11-11] MEDS: ALBUTEROL SULFATE NEB 2.5 MG/3 ML INH INHALATION (19:45)
[2023-11-12] VITALS (20 sets, daily range): BP systolic 91–146; BP diastolic 54–88; PULSE 67–95; RESP 12–25; TEMP 36.6–38.1; O2SAT 89–100
[2023-11-12 05:30] LABS: Basophils Percent Auto 0.2 % (0.2-1.2); Eosinophils Absolute Auto 0.1 K/mm3 (0-0.3); Eosinophils Percent Auto 0.6 % (0-4.4); Hematocrit 26.1 % (37.0-47.0); Hemoglobin 7.7 g/dL (12.0-15.0); Immature Granulocyte Absolute 0.08 K/mm3 (0.00-0.031); Immature Granulocyte Percent A 0.8 % (0-0.5); Immature Platelet Fraction Pct 21.4 % (0.9-11.2); Lymphocytes Absolute Auto 0.81 K/mm3 (0.9-3.2); Lymphocytes Percent Auto 8.3 % (18.3-44.2); Mean Corpuscular HGB Conc 29.5 g/dl (32-36); Mean Corpuscular Hemoglobin 29.4 pg (26-34); Mean Corpuscular Volume 99.6 fl (80-100); Monocytes Absolute Auto 0.5 K/mm3 (0.1-0.6); Monocytes Percent Auto 5.3 % (2.6-8.5); Neutrophils Absolute Auto 8.2 K/mm3 (1.3-6.7); Neutrophils Percent Auto 84.8 % (45.5-73.1); Nucleated Red Blood Cells Absolute Auto 0.2 K/mm3 (0.0-0.012); Nucleated Red Blood Cells Perc 1.6 % (0.0-0.2); Red Blood Count 2.62 M/mm3 (4.2-5.4); Red Cell Distribution Width 19.3 % (11.5-14.5); White Blood Count 9.7 K/mm3 (4.5-10.0)
[2023-11-12 05:41] LABS: Anion Gap -1 mmol/L (8-16); Blood Urea Nitrogen 33 mg/dL (7-17); Calcium 7.7 mg/dL (8.4-10.2); Carbon Dioxide 28 mmol/L (22-30); Chloride 118 mmol/L (98-107); Estimated CRCL calculation 33 ml/min; Estimated Glomerular Filt Rate > 60; Glucose 96 mg/dL (65-110); Magnesium 2.3 mg/dL (1.6-2.3); Phosphorus 2.4 mg/dL (2.5-4.5); Potassium 3.6 mmol/L (3.4-5.0); Sodium 145 mmol/L (137-145)
[2023-11-12 05:47] LABS: Vancomycin Trough 21.8 ug/mL (10.0-20.0)
[2023-11-12 05:54] LABS: Platelet Count Result 21 k/mm3 (150-375)
[2023-11-12 05:55] LABS: Anisocytosis 1+ (NORMAL); Platelet Estimate Decreased (Adequate); Schistocytes None Seen (NORMAL)
[2023-11-12 05:56] LABS: Spherocytes 1+ (NORMAL)
[2023-11-12] MEDS: CENTRAL LINE FLUSH 10 ML IV PUSH ×3 (06:14→21:19)
--- NOTE | 2023-11-12 08:37 | P.CDI_ITS ---
CDI Query Clarification Request BMI 18.1 Nutritional Diagnostic Statement Severe protein calorie malnutrition related to chronic loss of appetite as evidenced by weight loss 9%/1 month; inadequate intake <75% needs > 1 month; NFPE findings of severe muscle wasting and fat loss;poor healing wounds. Please refer to the comprehensive nutrition assessment for further information. Please clarify the severity of protein calorie malnutrition if known: * Mild * Moderate * Severe * Other/ Unspecified
[2023-11-12] MEDS: FERROUS GLUCONATE 324 MG TABLET PO (09:21)
[2023-11-12] MEDS: METOPROLOL SUCCINATE EXT REL 100 MG TABCR PO (09:21)
[2023-11-12] MEDS: AMIODARONE HCL 200 MG TABLET PO ×2 (09:21→16:52)
[2023-11-12] MEDS: GABAPENTIN 400 MG CAPSULE PO ×3 (09:21→16:52)
[2023-11-12] MEDS: SACUBITRIL/VALSARTAN 12-13 MG TABLET 1 TAB PO ×2 (09:21→21:18)
[2023-11-12] MEDS: PANTOPRAZOLE SODIUM IV 40 MG VIAL IV PUSH ×2 (09:22→21:17)
[2023-11-12] MEDS: ROFLUMILAST 500 MCG TABLET PO (09:22)
[2023-11-12] MEDS: FLUTICASONE/UMECLIDIN/VILANTER 100-62.5-25 MCG ELLIPTA 1 PUFF INHALATION (09:54)
[2023-11-12] MEDS: CHLORHEXIDINE GLUCONATE 0.12% ORAL RINSE 473 ML BTL (*BKC) 15 ML SWISH/SPIT ×2 (11:08→16:53)
--- NOTE | 2023-11-12 11:39 | PCNFU ---
Nutrition Follow-Up Complete: Severe protein calorie malnutrition related to chronic loss of appetite as evidenced by weight loss 9%/1 month; inadequate intake <75% needs >1 month; NFPE findings of severe muscle wasting and fat loss; poorly healing wounds Goal:Improved PO intake at least 50% meals and supplements Pt current nutrition is Heart healthy, Ensure Enlive TID, LEXUS BID. Nutrition recommendation: continue with current plan of care, encourage po intake, assistance as needed Last recorded weight is 45.5 kg. Bowel Motility: +BM 11/11 Labs Reviewed: Hgb:7.7, HCT:26.1, Alb:2.0, BUN:33, Cr:1.1 Meds Noted: protonix, heparin Skin: stage III coccyx Additional Notes: Pt continues on a heart healthy diet with supplements, intake charted at 10-30%. Nursing staff states pt intake is still not good, even with encouragement. Continue to encourage po intake of meals and supplements. Monitoring intakes, weights, labs, supplement tolerance, wound healing, plan of care Follow up in 5 days
[2023-11-12] MEDS: VANCOMYCIN 500 MG/NS 100 ML 500 MG/100 ML BAG 100 MG IVPB (13:19)
[2023-11-12 14:14] LABS: Heparin Induced Platelet Antib Negative (Negative)
[2023-11-12 15:34] LABS: ADAMTS-13 Activity 0.55 IU/mL (0.68-1.63)
[2023-11-12 16:10] LABS: ANA Pattern Nuclear, Nucleolar
--- NOTE | 2023-11-12 16:41 | PM.IMPN ---
Progress Note: A&P Assessment and Plan (1) Sepsis: Qualifiers: Sepsis type: sepsis due to unspecified organism Sepsis acute organ dysfunction status: with acute organ dysfunction Severe sepsis acute organ dysfunction type: acute renal failure Code(s): A41.9 - Sepsis, unspecified organism Status: Acute Assessment and Plan: Present on admission with leukocytosis, tachycardia, respiratory failure. No Pneumonia by CT chest. Azithro started 11/03 but quickly discontinued due to interaction with amiodarone. Vancomycin added due to positive blood cultures 11/04 BCx 11/03 positive for Staph Epidermidis, sensitive to Vancomycin EJ line removed and cultured: Culture showing Staph Epi as well. ECHO: EF 30-35% with akinesis of the anterior wall anterolateral wall and apex. Grade I diastolic dysfunction. Repeat BCx 11/04: NGTD Day 9 Vanco from negative cultures. WBC normal but now with low grade fevers. Continue IV Vancomycin. Check CXR. Repeat BCx. Add Cefepime (PCN allergy but tolerated Rocephin recently). Speech to see Continue to monitor. (2) Anemia: Code(s): D64.9 - Anemia, unspecified Status: Acute Assessment and Plan: Hgb dropped to 6.0 and received transfusion 11/05/23 GI consulted and appreciate their input. Protonix IV started EGD 11/07 showing hiatal hernia and gastric angioectasia (GAVE) s/p cauterization [place] 11/07 showing diverticulosis and internal hemorrhoids. There was a small amount of dried blood seen throughout the colon. THONG negative. B12/Folate normal. Iron studies normal except low TICB Anemia probably related to gastric angioectasia. Consider SB AVMs Hgb dropped again to 6.7 (11/10) and transfused 1U. Repeat 8.5-> 7.9-> 7.7 Heme/Onc following and apprecaite their input. Monitor H&H and transfuse as needed. Continue Protonix. Add steroids? (3) Left ventricular thrombus: Code(s): I51.3 - Intracardiac thrombosis, not elsewhere classified Status: Acute Assessment and Plan: Echo showing EF 30-35% with LV apical thrombus 1.9 x 1.4cm. Was on heparin which was held due to thrombocytopenia below 50K Plt count jumped to 118K after transfusion but already down to 21K. Monitor Platelets and restart heparin if above 50 and stable (4) Thrombocytopenia: Code(s): D69.6 - Thrombocytopenia, unspecified Status: Acute Assessment and Plan: Patient with normal plt count up until October 2023. B12 level normal. Hematology consulted. Related to sepsis and consumption? BERENICE pending Heparin induced Plt Ab negative. Transfuse if Plt<20K or bleeding. Bone marrow bx 11/09: Path pending. Appreciate H/O input Platelet count dropped to 18K (11/10) and 2U ordered; Repeat count 118K-> 61K-> 21K Follow and transfuse as needed (5) Acute exacerbation of CHF (congestive heart failure): Code(s): I50.9 - Heart failure, unspecified Status: Acute Assessment and Plan: Noted to have acute on chronic systolic and diastolic CHF. Treated with IV Lasix Cardiology consulted Echo as above. On lasix but stopped today due to rising Cr. Continue Toprol XL and Entresto with BP parameters. Check CXR (6) Pulmonary emboli: Code(s): I26.99 - Other pulmonary embolism without acute cor pulmonale Status: Acute Assessment and Plan: Patient was hospitalized 10/18-10/28 for SOB and found to have single small segmental PE in the RUL 10/19. LE venous dopplers were negative for DVT 10/20. Not discharged on anticoagulation due to low plt and anemia. Repeat LE venous dopplers were negative for DVT 10/30. CTA Chest 11/05 showing DVT involving Rt internal jugular vein but no PE. Anticoagulation on hold As above. (7) Acute hypercapnic respiratory failure: Code(s): J96.02 - Acute respiratory failure with hypercapnia Status: Acute Assessment and Plan: Treated with oxygen and NIPPV per pulmonology Still needing
[2023-11-12 17:11] LABS: Hemoglobin 8.1 g/dL (12.0-15.0); Immature Platelet Fraction Pct 25.5 % (0.9-11.2); Mean Corpuscular HGB Conc 28.9 g/dl (32-36); Mean Corpuscular Hemoglobin 29.3 pg (26-34); Mean Corpuscular Volume 101.4 fl (80-100); Red Blood Count 2.76 M/mm3 (4.2-5.4); Red Cell Distribution Width 20.1 % (11.5-14.5); White Blood Count 11.4 K/mm3 (4.5-10.0)
[2023-11-12 17:18] LABS: Platelet Count Result 18 k/mm3 (150-375)
[2023-11-12] MEDS: CEFEPIME 1 GM/NS 50 ML 1 GM/50 ML BAG IVPB (18:21)
[2023-11-12] MEDS: IPRATROPIUM BR 0.02% INH SOLN 0.5 MG/2.5 ML VIAL INHALATION (20:05)
[2023-11-12] MEDS: LEVALBUTEROL NEB 1.25 MG/3 ML INHALATION (20:06)
[2023-11-12] MEDS: SODIUM CHLORIDE 0.9% IV 250 ML 30 ML IV CONT (21:25)
--- NOTE | 2023-11-12 23:00 | PC.NURSE ---
spoke with blood bank. Platelets have been ordered but they are not here yet.
[2023-11-12] MEDS: methylPREDNISolone SOD SUCC 125 MG VIAL 60 MG IV PUSH (23:35)
[2023-11-13] VITALS (35 sets, daily range): BP systolic 90–144; BP diastolic 49–84; PULSE 66–105; RESP 18–25; TEMP 36.3–37.6; O2SAT 90–100
[2023-11-13] MEDS: IPRATROPIUM BR 0.02% INH SOLN 0.5 MG/2.5 ML VIAL INHALATION ×4 (01:34→19:53)
[2023-11-13] MEDS: LEVALBUTEROL NEB 1.25 MG/3 ML INHALATION ×4 (01:34→19:53)
[2023-11-13] MEDS: methylPREDNISolone SOD SUCC 125 MG VIAL 60 MG IV PUSH ×3 (05:36→17:13)
[2023-11-13] MEDS: CEFEPIME 1 GM/NS 50 ML 1 GM/50 ML BAG IVPB ×2 (05:37→17:14)
[2023-11-13] MEDS: VANCOMYCIN 500 MG/NS 100 ML 500 MG/100 ML BAG 100 MG IVPB (05:41)
[2023-11-13] MEDS: CENTRAL LINE FLUSH 10 ML IV PUSH ×3 (05:41→20:54)
[2023-11-13 07:09] LABS: Basophils Percent Auto 0.1 % (0.2-1.2); Hematocrit 24.5 % (37.0-47.0); Hemoglobin 7.6 g/dL (12.0-15.0); Immature Granulocyte Absolute 0.07 K/mm3 (0.00-0.031); Immature Granulocyte Percent A 0.6 % (0-0.5); Immature Platelet Fraction Pct 31.3 % (0.9-11.2); Lymphocytes Absolute Auto 0.62 K/mm3 (0.9-3.2); Lymphocytes Percent Auto 5.8 % (18.3-44.2); Mean Corpuscular Hemoglobin 30.9 pg (26-34); Mean Corpuscular Volume 99.6 fl (80-100); Monocytes Absolute Auto 0.1 K/mm3 (0.1-0.6); Monocytes Percent Auto 0.7 % (2.6-8.5); Neutrophils Percent Auto 92.8 % (45.5-73.1); Nucleated Red Blood Cells Absolute Auto 0.1 K/mm3 (0.0-0.012); Nucleated Red Blood Cells Perc 0.9 % (0.0-0.2); Red Blood Count 2.46 M/mm3 (4.2-5.4); Red Cell Distribution Width 19.2 % (11.5-14.5); White Blood Count 10.8 K/mm3 (4.5-10.0)
[2023-11-13 07:15] LABS: Alanine Aminotransferase 25 U/L (6-35); Alkaline Phosphatase 92 U/L (38-126); Anion Gap 5 mmol/L (8-16); Aspartate Amino Transferase 29 U/L (14-36); Bilirubin,Total 0.7 mg/dL (0.2-1.3); Blood Urea Nitrogen 37 mg/dL (7-17); Calcium 7.4 mg/dL (8.4-10.2); Carbon Dioxide 24 mmol/L (22-30); Chloride 117 mmol/L (98-107); Estimated CRCL calculation 32 ml/min; Estimated Glomerular Filt Rate > 60; Glucose 133 mg/dL (65-110); Magnesium 2.2 mg/dL (1.6-2.3); Phosphorus 2.9 mg/dL (2.5-4.5); Potassium 4.1 mmol/L (3.4-5.0); Sodium 146 mmol/L (137-145)
[2023-11-13 07:20] LABS: Platelet Count Result 15 k/mm3 (150-375)
[2023-11-13 07:47] LABS: Anisocytosis 3+ (NORMAL); Hypochromasia 1+ (NORMAL); Macrocytosis 2+ (NORMAL); Microcytosis 2+ (NORMAL); Platelet Estimate Decreased (Adequate); Schistocytes None Seen (NORMAL)
[2023-11-13] MEDS: FLUTICASONE/UMECLIDIN/VILANTER 100-62.5-25 MCG ELLIPTA 1 PUFF INHALATION (08:25)
--- NOTE | 2023-11-13 08:47 | PCSTNOTE ---
Please refer to the Bedside Swallow Evaluation in the EMR. Please note, silent aspiration cannot be ruled out at bedside. The above pleasant and cooperative pt was seen for a swallow evaluation at bedside. The pt was positioned upright in the bed. She was alert but exhibited expressive language difficulty. She was able to follow simple commands. She is currently on a heart healthy diet and denies dysphagia. Oral mucosa is normal; natural dentition is in fair/poor condition with many missing teeth. Oral peripheral exam revealed labial movement to be normal but lingual lateral ROM was decreased (vs question pt's ability to understand the instruction). She was able to dry swallow on command and exhibited clear vocal quality. She was tested with pudding, applesauce, cracker and thin liquids. The oral stages appeared WNL bu slightly slowed mastication. No oral leakage or pocketing was noted. During the pharyngeal stage, swallow reflex appeared prompt & laryngeal elevation adequate. No overt s/s of aspiration were exhibited; however, silent aspiration cannot ruled at bedside. General impression is normal/functional swallow ability. Recommendation: level 7 easy to chew diet. No further ST recommended. Thank you for this referral.
[2023-11-13] MEDS: ACETAMINOPHEN 325 MG TABLET 650 MG PO ×2 (09:20→20:54)
[2023-11-13] MEDS: ROFLUMILAST 500 MCG TABLET PO (09:21)
[2023-11-13] MEDS: SACUBITRIL/VALSARTAN 12-13 MG TABLET 1 TAB PO ×2 (09:21→20:54)
[2023-11-13] MEDS: METOPROLOL SUCCINATE EXT REL 100 MG TABCR PO (09:21)
[2023-11-13] MEDS: AMIODARONE HCL 200 MG TABLET PO ×2 (09:21→17:13)
[2023-11-13] MEDS: PANTOPRAZOLE SODIUM IV 40 MG VIAL IV PUSH ×2 (09:21→20:54)
[2023-11-13] MEDS: FERROUS GLUCONATE 324 MG TABLET PO (09:21)
[2023-11-13] MEDS: GABAPENTIN 400 MG CAPSULE PO ×3 (09:21→17:13)
[2023-11-13] MEDS: CHLORHEXIDINE GLUCONATE 0.12% ORAL RINSE 473 ML BTL (*BKC) 15 ML SWISH/SPIT ×2 (09:22→17:14)
--- NOTE | 2023-11-13 13:19 | PM.IMPN ---
Progress Note: A&P Assessment and Plan (1) Sepsis: Qualifiers: Sepsis type: sepsis due to unspecified organism Sepsis acute organ dysfunction status: with acute organ dysfunction Severe sepsis acute organ dysfunction type: acute renal failure Code(s): A41.9 - Sepsis, unspecified organism Status: Acute Assessment and Plan: Present on admission with leukocytosis, tachycardia, respiratory failure. No Pneumonia by CT chest. Azithro started 11/03 but quickly discontinued due to interaction with amiodarone. Vancomycin added due to positive blood cultures 11/04 BCx 11/03 positive for Staph Epidermidis, sensitive to Vancomycin EJ line removed and cultured: Culture showing Staph Epi as well. ECHO: EF 30-35% with akinesis of the anterior wall anterolateral wall and apex. Grade I diastolic dysfunction. Repeat BCx 11/04: Negative Day 10 Vanco from negative cultures. Vanco to end today. WBC essentially normal. CXR showing retrocardiac airspace disease and small bilateral pleural effusions. No further low grade fevers - could be atelectasis or from DVT. Repeat BCx pending. Cefepime added. Stop abx if repeat BCx negative for 2 days and fever free No issues per Speech Therapy Continue to monitor. (2) Anemia: Code(s): D64.9 - Anemia, unspecified Status: Acute Assessment and Plan: Hgb dropped to 6.0 and received transfusion 11/05/23 GI consulted and appreciate their input. Protonix IV started EGD 11/07 showing hiatal hernia and gastric angioectasia (GAVE) s/p cauterization [place] 11/07 showing diverticulosis and internal hemorrhoids. There was a small amount of dried blood seen throughout the colon. THONG negative. B12/Folate normal. Iron studies normal except low TICB Anemia probably related to gastric angioectasia. Consider SB AVMs. Hgb dropped again to 6.7 (11/10) and transfused 1U. Repeat 8.5-> 7.9-> 7.7-> 7.6 Heme/Onc following. Will re-consult H/O Monitor H&H and transfuse as needed. Continue Protonix. (3) Left ventricular thrombus: Code(s): I51.3 - Intracardiac thrombosis, not elsewhere classified Status: Acute Assessment and Plan: Echo showing EF 30-35% with LV apical thrombus 1.9 x 1.4cm. Was on heparin which was held due to thrombocytopenia below 50K Plt count jumped to 118K after transfusion but already down <50K. Monitor Platelets and restart heparin if above 50 and stable (4) Thrombocytopenia: Code(s): D69.6 - Thrombocytopenia, unspecified Status: Acute Assessment and Plan: Patient with normal plt count up until October 2023. B12 level normal. Hematology consulted. Related to sepsis and consumption? BERENICE positive at 1:80 nuclear pattern. Possibly normal variant Heparin induced Plt Ab negative. Transfuse if Plt<20K or bleeding. Bone marrow bx 11/09: Path pending. Appreciate H/O input Platelet count dropped to 18K (11/10) and 2U ordered Repeat count 118K-> 61K-> 21K(repeat wa 18K and plt ordered 11/12/23 but not given) Plt 15K today and hopefully will get trasnfusion today. Steroids started for wheezing. Follow and transfuse as needed (5) Acute exacerbation of CHF (congestive heart failure): Code(s): I50.9 - Heart failure, unspecified Status: Acute Assessment and Plan: Noted to have acute on chronic systolic and diastolic CHF. Treated with IV Lasix Cardiology consulted Echo as above. On lasix but stopped today due to rising Cr. Continue Toprol XL and Entresto with BP parameters. CXR as above Follow (6) Pulmonary emboli: Code(s): I26.99 - Other pulmonary embolism without acute cor pulmonale Status: Acute Assessment and Plan: Patient was hospitalized 10/18-10/28 for SOB and found to have single small segmental PE in the RUL 10/19. LE venous dopplers were negative for DVT 10/20. Not discharged on anticoagulation due to low plt and anemia. Repeat LE venous dopplers were negative for DVT 10/30.
[2023-11-13] MEDS: TUBING, BLOOD PLUM PUMP TUBING 1 EACH XX ×2 (14:18→17:14)
[2023-11-13 21:14] LABS: Hematocrit 24.2 % (37.0-47.0); Mean Corpuscular HGB Conc 28.5 g/dl (32-36); Mean Corpuscular Volume 105.2 fl (80-100); Mean Platelet Volume 10.6 fl (7.4-10.4); Platelet Count Result 159 k/mm3 (150-375); Red Cell Distribution Width 20.1 % (11.5-14.5); White Blood Count 17.5 K/mm3 (4.5-10.0)
[2023-11-13 21:26] LABS: Hemoglobin 6.9 g/dL (12.0-15.0)
[2023-11-14] VITALS (22 sets, daily range): BP systolic 97–118; BP diastolic 46–72; PULSE 72–107; RESP 14–28; TEMP 36.1–37; O2SAT 65–99
[2023-11-14] MEDS: methylPREDNISolone SOD SUCC 125 MG VIAL 60 MG IV PUSH ×2 (00:17→05:30)
[2023-11-14] MEDS: SODIUM CHLORIDE 0.9% IV 250 ML 30 ML IV CONT (00:17)
[2023-11-14] MEDS: TUBING, BLOOD PLUM PUMP TUBING 1 EACH XX (00:18)
[2023-11-14] MEDS: LEVALBUTEROL NEB 1.25 MG/3 ML INHALATION (02:24)
[2023-11-14] MEDS: IPRATROPIUM BR 0.02% INH SOLN 0.5 MG/2.5 ML VIAL INHALATION ×2 (02:24→09:51)
[2023-11-14] MEDS: CENTRAL LINE FLUSH 10 ML IV PUSH ×2 (05:30→15:10)
[2023-11-14] MEDS: CEFEPIME 1 GM/NS 50 ML 1 GM/50 ML BAG IVPB (05:30)
[2023-11-14 05:49] LABS: Basophils Percent Auto 0.1 % (0.2-1.2); Hematocrit 27.6 % (37.0-47.0); Hemoglobin 8.4 g/dL (12.0-15.0); Immature Granulocyte Absolute 0.15 K/mm3 (0.00-0.031); Immature Platelet Fraction Pct 6.4 % (0.9-11.2); Lymphocytes Absolute Auto 0.92 K/mm3 (0.9-3.2); Lymphocytes Percent Auto 6.3 % (18.3-44.2); Mean Corpuscular HGB Conc 30.4 g/dl (32-36); Mean Corpuscular Hemoglobin 30.4 pg (26-34); Mean Platelet Volume 11.1 fl (7.4-10.4); Monocytes Absolute Auto 0.4 K/mm3 (0.1-0.6); Monocytes Percent Auto 2.6 % (2.6-8.5); Neutrophils Absolute Auto 13.2 K/mm3 (1.3-6.7); Nucleated Red Blood Cells Absolute Auto 0.2 K/mm3 (0.0-0.012); Nucleated Red Blood Cells Perc 1.4 % (0.0-0.2); Platelet Count Result 81 k/mm3 (150-375); Red Blood Count 2.76 M/mm3 (4.2-5.4); Red Cell Distribution Width 17.9 % (11.5-14.5); White Blood Count 14.7 K/mm3 (4.5-10.0)
[2023-11-14 06:15] LABS: Albumin Level 2.3 g/dL (3.5-5.1); Anion Gap 2 mmol/L (8-16); Blood Urea Nitrogen 53 mg/dL (7-17); Calcium 8.2 mg/dL (8.4-10.2); Carbon Dioxide 26 mmol/L (22-30); Chloride 119 mmol/L (98-107); Estimated CRCL calculation 27 ml/min; Estimated Glomerular Filt Rate 50; Glucose 134 mg/dL (65-110); Magnesium 2.2 mg/dL (1.6-2.3); Phosphorus 2.5 mg/dL (2.5-4.5); Potassium 3.9 mmol/L (3.4-5.0); Sodium 147 mmol/L (137-145)
[2023-11-14 06:27] LABS: Anisocytosis 1+ (NORMAL); Platelet Estimate Decreased (Adequate); Poikilocytosis 1+ (NORMAL)
[2023-11-14 06:28] LABS: Schistocytes None Seen (NORMAL)
[2023-11-14] MEDS: ALBUTEROL SULFATE NEB 2.5 MG/3 ML INH INHALATION (09:51)
[2023-11-14 10:09] LABS: Glucose Point of Care 106 mg/dl (65-105)
[2023-11-14 10:09] LABS: Glucose Point of Care 119 mg/dl (65-105)
--- NOTE | 2023-11-14 10:13 | PCRTNOTE ---
Window of time for administration has passed. See next scheduled administration.
--- NOTE | 2023-11-14 10:45 | PC.NURSE ---
1000-Called to patient bedside due to patient being unresponsive. Dr. Rodriguez notified. CT brain, ABG, CXR and Dr. Romero consult ordered. After test results patient was moved to ICU 7 per bed. Family notified of change in condition. Daughter on her way to see patient.
[2023-11-14] MEDS: PANTOPRAZOLE SODIUM IV 40 MG VIAL IV PUSH (10:55)
--- NOTE | 2023-11-14 11:21 | PC.NURSE ---
Family here for meeting with Dr. Romero.
--- NOTE | 2023-11-14 11:58 | P.CONIN_ITS ---
Assessment and Plan Assessment and plan (1) Unresponsive: Code(s): R41.89 - Other symptoms and signs involving cognitive functions and awareness Status: Acute Assessment and Plan: Patient was found unresponsive in the intermediate Unit, was asked to evaluate the patient. CT scan of the brain old infarcts, no acute intracranial abnormality. Patient may have had a stroke given her history of AFib, LV thromb us, unable to anticoagulate. 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 Patient's family decided to make her comfort measures and did not want us to intubate her and place her on mechanical ventilation (2) Acute hypercapnic respiratory failure: Code(s): J96.02 - Acute respiratory failure with hypercapnia Status: Acute Assessment and Plan: Acute respiratory failure likely related to unresponsiveness, COPD exacerbation -chest x-ray did showed retrocardiac consolidation, small bilateral pleural effusion, emphysema -patient was given bronchodilators -family does not want her to be intubated and placed on mechanical ventilation and decided to make her comfort measures (3) Acute exacerbation of CHF (congestive heart failure): Code(s): I50.9 - Heart failure, unspecified Status: Acute Assessment and Plan: Cardiology was following the patient -initially was on Lasix which was discontinued due to worsening creatinine -on metoprolol and Entresto, currently NPO as she is unresponsive 11/05/23: Echo Summary ? 1. Left ventricular chamber dimension is moderately enlarged. ? 2. There is mildly increased left ventricular wall thickness. ? 3. Left ventricular systolic function is moderately reduced, estimated at 30-35%. ? 4. There is akinesis of the anterior wall, anterolateral wall, apex. The mid inferior wall is severely hypokinetic. ? 5. There is an LV apical thrombus. Measures approximately 1.99cm x 1.37cm. ? 6. The left ventricular diastolic function is grade I diastolic dysfunction. ? 7. Right ventricular systolic function is normal. ? 8. Left atrial chamber dimension is moderately enlarged. ? 9. Right atrial chamber dimension is moderately enlarged. ? 10. There is mild mitral valve regurgitation. ? 11. There is moderate tricuspid valve regurgitation. ? 12. Left pleural effusion noted. ? 13. There is trivial pericardial effusion. (4) Sepsis: Qualifiers: Sepsis type: sepsis due to unspecified organism Sepsis acute organ dysfunction status: with acute organ dysfunction Severe sepsis acute organ dysfunction type: acute renal failure Code(s): A41.9 - Sepsis, unspecified organism Status: Acute Assessment and Plan: Sepsis with bacteremia, blood cultures from 11/03/2023 which grew Staph epidermidis, sensitive to vancomycin -status post 10 days of vancomycin -WBC trending down -afebrile -repeat blood cultures were negative, off all antibiotics (5) Thrombocytopenia: Code(s): D69.6 - Thrombocytopenia, unspecified Status: Acute Assessment and Plan: Thrombocytopenia thought to be related to possible bone marrow suppression, biopsies pending -appreciate Hematology/Oncology input (6) Left ventricular thrombus: Code(s): I51.3 - Intracardiac thrombosis, not elsewhere classified Status: Acute
--- NOTE | 2023-11-14 12:00 | WPDONCPN ---
Progress Note: A/P (1) Left ventricular thrombus Code(s): I51.3 - Intracardiac thrombosis, not elsewhere classified Status: Acute <Jeremy Ortega - 11/14/23 18:20> (1) Left ventricular thrombus Code(s): I51.3 - Intracardiac thrombosis, not elsewhere classified Status: Acute (2) Thrombocytopenia Code(s): D69.6 - Thrombocytopenia, unspecified Status: Acute <Bruna Barrera - 11/14/23 12:39> - Additional Plan Patient was seen and examined. Events noted. Patient unresponsive. bone marrow biopsy pathology is still pending. Patient has been made comfort care only. We will sign off. Jeremy Ortega MD <Jeremy Ortega - 11/14/23 18:20> 11/06/23 Patient found to have right IJ thrombus, left ventricular thrombus (with acute renal infarcts and toe ischemia) and was started on IV heparin but then had a hemoglobin of 6.0 and heparin was stopped and she was transfused 1 unit of blood. Workup for etiology of anemia underway. It appears patient developed these thrombi on Eliquis. 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 Colonoscopy with diverticulosis without perforation or abscess, internal hemorrhoids and luminal colonic blood. EGD yesterday status post cauterization with recommendation for no aspirin or in NSAIDs for 5 days. Today, labs are notable for WBC 12.9, Hgb 7.5, Plt 24,0000, Cr 0.90. She denies SOB, bleeding in her stool, nausea/vomiting, or frequent infections. 11/08/23: Pt seen and examined. There is concern for bone marrow issue. Previous jeyson test have been negative, but there is concern for jeyson negative hemolytic anemia and thrombosis which raises the possibility of PNH. Ordered flow cytometry for PNH and ADMTS13 for or possibility of thrombotic microangiopathy given the presence of schistocytes. 11/09/23: BMBX performed with flow cytometry due to continued pancytopenia. Results pending 11/12/23: Flow cytometry on BMBX shows partial CD56 on monocytes but inconclusive. ADAMTS 13 0.55 negative, HIT neg, ITP pending. PNH flow ordered, but now drawn. 11/14/23: Patient was seen and examined this morning with home Trelegy mask on. Patient was able to be aroused and open eyes and squeeze my hands ~830. Patient did not verbalize anything at that time. I was walking down the nielson and RN was in room 15minutes later and found patient unarousable, fixed L pupil and sluggish R pupil. My sternal rub was unable to be produce any arousal to patient. Radial pulses unable to be palpated. RT attempted ABG but unsuccessful. She also has slight twitching and contractures of arms and legs which looked like seizure like activity. RN called Dr. Rodriguez for update and head CT ordered. I left patient when she was going to head CT with respiratory team and RN. Plts 81, Hgb 8.4, WBC 14.7, Cr 1.30. Recurring Thrombus- Patient unable to be coagulated at this time due to low platelets and recent procedure. We recommend holding on all anticoagulation at this point due to the risk of bleeding. Anemia- Iron 69, % sat 41, TIBC 169. Haptoglobin 152, Ferritin elevated d/t inflammation at 638, LDH elevated probably d/t inflammation at 467. Anemia could be multifactorial with decreasing kidney function, blood loss, infection/inflammation, and underlying bone marrow disorder. Please transfuse for Hgb <7. Colonoscopy w/u completed. Thrombocytopenia- Spleen/liver normal based on CT scan. This could be due to infection/inflammation. BMBX results still pending. Flow cytometry shows partial CD56 on monocytes but inconclusive. We will wait for final BMBX results before plan of care. Can transfuse plts <20. HIT negative and ITP pending antibodies at this time due to recent heparin use and elevated percent plt fraction showing platelet production issue. Leukocytosis- I believe this is to be reactive in nature caused by active infection. ESR 12, CRP 7.4 and LDH elevated. BERENICE positive This patient's plan o
--- NOTE | 2023-11-14 12:35 | PCPTNOTE ---
The patient treatment was not able to be completed on 11/14/2023 due to change in medical status. Will plan to continue treatment per plan of care.
[2023-11-14] MEDS: MORPHINE SULFATE INJ (*CRX) 10 MG/ML AMP 5 MG IV PUSH (12:58)
[2023-11-14] MEDS: LORazepam INJ (*CRX) 2 MG/ML VIAL IV PUSH (12:58)
[2023-11-14] MEDS: MORPHINE SULFATE (*CRX) 2 MG/ML INJ IV PUSH ×2 (15:48→21:18)
--- NOTE | 2023-11-14 20:10 | PC.NURSE ---
family declined dose of morphine at this time
--- NOTE | 2023-11-14 21:37 | PC.NURSE ---
pt transferred to [id number] report given to nate. family informed and verb understanding
--- NOTE | 2023-11-14 23:01 | PC.NURSE ---
pt arrived to unit at 2130 via bed from ICU. patient's family at bedside oriented to unit protocol. pt resting well, and family requested staff to let patient rest. will continue to monitor.
[2023-11-15] MEDS: CENTRAL LINE FLUSH 10 ML IV PUSH ×3 (01:24→17:06)
[2023-11-15 05:00] VITALS: BP 123/65; PULSE 87; RESP 26; TEMP 36.8; O2SAT 72
[2023-11-15 08:00] VITALS: BP 121/103; PULSE 129; RESP 16; TEMP 36.4; O2SAT 92
[2023-11-15] MEDS: MORPHINE SULFATE (*CRX) 2 MG/ML INJ IV PUSH ×2 (10:16→17:14)
--- NOTE | 2023-11-15 12:30 | PCNFU ---
Nutrition Follow-Up Complete: Severe protein calorie malnutrition related to chronic loss of appetite as evidenced by weight loss 9%/1 month; inadequate intake <75% needs >1 month; NFPE findings of severe muscle wasting and fat loss; poorly healing wounds Goal:Improved PO intake at least 50% meals and supplements Pt is not meeting goal. Pt current nutrition is NPO. Nutrition recommendation: comfort measures Last recorded weight is 51.5 kg. Bowel Motility: +BM 11/14 Labs Reviewed: Hgb:8.4, HCT:27.6, Alb:2.3, NA:147, GFR:50, BUN:53, Cr:1.3, Glu:134 Meds Noted:morphine Skin: coccyx stage III Additional Notes: pt is NPO at this time due to being unresponsive. Family has chosen comfort care. Provide comfort measures as needed. Monitoring intakes, weights, labs, supplement tolerance, wound healing, plan of care Follow up in 5 days
[2023-11-20 23:59] LABS: Platelet Ab,Indirect (IgA) NEGATIVE (NEGATIVE); Platelet Ab,Indirect (IgG) NEGATIVE (NEGATIVE); Platelet Ab,Indirect (IgM) NEGATIVE (NEGATIVE)
--- NOTE | 2023-11-23 13:03 | PM.DS ---
DS: Admitting Diagnosis Discharge Date 11/15/23 Admitting Diagnosis Shortness of breath DS: Discharge Diagnosis Discharge Diagnosis (1) Unresponsive: Code(s): R41.89 - Other symptoms and signs involving cognitive functions and awareness Status: Acute Assessment and Plan: Patient was found unresponsive in the intermediate Unit, was asked to evaluate the patient. CT scan of the brain old infarcts, no acute intracranial abnormality. Patient may have had a stroke given her history of AFib, LV thrombus, unable to anticoagulate. 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 Patient's family decided to make her comfort measures and did not want us to intubate her and place her on mechanical ventilation (2) Acute hypercapnic respiratory failure: Code(s): J96.02 - Acute respiratory failure with hypercapnia Status: Acute Assessment and Plan: Acute respiratory failure likely related to unresponsiveness, COPD exacerbation -chest x-ray did showed retrocardiac consolidation, small bilateral pleural effusion, emphysema -patient was given bronchodilators -family does not want her to be intubated and placed on mechanical ventilation and decided to make her comfort measures (3) Acute exacerbation of CHF (congestive heart failure): Code(s): I50.9 - Heart failure, unspecified Status: Acute Assessment and Plan: Cardiology was following the patient -initially was on Lasix which was discontinued due to worsening creatinine -on metoprolol and Entresto, currently NPO as she is unresponsive 11/05/23: Echo Summary ? 1. Left ventricular chamber dimension is moderately enlarged. ? 2. There is mildly increased left ventricular wall thickness. ? 3. Left ventricular systolic function is moderately reduced, estimated at 30-35%. ? 4. There is akinesis of the anterior wall, anterolateral wall, apex. The mid inferior wall is severely hypokinetic. ? 5. There is an LV apical thrombus. Measures approximately 1.99cm x 1.37cm. ? 6. The left ventricular diastolic function is grade I diastolic dysfunction. ? 7. Right ventricular systolic function is normal. ? 8. Left atrial chamber dimension is moderately enlarged. ? 9. Right atrial chamber dimension is moderately enlarged. ? 10. There is mild mitral valve regurgitation. ? 11. There is moderate tricuspid valve regurgitation. ? 12. Left pleural effusion noted. ? 13. There is trivial pericardial effusion. (4) Sepsis: Qualifiers: Sepsis type: sepsis due to unspecified organism Sepsis acute organ dysfunction status: with acute organ dysfunction Severe sepsis acute organ dysfunction type: acute renal failure Code(s): A41.9 - Sepsis, unspecified organism Status: Acute Assessment and Plan: Sepsis with bacteremia, blood cultures from 11/03/2023 which grew Staph epidermidis, sensitive to vancomycin -status post 10 days of vancomycin -WBC trending down -afebrile -repeat blood cultures were negative, off all antibiotics (5) Thrombocytopenia: Code(s): D69.6 - Thrombocytopenia, unspecified Status: Acute Assessment and Plan: Thrombocytopenia thought to be related to possible bone marrow suppression, biopsies pending -appreciate Hematology/Oncology input (6) Left ventricular thrombus: Code(s): I51.3 - Intracardiac thrombosis, not elsewhere classified Status: Acute Assessment and Plan: LV thrombus as seen on echocardiogram, initially was on heparin infusion but due to thrombocytopenia, anticoagulation was discontinued (7) Pulmonary emboli: Code(s): I26.99 - Other pul
== END 2023-11-15 17:43 | disposition hospice, inpatient (51) | DRG 720 ==
LOC: ANHED 07:31 → ANHIMU 08:01 → ANH3MEDSUR 11-16 10:59 → ANHICU 11-16 10:59 → ANHIMU 11-16 10:59
PROVIDERS: Family Medicine; Internal Medicine; Internal Medicine Gastroenterology; Internal Medicine Pulmonary Disease; Nurse Practitioner; Radiology Diagnostic Radiology; Admitting Provider General Practice; Emergency Provider Emergency Medicine; PCP Internal Medicine; Referring Provider Nurse Practitioner Family; Visit Provider Student in an Organized Health Care Education/Training Program
PROC: 0DJ08ZZ Inspection of Upper Intestinal Tract, Via Natural or Artificial Opening Endoscopic (ICD-10-PCS; CPT 43235; principal; 2023-11-07 14:30)
PROC: 07DR3ZX Extraction of Iliac Bone Marrow, Percutaneous Approach, Diagnostic (ICD-10-PCS; principal; 2023-11-09 11:00)
DX: A41.9 Sepsis, unspecified organism (principal); J96.21 Acute and chronic respiratory failure with hypoxia; J96.22 Acute and chronic respiratory failure with hypercapnia; N17.9 Acute kidney failure, unspecified; Z20.822 Contact with and (suspected) exposure to COVID-19; B95.7 Other staphylococcus as the cause of diseases classified elsewhere; D64.9 Anemia, unspecified; F41.9 Anxiety disorder, unspecified; I25.10 Atherosclerotic heart disease of native coronary artery without angina pectoris; E78.5 Hyperlipidemia, unspecified; I25.5 Ischemic cardiomyopathy; I51.3 Intracardiac thrombosis, not elsewhere classified; N28.0 Ischemia and infarction of kidney; G47.33 Obstructive sleep apnea (adult) (pediatric); I48.0 Paroxysmal atrial fibrillation; R79.89 Other specified abnormal findings of blood chemistry; K44.9 Diaphragmatic hernia without obstruction or gangrene; F17.210 Nicotine dependence, cigarettes, uncomplicated; I82.C11 Acute embolism and thrombosis of right internal jugular vein; N36.1 Urethral diverticulum; K31.811 Angiodysplasia of stomach and duodenum with bleeding; I24.89 Other forms of acute ischemic heart disease; D69.6 Thrombocytopenia, unspecified; K57.30 Diverticulosis of large intestine without perforation or abscess without bleeding; D62 Acute posthemorrhagic anemia; K64.8 Other hemorrhoids; J44.1 Chronic obstructive pulmonary disease with (acute) exacerbation; R40.4 Transient alteration of awareness; I73.9 Peripheral vascular disease, unspecified; I50.23 Acute on chronic systolic (congestive) heart failure; R73.03 Prediabetes; Z79.82 Long term (current) use of aspirin; Z99.81 Dependence on supplemental oxygen; Z95.810 Presence of automatic (implantable) cardiac defibrillator; Z95.5 Presence of coronary angioplasty implant and graft; I25.2 Old myocardial infarction; Z86.711 Personal history of pulmonary embolism; I69.354 Hemiplegia and hemiparesis following cerebral infarction affecting left non-dominant side; I69.320 Aphasia following cerebral infarction; E43 Unspecified severe protein-calorie malnutrition; Z68.21 Body mass index [BMI] 21.0-21.9, adult
CPT/HCPCS: 36415; 36430; 36569; 36600; 38222; 70450; 71045; 71260; 74177; 80048; 80053; 80069; 80202; 81001; 82375; 82565; 82607; 82728; 82746; 82805; 82948; 83010; 83050; 83540; 83550; 83605; 83615; 83735; 83880; 84100; 84132; 84443; 84484; 85025; 85027; 85046; 85055; 85384; 85397; 85610; 85652; 85730; 86022; 86038; 86039; 86140; 86850; 86880; 86900; 86901; 86923; 87040; 87070; 87086; 87106; 87147; 87181; 87186; 87205; 87637; 87641; 88184; 88185; 88305; 88311; 88313; 88341; 88342; 92610; 93005; 94002; 94003; 94640; 94762; 97161; 97166; 97530; 97535; P9036; A4248; A9270; C1751; C8929; C9113; J0282; J0456; J0692; J0696; J1642; J1644; J1940; J2060; J2250; J2270; J2371; J2704; J2930; J3010; J3370; J3475; J7030; J7040; J7050; J7120; P9016; P9034; Q9957; Q9967

== ENCOUNTER 2023-11-15 17:44 | HOS | payer OTHER, SELFPAY ==
[2023-11-15 18:27] VITALS: BMI 21.4
[2023-11-15] MEDS: MORPHINE SULFATE INJ (*CRX) 50 MG in SODIUM CHLORIDE 0.9% IV 95 ML IV CONT (18:39)
--- NOTE | 2023-11-16 08:57 | PM.IMHP ---
H&P: HPI History of Present Illness Date/Time: 11/16/23 08:57 Chief Complaint: UNCONTROLLED DYSPNEA Narrative: 63 Y/O F with chf, copd was admitted with exacerbation. EF measured at 30%. She failed to respond to appropriate medical therapy and was unresponsive with tachypneic and dyspneic. Family opted for inpatient hospice for symptoms management. Review of Systems Review of Systems: ROS unobtainable: Yes unobtainable due to medical condition PMFSH Past Medical History Medical History Acute on chronic anemia Anxiety Cerebrovascular accident Residual expressive aphasia and right leg weakness. Chronic obstructive pulmonary disease Chronic respiratory failure with hypoxia, on home oxygen therapy Coronary artery disease Essential hypertension Hyperlipidemia Ischemic cardiomyopathy Status post PPM/AICD insertion. EF 20% on 10/08/2023 cath. 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 Tobacco dependence Vitamin D deficiency Surgical History Surgical History History of coronary angioplasty with insertion of stent X4. Recent angioplasty to 100% thrombotic occluded distal LAD stent on 10/08/2023 at [facility]. History of ectopic History of permanent cardiac pacemaker placement History of placement of internal cardiac defibrillator History of tubal ligation Family History Family History Father Family history of malignant neoplasm Sibling Family history of tuberculosis Asthma Mother Hypertension Family history of malignant neoplasm of urinary bladder Social History Social History (Updated 11/16/23 @ 09:40 by Semaj Yi MD) Social History: The patient lives in her own apartment in [place]. She has 5 children. She designates her daughter John Capellan, as her surrogate decision maker and she wishes to be DNR. She is not currently employed. She has smoked up to a pack of cigarettes per day since age of 16, and has been slowly trying to quit. Reportedly she is smoking 2 to 4 cigarettes a day. She denies alcohol and drug abuse. Smoking packs per day: 0.5 Smoking cigarettes per day: 10.0 Years smoked: 40 Smoking pack-years: 20.00 Smoking status: Former smoker Tobacco type: cigarettes Alcohol intake: never Substance use: never Substance use type: does not use Do You Feel Safe in your Home?: Yes Lack of Transportation: No Lack of Food: Never True Current Housing: I Have Housing Concerned About Future Housing: No Difficulty Paying Gas/Electric Bills: No Difficulty Paying for Meds: No Currently Unemployed: YES Education: High School Diploma/GED Difficulty w/ Childcare or Family Care: No Living arrangements: alone Occupation/Education: unemployed Spiritual care concerns: No Meds Home Medications and Allergies Home Medications Medication Instructions Recorded Confirmed Type aspirin 81 mg tablet,delayed 81 mg PO DAILY 10/01/19 11/03/23 History release (Adult Low Dose Aspirin) inhalational spacing device #1 ea 01/13/21 11/03/23 Rx (Aerochamber MV spacer) fluticasone fur. 100 mcg-umeclid 1 inh inhalation Q24H #60 ea 05/31/23 11/03/23 Rx 62.5 mcg-vilant 25 mcg inhalat.powder (Trelegy Ellipta) gabapentin 400 mg capsule 400 mg PO TID #90 caps 07/25/23 11/03/23 Rx Eliquis 5 mg PO BID 10/18/23 11/03/23 Hist
--- NOTE | 2023-11-16 08:59 | PM.DDS ---
Discharge Summary Date and Time Date of : 11/15/23 Time of : 18:52 Provider Pronounced By: Saurav Probable Cause of Probable Cause of : ACUTE ON CHRONIC RESPIRATORY FAILURE WITH HYPOXIA AND HYPERCAPNEA DUE TO CHRONIC SYSTOLIC CHF AND COPD Summary Hospital Course: ADMITTED TO INPATIENT HOSPICE SERVICE. MEDICATIONS TITRATED TO COMFORT. [facility]. Additional Data Confirmation of as documented by pronouncing clinician: Pupillary Reflex, Palpable Pulses, Response to Stimuli, Heart Tones and Breath Sounds Name of Provider Notified: Kd Time Provider Notified: 20:18 Risk Consultant Notified: Yes Date [facility] Notified of : 11/15/23 Time [facility] Notified of : 20:06
== END 2023-11-15 18:52 | disposition expired | DRG 951 ==
LOC: ANH3MEDSUR 17:55
PROVIDERS: Admitting Provider Internal Medicine; PCP Internal Medicine; Visit Provider Internal Medicine
DX: Z51.5 Encounter for palliative care (principal); J96.21 Acute and chronic respiratory failure with hypoxia; J96.22 Acute and chronic respiratory failure with hypercapnia; I50.23 Acute on chronic systolic (congestive) heart failure; J44.1 Chronic obstructive pulmonary disease with (acute) exacerbation; I11.0 Hypertensive heart disease with heart failure; I48.0 Paroxysmal atrial fibrillation; I25.10 Atherosclerotic heart disease of native coronary artery without angina pectoris; I73.9 Peripheral vascular disease, unspecified; I69.341 Monoplegia of lower limb following cerebral infarction affecting right dominant side; I69.320 Aphasia following cerebral infarction
CPT/HCPCS: J2270